=== PATIENT | male | born 1975 ===

== ENCOUNTER 2020-08-08 07:45 | Emergency (ER) | payer MEDICAID, SELFPAY ==
[2020-08-08 08:07] VITALS: BP 150/88; PULSE 93; RESP 16; TEMP 36.5; O2SAT 97; BMI 29.7
--- NOTE | 2020-08-08 08:42 | ED_ITS ---
HPI - Extremity Problem General Chief complaint: Extremity Injury, Lower Stated complaint: GOUT Time Seen by Provider: 08/08/20 08:10 Source: patient Mode of arrival: ambulatory Limitations: language barrier (Slovak-speaking) History of Present Illness HPI Narrative: 45yoM c PMHx of DM, HTN and Gout presenting to the ED c c/o flare-up of his gout to the left knee that started yesterday. Denies any injuries. Denies any additional complaints or concerns at this time. Related Data Previous Rx's Medication Instructions Recorded naproxen 500 mg PO BID PRN #10 tab 08/08/20 oxycodone-acetaminophen [Percocet] 1 tab PO Q8H PRN #10 tab 08/08/20 prednisone 40 mg PO DAILY 5 Days #10 tab 08/08/20 Allergies Allergy/AdvReac Type Severity Reaction Status Date / Time shellfish derived Allergy Unknown HIVES Unverified 06/12/20 17:07 [SHELLFISH DERIVED] shrimp [SHRIMP] Allergy Unknown HIVES Unverified 06/12/20 17:07 Review of Systems Review of Systems: Constitutional : No Fever, No Chills Musculoskeletal : + joint pain, + Joint Swelling Skin : No Skin Lesions, No rash Neuro : No Weakness, No Numbness, No Paresthesias Yes all other systems are reviewed and are negative PMFSH Past Medical History Attestation statement: The following information was validated with the patient. Medical History Gout HTN (hypertension) IDDM (insulin dependent diabetes mellitus) Social History Social History Advance Directives: No Advance Directives Information Provided: No Physical Exam Vital Signs: Vital Signs: Last Vital Signs Temp 97.7 F 08/08/20 08:07 Pulse 93 08/08/20 08:07 Resp 16 08/08/20 08:07 BP 150/88 H 08/08/20 08:07 Pulse Ox 97 08/08/20 08:07 Body Mass Index 29.7 vital signs have been reviewed as normal and appeared to be correct. Blood pressure normal. Heart rate normal. Respiration rate normal. Temperature normal. Oxygen saturation normal. Appearance: Alert. Oriented X3. No acute distress. Head: Normal external exam. Normocephalic. Atraumatic. Eyes: PERRLA. EOMI. Conjunctiva and sclera normal. Eyelids normal. ENT: EAC normal. TM's Normal. Pharynx normal. Uvula midline. Moist mucous membranes. Neck: Normal inspection. Neck supple. FROM. No adenopathy. No meningeal signs. CVS: Normal heart rate and rhythm. Heart sound normal. No murmurs noted. Pulses normal throughout. Respiratory: No respiratory distress. Painless inspiration. Back: Full range of motion noted. Skin: Skin warm and dry. Normal skin color. Normal skin turgor. No rashes/lesions/lacerations noted. Extremities: TTP of left lateral aspect of knee c mild sts no erythema, calor or signs of infection. No lower extremity edema. Extremities exhibit normal range of motion. all other Extremities nontender. Neuro: Oriented X 3. No motor deficit. No sensory deficit. Reflexes normal. Course Course Course Narrative: 45-year-old male with a past medical history of diabetes, hypertension and gout presenting to the ED for gout flare-up to the left lateral aspect of the knee for the past 2 days. No signs of infection. No imaging indicated at this time. Will DC home with a course of steroids naproxen and Percocet along with instructions to return if any new or worsening symptoms to follow-up with primary care provider. Patient understands agrees with this plan. MDM - Extremity (Nontraumatic) Medical Records Attestation: I reviewed the patient's medical records. Discharge Plan Discharge Clinical Impression: Gout Qualifiers: Gout site: knee Gout etiology: idiopathic Chronicity: acute Laterality: left Qualified Code(s): M10.062 - Idiopathic gout, left knee Patient Disposition: Home, Self-Care Instructions: Gout (ED) Prescriptions: New prednisone 20 mg tablet 40 mg PO DAILY 5 Days Qty: 10 RF: 0 naproxen 500 mg tablet 500 mg PO BID PRN (Reason: pain) Qty: 10 RF: 0 oxycodone-acetaminophen [Percocet] 5-325 mg tablet 1 tab PO Q8H PRN (Reason: pain) Qty: 10 RF: 0 Referrals: [facility] [Primary Care Provider] - 2 days Print Language: Slovak
[2020-08-08] MEDS: NaPROXEN 500 MG TABLET PO (08:53)
[2020-08-08] MEDS: predniSONE 20 MG TABLET 60 MG PO (08:53)
== END 2020-08-08 08:57 | disposition home or self-care (01) ==
PROVIDERS: Emergency Provider Emergency Medicine
DX: M10.062 Idiopathic gout, left knee (principal); Z79.899 Other long term (current) drug therapy
CPT/HCPCS: 99283

== ENCOUNTER 2020-08-12 09:25 | Outpatient (REF) | payer MEDICAID, SELFPAY ==
[2020-08-12 10:14] LABS: MANUAL DIFF FLAG NO
[2020-08-12 10:33] LABS: Basophils Absolute Auto 0.1 X10*3/uL (0.0-0.2); Basophils Percent Auto 1.1 % (0-2); Eosinophils Absolute Auto 0.2 X10*3/uL (0.0-0.4); Hematocrit 41.7 % (42-52); Hemoglobin 14.1 g/dl (14.0-18.0); Imm Gran Abs Auto 0.03 X10*3/uL (0.00-0.03); Imm Gran Pct Auto 0.6 % (0.0-0.4); Lymphocytes Absolute Auto 1.7 X10*3/uL (1.2-4.9); Lymphocytes Percent Auto 31.5 % (20-40); Mean Corpuscular HGB Conc 33.8 g/dl (31.0-36.0); Mean Corpuscular Hemoglobin 30.5 pg (27.0-33.0); Mean Corpuscular Volume 90.3 fL (80-98); Mean Platelet Volume 10.9 fL (9.4-12.4); Monocytes Absolute Auto 0.5 X10*3/uL (0.1-1.2); Monocytes Percent Auto 8.3 % (2-11); Neutrophils Percent Auto 55.5 % (45-73); Platelet Count 278 X10*3/uL (160-400); Red Blood Count 4.62 X10*6/uL (4.60-5.80); Red Cell Distribution Width 12.4 % (11.0-16.0); White Blood Count 5.4 X10*3/uL (4.8-10.8)
[2020-08-12 10:54] LABS: Glucose Urine UA NEG (NEG); Leukocyte Esterase Urine NEG (NEG); Nitrite Urine NEG (NEG); PH 5.5 (5.0-8.0); Specific Gravity - Urine >= 1.030 (1.005-1.025); Urine Blood TRACE (NEG); Urine Ketones NEG (NEG); Urine Protein 1+ MG/DL (NEG-TRACE)
[2020-08-12 10:58] LABS: Appearance Urine CLEAR; Color Urine YELLOW
[2020-08-12 11:10] LABS: Albumin Level 4.5 g/dL (3.5-5.0); Amorphous Sediment Urine 1+ /LPF; Mucus Urine 1+ /LPF; Phosphorus 3.4 mg/dL (2.7-4.5); RBC Urine 0-2 /HPF (0); Squamous Epithelial Cell Urine 1+ /LPF; Uric Acid 4.2 mg/dL (3.4-7.0); WBC Urine 0 /HPF (0-4)
[2020-08-12 11:12] LABS: Creatinine Urine 228.97 mg/dL; Microalbum/Creatinine Ratio Ur 199.1 ug/mg cr; Total Protein Urine Random 92 mg/dL (<12); Vitamin D 25-OH Total 24.8 ng/mL (>30)
[2020-08-12 11:13] LABS: Creatinine Urine 221.03 mg/dL; Protein/Creatinine Ratio, Ur 0.42 (<0.2); Total Protein Urine Random 93 mg/dL (<12)
[2020-08-12 12:39] LABS: Alanine Aminotransferase 24 U/L (0-40); Albumin Level 4.4 g/dL (3.5-5.0); Alkaline Phosphatase 65 U/L (39-117); Anion Gap 17 (12-20); Aspartate Amino Transferase 16 U/L (5-37); Bilirubin Direct 0.3 mg/dL (0.0-0.5); Bilirubin Total 0.7 mg/dL (0.0-1.0); Blood Urea Nitrogen 15 mg/dL (9-16); Calcium 8.9 mg/dL (8.4-10.2); Carbon Dioxide 26 mmol/L (22-29); Chloride 101 mmol/L (96-108); Cholesterol 144 mg/dL; Estimated Glomerular Filt Rate > 60; Glucose Random 235 mg/dL (60-115); HDL Cholesterol 35 mg/dL; LDL Cholesterol Calculated 77 mg/dl; Potassium 4.7 mmol/l (3.3-5.1); Sodium 139 mmol/L (135-145); Triglycerides 164 mg/dL
[2020-08-12 13:16] LABS: Renal w Reflex Lab Use Only Order verified
== END 2020-08-12 09:26 | disposition home or self-care (01) ==
LOC: HO.LAB 09:25
PROVIDERS: Absent Provider Internal Medicine Nephrology; PCP Internal Medicine; Visit Provider Student in an Organized Health Care Education/Training Program
DX: I10 Essential (primary) hypertension (principal); N05.9 Unspecified nephritic syndrome with unspecified morphologic changes; E11.9 Type 2 diabetes mellitus without complications; E83.42 Hypomagnesemia
CPT/HCPCS: 36415; 80048; 80061; 80076; 81001; 82040; 82043; 82306; 83735; 84100; 84156; 84550; 85025

== ENCOUNTER 2020-08-12 16:25 | Emergency (ER) | payer MEDICAID, SELFPAY ==
--- NOTE | 2020-08-12 | ECG_ITS ---
Test Reason : ABNORMAL LAB Blood Pressure : / mmHG Vent. Rate : 072 BPM Atrial Rate : 072 BPM P-R Int : 166 ms QRS Dur : 092 ms QT Int : 388 ms P-R-T Axes : 059 013 020 degrees QTc Int : 424 ms Normal sinus rhythm with sinus arrhythmia Normal ECG When compared with ECG of 04-JUN-2020 15:03, No significant change was found T wave amplitude has decreased in Anterior leads Referred By: Generic ED Physician Electronically Signed By:ALLI WILEY MD
[2020-08-12 16:48] VITALS: BP 156/82; PULSE 62; RESP 18; TEMP 37.4; O2SAT 98
[2020-08-12 19:31] VITALS: BP 148/84; PULSE 77; RESP 16; O2SAT 95
[2020-08-12 20:20] LABS: Basophils Absolute Auto 0.1 X10*3/uL (0.0-0.2); Basophils Percent Auto 0.9 % (0-2); Eosinophils Absolute Auto 0.1 X10*3/uL (0.0-0.4); Eosinophils Percent Auto 1.2 % (0-4); Hematocrit 40.4 % (42-52); Hemoglobin 13.7 g/dl (14.0-18.0); Imm Gran Abs Auto 0.01 X10*3/uL (0.00-0.03); Imm Gran Pct Auto 0.1 % (0.0-0.4); Lymphocytes Absolute Auto 2.3 X10*3/uL (1.2-4.9); Lymphocytes Percent Auto 29.6 % (20-40); MANUAL DIFF FLAG NO; Mean Corpuscular HGB Conc 33.9 g/dl (31.0-36.0); Mean Corpuscular Hemoglobin 30.8 pg (27.0-33.0); Mean Corpuscular Volume 90.8 fL (80-98); Mean Platelet Volume 10.5 fL (9.4-12.4); Monocytes Absolute Auto 0.6 X10*3/uL (0.1-1.2); Monocytes Percent Auto 7.5 % (2-11); Neutrophils Absolute Auto 4.6 X10*3/uL (2.0-8.3); Neutrophils Percent Auto 60.7 % (45-73); Platelet Count 276 X10*3/uL (160-400); Red Blood Count 4.45 X10*6/uL (4.60-5.80); Red Cell Distribution Width 12.4 % (11.0-16.0); White Blood Count 7.6 X10*3/uL (4.8-10.8)
--- NOTE | 2020-08-12 20:28 | PC.NURSE ---
pt arrives after outpatient labwork shows hypomag. pt is asymptomatic at this time. nsr on monitor. waiting on labwork. will continue to monitor.
[2020-08-12 20:33] VITALS: BP 138/67; PULSE 78; RESP 15; TEMP 37.1; O2SAT 97
[2020-08-12 20:55] LABS: Troponin-I High Sensitivity < 3.5 ng/L (<3.5-35.0)
[2020-08-12] MEDS: Magnesium Sulfate/H2O 2 GM/50 ML PIGGYBACK IV (21:01)
[2020-08-12 21:06] LABS: Magnesium 1.1 mg/dL (1.6-2.6)
[2020-08-12 21:07] LABS: Anion Gap 13 (12-20); Blood Urea Nitrogen 16 mg/dL (9-16); Calcium 9.2 mg/dL (8.4-10.2); Carbon Dioxide 28 mmol/L (22-29); Chloride 103 mmol/L (96-108); Creatinine Clr Calc Pharmacy 122.6; Estimated Glomerular Filt Rate > 60; Glucose Random 137 mg/dL (60-115); Potassium 4.4 mmol/l (3.3-5.1); Sodium 140 mmol/L (135-145)
--- NOTE | 2020-08-12 21:40 | ED.GENADULT ---
HPI - General Adult General Chief complaint: Recheck/Abnormal Lab/Rx Stated complaint: ABNORMAL LABS Time Seen by Provider: 08/12/20 20:08 Source: patient Mode of arrival: ambulatory Limitations: no limitations History of Present Illness HPI narrative: Patient comes to the emergency room complaining of low magnesium. Patient states he had a blood work done today and he was called at home and informed that his magnesium is low and he needs to come to the emergency room. Patient states he feels completely normal. Patient states he has had low magnesium in the past as well. Patient states that the initial time he had low magnesium was because he drank lot of alcohol, but denies drinking heavy amounts. Patient states he drinks socially every few weeks and does not binge drink. MD complaint: Hypomagnesemia Related Data Previous Rx's Medication Instructions Recorded naproxen 500 mg PO BID PRN #10 tab 08/08/20 oxycodone-acetaminophen [Percocet] 1 tab PO Q8H PRN #10 tab 08/08/20 prednisone 40 mg PO DAILY 5 Days #10 tab 08/08/20 magnesium sulfate 100 mg PO BID #60 cap 08/12/20 Allergies Allergy/AdvReac Type Severity Reaction Status Date / Time shellfish derived Allergy Unknown HIVES Verified 08/12/20 21:00 [SHELLFISH DERIVED] shrimp [SHRIMP] Allergy Unknown HIVES Verified 08/12/20 21:00 Review of Systems Review of Systems: Constitutional : No Weight loss, No Fever, No Chills, No Night Sweats, No Fatigue, No Malaise ENT/Mouth : No Hearing loss, No Ear Pain, No Nasal Congestion, No Sinus Pain, No Hoarseness, No sore throat, No Rhinorrhea, No Swallowing Difficulty Eyes: No Eye Pain, No Swelling, No Redness, No Foreign Body, No Discharge, No Vision Changes Cardiovascular : No Chest Pain, No SOB, No Dyspnea on Exertion, No Orthopnea, No Edema, No Palpitations Respiratory : No Cough, No Sputum, No Wheezing, No Smoke Exposure, No Dyspnea Gastrointestinal : No Nausea, No Vomiting, No Diarrhea, No Constipation, No abdominal Pain, No Hematochezia, No Melena Genitourinary : no irregular bleeding, No Dysuria, No Urinary Frequency, No Hematuria, No Urinary Incontinence, No Urgency, No Flank Pain, No Urinary Flow Changes, No Hesitancy Musculoskeletal : No joint pain, No Myalgias, No Joint Swelling Skin : No Skin Lesions, No rash Neuro : No Weakness, No Numbness, No Paresthesias, No Loss of Consciousness, No Dizziness, No Headache Psych : No Anxiety/Panic, No Depression, No SI/HI/AH/VH, No Social Issues, Heme/Lymph: No Bruising, No Bleeding,No Lymphadenopathy Endocrine : No Polyuria, No Polydipsia, No Temperature Intolerance [facility] Past Medical History Medical History (Updated 08/12/20 @ 23:56 by Bette Dickerson MD) Gout HTN (hypertension) Hypomagnesemia IDDM (insulin dependent diabetes mellitus) Social History Social History Advance Directives: No Advance Directives Information Provided: Yes Physical Exam Vital Signs: Vital Signs: Last Vital Signs Temp 97.9 F 08/12/20 22:00 Pulse 70 08/12/20 22:00 Resp 16 08/12/20 22:00 BP 146/71 H 08/12/20 22:00 Pulse Ox 99 08/12/20 22:00 Body Mass Index 30.0 Appearance: Alert. Oriented X3. No acute distress. Eyes: Pupils equal, round and reactive to light. ENT: Pharynx normal. Neck: Normal inspection. Neck supple. No lymph nodes noted. No crepitus CVS: Normal heart rate and rhythm. Pulses normal. Normal S1 and S2 Respiratory: No respiratory distress. Breath sounds normal. No Wheezing. No rales Abdomen: Soft and nontender. No rigidity. No distention. good BS x4 Skin: Skin warm and dry. Normal skin color. Normal skin turgor. Extremities: No lower extremity edema. No lower extremity edema. No Lacerations. No Rash Neuro: Oriented X 3. No motor deficit. No sensory deficit. Moving all extermities. No slurred speech. Course Course Course Narrative: Patient's magnesium was repleted with IV magnesium. Repeat magnesium 2.0. Patient will use oral magnesium at home and follow-up with primary care physician. Patient remained asymptomatic Medical Decision Making Lab Data Result diagrams: 08/12/20 20:15 08/12/20 20:15 Labs: Lab Results 08/12/20 08/12/20 08/12/20 Range/Units 20:15 20:15 20:15 WBC 7.6 (4.8-10.8) X10*3/uL RBC 4.45 L (4.60-5.80) X10*6/uL Hgb 13.7 L (14.0-18.0) g/dl Hct 40.4 L (42-52) % MCV 90.8 (80-98) fL MCH 30.8 (27.0-33.0) pg MCHC 33.9 (31.0-36.0) g/dl RDW 12.4 (11.0-16.0) % Plt Count 276 (160-400) X10*3/uL MPV 10.5 (9.4-12.4) fL Immature Gran % (Auto) 0.1 (0.0-0.4) % Neut % (Auto) 60.7 (45-73) % Lymph % (Auto) 29.6 (20-40) % [place] % (Auto) 7.5 (2-11) % Eos % (Auto) 1.2 (0-4) % Baso % (Auto) 0.9 (0-2) % Lymph # (Auto) 2.3 (1.2-4.9) X10*3/uL [place] # (Auto) 0.6 (0.1-1.2) X10*3/uL Eos # (Auto) 0.1 (0.0-0.4) X10*3/uL Baso # (Auto) 0.1 (0.0-0.2) X10*3/uL Abs Immat Gran (auto) 0.01 (0.00-0.03) X10*3/uL Absolute Neuts (auto) 4.6 (2.0-8.3) X10*3/uL Absolute Nucleated RBC 0.000 (0.0-0.012) X10*3/uL Nucleated RBC % (auto) 0.0 (0.0-0.2) /100WBC Sodium 140 (135-145) mmol/L Potassium 4.4 (3.3-5.1) mmol/l Chloride 103 (96-108) mmol/L Carbon Dioxide 28 (22-29) mmol/L Anion Gap 13 (12-20) BUN 16 (9-16) mg/dL Creatinine 0.81 (0.5-1.4) mg/dL Estim Creat Clear Calc 122.6 Estimated GFR > 60 Random Glucose 137 H D (60-115) mg/dL Calcium 9.2 (8.4-10.2) mg/dL Magnesium 1.1 L* (1.6-2.6) mg/dL Troponin I High Sens < 3.5 (<3.5-35.0) ng/L 08/12/20 Range/Units 22:23 WBC (4.8-10.8) X10*3/uL RBC (4.60-5.80) X10*6/uL Hgb (14.0-18.0) g/dl Hct (42-52) % MCV (80-98) fL MCH (27.0-33.0) pg MCHC (31.0-36.0) g/dl RDW (11.0-16.0) % Plt Count (160-400) X10*3/uL MPV (9.4-12.4) fL Immature Gran % (Auto) (0.0-0.4) % Neut % (Auto) (45-73) % Lymph % (Auto) (20-40) % [place] % (Auto) (2-11) % Eos % (Auto) (0-4) % Baso % (Auto) (0-2) % Lymph # (Auto) (1.2-4.9) X10*3/uL [place] # (Auto) (0.1-1.2) X10*3/uL Eos # (Auto) (0.0-0.4) X10*3/uL Baso # (Auto) (0.0-0.2) X10*3/uL Abs Immat Gran (auto) (0.00-0.03) X10*3/uL Absolute Neuts (auto) (2.0-8.3) X10*3/uL Absolute Nucleated RBC (0.0-0.012) X10*3/uL Nucleated RBC % (auto) (0.0-0.2) /100WBC Sodium (135-145) mmol/L Potassium (3.3-5.1) mmol/l Chloride (96-108) mmol/L Carbon Dioxide (22-29) mmol/L Anion Gap (12-20) BUN (9-16) mg/dL Creatinine (0.5-1.4) mg/dL Estim Creat Clear Calc Estimated GFR Random Glucose (60-115) mg/dL Calcium (8.4-10.2) mg/dL Magnesium 2.0 (1.6-2.6) mg/dL Troponin I High Sens (<3.5-35.0) ng/L Discharge Plan Discharge Clinical Impression: Hypomagnesemia Patient Disposition: Home, Self-Care Instructions: Hypomagnesemia (ED) Additional Instructions: Please follow-up with your primary care physician tomorrow. If you have any worsening or new symptoms, please return to the emergency room or call 911 Prescriptions: New magnesium sulfate 100 mg capsule 100 mg PO BID Qty: 60 RF: 0 No Action prednisone 20 mg tablet 40 mg PO DAILY 5 Days Qty: 10 RF: 0 naproxen 500 mg tablet 500 mg PO BID PRN (Reason: pain) Qty: 10 RF: 0 oxycodone-acetaminophen [Percocet] 5-325 mg tablet 1 tab PO Q8H PRN (Reason: pain) Qty: 10 RF: 0
[2020-08-12 22:00] VITALS: BP 146/71; PULSE 70; RESP 16; TEMP 36.6; O2SAT 99
[2020-08-13] VITALS: BP 147/74; PULSE 72; RESP 18; TEMP 36.7; O2SAT 98
== END 2020-08-13 00:17 | disposition home or self-care (01) ==
PROVIDERS: Emergency Provider Emergency Medicine
DX: E83.42 Hypomagnesemia (principal); E11.9 Type 2 diabetes mellitus without complications; R79.89 Other specified abnormal findings of blood chemistry; Z79.899 Other long term (current) drug therapy
CPT/HCPCS: 36415; 80048; 83735; 84484; 85025; 93005; 99284; J3475

== ENCOUNTER → 2020-08-14 08:10 | Outpatient (BNVA) | payer SELFPAY | PROVIDERS: Visit Provider Internal Medicine ==

== ENCOUNTER 2020-09-22 09:23 | Emergency (ER) | payer MEDICAID, SELFPAY ==
[2020-09-22 09:32] VITALS: BP 135/72; PULSE 83; RESP 16; TEMP 37; O2SAT 99; BMI 29.6
--- NOTE | 2020-09-22 09:43 | ED.GENADULT ---
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 No injury or trauma. The patient tells me he has as a history of multiple gout flares and this pain feels similar. No fevers, chills, redness, swelling, warmth. Patient also tells me that he has a history of having a low potassium and magnesium. He normally feels generally weak when this happens. He feels weak today and would like labs to be checked. He denies any chest pain, shortness of breath, vomiting, diarrhea. Onset (ago): day(s) Location: left and lower extremity (foot) Radiation: non-radiation Severity: moderate Quality: burning Pain Consistency: constant Relieving factors: none Exacerbating factors: none Associated symptoms: denies other symptoms Treatments prior to arrival: none Related Data Previous Rx's Medication Instructions Recorded naproxen 500 mg PO BID PRN #10 tab 08/08/20 oxycodone-acetaminophen [Percocet] 1 tab PO Q8H PRN #10 tab 08/08/20 prednisone 40 mg PO DAILY 5 Days #10 tab 08/08/20 magnesium sulfate 100 mg PO BID #60 cap 08/12/20 hydrocodone-acetaminophen 1 tab PO QID PRN #10 tab 09/22/20 magnesium oxide 400 mg PO DAILY #30 tab 09/22/20 prednisone 40 mg PO DAILY #10 tab 09/22/20 Allergies Allergy/AdvReac Type Severity Reaction Status Date / Time shellfish derived Allergy Unknown HIVES Verified 08/12/20 21:00 [SHELLFISH DERIVED] shrimp [SHRIMP] Allergy Unknown HIVES Verified 08/12/20 21:00 Review of Systems Review of Systems: Yes all other systems are reviewed and are negative Constitutional: Constitutional: Reports no additional constitutional complaints, Denies body ache(s), Denies chills, Denies fever(s), Denies headache(s) and Denies weakness Eyes: Eyes: Reports no additional eye complaints and Denies change in vision ENT: Reports system reviewed and no additional complaints, except as documented, Denies dizziness, Denies headache(s), Denies nasal congestion, Denies nasal discharge and Denies neck pain Cardiovascular: Cardiovascular: Reports no additional cardiovascular complaints, Denies chest pain, Denies leg edema and Denies dyspnea Respiratory: Respiratory: Reports no additional respiratory complaints, Denies cough and Denies dyspnea Gastrointestinal: Gastrointestinal: Reports no additional gastrointestinal complaints, Denies abdominal pain, Denies diarrhea, Denies nausea and Denies vomiting Genitourinary: Genitourinary: Denies urinary incontinence Musculoskeletal: Musculoskeletal: Reports no additional musculoskeletal complaints, Denies back pain, Reports arthralgias, Denies joint swelling, Denies neck pain, Denies numbness and Denies tingling Integumentary/Breasts: Skin/Breast: Reports system reviewed and no additional complaints, except as docu and Denies rash Neurologic: Reports system reviewed and no additional complaints, except as documented, Denies Abnormal speech present, Denies dizziness, Denies headache(s), Denies numbness, Denies tingling and Denies weakness PMFSH Past Medical History Attestation statement: The following information was validated with the patient. Source: old records reviewed and nursing notes reviewed Medical History Gout HTN (hypertension) Hypomagnesemia IDDM (insulin dependent diabetes mellitus) Social History Social History Alcohol intake: never Smoking Status: Never smoker Use of substances other than those prescribed or required for medical reasons: No Advance Directives: No Advance Directives Information Provided: Yes Physical Exam Vital Signs: Vital Signs: Last Vital Signs Temp 97.8 F 09/22/20 13:26 Pulse 79 09/22/20 13:26 Resp 16 09/22/20 13:26 BP 139/75 09/22/20 13:26 Pulse Ox 99 09/22/20 13:26 Body Mass Index 29.6 Const: General: cooperative, healthy appearing, comfortable and no acute distress Orientation/consciousness: patient oriented x3 Limitations: no limitations HENMT: Head: Yes normal to inspection Ears: hearing grossly normal bilaterally General nose exam: Normal external nose present Face and sinus: Yes normal facial exam Mouth: Normal oral and palatal mucosa present Throat: Yes posterior oropharynx normal Eyes: General: appearance normal, both eyes and all related structures Pupils: Equal, round and reactive pupils present Neck: Neck: Yes normal visual inspection Chest: Chest palpation & inspection: normal inspection of the chest Resp: Effort & Inspection: normal respiratory effort Auscultation: clear to auscultation bilaterally Cardio: Rate: regular rate Rhythm: regular rhythm Peripheral pulses: Peripheral pulses 2+ throughout GI: Inspection: Yes normal to inspection Palpation (GI): Soft to palpation and nontender Auscultation: normal bowel sounds Back/Spine/Pelvis: Thoracic/Lumbar Spine: thoracic and lumbar spine normal to inspection Skin: General skin exam: no rashes or lesions noted Neuro: General: patient oriented x3, no focal motor deficits and normal sensation to monofilament Cranial nerves: Yes Equal, round and reactive pupils present Cognition (Neuro): normal cognition Speech: No Abnormal speech present Gait exam (Neuro): Normal gait present Motor exam (neuro): 5/5 motor strength present throughout Extrem: Other: The left lateral foot there is some tenderness. There is no obvious swelling, deformity, bruising or warmth or redness. General: Yes normal to inspection Course Course Course Narrative: Left foot pain which feels similar to previous gout flares. No trauma as the imaging is warranted. Patient tells me in the past he says pain has improved with anti-inflammatories and prednisone. Of note, the patient is feeling generally weak and tells me he has a history of low potassium and magnesium levels. He also would like his labs to be checked as he feels weak today. Will check labs. 1100-MG 1.2 Appears chronically low. Patient denies supplements, h/o alcohol use may be secondary to this. Will give replacement IV. 1215-all other labs unremarkable. Will send home with magnesium supplements. For gout will treat with short course prednisone. Patient does take insulin but tells me his blood sugar is normally well controlled. He will adjust his insulin dose based on his blood sugars. He is aware they will be slightly elevated from the prednisone. Reviewed worrisome signs and symptoms and when to return to the emergency department. Comfortable discharge home. Medical Decision Making Medical Records Medical records reviewed: Yes I reviewed the patient's medical records. Lab Data Lab results reviewed: Yes I reviewed the patient's lab results. Result diagrams: 09/22/20 10:20 12/28/20 10:20 Labs: Lab Results 09/22/20 09/22/20 Range/Units 10:20 10:20 WBC 5.6 (4.8-10.8) X10*3/uL RBC 4.59 L (4.60-5.80) X10*6/uL Hgb 14.0 (14.0-18.0) g/dl Hct 41.5 L (42-52) % MCV 90.4 (80-98) fL MCH 30.5 (27.0-33.0) pg MCHC 33.7 (31.0-36.0) g/dl RDW 12.7 (11.0-16.0) % Plt Count 247 (160-400) X10*3/uL MPV 10.3 (9.4-12.4) fL Immature Gran % (Auto) 0.4 (0.0-0.4) % Neut % (Auto) 63.9 (45-73) % Lymph % (Auto) 23.7 (20-40) % [place] % (Auto) 7.9 (2-11) % Eos % (Auto) 3.0 (0-4) % Baso % (Auto) 1.1 (0-2) % Lymph # (Auto) 1.3 (1.2-4.9) X10*3/uL [place] # (Auto) 0.4 (0.1-1.2) X10*3/uL Eos # (Auto) 0.2 (0.0-0.4) X10*3/uL Baso # (Auto) 0.1 (0.0-0.2) X10*3/uL Abs Immat Gran (auto) 0.02 (0.00-0.03) X10*3/uL Absolute Neuts (auto) 3.6 (2.0-8.3) X10*3/uL Absolute Nucleated RBC 0.000 (0.0-0.012) X10*3/uL Nucleated RBC % (auto) 0.0 (0.0-0.2) /100WBC Sodium 138 (135-145) mmol/L Potassium 4.8 (3.3-5.1) mmol/l Chloride 102 (96-108) mmol/L Carbon Dioxide 29 (22-29) mmol/L Anion Gap 12 (12-20) BUN 15 (9-16) mg/dL Creatinine 0.77 (0.5-1.4) mg/dL Estim Creat Clear Calc 128.0 Estimated GFR > 60 Random Glucose 191 H D (60-115) mg/dL Calcium 8.8 (8.4-10.2) mg/dL Magnesium 1.2 L* (1.6-2.6) mg/dL Total Bilirubin 0.8 (0.0-1.0) mg/dL Direct Bilirubin 0.4 (0.0-0.5) mg/dL AST 15 (5-37) U/L ALT 24 (0-40) U/L Alkaline Phosphatase 62 (39-117) U/L Total Protein 6.7 (6.5-8.0) g/dL Albumin 4.3 (3.5-5.0) g/dL ECG Data Attestation: I personally reviewed and interpreted this ECG as follows: Interpretation: NSR rate 66, normal pr, norml qrs, normal qt Discharge Plan Discharge Clinical Impression: Gout, Hypomagnesemia Patient Disposition: Home, Self-Care Instructions: Low Purine Diet (ED), Gout (ED), Hypomagnesemia (ED) Additional Instructions: Follow gout diet, see instructions Avoid alcohol Eat foods rich in magnesium Call your PCP as they might need to adjust your gout medications Prescriptions: New magnesium oxide 400 mg magnesium tablet 400 mg PO DAILY Qty: 30 RF: 0 prednisone 20 mg tablet 40 mg PO DAILY Qty: 10 RF: 0 hydrocodone-acetaminophen 5-300 mg tablet 1 tab PO QID PRN (Reason: pain) Qty: 10 RF: 0 No Action magnesium sulfate 100 mg capsule 100 mg PO BID Qty: 60 RF: 0 prednisone 20 mg tablet 40 mg PO DAILY 5 Days Qty: 10 RF: 0 naproxen 500 mg tablet 500 mg PO BID PRN (Reason: pain) Qty: 10 RF: 0 oxycodone-acetaminophen [Percocet] 5-325 mg tablet 1 tab PO Q8H PRN (Reason: pain) Qty: 10 RF: 0 Referrals: Antoinette Tobias MD [Primary Care Provider] - 2 days Interventions: ED Discharge Assessment Last Done: 09/22/20 13:29 Discharge Date/Time: 09/22/20 13:30 Print Language: Slovenian
[2020-09-22 10:26] LABS: Basophils Absolute Auto 0.1 X10*3/uL (0.0-0.2); Basophils Percent Auto 1.1 % (0-2); Eosinophils Absolute Auto 0.2 X10*3/uL (0.0-0.4); Hematocrit 41.5 % (42-52); Imm Gran Abs Auto 0.02 X10*3/uL (0.00-0.03); Imm Gran Pct Auto 0.4 % (0.0-0.4); Lymphocytes Absolute Auto 1.3 X10*3/uL (1.2-4.9); Lymphocytes Percent Auto 23.7 % (20-40); MANUAL DIFF FLAG NO; Mean Corpuscular HGB Conc 33.7 g/dl (31.0-36.0); Mean Corpuscular Hemoglobin 30.5 pg (27.0-33.0); Mean Corpuscular Volume 90.4 fL (80-98); Mean Platelet Volume 10.3 fL (9.4-12.4); Monocytes Absolute Auto 0.4 X10*3/uL (0.1-1.2); Monocytes Percent Auto 7.9 % (2-11); Neutrophils Absolute Auto 3.6 X10*3/uL (2.0-8.3); Neutrophils Percent Auto 63.9 % (45-73); Platelet Count 247 X10*3/uL (160-400); Red Blood Count 4.59 X10*6/uL (4.60-5.80); Red Cell Distribution Width 12.7 % (11.0-16.0); White Blood Count 5.6 X10*3/uL (4.8-10.8)
[2020-09-22 10:57] LABS: Alanine Aminotransferase 24 U/L (0-40); Albumin Level 4.3 g/dL (3.5-5.0); Alkaline Phosphatase 62 U/L (39-117); Anion Gap 12 (12-20); Aspartate Amino Transferase 15 U/L (5-37); Bilirubin Direct 0.4 mg/dL (0.0-0.5); Bilirubin Total 0.8 mg/dL (0.0-1.0); Blood Urea Nitrogen 15 mg/dL (9-16); Calcium 8.8 mg/dL (8.4-10.2); Carbon Dioxide 29 mmol/L (22-29); Chloride 102 mmol/L (96-108); Estimated Glomerular Filt Rate > 60; Glucose Random 191 mg/dL (60-115); Magnesium 1.2 mg/dL (1.6-2.6); Potassium 4.8 mmol/l (3.3-5.1); Sodium 138 mmol/L (135-145); Total Protein 6.7 g/dL (6.5-8.0)
--- NOTE | 2020-09-22 11:01 | ECG_ITS ---
Test Reason : EXTREMITY Blood Pressure : / mmHG Vent. Rate : 066 BPM Atrial Rate : 066 BPM P-R Int : 160 ms QRS Dur : 090 ms QT Int : 404 ms P-R-T Axes : 035 013 030 degrees QTc Int : 423 ms Normal sinus rhythm Normal ECG When compared with ECG of 12-AUG-2020 20:29, No significant change was found Referred By: Meche Rosales Electronically Signed By:MARLEEN MONDRAGON
[2020-09-22] MEDS: Magnesium Sulfate/H2O 2 GM/50 ML PIGGYBACK IV (11:30)
[2020-09-22 13:26] VITALS: BP 139/75; PULSE 79; RESP 16; TEMP 36.6; O2SAT 99
--- NOTE | 2020-09-22 13:28 | PC.NURSE ---
iv med infused w/o apparent incident
== END 2020-09-22 13:30 | disposition home or self-care (01) ==
LOC: HO.ED 09:52
PROVIDERS: Nurse Practitioner Family; Emergency Provider Emergency Medicine Emergency Medical Services; PCP Internal Medicine
DX: M10.9 Gout, unspecified (principal); E83.42 Hypomagnesemia; I10 Essential (primary) hypertension; Z79.899 Other long term (current) drug therapy
CPT/HCPCS: 36415; 80048; 80076; 83735; 85025; 93005; 96365; 96366; 99284; J3475

== ENCOUNTER 2020-12-29 08:20 | Emergency (ER) | payer MEDICAID, SELFPAY ==
[2020-12-29 08:29] VITALS: BP 159/77; PULSE 85; RESP 18; TEMP 36.3; O2SAT 97; BMI 26.6
--- NOTE | 2020-12-29 09:07 | ED.GENADULT ---
HPI - General Adult General Chief complaint: Headache <SRI Mccoy - Last Filed: 12/29/20 09:42> Stated complaint: HBP, headache <SRI Mccoy - Last Filed: 12/29/20 09:42> Time Seen by Provider: 12/29/20 09:06 <SRI Mccoy Last Filed: 12/29/20 09:42> Source: patient <SRI Mccoy Last Filed: 12/29/20 09:42> Mode of arrival: ambulatory <SRI Mccoy Last Filed: 12/29/20 09:42> Limitations: no limitations <SRI Mccoy Last Filed: 12/29/20 09:42> History of Present Illness HPI narrative: 45 y/o male with history of gout, IDDM, HTN who presents to the ED with mild right sided headache since Tuesday. He just returned from [place] last week and had a negative COVID test on . He states the headache is mild but worsens with light and loud noise. He has not taken any medications for the headache. He monitors his blood pressure at home and reports that it was elevated 160/90 so he came to the ER for evaluation. He denies chest pain, vision changes. BP on arrival 150/70's. Repeated 140's/70's. He reports this is his usual BP range. He was last seen by his PCP for sleeping issues and his BP was 140/70's. <SRI Mccoy Last Filed: 12/29/20 09:42> MD complaint: headache <SRI Mccoy Last Filed: 12/29/20 09:42> Onset (ago): day(s) (3) <SRI Mccoy - Last Filed: 12/29/20 09:42> Location: head <SRI Mccoy Last Filed: 12/29/20 09:42> Radiation: non-radiation <SRI Mccoy Last Filed: 12/29/20 09:42> Severity: mild <SRI Mccoy Last Filed: 12/29/20 09:42> Severity scale (1-10): 3 <SRI Mccoy Last Filed: 12/29/20 09:42> Quality: aching <SRI Mccoy Last Filed: 12/29/20 09:42> Pain Consistency: intermittent <SRI Mccoy Last Filed: 12/29/20 09:42> Relieving factors: none <SRI Mccoy Last Filed: 12/29/20 09:42> Exacerbating factors: other (light & noise ) <SRI Mccoy Last Filed: 12/29/20 09:42> Associated symptoms: denies other symptoms <SRI Mccoy Last Filed: 12/29/20 09:42> Treatments prior to arrival: none <SRI Mccoy Last Filed: 12/29/20 09:42> Related Data Home medications: Previous Rx's Medication Instructions Recorded naproxen 500 mg PO BID PRN #10 tab 08/08/20 oxycodone-acetaminophen [Percocet] 1 tab PO Q8H PRN #10 tab 08/08/20 prednisone 40 mg PO DAILY 5 Days #10 tab 08/08/20 magnesium sulfate 100 mg PO BID #60 cap 08/12/20 hydrocodone-acetaminophen 1 tab PO QID PRN #10 tab 09/22/20 magnesium oxide 400 mg PO DAILY #30 tab 09/22/20 prednisone 40 mg PO DAILY #10 tab 09/22/20 <SRI Mccoy Last Filed: 12/29/20 09:42> Allergies/adverse reactions: Allergies Allergy/AdvReac Type Severity Reaction Status Date / Time shellfish derived Allergy Unknown HIVES Verified 08/12/20 21:00 [SHELLFISH DERIVED] shrimp [SHRIMP] Allergy Unknown HIVES Verified 08/12/20 21:00 <SRI Mccoy Last Filed: 12/29/20 09:42> Review of Systems Review of Systems: Constitutional: No Fever, No Chills Eyes: No Eye Pain, No Swelling, No Redness Cardiovascular: No Chest Pain, No SOB, No Orthopnea, No Edema Respiratory: No Cough, No Sputum Gastrointestinal: No Nausea, No Vomiting, No abdominal Pain Musculoskeletal: No joint pain, No Myalgias Skin: No Skin Lesions, No rash Neuro: No Weakness, No Numbness, No Dizziness, + Headache Psych: No Anxiety/Panic <SRI Mccoy - Last Filed: 12/29/20 09:42> [facility] Past Medical History Attestation statement: The following information was validated with the patient. <SRI Mccoy - Last Filed: 12/29/20 09:42> Medical History: Medical History Gout HTN (hypertension) Hypomagnesemia IDDM (insulin dependent diabetes mellitus) <SRI Mccoy - Last Filed: 12/29/20 09:42> Surgical History: Surgical History No significant past surgical history <SRI Mccoy - Last Filed: 12/29/20 09:42> Social History Social History: Social History Alcohol intake: never Smoking Status: Never smoker Smoked in Last 30 Days: No Use of substances other than those prescribed or required for medical reasons: No Advance Directives: No <SRI Mccoy - Last Filed: 12/29/20 09:42> Physical Exam Vital Signs: Vital Signs: Last Vital Signs Temp 97.3 F 12/29/20 08:29 Pulse 85 12/29/20 08:29 Resp 18 12/29/20 08:29 BP 159/77 H 12/29/20 08:29 Pulse Ox 97 12/29/20 08:29 Body Mass Index 26.6 Appearance: Alert. Oriented X3. No acute distress. Eyes: Pupils equal, round and reactive to light. ENT: Pharynx normal. Neck: Normal inspection. Neck supple. CVS: Normal heart rate and rhythm. Pulses normal. Respiratory: No respiratory distress. Breath sounds normal. Abdomen: Soft and nontender. +BS x4 Skin: Skin warm and dry. Normal skin color. Normal skin turgor. No rashes. Extremities: No lower extremity edema. Neuro: Oriented X 3. No motor deficit. No sensory deficit. <SRI Mccoy Last Filed: 12/29/20 09:42> Vital Signs: Last Vital Signs Temp 97.3 F 12/29/20 08:29 Pulse 85 12/29/20 08:29 Resp 18 12/29/20 08:29 BP 159/77 H 12/29/20 08:29 Pulse Ox 97 12/29/20 08:29 Body Mass Index 26.6 <Jakub Askew MD - Last Filed: 01/12/21 14:28> Course Course Course Narrative: 45 y/o male presenting with mild headache and mildly elevated BP. He took his morning BP meds, his BP improved from 160's systolic at home to 140's here. His headache is mild, right sided with photophobia and sound sensitivity. Doubt his headache is related to hypertensive urgency or crisis. His exam is non-focal and he has no chest pain. He appears well. Will give 1,000 mg Tylenol for headache and reassess. <SRI Mccoy - Last Filed: 12/29/20 09:42> I have reviewed the chart <Jakub Askew MD - Last Filed: 01/12/21 14:28> Reevaluation(s) Reevaluation #1: Headache is mild. His BP is 140/70's. He is stable for discharge from the ER with plans to follow up with his provider this week. He was instructed to return to the ER if he develops worsening headache, chest pain, vision changes. Stable for d/c. <SRI Mccoy - Last Filed: 12/29/20 09:42> Critical Care Time Critical Care Time Critical Care Time: No <SRI Mccoy - Last Filed: 12/29/20 09:42> Discharge Plan Discharge Clinical Impression: Headache HTN (hypertension) Qualifiers: Hypertension type: essential hypertension Qualified Code(s): I10 - Essential (primary) hypertension <SRI Mccoy - Last Filed: 12/29/20 09:42> Patient Disposition: Home, Self-Care <SRI Mccoy - Last Filed: 12/29/20 09:42> Instructions: Acute Headache (ED), Low-Sodium Diet (ED), Hypertension and Diabetes (ED) <SRI Mccoy - Last Filed: 12/29/20 09:42> Additional Instructions: Your blood pressure is elevated but not at a dangerous level. It is unlikely that there is a relation to your blood pressure and your headache. Recommend keeping track of your blood pressure and following up with your doctor this week. You may benefit from medication adjustments by your doctor. No emergent need to do this today. Recommend Tylenol 1,000 mg every 6 hours as needed for your headache. If your headache worsens or if you develop chest pain, vision changes or any other concerning symptom come back to the ER for further evaluation. <SRI Mccoy - Last Filed: 12/29/20 09:42> Prescriptions: No Action magnesium sulfate 100 mg capsule 100 mg PO BID Qty: 60 RF: 0 magnesium oxide 400 mg magnesium tablet 400 mg PO DAILY Qty: 30 RF: 0 prednisone 20 mg tablet 40 mg PO DAILY Qty: 10 RF: 0 hydrocodone-acetaminophen 5-300 mg tablet 1 tab PO QID PRN (Reason: pain) Qty: 10 RF: 0 prednisone 20 mg tablet 40 mg PO DAILY 5 Days Qty: 10 RF: 0 naproxen 500 mg tablet 500 mg PO BID PRN (Reason: pain) Qty: 10 RF: 0 oxycodone-acetaminophen [Percocet] 5-325 mg tablet 1 tab PO Q8H PRN (Reason: pain) Qty: 10 RF: 0 <SRI Mccoy - Last Filed: 12/29/20 09:42> Interventions: ED Discharge Assessment Last Done: 12/29/20 09:43 <SRI Mccoy - Last Filed: 12/29/20 09:42> Discharge Date/Time: 12/29/20 09:44 <SRI Mccoy - Last Filed: 12/29/20 09:42>
[2020-12-29] MEDS: Acetaminophen 325 MG TABLET 975 MG PO (09:27)
== END 2020-12-29 09:44 | disposition home or self-care (01) ==
PROVIDERS: Emergency Provider Emergency Medicine; PCP Internal Medicine
DX: I10 Essential (primary) hypertension (principal); R51.9 Headache, unspecified; E11.9 Type 2 diabetes mellitus without complications; Z79.4 Long term (current) use of insulin
CPT/HCPCS: 99283

== ENCOUNTER 2021-01-04 14:51 | Emergency (ER) | payer MEDICAID, SELFPAY ==
[2021-01-04 15:10] VITALS: BP 148/81; PULSE 92; RESP 18; TEMP 37.4; O2SAT 96; BMI 26.6
--- NOTE | 2021-01-04 15:56 | PC.NURSE ---
Addendum entered by Christine Hutchinson RN 01/04/21 15:57: registration stated they saw the patient leave and documented the time he did so Original Note: patient was called to go to [facility] but did not respond.
== END 2021-01-04 15:29 | disposition left against medical advice (07) ==
PROVIDERS: Emergency Provider Emergency Medicine; PCP Internal Medicine
DX: R11.10 Vomiting, unspecified (principal); R19.7 Diarrhea, unspecified; Z86.16 Personal history of COVID-19
CPT/HCPCS: 99281; 99283

== ENCOUNTER 2021-05-25 14:28 | Emergency (ER) | payer MEDICAID, SELFPAY | END 2021-05-25 15:52 | disposition left against medical advice (07) | PROVIDERS: Emergency Provider Emergency Medicine; PCP Internal Medicine | DX: R51.9 Headache, unspecified (principal); R05 Cough ==

== ENCOUNTER 2021-06-10 21:08 | Emergency (ER) | payer MEDICAID, SELFPAY ==
[2021-06-10 21:57] VITALS: BP 138/77; PULSE 94; RESP 18; TEMP 36.8; O2SAT 99; BMI 27.1
--- NOTE | 2021-06-10 22:29 | ED_ITS ---
HPI - General Adult General Chief complaint: General Medical Stated complaint: vomiting blood Time Seen by Provider: 06/10/21 22:29 Source: patient Mode of arrival: ambulatory Limitations: no limitations History of Present Illness HPI narrative: Patient history of gastritis no bleeding ulcer had endoscopy done 2 years ago taking Pepcid daily comes here for 1 week of heartburn feeling and today he vomited 2 times initial vomitus was clear in 2nd vomiting in the last part had some blood streaks. Patient denies any melena. Patient had few alcohol drinks without eating much all day today. As such patient is feeling fine no dizziness no significant abdominal pain no actively vomiting in the ER Related Data Previous Rx's Medication Instructions Recorded naproxen 500 mg tablet 500 mg PO BID PRN #10 tab 08/08/20 oxycodone-acetaminophen 5 mg-325 1 tab PO Q8H PRN #10 tab 08/08/20 mg tablet (Percocet) prednisone 20 mg tablet 40 mg PO DAILY 5 Days #10 tab 08/08/20 magnesium sulfate 100 mg capsule 100 mg PO BID #60 cap 08/12/20 hydrocodone 5 mg-acetaminophen 300 1 tab PO QID PRN #10 tab 09/22/20 mg tablet magnesium oxide 400 mg PO DAILY #30 tab 09/22/20 prednisone 20 mg tablet 40 mg PO DAILY #10 tab 09/22/20 pantoprazole 40 mg tablet,delayed 40 mg PO DAILY #30 tab 06/10/21 release (Protonix) sucralfate 1 gram tablet 1 g PO TID #90 tab 06/10/21 Allergies Allergy/AdvReac Type Severity Reaction Status Date / Time shellfish derived Allergy Unknown HIVES Verified 06/10/21 21:57 [SHELLFISH DERIVED] shrimp [SHRIMP] Allergy Unknown HIVES Verified 08/12/20 21:00 Review of Systems Review of Systems: Yes all other systems are reviewed and are negative PMFSH Past Medical History Medical History GERD (gastroesophageal reflux disease) Gout HTN (hypertension) Hypomagnesemia IDDM (insulin dependent diabetes mellitus) Social History Social History Alcohol intake: never Advance Directives: No Advance Directives Information Provided: No Physical Exam Vital Signs: Vital Signs: Last Vital Signs Temp 98.2 F 06/10/21 21:57 Pulse 94 06/10/21 21:57 Resp 18 06/10/21 21:57 BP 138/77 06/10/21 21:57 Pulse Ox 99 06/10/21 21:57 Body Mass Index 27.1 Appearance: Alert. Oriented X3. No acute distress. Eyes: No pallor or icterus ENT: Pharynx normal. Oral Mucosa moist Neck: Normal inspection. Neck supple. CVS: Normal heart rate and rhythm. Pulses normal. Respiratory: No respiratory distress. Equal air entry bilateral, Abdomen: Soft and nontender. Bowel sounds are present, no mass palpable, no CVA tenderness Skin: Skin warm and dry. Normal skin color. Normal skin turgor. Extremities: No lower extremity edema. Neuro: Oriented X 3. Medical Decision Making MDM Narrative Medical decision making narrative: Patient with history of erosive gastritis in the past had few drinks today and had vomited 2 times with on his streaks of blood. 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 Discharge Plan Discharge Clinical Impression: Acute erosive gastritis Patient Disposition: Home, Self-Care Instructions: Gastritis (ED) Additional Instructions: Stop drinking alcohol Add Protonix 40 mg daily to Pepcid Take sucralfate 1 tablet half an hour before you eat 3 times a day Avoid fried and spicy food Report to ER if black stools or worsening of bleeding Prescriptions: New pantoprazole [Protonix] 40 mg tablet,delayed release (DR/EC) 40 mg PO DAILY Qty: 30 RF: 0 sucralfate 1 gram tablet 1 g PO TID Qty: 90 RF: 0 No Action magnesium sulfate 100 mg capsule 100 mg PO BID Qty: 60 RF: 0 magnesium oxide 400 mg magnesium tablet 400 mg PO DAILY Qty: 30 RF: 0 prednisone 20 mg tablet 40 mg PO DAILY Qty: 10 RF: 0 hydrocodone-acetaminophen 5-300 mg tablet 1 tab PO QID PRN (Reason: pain) Qty: 10 RF: 0 prednisone 20 mg tablet 40 mg PO DAILY 5 Days Qty: 10 RF: 0 naproxen 500 mg tablet 500 mg PO BID PRN (Reason: pain) Qty: 10 RF: 0 oxycodone-acetaminophen [Percocet] 5-325 mg tablet 1 tab PO Q8H PRN (Reason: pain) Qty: 10 RF: 0
[2021-06-10] MEDS: Lidocaine HCl Viscous 2 % 15 ML SOLUTION MUCOUS MEM (22:48)
[2021-06-10] MEDS: Magnesium Hydrox/Alum Hydrox 30 ML ORAL.SUSP PO (22:48)
[2021-06-10] MEDS: Omeprazole 40 MG CAPSULE.DR PO (22:48)
== END 2021-06-10 23:22 | disposition home or self-care (01) ==
PROVIDERS: Emergency Provider Internal Medicine; PCP Internal Medicine
DX: K29.00 Acute gastritis without bleeding (principal); Z79.899 Other long term (current) drug therapy
CPT/HCPCS: 99283

== ENCOUNTER 2021-11-03 11:42 | Outpatient (REF) | payer MEDICAID, SELFPAY ==
[2021-11-03 13:04] LABS: Alanine Aminotransferase 25 U/L (0-40); Albumin Level 4.6 g/dL (3.5-5.0); Alkaline Phosphatase 52 U/L (39-117); Aspartate Amino Transferase 16 U/L (5-37); Bilirubin Direct 0.3 mg/dL (0.0-0.5); Bilirubin Total 0.9 mg/dL (0.0-1.0); Total Protein 7.1 g/dL (6.5-8.0); Uric Acid 3.2 mg/dL (3.4-7.0)
[2021-11-03 14:04] LABS: Appearance Urine CLEAR; Color Urine YELLOW; Glucose Urine UA NEG (NEG); Leukocyte Esterase Urine NEG (NEG); Nitrite Urine NEG (NEG); PH 6.5 (5.0-8.0); Urine Blood NEG (NEG); Urine Ketones NEG (NEG); Urine Protein NEG (NEG-TRACE)
[2021-11-03 14:31] LABS: Creatinine Urine 130.69 mg/dL; Microalbum/Creatinine Ratio Ur 26.7 ug/mg cr; Protein/Creatinine Ratio, Ur 0.11 (<0.2); Total Protein Urine Random 15 mg/dL (<12)
[2021-11-03 14:37] LABS: RBC Urine 0-2 /HPF (0); Squamous Epithelial Cell Urine TRACE /LPF; WBC Urine 0 /HPF (0-4)
== END 2021-11-03 11:43 | disposition home or self-care (01) ==
LOC: HO.LAB 11:42
PROVIDERS: PCP Internal Medicine; Visit Provider Internal Medicine Nephrology
DX: I12.9 Hypertensive chronic kidney disease with stage 1 through stage 4 chronic kidney disease, or unspecified chronic kidney disease (principal); E11.22 Type 2 diabetes mellitus with diabetic chronic kidney disease; N18.9 Chronic kidney disease, unspecified
CPT/HCPCS: 36415; 80076; 81001; 82043; 84156; 84550

== ENCOUNTER 2022-05-24 11:40 | Outpatient (REF) | payer MEDICAID, SELFPAY ==
[2022-05-24 12:00] LABS: MANUAL DIFF FLAG NO
[2022-05-24 12:17] LABS: Basophils Absolute Auto 0.1 X10*3/uL (0.0-0.2); Basophils Percent Auto 0.7 % (0-2); Eosinophils Absolute Auto 0.2 X10*3/uL (0.0-0.4); Eosinophils Percent Auto 2.2 % (0-4); Hematocrit 40.2 % (42.0-52.0); Hemoglobin 13.7 g/dl (14.0-18.0); Imm Gran Abs Auto 0.04 X10*3/uL (0.00-0.03); Imm Gran Pct Auto 0.4 % (0.0-0.4); Lymphocytes Absolute Auto 1.9 X10*3/uL (1.2-4.9); Lymphocytes Percent Auto 19.5 % (20-40); Mean Corpuscular HGB Conc 34.1 g/dl (31.0-36.0); Mean Corpuscular Hemoglobin 31.1 pg (27.0-33.0); Mean Corpuscular Volume 91.2 fL (80.0-98.0); Mean Platelet Volume 10.3 fL (9.4-12.4); Monocytes Absolute Auto 0.7 X10*3/uL (0.1-1.2); Monocytes Percent Auto 7.5 % (2-11); Neutrophils Absolute Auto 6.6 x10*3/uL (2.0-8.3); Neutrophils Percent Auto 69.7 % (45-73); Platelet Count 265 X10*3/uL (160-400); Red Blood Count 4.41 X10*6/uL (4.60-5.80); Red Cell Distribution Width 13.1 % (11.0-16.0); White Blood Count 9.5 X10*3/uL (4.8-10.8)
[2022-05-24 12:22] LABS: Appearance Urine Clear; Color Urine Yellow; Glucose Urine UA Negative (Negative); Leukocyte Esterase Urine Negative (Negative); Nitrite Urine Negative (Negative); PH 5.5 (5.0-8.0); Urine Blood Negative (Negative); Urine Ketones Negative (Negative); Urine Protein Trace mg/dL (Neg-Trace)
[2022-05-24 12:25] LABS: Bacteria Urine None Seen (None Seen); Hyaline Casts Urine 0-2 /LPF (0-2); RBC Urine 0-2 /HPF (0-2); Squamous Epithelial Cell Urine 0-2 /HPF (0-2); WBC Urine 0-5 /HPF (0-5)
[2022-05-24 12:55] LABS: Albumin Level 4.5 g/dL (3.5-5.0); Anion Gap 17 (12-20); Blood Urea Nitrogen 10 mg/dL (9-16); Calcium 9.4 mg/dL (8.4-10.2); Carbon Dioxide 25 mmol/L (22-29); Chloride 104 mmol/L (96-108); Estimated Glomerular Filt Rate > 60; Potassium 4.6 mmol/L (3.3-5.1); Sodium 141 mmol/L (135-145); Uric Acid 2.9 mg/dL (3.4-7.0)
[2022-05-24 13:00] LABS: Vitamin D 25-OH Total 28.7 ng/mL (>30)
[2022-05-24 13:08] LABS: Magnesium 1.1 mg/dL (1.6-2.6)
[2022-05-24 13:18] LABS: Creatinine Urine 151.29 mg/dL; Microalbum/Creatinine Ratio Ur 45.6 ug/mg cr; Protein/Creatinine Ratio, Ur 0.15 (<0.2); Total Protein Urine Random 22 mg/dL (<12)
[2022-05-26 11:02] LABS: Calcium (PTHI) 9.3 mg/dL (8.6-10.3); PTHI 52 pg/mL (16-77)
== END 2022-05-24 11:41 | disposition home or self-care (01) ==
LOC: HO.LAB 11:40
PROVIDERS: PCP Internal Medicine; Visit Provider Internal Medicine Nephrology
DX: I12.9 Hypertensive chronic kidney disease with stage 1 through stage 4 chronic kidney disease, or unspecified chronic kidney disease (principal); N18.9 Chronic kidney disease, unspecified; E11.22 Type 2 diabetes mellitus with diabetic chronic kidney disease
CPT/HCPCS: 36415; 80051; 81001; 82040; 82043; 82306; 82310; 82565; 83735; 83970; 84100; 84156; 84520; 84550; 85025; 87086

== ENCOUNTER 2022-05-26 18:43 | Emergency (ER) | payer MEDICAID, SELFPAY ==
[2022-05-26 20:31] LABS: MANUAL DIFF FLAG NO
[2022-05-26 20:33] LABS: Basophils Absolute Auto 0.1 X10*3/uL (0.0-0.2); Basophils Percent Auto 0.7 % (0-2); Eosinophils Absolute Auto 0.1 X10*3/uL (0.0-0.4); Eosinophils Percent Auto 1.5 % (0-4); Hematocrit 40.3 % (42.0-52.0); Hemoglobin 13.8 g/dl (14.0-18.0); Imm Gran Abs Auto 0.02 X10*3/uL (0.00-0.03); Imm Gran Pct Auto 0.2 % (0.0-0.4); Lymphocytes Absolute Auto 2.3 X10*3/uL (1.2-4.9); Lymphocytes Percent Auto 27.4 % (20-40); Mean Corpuscular HGB Conc 34.2 g/dl (31.0-36.0); Mean Corpuscular Hemoglobin 31.7 pg (27.0-33.0); Mean Corpuscular Volume 92.4 fL (80.0-98.0); Mean Platelet Volume 10.4 fL (9.4-12.4); Monocytes Absolute Auto 0.6 X10*3/uL (0.1-1.2); Monocytes Percent Auto 7.4 % (2-11); Neutrophils Absolute Auto 5.4 x10*3/uL (2.0-8.3); Neutrophils Percent Auto 62.8 % (45-73); Platelet Count 260 X10*3/uL (160-400); Red Blood Count 4.36 X10*6/uL (4.60-5.80); Red Cell Distribution Width 13.1 % (11.0-16.0); White Blood Count 8.5 X10*3/uL (4.8-10.8)
[2022-05-26 20:39] VITALS: BP 137/73; PULSE 88; RESP 20; TEMP 36.8; O2SAT 98
[2022-05-26 20:48] LABS: Alanine Aminotransferase 25 U/L (0-40); Albumin Level 4.6 g/dL (3.5-5.0); Alkaline Phosphatase 62 U/L (39-117); Anion Gap 18 (12-20); Aspartate Amino Transferase 16 U/L (5-37); Bilirubin Total 0.3 mg/dL (0.0-1.0); Blood Urea Nitrogen 30 mg/dL (9-16); Calcium 9.7 mg/dL (8.4-10.2); Carbon Dioxide 23 mmol/L (22-29); Chloride 102 mmol/L (96-108); Estimated Glomerular Filt Rate > 60; Glucose Random 201 mg/dL (60-115); Potassium 4.4 mmol/L (3.3-5.1); Sodium 139 mmol/L (135-145); Total Protein 7.2 g/dL (6.5-8.0)
[2022-05-26 21:02] VITALS: BP 137/73; PULSE 88; RESP 20; TEMP 36.6; O2SAT 98; BMI 29.9
--- NOTE | 2022-05-26 21:21 | ED_ITS ---
HPI - General Adult General Chief complaint: General Medical Stated complaint: abnormal lab work Time Seen by Provider: 05/26/22 21:07 Source: patient Mode of arrival: ambulatory Limitations: no limitations History of Present Illness HPI narrative: Patient is a 47 year old male presenting to the emergency department today with abnormal lab work. Patient states that he was seen at his primary care doctor 2 days ago for a routine check up and they called him today telling him his magnesium was critically low and he needed to come to the Emergency Department. Patient states that he has no complaints. Patient states that he feels fine. Patient denies any dizziness, lightheadedness, abdominal pain, nausea, vomiting, fever, chills, blurry vision, double vision, loss of vision, chest pain, difficulty breathing, shortness of breath, back pain, night sweats, pain with urination, increased urinary frequency, increased urinary urgency, blood in his urine or stool, syncope or a near syncopal episode, recent trauma or falls, bowel incontinence, bladder incontinence, bowel retention, bladder retention, or any other complaints at this time. Severity: mild Relieving factors: none Exacerbating factors: none Associated symptoms: denies other symptoms Treatments prior to arrival: none Related Data Previous Rx's Medication Instructions Recorded naproxen 500 mg tablet 500 mg PO BID PRN pain #10 tabs 08/08/20 oxycodone-acetaminophen 5 mg-325 1 tab PO Q8H PRN pain #10 tabs 08/08/20 mg tablet (Percocet) prednisone 20 mg tablet 40 mg PO DAILY Gout flare up 5 08/08/20 days #10 tabs magnesium sulfate 100 mg capsule 100 mg PO BID #60 caps 08/12/20 hydrocodone 5 mg-acetaminophen 300 1 tab PO QID PRN pain #10 tabs 09/22/20 mg tablet magnesium oxide 400 mg PO DAILY #30 tabs 09/22/20 prednisone 20 mg tablet 40 mg PO DAILY #10 tabs 09/22/20 pantoprazole 40 mg tablet,delayed 40 mg PO DAILY #30 tabs 06/10/21 release (Protonix) sucralfate 1 gram tablet 1 g PO TID #90 tabs 06/10/21 Allergies Allergy/AdvReac Type Severity Reaction Status Date / Time shellfish derived Allergy Unknown HIVES Verified 06/10/21 21:57 [SHELLFISH DERIVED] shrimp [SHRIMP] Allergy Unknown HIVES Verified 08/12/20 21:00 Review of Systems Constitutional: Constitutional: Reports no additional constitutional complaints, Denies chills, Denies fever(s) and Denies night sweats Eyes: Eyes: Reports no additional eye complaints, Denies blurry vision, Denies change in vision, Denies diplopia, Denies eye discharge, Denies loss of vision and Denies eye pain ENT: Denies dizziness Cardiovascular: Cardiovascular: Reports no additional cardiovascular complaints, Denies chest pain, Denies lightheadedness, Denies Loss of Consciousness and Denies dyspnea Respiratory: Respiratory: Reports no additional respiratory complaints and Denies dyspnea Gastrointestinal: Gastrointestinal: Reports no additional gastrointestinal complaints, Denies abdominal pain, Denies melena, Denies hematochezia, Denies change in bowel habits and Denies change in stool character Genitourinary: Genitourinary: Reports no additional male genitourinary complaints, Denies hematuria, Denies oliguria, Denies difficulty urinating, Denies dysuria, Denies urinary frequency, Denies urinary hesitancy, Denies u rinary incontinence and Denies urinary urgency Musculoskeletal: Musculoskeletal: Reports no additional musculoskeletal complaints, Denies numbness and Denies tingling Neurologic: Denies dizziness, Denies loss of vision, Denies numbness and Denies tingling Psychiatric: Psychiatric: Reports no additional psychiatric complaints Endocrine: Endocrine: Reports no additional endocrine complaints Hematologic/Lymphatic: Hematologic/Lymphatic: Reports no additional hematologic/lymphatic complaints Allergic/Immunologic: Allergic/Immunologic: Reports no additional allergic/immunologic complaints [facility] Past Medical History Attestation statement: The following information was validated with the patient. Source: old records reviewed Medical History GERD (gastroesophageal reflux disease) Gout HTN (hypertension) Hypomagnesemia IDDM (insulin dependent diabetes mellitus) Social History Social History Alcohol intake: never Advance Directives: No Advance Directives Information Provided: No Physical Exam ED Vital Signs: Vital Signs - 24 hr 05/26/22 20:39 05/26/22 21:02 05/26/22 23:40 Temperature 98.3 F 98 F 97.5 F Pulse Rate 88 88 80 Respiratory Rate 20 20 18 Blood Pressure 137/73 137/73 129/71 Pulse Oximetry 98 98 97 Oxygen Delivery Method Room Air Room Air Room Air BMI result Body Mass Index 29.9 Const General: cooperative, no acute distress, alert and awake Nutritional Appearance: well nourished Orientation/consciousness: patient oriented x3 Limitations: no limitations HENMT Head: Yes normal to inspection and Yes atraumatic Ears: hearing grossly normal bilaterally and external ears normal General nose exam: Normal external nose present, no nasal discharge noted and no epistaxis Face and sinus: Yes normal facial exam, No abrasion and No laceration Mouth: Normal oral and palatal mucosa present, no drooling and no muffled voice Eyes General: appearance normal, both eyes and all related structures Periorbital: periorbital findings normal Eyelids: Yes eyelids normal Conjunctivae: conjunctivae normal Pupils: Equal, round and reactive pupils present EOM: EOMs intact bilaterally Neck Neck: Yes normal visual inspection, Yes full ROM and Yes no lymphadenopathy Chest Chest palpation & inspection: normal inspection of the chest Resp Effort & Inspection: normal respiratory effort and able to speak in complete sentences Auscultation: clear to auscultation bilaterally Cardio Rate: regular rate Rhythm: regular rhythm GI Inspection: Yes normal to inspection Neuro General: patient oriented x3 and moves all extremities Cranial nerves: Yes Equal, round and reactive pupils present Cognition (Neuro): normal cognition Motor exam (neuro): 5/5 motor strength present throughout Sensory Exam: Normal double simultaneous stimulation for sensation Coordination: [id number] test normal Extrem General: Yes normal to inspection, Yes full ROM and Yes capillary refill normal Psych Appearance: grossly normal Mental Status: mental status grossly normal Affect: normal affect Attitude: cooperative Thought process: Normal thought process present Thought content: Normal thought content present Insight: Good insight present (Psych) Medical Decision Making [facility] Narrative Medical decision making narrative: Patient is a 47 year old male presenting to the emergency department today with abnormal labs. Patient's physical exam was unremarkable. Patient's blood work showed hypomagnesemia at 1.1, an elevated BUN of 30, an elevated phosphorus of 4.7. and a creatinine of 1.15 which is elevated compared to his previous 2 days prior of 0.74. Patient's EKG was unremarkable. I explained my physical exam findings as well as all test results to the patient. I answered all questions asked by the patient. Patient was given IV fluids and 2 grams of magnesium. Patient's repeat CMP is pending. If patient's CMP has improved, the patient is able to go home on PO Magnesium and follow up with his primary care provider. Patient signed out to Diana Dick NP. Differential Diagnosis Differential Diagnosis: hypomagnesemia Medical Records Medical records reviewed: Yes I reviewed the patient's medical records. Lab Data Lab results reviewed: Yes I reviewed the patient's lab results. Result diagrams: 05/26/22 20:26 05/26/22 20: Labs: Lab Results 05/26/22 05/26/22 Range/Units 20:26 20:26 WBC 8.5 (4.8-10.8) X10*3/uL RBC 4.36 L (4.60-5.80) X10*6/uL Hgb 13.8 L (14.0-18.0) g/dl Hct 40.3 L (42.0-52.0) % MCV 92.4 (80.0-98.0) fL MCH 31.7 (27.0-33.0) pg MCHC 34.2 (31.0-36.0) g/dl RDW 13.1 (11.0-16.0) % Plt Count 260 (160-400) X10*3/uL MPV 10.4 (9.4-12.4) fL Immature Gran % (Auto) 0.2 (0.0-0.4) % Neut % (Auto) 62.8 (45-73) % Lymph % (Auto) 27.4 (20-40) % [place] % (Auto) 7.4 (2-11) % Eos % (Auto) 1.5 (0-4) % Baso % (Auto) 0.7 (0-2) % Lymph # (Auto) 2.3 (1.2-4.9) X10*3/uL [place] # (Auto) 0.6 (0.1-1.2) X10*3/uL Eos # (Auto) 0.1 (0.0-0.4) X10*3/uL Baso # (Auto) 0.1 (0.0-0.2) X10*3/uL Abs Immat Gran (auto) 0.02 (0.00-0.03) X10*3/uL Absolute Neuts (auto) 5.4 (2.0-8.3) x10*3/uL Absolute Nucleated RBC 0.000 (0.0-0.012) X10*3/uL Nucleated RBC % (auto) 0.0 (0.0-0.2) /100WBC Sodium 139 (135-145) mmol/L Potassium 4.4 (3.3-5.1) mmol/L Chloride 102 (96-108) mmol/L Carbon Dioxide 23 (22-29) mmol/L Anion Gap 18 (12-20) BUN 30 H D (9-16) mg/dL Creatinine 1.15 (0.5-1.4) mg/dL Estim Creat Clear Calc TNP Estimated GFR > 60 Random Glucose 201 H (60-115) mg/dL Calcium 9.7 (8.4-10.2) mg/dL Phosphorus 4.7 H (2.7-4.5) mg/dL Magnesium 1.1 L* (1.6-2.6) mg/dL Total Bilirubin 0.3 (0.0-1.0) mg/dL AST 16 (5-37) U/L ALT 25 (0-40) U/L Alkaline Phosphatase 62 (39-117) U/L Total Creatine Kinase 131 (38-174) U/L Total Protein 7.2 (6.5-8.0) g/dL Albumin 4.6 (3.5-5.0) g/dL ECG Data Attestation: I personally reviewed and interpreted this ECG as follows: Prior ECG tracings: available for review Interpretation: Vent. Rate: 088 BPM ? ? Atrial Rate: 088 BPM P-R Int: 182 ms? QRS Dur: 088 ms QT Int: 368 ms ? ? ? P-R-T Axes: 055 006 015 degrees QTc Int: 445 ms ? Normal sinus rhythm Nonspecific T wave abnormality Abnormal ECG When compared with ECG of 06-SEP-2020 11:56, No significant change was found 09/22/201919 Discharge Plan Discharge Clinical Impression: Hypomagnesemia Patient Disposition: Still a Patient Instructions: Hypomagnesemia (ED) Additional Instructions: Double your Magnesium Oxide at home for 7 days. Follow up with your primary care provider. Return to the emergency department immediately if your symptoms worsen or if you develop any dizziness, shortness of breath, difficulty breathing, chest pain, blurry vision, loss of vision, nausea, vomiting, abdominal pain, fever, chills, back pain, or any other complaints. Prescriptions: No Action magnesium sulfate 100 mg capsule 100 mg PO BID Qty: 60 0RF magnesium oxide 400 mg magnesium tablet 400 mg PO DAILY Qty: 30 0RF prednisone 20 mg tablet 40 mg PO DAILY Qty: 10 0RF hydrocodone-acetaminophen 5-300 mg tablet 1 tab PO QID PRN (Reason: pain) Qty: 10 0RF prednisone 20 mg tablet 40 mg PO DAILY 5 Days Qty: 10 0RF naproxen 500 mg tablet 500 mg PO BID PRN (Reason: pain) Qty: 10 0RF oxycodone-acetaminophen [Percocet] 5-325 mg tablet 1 tab PO Q8H PRN (Reason: pain) Qty: 10 0RF pantoprazole [Protonix] 40 mg tablet,delayed release (DR/EC) 40 mg PO DAILY Qty: 30 0RF sucralfate 1 gram tablet 1 g PO TID Qty: 90 0RF Referrals: Po,Jose Diaz MD [Primary Care Provider] - Print Language: Malawian
[2022-05-26 21:39] LABS: Magnesium 1.1 mg/dL (1.6-2.6)
--- NOTE | 2022-05-26 21:47 | ECG_ITS ---
Test Reason : LOW Mg Blood Pressure : / mmHG Vent. Rate : 088 BPM Atrial Rate : 088 BPM P-R Int : 182 ms QRS Dur : 088 ms QT Int : 368 ms P-R-T Axes : 055 006 015 degrees QTc Int : 445 ms Normal sinus rhythm Nonspecific T wave abnormality Abnormal ECG When compared with ECG of 22-SEP-2020 11:56, Nonspecific T wave abnormality now evident in Lateral leads Referred By: Louann Randolph Electronically Signed By:MUNIR POTTS
[2022-05-26 22:00] LABS: Phosphorus 4.7 mg/dL (2.7-4.5)
[2022-05-26] MEDS: Magnesium Sulfate/H2O 2 GM/50 ML PIGGYBACK IV (22:21)
[2022-05-26] MEDS: 0.9 % Sodium Chloride 1,000 ML 999 ML IV (22:22)
[2022-05-26 23:40] VITALS: BP 129/71; PULSE 80; RESP 18; TEMP 36.4; O2SAT 97
[2022-05-27 01:12] LABS: Magnesium 1.4 mg/dL (1.6-2.6)
[2022-05-27 01:13] LABS: Alanine Aminotransferase 24 U/L (0-40); Albumin Level 4.4 g/dL (3.5-5.0); Alkaline Phosphatase 54 U/L (39-117); Anion Gap 15 (12-20); Aspartate Amino Transferase 16 U/L (5-37); Bilirubin Total 0.3 mg/dL (0.0-1.0); Blood Urea Nitrogen 25 mg/dL (9-16); Calcium 8.9 mg/dL (8.4-10.2); Carbon Dioxide 22 mmol/L (22-29); Chloride 106 mmol/L (96-108); Creatinine Clr Calc Pharmacy 102.1; Estimated Glomerular Filt Rate > 60; Glucose Random 221 mg/dL (60-115); Potassium 4.3 mmol/L (3.3-5.1); Sodium 139 mmol/L (135-145); Total Protein 6.9 g/dL (6.5-8.0)
[2022-05-27 02:00] VITALS: BP 138/76; PULSE 68; RESP 16; TEMP 36.8; O2SAT 98
[2022-05-27] MEDS: Magnesium Sulfate/H2O 2 GM/50 ML PIGGYBACK IV (02:06)
--- NOTE | 2022-05-27 03:31 | PC.NURSE ---
Discharged at this time. The pt [id number] an understanding of all DC orders and he ambulated out of the ED independently and with steady gait. Prior to DC we reviewed proper uses and indications for PO Magnesium. At time of DC he is alert and oriented x 3, steady gait, respirations non-labored.
== END 2022-05-27 03:34 | disposition home or self-care (01) ==
PROVIDERS: Physician Assistant Medical; Emergency Provider Emergency Medicine; PCP Internal Medicine
DX: R79.89 Other specified abnormal findings of blood chemistry (principal); E83.42 Hypomagnesemia; Z79.899 Other long term (current) drug therapy
CPT/HCPCS: 36415; 80053; 82550; 83735; 84100; 85025; 93005; 96365; 96366; 99284; J3475

== ENCOUNTER 2022-08-16 20:06 | Emergency (ER) | payer MEDICAID, SELFPAY ==
--- NOTE | ~2022-08-16 | XR_ITS ---
EXAMINATION: XR FOOT, LEFT CLINICAL INFORMATION: Left big toe pain. History of gout COMPARISON: None TECHNIQUE: AP, lateral, and oblique views of the left foot. FINDINGS: There is hallux valgus deformity first MTP joint with mild loss of joint space and medial enthesophytes. Rest of the visualized MTP, PIP and DIP joints are normal. The ankle mortise and subtalar joints are normal. Small calcaneal enthesophyte is seen. There is a dorsal distal talar enthesophyte as well. The soft tissues are normal. No visible acute fracture or dislocation XR/XR foot LT min 3V IMPRESSION: Degenerative changes first MTP joint. There is a small calcaneal heel and a moderate size dorsal distal talar enthesophyte.
[2022-08-16 20:14] VITALS: PULSE 84; RESP 16; TEMP 36.9; O2SAT 98; BMI 28.3
--- NOTE | 2022-08-16 20:20 | ED.EXTPRO ---
HPI - Extremity Problem General Chief complaint: Extremity Problem <Bib Tracy DO - Last Filed: 08/16/22 20:23> Stated complaint: left foot pain <Bib Tracy DO - Last Filed: 08/16/22 20:23> Time Seen by Provider: 08/16/22 20:45 <Bib Tracy DO - Last Filed: 08/16/22 20:23> Source: patient <SRI Mccoy - Last Filed: 08/16/22 22:03> Mode of arrival: ambulatory <SRI Mccoy - Last Filed: 08/16/22 22:03> Limitations: no limitations <SRI Mccoy - Last Filed: 08/16/22 22:03> History of Present Illness HPI Narrative: 47-year-old male with history of left toe gout presents to the ER for evaluation of left great toe pain since yesterday. He feels like he has gout flare. He also wants to get his labs checked because he they have been ?off? in the past. He is on magnesium supplements. He states he intermittently drinks alcohol, not chronically. He reports chronic issues of low magnesium levels. Patient denies any fever, chills. No trauma to his left toe. He reports it is slightly red, swollen and very painful. It is worse with walking. <SRI Mccoy - Last Filed: 08/16/22 22:03> MD Complaint: joint swelling and joint pain <SRI Mccoy - Last Filed: 08/16/22 22:03> Onset (ago): day(s) (1) <SRI Mccoy - Last Filed: 08/16/22 22:03> Pain Consistency: constant <SRI Mccoy Last Filed: 08/16/22 22:03> Location: left and toe <SRI Mccoy Last Filed: 08/16/22 22:03> Severity scale (1-10): 9 <SRI Mccoy - Last Filed: 08/16/22 22:03> Quality: stabbing and aching <SRI Mccoy - Last Filed: 08/16/22 22:03> Radiation: proximal <SRI Mccoy - Last Filed: 08/16/22 22:03> Relieving factors: immobilization <SRI Mccoy - Last Filed: 08/16/22 22:03> Exacerbating factors: range of motion, weight bearing, walking and palpation <SRI Mccoy - Last Filed: 08/16/22 22:03> Associated symptoms: denies other symptoms <SRI Mccoy - Last Filed: 08/16/22 22:03> Related Data Home medications: Previous Rx's Medication Instructions Recorded naproxen 500 mg tablet 500 mg PO BID PRN pain #10 tabs 08/08/20 oxycodone-acetaminophen 5 mg-325 1 tab PO Q8H PRN pain #10 tabs 08/08/20 mg tablet (Percocet) prednisone 20 mg tablet 40 mg PO DAILY Gout flare up 5 08/08/20 days #10 tabs magnesium sulfate 100 mg capsule 100 mg PO BID #60 caps 08/12/20 hydrocodone 5 mg-acetaminophen 300 1 tab PO QID PRN pain #10 tabs 09/22/20 mg tablet magnesium oxide 400 mg PO DAILY #30 tabs 09/22/20 prednisone 20 mg tablet 40 mg PO DAILY #10 tabs 09/22/20 pantoprazole 40 mg tablet,delayed 40 mg PO DAILY #30 tabs 06/10/21 release (Protonix) sucralfate 1 gram tablet 1 g PO TID #90 tabs 06/10/21 indomethacin 50 mg capsule 50 mg PO BID #14 caps 08/16/22 prednisone 20 mg tablet 40 mg PO DAILY #10 tabs 08/16/22 <Bib Tracy DO - Last Filed: 08/16/22 20:23> Allergies/Adverse reactions: Allergies Allergy/AdvReac Type Severity Reaction Status Date / Time shellfish derived Allergy Unknown HIVES Verified 06/10/21 21:57 [SHELLFISH DERIVED] shrimp [SHRIMP] Allergy Unknown HIVES Verified 08/12/20 21:00 <DO Deshawn Latham Last Filed: 08/16/22 20:23> Review of Systems Review of Systems: Constitutional: No Fever, No Chills ENT/Mouth: No sore throat, No Rhinorrhea Cardiovascular: No Chest Pain, No SOB Respiratory: No Cough, No Sputum, No Wheezing, No dyspnea Gastrointestinal: No Nausea, No Vomiting, No Diarrhea, No abdominal Pain Genitourinary: No Dysuria, No Urinary Frequency, No Hematuria Musculoskeletal: + joint pain, No Myalgias Skin: +Skin Lesions, No rash Neuro: No Weakness, No Numbness Heme/Lymph: No Bruising, No Lymphadenopathy <SRI Mccoy - Last Filed: 08/16/22 22:03> [facility] Past Medical History Medical History: Medical History GERD (gastroesophageal reflux disease) Gout HTN (hypertension) Hypomagnesemia IDDM (insulin dependent diabetes mellitus) <Bib Tracy DO - Last Filed: 08/16/22 20:23> Social History Social History: Social History Alcohol intake: never Advance Directives: No Advance Directives Information Provided: Yes <Bib Tracy DO - Last Filed: 08/16/22 20:23> Physical Exam Vital Signs: Vital Signs: Last Vital Signs Temp 98.4 F 08/16/22 20:14 Pulse 84 08/16/22 20:14 Resp 16 08/16/22 20:14 Pulse Ox 98 08/16/22 20:14 O2 Del Method 08/16/22 20:14 BMI result Body Mass Index 28.3 <iBb Trayc DO - Last Filed: 08/16/22 20:23> Vital Signs: Last Vital Signs Temp 98.4 F 08/16/22 20:14 Pulse 84 08/16/22 20:14 Resp 16 08/16/22 20:14 Pulse Ox 98 08/16/22 20:14 O2 Del Method 08/16/22 20:14 BMI result Body Mass Index 28.3 <SRI Mccoy - Last Filed: 08/16/22 22:03> Appearance: Alert. Oriented X3. No acute distress. HEENT: normal inspection CVS: Normal heart rate and rhythm. Pulses normal. Respiratory: No respiratory distress. Skin: Skin warm and dry. Normal skin color. Normal skin turgor. No rashes. Extremities: Left great toe with MCP swelling and tenderness, mild erythema to the lateral aspect of great toe. Tenderness but normal range of motion. Neurovascularly intact distally. Neuro: Oriented X 3. No motor deficit. No sensory deficit. <SRI Mccoy - Last Filed: 08/16/22 22:03> Course Course Course Narrative: 47 year old male presents to the ED with left big toe pain and weakness. Patient states he has been here multiple times with gout and has been found to have low potassium and magnesium. HE is eating and drinking normally. He also has pain to the left big toe but states his pain is worse since yesterday. I will give him indomethacin and prednisone I will get a XR and check his BMP and magnesium. He looks otherwise well. XR of the foot focused shows no redness or injury full rom and no signs of infection. Minor tenderness isolated to 1st metatarsal Patient seen in triage another provider will interpret labs, XR and ultimate diagnosis and disposition. <Bib Tracy DO - Last Filed: 08/16/22 20:23> Reevaluation(s) Reevaluation #1: Labs showing hypomagnesemia, 1.3. Oral magnesium replaced. Will treat for acute gout flare. Will refer to Rheumatology for recurrence gout management. Pain is much improved after prednisone. Will DC with the same. Stable for DC home. <SRI Mccoy - Last Filed: 08/16/22 22:03> Medications Administered Discontinued Medications Generic Name Dose Route Start Last Admin Trade Name Freq PRN Reason Stop Dose Admin Indomethacin 25 mg 08/16/22 20:20 08/16/22 20:48 Indomethacin 25 Mg Capsule PO 08/16/22 20:21 25 mg ONCE ONE Administration Ketorolac Tromethamine 30 mg 08/16/22 21:36 08/16/22 21:44 Ketorolac Tromethamine 30 Mg/Ml Vial IM 08/16/22 21:37 30 mg ONCE ONE Administration Magnesium Oxide 800 mg 08/16/22 21:22 08/16/22 21:46 Magnesium Oxide 400 Mg Tablet PO 08/16/22 21:23 800 mg ONCE ONE Administration Prednisone 60 mg 08/16/22 20:19 08/16/22 20:48 Prednisone 20 Mg Tablet PO 08/16/22 20:20 60 mg ONCE ONE Administration <Bib Tracy DO - Last Filed: 08/16/22 20:23> Medications Administered Discontinued Medications Generic Name Dose Route Start Last Admin Trade Name Freq PRN Reason Stop Dose Admin Indomethacin 25 mg 08/16/22 20:20 08/16/22 20:48 Indomethacin 25 Mg Capsule PO 08/16/22 20:21 25 mg ONCE ONE Administration Ketorolac Tromethamine 30 mg 08/16/22 21:36 08/16/22 21:44 Ketorolac Tromethamine 30 Mg/Ml Vial IM 08/16/22 21:37 30 mg ONCE ONE Administration Magnesium Oxide 800 mg 08/16/22 21:22 08/16/22 21:46 Magnesium Oxide 400 Mg Tablet PO 08/16/22 21:23 800 mg ONCE ONE Administration Prednisone 60 mg 08/16/22 20:19 08/16/22 20:48 Prednisone 20 Mg Tablet PO 08/16/22 20:20 60 mg ONCE ONE Administration <SRI Mccoy - Last Filed: 08/16/22 22:03> MDM - Extremity (Nontraumatic) Lab Data Result diagrams: : 08/16/22 20:23 <Bib Tracy DO - Last Filed: 08/16/22 20:23> Labs: Lab Results 08/16/22 Range/Units 20:23 Sodium 137 (135-145) mmol/L Potassium 4.7 (3.3-5.1) mmol/L Chloride 101 (96-108) mmol/L Carbon Dioxide 25 (22-29) mmol/L Anion Gap 16 (12-20) BUN 21 H (9-16) mg/dL Creatinine 0.82 (0.5-1.4) mg/dL Estim Creat Clear Calc 115.4 Estimated GFR > 60 Random Glucose 216 H (60-115) mg/dL Calcium 9.5 D (8.4-10.2) mg/dL Magnesium 1.3 L* (1.6-2.6) mg/dL <Bib Tracy DO - Last Filed: 08/16/22 20:23> Lab Results 08/16/22 Range/Units 20:23 Sodium 137 (135-145) mmol/L Potassium 4.7 (3.3-5.1) mmol/L Chloride 101 (96-108) mmol/L Carbon Dioxide 25 (22-29) mmol/L Anion Gap 16 (12-20) BUN 21 H (9-16) mg/dL Creatinine 0.82 (0.5-1.4) mg/dL Estim Creat Clear Calc 115.4 Estimated GFR > 60 Random Glucose 216 H (60-115) mg/dL Calcium 9.5 D (8.4-10.2) mg/dL Magnesium 1.3 L* (1.6-2.6) mg/dL <SRI Mccoy - Last Filed: 08/16/22 22:03> Discharge Plan Discharge Clinical Impression: Gout, Hypomagnesemia <Bib Tracy DO - Last Filed: 08/16/22 20:23> Patient Disposition: Home, Self-Care <Bib Tracy DO - Last Filed: 08/16/22 20:23> Instructions: Low Purine Diet (ED), Gout (ED), Hypomagnesemia (ED) <Bib Tracy DO - Last Filed: 08/16/22 20:23> Additional Instructions: Take the prescribed medications as directed for gout. Recommend taking an extra magnesium supplement for the next 3 days, then resume your normal daily dose. Recommend getting her labs recheck by your doctor in the next week or 2. Recommend following up with transportation coordinator for recurrent gout flares. Name and number below. Call for an appointment. [place] los medicamentos recetados seg?n las indicaciones para la gota. Recomiende chandni un suplemento adicional de magnesio raf los pr?ximos 3 d?as, luego reanude phillips dosis diaria normal. Recomiende que phillips m?dico vuelva a revisar andrew laboratorios en la pr?xima semana o 2. Recomendar seguimiento con reumat?logo para brotes de gota recurrentes. Nombre y n?jennifer a continuaci?n. Llame para martin bere. <Bib Tracy DO - Last Filed: 08/16/22 20:23> Prescriptions: New prednisone 20 mg tablet 40 mg PO DAILY Qty: 10 0RF indomethacin 50 mg capsule 50 mg PO BID Qty: 14 0RF Rx Instructions: administer with food or milk No Action magnesium sulfate 100 mg capsule 100 mg PO BID Qty: 60 0RF magnesium oxide 400 mg magnesium tablet 400 mg PO DAILY Qty: 30 0RF prednisone 20 mg tablet 40 mg PO DAILY Qty: 10 0RF hydrocodone-acetaminophen 5-300 mg tablet 1 tab PO QID PRN (Reason: pain) Qty: 10 0RF prednisone 20 mg tablet 40 mg PO DAILY 5 Days Qty: 10 0RF naproxen 500 mg tablet 500 mg PO BID PRN (Reason: pain) Qty: 10 0RF oxycodone-acetaminophen [Percocet] 5-325 mg tablet 1 tab PO Q8H PRN (Reason: pain) Qty: 10 0RF pantoprazole [Protonix] 40 mg tablet,delayed release (DR/EC) 40 mg PO DAILY Qty: 30 0RF sucralfate 1 gram tablet 1 g PO TID Qty: 90 0RF <Bib Tracy DO - Last Filed: 08/16/22 20:23> [place] [facility] [place] Group[place] <Bib Tracy DO - Last Filed: 08/16/22 20:23> Print Language: Puerto Rican <Bib Tracy DO - Last Filed: 08/16/22 20:23>
--- NOTE | 2022-08-16 20:30 | PC.NURSE ---
waiting for med from pharmacy and pt has been taken to xray
[2022-08-16] MEDS: Indomethacin 25 MG CAPSULE PO (20:48)
[2022-08-16] MEDS: predniSONE 20 MG TABLET 60 MG PO (20:48)
[2022-08-16 21:20] LABS: Anion Gap 16 (12-20); Blood Urea Nitrogen 21 mg/dL (9-16); Calcium 9.5 mg/dL (8.4-10.2); Carbon Dioxide 25 mmol/L (22-29); Chloride 101 mmol/L (96-108); Creatinine Clr Calc Pharmacy 115.4; Estimated Glomerular Filt Rate > 60; Glucose Random 216 mg/dL (60-115); Magnesium 1.3 mg/dL (1.6-2.6); Potassium 4.7 mmol/L (3.3-5.1); Sodium 137 mmol/L (135-145)
--- NOTE | 2022-08-16 21:43 | PC.NURSE ---
Assumed care of patient.
[2022-08-16] MEDS: Ketorolac Tromethamine 30 MG/ML VIAL IM (21:44)
[2022-08-16] MEDS: Magnesium Oxide 400 MG TABLET 800 MG PO (21:46)
--- NOTE | 2022-08-16 21:46 | PC.NURSE ---
Administered magnesium oxide PO, ketorolac IM (R deltoid) per NOV.
== END 2022-08-16 22:26 | disposition home or self-care (01) ==
PROVIDERS: Student in an Organized Health Care Education/Training Program; Emergency Provider Internal Medicine; PCP Internal Medicine
DX: M10.9 Gout, unspecified (principal); M79.672 Pain in left foot; E83.42 Hypomagnesemia; E11.9 Type 2 diabetes mellitus without complications; I10 Essential (primary) hypertension; Z79.4 Long term (current) use of insulin; Z79.899 Other long term (current) drug therapy
CPT/HCPCS: 36415; 73630; 80048; 83735; 96372; 99284; J1885

== ENCOUNTER 2022-08-30 22:44 | Observation (INO) | payer MEDICAID, SELFPAY ==
--- NOTE | 2022-08-30 | ECG_ITS ---
Test Reason : cp Blood Pressure : / mmHG Vent. Rate : 075 BPM Atrial Rate : 075 BPM P-R Int : 150 ms QRS Dur : 082 ms QT Int : 372 ms P-R-T Axes : 039 005 018 degrees QTc Int : 415 ms Normal sinus rhythm Normal ECG No previous ECGs available Referred By: Generic ED Physician Electronically Signed By:PARVEZ BARILLAS MD
--- NOTE | ~2022-08-30 | XR_ITS ---
EXAMINATION: XR CHEST CLINICAL INFORMATION: Chest pain COMPARISON: 11/01/2019 TECHNIQUE: Frontal view of the chest was obtained. FINDINGS: The lungs are hypoexpanded. Allowing for this, no significant abnormality is noted involving the heart, lungs, mediastinum, bony thorax or soft tissues. XR/XR chest 1V IMPRESSION: No acute intrathoracic disease.
--- NOTE | 2022-08-30 22:50 | PC.NURSE ---
PT reports they do not speak Micronesian. Call made to interrupter.
[2022-08-30 23:06] VITALS: BP 132/68; PULSE 73; RESP 16; TEMP 36; O2SAT 98; BMI 28.5
[2022-08-30 23:34] LABS: MANUAL DIFF FLAG NO
[2022-08-30 23:36] LABS: Basophils Absolute Auto 0.1 X10*3/uL (0.0-0.2); Basophils Percent Auto 0.7 % (0-2); Eosinophils Absolute Auto 0.2 X10*3/uL (0.0-0.4); Eosinophils Percent Auto 2.4 % (0-4); Hematocrit 39.7 % (42.0-52.0); Hemoglobin 13.4 g/dl (14.0-18.0); Imm Gran Abs Auto 0.02 X10*3/uL (0.00-0.03); Imm Gran Pct Auto 0.2 % (0.0-0.4); Lymphocytes Percent Auto 24.3 % (20-40); Mean Corpuscular HGB Conc 33.8 g/dl (31.0-36.0); Mean Corpuscular Hemoglobin 30.6 pg (27.0-33.0); Mean Corpuscular Volume 90.6 fL (80.0-98.0); Mean Platelet Volume 10.5 fL (9.4-12.4); Monocytes Absolute Auto 0.6 X10*3/uL (0.1-1.2); Monocytes Percent Auto 7.1 % (2-11); Neutrophils Absolute Auto 5.5 x10*3/uL (2.0-8.3); Neutrophils Percent Auto 65.3 % (45-73); Platelet Count 242 X10*3/uL (160-400); Red Blood Count 4.38 X10*6/uL (4.60-5.80); Red Cell Distribution Width 12.9 % (11.0-16.0); White Blood Count 8.4 X10*3/uL (4.8-10.8)
[2022-08-30 23:59] LABS: Alanine Aminotransferase 34 U/L (0-40); Albumin Level 4.7 g/dL (3.5-5.0); Alkaline Phosphatase 67 U/L (39-117); Anion Gap 17 (12-20); Aspartate Amino Transferase 20 U/L (5-37); Blood Urea Nitrogen 14 mg/dL (9-16); Calcium 9.4 mg/dL (8.4-10.2); Carbon Dioxide 22 mmol/L (22-29); Chloride 108 mmol/L (96-108); Creatinine Clr Calc Pharmacy 112.9; Estimated Glomerular Filt Rate > 60; Glucose Random 103 mg/dL (60-115); Magnesium 1.3 mg/dL (1.6-2.6); Potassium 5.1 mmol/L (3.3-5.1); Sodium 142 mmol/L (135-145); Total Protein 7.2 g/dL (6.5-8.0)
[2022-08-31 00:01] LABS: Troponin-I High Sensitivity < 3.5 ng/L (<3.5-35.0)
--- NOTE | 2022-08-31 00:01 | PC.NURSE ---
critical lab result taken by this RN from the lab - magnesium 1.3 . aware. Pt in waiting room.
--- NOTE | 2022-08-31 00:15 | ED.GENADULT ---
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 Related Data Previous Rx's Medication Instructions Recorded naproxen 500 mg tablet 500 mg PO BID PRN pain #10 tabs 08/08/20 oxycodone-acetaminophen 5 mg-325 1 tab PO Q8H PRN pain #10 tabs 08/08/20 mg tablet (Percocet) prednisone 20 mg tablet 40 mg PO DAILY Gout flare up 5 08/08/20 days #10 tabs magnesium sulfate 100 mg capsule 100 mg PO BID #60 caps 08/12/20 hydrocodone 5 mg-acetaminophen 300 1 tab PO QID PRN pain #10 tabs 09/22/20 mg tablet magnesium oxide 400 mg PO DAILY #30 tabs 09/22/20 prednisone 20 mg tablet 40 mg PO DAILY #10 tabs 09/22/20 pantoprazole 40 mg tablet,delayed 40 mg PO DAILY #30 tabs 06/10/21 release (Protonix) sucralfate 1 gram tablet 1 g PO TID #90 tabs 06/10/21 ibuprofen 800 mg tablet 800 mg PO Q8H PRN pain #14 tabs 08/16/22 prednisone 20 mg tablet 40 mg PO DAILY #10 tabs 08/16/22 Allergies Allergy/AdvReac Type Severity Reaction Status Date / Time shellfish derived Allergy Unknown HIVES Verified 06/10/21 21:57 [SHELLFISH DERIVED] shrimp [SHRIMP] Allergy Unknown HIVES Verified 08/12/20 21:00 Review of Systems Review of Systems: All other systems are reviewed and are negative Constitutional: Reports as per HPI and Reports no additional constitutional complaints Eyes: Reports as per HPI and Reports no additional eye complaints Reports system reviewed and no additional complaints, except as documented Cardiovascular: Reports as per HPI and Reports no additional cardiovascular complaints Respiratory: Reports as per HPI and Reports no additional respiratory complaints Gastrointestinal: Reports as per HPI and Reports no additional gastrointestinal complaints Genitourinary: Reports no additional female genitourinary complaints Musculoskeletal: Reports no additional musculoskeletal complaints Skin/Breast: Reports system reviewed and no additional complaints, except as docu Psychiatric: Reports no additional psychiatric complaints Endocrine: Reports no additional endocrine complaints Hematologic/Lymphatic: Reports no additional hematologic/lymphatic complaints Allergic/Immunologic: Reports no additional allergic/immunologic complaints Reports system reviewed and no additional complaints, except as documented and Reports Abnormal speech present [facility] Past Medical History Medical History GERD (gastroesophageal reflux disease) Gout HTN (hypertension) Hypomagnesemia IDDM (insulin dependent diabetes mellitus) Social History Social History Alcohol intake: never Advance Directives: No Advance Directives Information Provided: No Physical Exam ED Vital Signs: Vital Signs - 24 hr 08/30/22 23:06 Temperature 96.8 F Pulse Rate 73 Respiratory Rate 16 Blood Pressure 132/68 Pulse Oximetry 98 Oxygen Delivery Method Room Air BMI result Body Mass Index 28.5 Vital signs have been reviewed as appeared to be correct. Blood pressure normal. Heart rate normal. Respiration rate normal. Temperature normal. Oxygen saturation normal. Appearance: Alert. Oriented X3. No acute distress. Head: Normal external exam. Normocephalic. Atraumatic. No Duncan signs noted. No raccoon eyes noted Eyes: PERRLA. EOMI. Conjunctiva and sclera normal. Eyelids normal. ENT: TM's Normal. Pharynx normal. Uvula midline. Moist mucous membranes. No trismus noted. No drooling noted. No muffled voice noted. Neck: Normal inspection. Neck supple. FROM. No adenopathy. Thyroid Normal. No meningeal signs. No neck mass noted. CVS: Normal heart rate and rhythm. Heart sound normal. No murmurs noted. Pulses normal throughout. Respiratory: No respiratory distress. Painless inspiration. Breath sounds normal. No wheezes/rales/rhonchi noted. Chest nontender. No accessory muscle usage noted or decreased air movement noted. Abdomen: Soft and nontender. Bowel sounds normal in all 4 quadrants. No distention noted. No organomegaly noted. No visible injury noted. Back: No CVA tenderness. Full range of motion noted. Skin: Skin warm and dry. Normal skin color. Normal skin turgor. No rashes/lesions/lacerations noted. Extremities: No lower extremity edema. Extremities exhibit normal range of motion. Extremities nontender. Neuro: Oriented X 3. Cranial nerve exam: II-XII are grossly intact No motor deficit. No sensory deficit. Reflexes normal. Course Course Course Narrative: 47-year-old male history of chronic hypomagnesemia came in with symptoms of generalized weakness, patient has no EKG changes due to hypomagnesemia, normal potassium, unclear etiology for the hypo magnesemia, will replete IV and admit for further workup. Medications Administered Generic Name Dose Route Start Last Admin Trade Name Freq PRN Reason Stop Dose Admin Magnesium Sulfate 2 gm in 50 mls @ 25 mls/hr 08/31/22 00:06 08/31/22 01:19 Magnesium Sulfate/H2o IV 08/31/22 02:05 25 mls/hr ONCE ONE Administration Medical Decision Making Medical Decision Making Differential Diagnoses: Differential diagnosis (Electrolyte disturbance/EKG changes.) Differential Diagnosis: The differential diagnosis associated with the patient?s presentation includes: Independent interpretation of EKG, rhythm strip, radiology study: Independent interp EKG,rhythm strip, radiology study (Chest x-ray: My interpretation no acute intrathoracic pathology.) I performed an independent interpretation of the: EKG My interpretation is normal sinus rhythm at 75 beats per minute, normal axis deviation, normal intervals, no ST-T changes. Discharge Plan Discharge Clinical Impression: Hypomagnesemia Patient Disposition: Admitted As Inpatient
[2022-08-31] MEDS: Magnesium Sulfate/H2O 2 GM/50 ML PIGGYBACK IV (01:19)
[2022-08-31 01:49] VITALS: BP 130/67; PULSE 65; RESP 17; TEMP 36.7; O2SAT 97
--- NOTE | 2022-08-31 01:50 | PM.IMHP ---
History of Present Illness Date of Service: 08/31/22 Chief Complaint: Generalized weakness This is a 47-year-old male with pertinent history of insulin-dependent diabetes mellitus, essential hypertension, mixed hyperlipidemia, gout presents to the emergency department for evaluation of generalized weakness. Patient states he has been feeling weak over the last few days which has been progressive. Also has associated generalized pain all over. No seizures. States he feels like this whenever he has low magnesium. ?does take magnesium supplementation at home. Follows with a PCP. Is not on a diuretic. No GI losses. Patient denies fever, chills, chest discomfort, shortness of breath, palpitations, abdominal pain, changes in urinary or bowel habits In the emergency department, magnesium was found to be 1.3 and hospital medicine was consulted as it meets admission criteria. Review of Systems Constitutional: Constitutional: Reports fatigue, Reports lethargy and Reports weakness Cardiovascular: Cardiovascular: Reports no additional cardiovascular complaints Respiratory: Respiratory: Reports no additional respiratory complaints Gastrointestinal: Gastrointestinal: Reports no additional gastrointestinal complaints Genitourinary: Genitourinary: Reports no additional male genitourinary complaints Neurologic: Reports weakness Endocrine: Endocrine: Reports fatigue [facility] Medical History GERD (gastroesophageal reflux disease) Gout HTN (hypertension) Hypomagnesemia IDDM (insulin dependent diabetes mellitus) Social History Alcohol intake: never Advance Directives: No Advance Directives Information Provided: No Meds Allergies Allergy/AdvReac Type Severity Reaction Status Date / Time shellfish derived Allergy Unknown HIVES Verified 06/10/21 21:57 [SHELLFISH DERIVED] shrimp [SHRIMP] Allergy Unknown HIVES Verified 08/12/20 21:00 Active Medications: Current Medications Magnesium Sulfate (Magnesium Sulfate/H2o) 2 gm in 50 mls @ 25 mls/hr IV ONCE ONE Stop: 08/31/22 02:05 Last Admin: 08/31/22 01:19 Dose: 25 mls/hr Physical Exam Vital Signs and Narrative: Vital Signs: Last Vital Signs Temp 98.0 F 08/31/22 01:49 Pulse 65 08/31/22 01:49 Resp 17 08/31/22 01:49 BP 130/67 08/31/22 01:49 Pulse Ox 97 08/31/22 01:49 O2 Del Method 08/31/22 01:49 BMI result Body Mass Index 28.5 Middle-aged male lying in bed in no distress Neck supple, no JVD Regular rate and rhythm, S1-S2 heard Regular breath sounds bilaterally, no wheezing or crackles appreciated Abdomen soft nontender, no guarding, no rigidity Patient is awake, alert and oriented to self, place, time and person ; no focal motor deficit Psych: Normal mood No pedal edema Results Labs CBC and Chem 7: 08/30/22 23:27 08/30/22 23:27 Labs: Laboratory Results - last 24 hr 08/30/22 08/30/22 08/30/22 23:27 23:27 23:27 MCV 90.6 MCH 30.6 MCHC 33.8 RDW 12.9 Plt Count 242 MPV 10.5 Immature Gran % (Auto) 0.2 Neut % (Auto) 65.3 Lymph % (Auto) 24.3 [place] % (Auto) 7.1 Eos % (Auto) 2.4 Baso % (Auto) 0.7 Lymph # (Auto) 2.0 [place] # (Auto) 0.6 Eos # (Auto) 0.2 Baso # (Auto) 0.1 Abs Immat Gran (auto) 0.02 Absolute Neuts (auto) 5.5 Absolute Nucleated RBC 0.000 Nucleated RBC % (auto) 0.0 Anion Gap 17 Estim Creat Clear Calc 112.9 Estimated GFR > 60 Random Glucose 103 D Calcium 9.4 Magnesium 1.3 L* AST 20 ALT 34 Alkaline Phosphatase 67 D Troponin I High Sens < 3.5 Total Protein 7.2 Albumin 4.7 Imaging Radiologist's Impressions: Impressions Chest X-Ray 08/30/22 23:40 IMPRESSION: No acute intrathoracic disease. Assessment and Plan (1) Hypomagnesemia: Status: Acute (2) Gout: Status: Acute (3) HTN (hypertension): Qualifiers: Hypertension type: essential hypertension Qualified Code(s): I10 - Essential (primary) hypertension Status: Acute (4) IDDM (insulin dependent diabetes mellitus): Status: Acute Plan This is a 47-year-old male with pertinent history of insulin-dependent diabetes mellitus, essential hypertension, mixed hyperlipidemia, gout presents to the emergency department for evaluation of generalized weakness. #. Hypomagnesemia: Likely due to PPI. Repleted with IV magnesium sulfate in the ER. ?takes po supplements at home. Monitor. Stop Protonix. No GI losses. Not on a diuretic. Occasional alcohol use as per patient. UDS and ethanol level pending #. Insulin-dependent diabetes mellitus: Reduce home basal regimen. Initiate Accu-Cheks with sliding scale insulin before meals and at bedtime. #. Essential hypertension: Continue p.o. antihypertensives #. Mixed hyperlipidemia: Continue home medications DVT prophylaxis: None. Patient is ambulatory Full code Diabetic diet Quality Stroke Does the patient have a stroke diagnosis?: No VTE Prior VTE?: No VTE Risk Level:: Medical - low VTE Device Contraindication: Treatment Not Indicated VTE Drug Contraindication: Treatment Not Indicated
--- OUTSIDE RECORDS SUMMARY | 2022-08-31 02:06 | XMS_ITS | Continuity of Care Document ---
:1975 Author Organization [facility] Address [address] [place] [address]- Care Team Providers Name Role Phone Antoinette Tobias MD Primary Care Physician Encounter [facility] [place] Date(s): 12/13/19 - 04/11/20 [facility] [address] [place] [id number] [facility] Attending Physician: Jerome Gómez MD Admitting Physician: Jerome Gómez MD Referring Physician: Antoinette Tobias MD Allergies, Adverse Reactions, Alerts Substance Reaction Severity Status NKA Active Medications allopurinol 300 mg oral tablet 300 mg, 1, tablet, By Mouth, Daily, Refills 0, Maintenance, 08/08/18 13:36:04 EST Start Date: 08/08/18 Status: Orderedaspirin 81 mg oral tablet 1 tablet = 81 mg, By Mouth, Daily, 0 Refills, Maintenance, 08/08/18 13:36:15 EST Start Date: 08/08/18 Status: Orderedatorvastatin 40 mg oral tablet 1 tablet = 40 mg, By Mouth, Daily, 0 Refills, Maintenance Start Date: 08/08/18 Status: OrderedCarafate 1 gm oral tablet 1 Gm, 1, tablet, By Mouth, 3 times a day before meals and bedtime, Refills 0, Maintenance, 11/21/19 13:04:00 EST Start Date: 11/21/19 Status: Orderedfenofibrate 134 mg oral capsule 1 capsule = 134 mg, By Mouth, Daily, 0 Refills, Maintenance, 08/08/18 13:36:52 EST Start Date: 08/08/18 Status: Orderedferrous sulfate 325 mg oral enteric coated tablet 325 mg, 1, tablet, By Mouth, Daily, # 30 tablet, Refills 0, Maintenance, 11/21/19 13:02:00 EST Start Date: 11/21/19 Status: OrderedHumalog 100 u/ml subcutaneous injection Subcutaneous Infusion, 0 Refills, Maintenance, 08/08/18 13:34:05 EST Start Date: 08/08/18 Status: Orderedindomethacin 50 mg oral capsule 1 capsule = 50 mg, By Mouth, 3 times a day, 0 Refills, Maintenance, 08/08/18 13:34:26 EST Start Date: 08/08/18 Status: OrderedLantus 100 u/ml subcutaneous solution Subcutaneous Infusion, 0 Refills, Maintenance, 08/08/18 13:34:36 EST Start Date: 08/08/18 Status: Orderedlisinopril 20 mg oral tablet 20 mg, 1, tablet, By Mouth, Daily, Refills 0, Maintenance, 08/08/18 13:34:54 EST Start Date: 08/08/18 Status: Orderedloratadine 10 mg oral tablet 10 mg, 1, tablet, By Mouth, Daily, Refills 0, Maintenance, 08/08/18 13:35:10 EST Start Date: 08/08/18 Status: OrderedMelatonin 5 mg oral tablet 1 tablet = 5 mg, By Mouth, Daily at bedtime, PRN for insomnia, # 60 tablet, 0 Refills, Maintenance, 11/21/19 13:02:00 EST, Tablet Start Date: 11/21/19 Status: OrderedmetFORMIN 1000 mg oral tablet 1 tablet = 1,000 mg, By Mouth, 2 times a day, 0 Refills, Maintenance, 08/08/18 13:35:24 EST Start Date: 08/08/18 Status: Orderedomeprazole 20 mg oral delayed release tablet 1 tablet = 20 mg, By Mouth, 2 times a day before breakfast and dinne, # 60 tablet, 11 Refills, Maintenance, 03/28/19 15:59:12 EDT, EC Tablet Start Date: 03/28/19 Stop Date: 03/22/20 Status: OrderedVitamin B12 1000 mcg oral tablet 2 tablet = 2,000 mcg, By Mouth, Daily, # 30 tablet, 0 Refills, Maintenance, 11/21/19 13:03:00 EST, Tablet Start Date: 11/21/19 Status: OrderedVitamin D3 50,000 intl units oral capsule 1 capsule = 50,000 International_Units, By Mouth, Every 28 days, 0 Refills, Maintenance, 08/08/18 13:35:49 EST Start Date: 08/08/18 Status: Ordered Problem List Condition Effective Dates Status Health Status Informant Acid reflux(Confirmed) Active Social History Social History Type Response Smoking Status Never (less than 100 in life time) entered on: 11/21/19 Sex
--- OUTSIDE RECORDS SUMMARY | 2022-08-31 02:06 | XMS_ITS | Continuity of Care Document ---
:1975 Author Organization [facility] Address [address] [place] [address]- Care Team Providers Name Role Phone Antoinette Tobias MD Primary Care Physician [place] [facility] [place] 04/11/20 [facility] [address] [place] [id number]- [facility] Attending Physician: Triston Moon Admitting Physician: AdmtrTriston Referring Physician: AdmtrTriston Allergies, Adverse Reactions, Alerts Substance Reaction Severity [...]
--- OUTSIDE RECORDS SUMMARY | 2022-08-31 02:06 | XMS_ITS | Continuity of Care Document ---
:1975 Author Organization [facility] Address [address] [place] [id number]- Care Team Providers Name Role Phone Antoinette Tobias MD Primary Care Physician Encounter [facility] Date(s): 12/03/19 - 12/03/[address] [id number]- [facility] Discharge Disposition: A-D/C Home Attending Physician: Jerome Gómez MD Admitting Physician: Jerome Gómez MD Referring Physician: Jerome Gómez MD Allergies, Adverse Reactions, Alerts Substance Reaction [...] Status Health Status Informant Acid reflux(Confirmed) Active Procedures Procedure Date Related Diagnosis Body Site Status Esophagogastroduodenoscopy 12/03/19 C ompleted Vital Signs Most recent to oldest 1 2 3 [Reference Range]: Height 170 cm (12/03/19 10:09 AM) Oxygen Saturation [94-100 %] 96 % 96 % 97 % (12/03/19 12:43 PM) (12/03/19 12:40 PM) (12/03/19 12:2 8 PM) Pulse Rate [55-90 bpm] 68 bpm (12/03/19 10:09 AM) Blood Pressure [90-138/55-84 mm 101/51 mm Hg 102/49 mm Hg 92/42 mm Hg Hg] (12/03/19 12:43 PM) (12/03/19 12:40 PM) (12/03/19 12:2 8 PM) Respiratory Rate [16-30 br/min] 14 br/min 17 br/min 17 br/min *L* (12/03/19 12:40 PM) (12/03/19 12:28 PM) (12/03/19 12:43 PM) Temperature [96.8-100.4 DegF] 97.4 DegF (12/03/19 10:09 AM) Mode of Delivery (Oxygen) Room air Room air Room a ir (12/03/19 12:43 PM) (12/03/19 12:40 PM) (12/03/19 12:2 8 PM) Blood pressure sites Arm, left (12/03/19 10:09 AM) Temperature Route Temporal (12/03/19 10:09 AM) Dry Weight 83.5 kg (12/03/19 10:09 AM) Social History Social History Type Response Smoking Status Never (less than 100 in life time) entered on: 11/21/19 Sex
[2022-08-31 02:09] LABS: Bilirubin Total 0.4 mg/dL (0.0-1.0)
[2022-08-31 02:13] LABS: COVID-19 Test Negative (Negative); IDNOW Serial# BCCEAD1C
[2022-08-31 02:25] LABS: Ethanol < 10 mg/dL
[2022-08-31 06:28] LABS: MANUAL DIFF FLAG NO
[2022-08-31 06:31] LABS: Basophils Absolute Auto 0.1 X10*3/uL (0.0-0.2); Basophils Percent Auto 1.1 % (0-2); Eosinophils Absolute Auto 0.2 X10*3/uL (0.0-0.4); Eosinophils Percent Auto 2.7 % (0-4); Hematocrit 37.7 % (42.0-52.0); Hemoglobin 12.8 g/dl (14.0-18.0); Imm Gran Abs Auto 0.02 X10*3/uL (0.00-0.03); Imm Gran Pct Auto 0.3 % (0.0-0.4); Lymphocytes Absolute Auto 2.6 X10*3/uL (1.2-4.9); Lymphocytes Percent Auto 35.6 % (20-40); Mean Corpuscular Hemoglobin 30.6 pg (27.0-33.0); Mean Corpuscular Volume 90.2 fL (80.0-98.0); Mean Platelet Volume 10.7 fL (9.4-12.4); Monocytes Absolute Auto 0.5 X10*3/uL (0.1-1.2); Monocytes Percent Auto 7.1 % (2-11); Neutrophils Absolute Auto 3.9 x10*3/uL (2.0-8.3); Neutrophils Percent Auto 53.2 % (45-73); Platelet Count 217 X10*3/uL (160-400); Red Blood Count 4.18 X10*6/uL (4.60-5.80); Red Cell Distribution Width 12.9 % (11.0-16.0); White Blood Count 7.4 X10*3/uL (4.8-10.8)
[2022-08-31 06:46] LABS: Anion Gap 13 (12-20); Blood Urea Nitrogen 16 mg/dL (9-16); Carbon Dioxide 22 mmol/L (22-29); Chloride 108 mmol/L (96-108); Creatinine Clr Calc Pharmacy 129.9; Estimated Glomerular Filt Rate > 60; Glucose Random 153 mg/dL (60-115); Magnesium 1.7 mg/dL (1.6-2.6); Potassium 4.4 mmol/L (3.3-5.1); Sodium 139 mmol/L (135-145)
[2022-08-31 07:16] VITALS: BP 141/77; PULSE 74; RESP 22; TEMP 36.7; O2SAT 98
[2022-08-31 07:21] LABS: Glucose, Whole Blood 136 mg/dL (60-115)
[2022-08-31] MEDS: 0.9 % Sodium Chloride Flush 3 ML SYRINGE IVFLUSH (07:43)
--- NOTE | 2022-08-31 07:45 | PC.NURSE ---
pt is a/o x 4 no sob/anjana noted speaks in full sentences. lungs - r side is cta, l side slightly diminished. heart sounds - regular. abd soft and non-tender, bx + x 4 quads. no edema noted. pt denies any chest pain. pt is aware of plan of care. pt ate 25% of breakfast.
[2022-08-31 08:28] LABS: Appearance Urine Clear; Color Urine Yellow; Glucose Urine UA Negative (Negative); Leukocyte Esterase Urine Negative (Negative); Nitrite Urine Negative (Negative); Specific Gravity - Urine 1.015 (1.005-1.025); Urine Blood Negative (Negative); Urine Ketones 40 mg/dL (Negative); Urine Protein Negative (Neg-Trace)
[2022-08-31 08:30] LABS: Bacteria Urine None Seen (None Seen); Hyaline Casts Urine 0-2 /LPF (0-2); RBC Urine 0-2 /HPF (0-2); Squamous Epithelial Cell Urine 0-2 /HPF (0-2); WBC Urine 0-5 /HPF (0-5)
[2022-08-31 08:41] LABS: Amphetamine Screen Urine Not Detected (Not Detect); Barbiturates, Urine Not Detected (Not Detect); Benzodiazepines Screen Urine Not Detected (Not Detect); Cannabinoid Screen Urine Not Detected (Not Detect); Cocaine Screen Urine Not Detected (Not Detect); Fentanyl, urine Not Detected (Not Detect); Opiate Screen Urine Not Detected (Not Detect); Phencyclidine Screen Urine Not Detected (Not Detect)
--- NOTE | 2022-08-31 09:53 | PHA.MEDREC ---
Pharmacy Consult ? Medication Reconciliation Pharmacy has completed the medication reconciliation. Patient doesn't know any of his medications but says he gets them in a medbox from [facility]. The pharmacy faxed me a list and that is the information used for the medication reconcililation.
[2022-08-31 10:50] VITALS: BP 129/72; PULSE 72; RESP 14; TEMP 36.8; O2SAT 97
--- NOTE | 2022-08-31 10:55 | PM.DS ---
DS: Providers Provider Date of Service: 08/31/22 Date of admission: 08/31/22 01:49 Primary care physician: Unknown Physician DS: Diagnosis Discharge Diagnosis (1) Hypomagnesemia: Status: Acute (2) Gout: Status: Acute (3) HTN (hypertension): Status: Acute (4) IDDM (insulin dependent diabetes mellitus): Status: Acute DS: Summary Hospital Course Hospital Course: from initial hpi: Chief Complaint: Generalized weakness This is a 47-year-old male with pertinent history of insulin-dependent diabetes mellitus, essential hypertension, mixed hyperlipidemia, gout presents to the emergency department for evaluation of generalized weakness.? Patient states he has been feeling weak over the last few days which has been progressive.? Also has associated generalized pain all over.? No seizures.? States he feels like this whenever he has low magnesium. ?does take magnesium supplementation at home.? Follows with a PCP.? Is not on a diuretic.? No GI losses.? Patient denies fever, chills, chest discomfort, shortness of breath, palpitations, abdominal pain, changes in urinary or bowel habits In the emergency department, magnesium was found to be 1.3 and hospital medicine was consulted as it meets admission criteria. hospital course: patient was treated for weakness due to hypomagnesemia, weakness improved, magnesium is 1.7 at dischage, he will continue po supplement. not on ppi at home, advised to avoid etoh. for his DM was continued on insulin, for htn continued on amldoipine, lisinopril, for hld ocntinued on statin. patient will be discharged home. Time Spent with Patient Time attestation: Total time spent providing and/or coordinating discharge services: Discharge coordination time: Greater than 30 minutes Quality: Safe Use of Opioids Does Pt have an Active Cancer Diagnosis on the Problem List?: No Quality: Stroke Does the patient have a stroke diagnosis?: No Physical Exam Vital Signs: Vital Signs: Last Vital Signs Temp 98.2 F 08/31/22 10:50 Pulse 72 08/31/22 10:50 Resp 14 08/31/22 10:50 BP 129/72 08/31/22 10:50 Pulse Ox 97 08/31/22 10:50 O2 Del Method 08/31/22 10:50 BMI result Body Mass Index 28.5 General: AO X 3, no acute distress Resp: CTA bilateral, no accessory muscles used CVS: S1,S2,RRR GI: soft, non tender, non distended Neuro: motor grossly intact, alert Psych: appropriate affect, appropriate insight DS: Data Data Completed and Pending Labs on day of discharge: Laboratory Results - last 24 hr 08/30/22 08/30/22 08/30/22 23:27 23:27 23:27 WBC 8.4 RBC 4.38 L Hgb 13.4 L Hct 39.7 L MCV 90.6 MCH 30.6 MCHC 33.8 RDW 12.9 Plt Count 242 MPV 10.5 Immature Gran % (Auto) 0.2 Neut % (Auto) 65.3 Lymph % (Auto) 24.3 Nicholas % (Auto) 7.1 Eos % (Auto) 2.4 Baso % (Auto) 0.7 Lymph # (Auto) 2.0 Nicholas # (Auto) 0.6 Eos # (Auto) 0.2 Baso # (Auto) 0.1 Abs Immat Gran (auto) 0.02 Absolute Neuts (auto) 5.5 Absolute Nucleated RBC 0.000 Nucleated RBC % (auto) 0.0 Sodium 142 Potassium 5.1 Chloride 108 Carbon Dioxide 22 Anion Gap 17 BUN 14 Creatinine 0.84 Estim Creat Clear Calc 112.9 Estimated GFR > 60 POC Glucose Random Glucose 103 D Calcium 9.4 Magnesium 1.3 L* Total Bilirubin 0.4 AST 20 ALT 34 Alkaline Phosphatase 67 D Troponin I High Sens < 3.5 Total Protein 7.2 Albumin 4.7 Urine Color Urine Appearance Urine pH Ur Specific [place] Urine Protein Urine Glucose (UA) Urine Ketones Urine Blood Urine Nitrite Ur Leukocyte Esterase Urine RBC Urine WBC Ur Squamous Epith Cells Urine Bacteria Hyaline Casts Urine Opiates Screen Urine Fentanyl Screen Ur Barbiturates Screen Ur Phencyclidine Scrn Ur Amphetamines Screen U Benzodiazepines Scrn Urine Cocaine Screen U Marijuana (THC) Screen Ethyl Alcohol < 10 COVID-19 ([facility]) COVID-19 Clin Com 08/31/22 08/31/22 08/31/22 01:48 06:20 06:20 WBC RBC Hgb Hct MCV MCH MCHC RDW Plt Count MPV Immature Gran % (Auto) Neut % (Auto) Lymph % (Auto) Nicholas % (Auto) Eos % (Auto) Baso % (Auto) Lymph # (Auto) Nicholas # (Auto) Eos # (Auto) Baso # (Auto) Abs Immat Gran (auto) Absolute Neuts (auto) Absolute Nucleated RBC Nucleated RBC % (auto) Sodium Potassium Chloride Carbon Dioxide Anion Gap BUN Creatinine Estim Creat Clear Calc Estimated GFR POC Glucose Random Glucose Calcium Magnesium Total Bilirubin AST ALT Alkaline Phosphatase Troponin I High Sens Total Protein Albumin Urine Color Yellow Urine Appearance Clear Urine pH 5.0 Ur Specific [place] 1.015 Urine Protein Negative Urine Glucose (UA) Negative Urine Ketones 40 Urine Blood Negative Urine Nitrite Negative Ur Leukocyte Esterase Negative Urine RBC 0-2 Urine WBC 0-5 Ur Squamous Epith Cells 0-2 Urine Bacteria None Seen Hyaline Casts 0-2 Urine Opiates Screen Not Detected Urine Fentanyl Screen Not Detected Ur Barbiturates Screen Not Detected Ur Phencyclidine Scrn Not Detected Ur Amphetamines Screen Not Detected U Benzodiazepines Scrn Not Detected Urine Cocaine Screen Not Detected U Marijuana (THC) Screen Not Detected Ethyl Alcohol COVID-19 ([facility]) Negative COVID-19 Clin Com See Note 08/31/22 08/31/22 08/31/22 06:22 06:22 07:16 WBC 7.4 RBC 4.18 L Hgb 12.8 L Hct 37.7 L MCV 90.2 MCH 30.6 MCHC 34.0 RDW 12.9 Plt Count 217 MPV 10.7 Immature Gran % (Auto) 0.3 Neut % (Auto) 53.2 Lymph % (Auto) 35.6 Nicholas % (Auto) 7.1 Eos % (Auto) 2.7 Baso % (Auto) 1.1 Lymph # (Auto) 2.6 Nicholas # (Auto) 0.5 Eos # (Auto) 0.2 Baso # (Auto) 0.1 Abs Immat Gran (auto) 0.02 Absolute Neuts (auto) 3.9 Absolute Nucleated RBC 0.000 Nucleated RBC % (auto) 0.0 Sodium 139 Potassium 4.4 Chloride 108 Carbon Dioxide 22 Anion Gap 13 BUN 16 Creatinine 0.73 Estim Creat Clear Calc 129.9 Estimated GFR > 60 POC Glucose 136 H Random Glucose 153 H Calcium 9.0 Magnesium 1.7 Total Bilirubin AST ALT Alkaline Phosphatase Troponin I High Sens Total Protein Albumin Urine Color Urine Appearance Urine pH Ur Specific [place] Urine Protein Urine Glucose (UA) Urine Ketones Urine Blood Urine Nitrite Ur Leukocyte Esterase Urine RBC Urine WBC Ur Squamous Epith Cells Urine Bacteria Hyaline Casts Urine Opiates Screen Urine Fentanyl Screen Ur Barbiturates Screen Ur Phencyclidine Scrn Ur Amphetamines Screen U Benzodiazepines Scrn Urine Cocaine Screen U Marijuana (THC) Screen Ethyl Alcohol COVID-19 ([facility]) COVID-19 Clin Com Discharge Plan Discharge Anticipated Discharge Date/Time: 08/31/22 10:43 Patient Disposition: Home, Self-Care Discharge Diagnosis: weakness, hypomag Referrals: Physician,Unknown J [Primary Care Provider] - 1 Week Discharge Medications: Continued metformin 1,000 mg Tablet 1,000 mg PO BID allopurinol 300 mg Tablet 300 mg PO BID magnesium oxide 400 mg magnesium tablet 400 mg PO BID atorvastatin 80 mg Tablet 80 mg PO BEDTIME amlodipine 5 mg Tablet 5 mg PO DAILY cyanocobalamin (vitamin B-12) 1,000 mcg Tablet 2,000 mcg PO DAILY aspirin 81 mg Tablet,Delayed Release (Dr/Ec) 81 mg PO DAILY amitriptyline 50 mg Tablet 50 mg PO BEDTIME lisinopril 10 mg Tablet 10 mg PO DAILY repaglinide 1 mg Tablet 1 mg PO TID Rx Instructions: administer within 30 minutes of a meal or snack famotidine 40 mg Tablet 40 mg PO BID insulin lispro 100 unit/mL Solution 30 unit SUBCUT TID Rx Instructions: with meals cholecalciferol (vitamin D3) 25 mcg (1,000 unit) Capsule 25 mcg PO DAILY insulin glargine [Lantus U-100 Insulin] 100 unit/mL Solution 32 unit SUBCUT QPM Discharge Orders: Discharge Order (Routine); Ordered 08/31/22 Ordered By: Jack Melgar Diet: Advance to usual diet Activity on Discharge: As tolerated Stand Alone Forms: Patient Portal Discharge page Care Plan Goals: recovery Health Concerns: low mag Plan of Treatment: continue supplelment, avoid etoh Assessment: see above
--- NOTE | 2022-08-31 11:35 | MHC.CM.PN ---
pt dcd home no skilled servceis ordered by
== END 2022-08-31 11:35 | disposition home or self-care (01) ==
LOC: HO.ED 08-31 01:19 → HO.EDOVER 08-31 02:04
PROVIDERS: Admitting Provider Student in an Organized Health Care Education/Training Program; Emergency Provider Emergency Medicine; PCP Internal Medicine; Visit Provider Internal Medicine
DX: E83.42 Hypomagnesemia (principal); R07.89 Other chest pain; I10 Essential (primary) hypertension; M10.9 Gout, unspecified; R53.1 Weakness; E11.9 Type 2 diabetes mellitus without complications; Z20.822 Contact with and (suspected) exposure to COVID-19; Z79.4 Long term (current) use of insulin; Z79.899 Other long term (current) drug therapy
CPT/HCPCS: 36415; 71045; 80048; 80053; 80307; 81001; 82077; 82947; 83735; 84484; 85025; 87635; 93005; 96365; 96366; 96375; 99218; 99285; J3475

== ENCOUNTER 2022-09-06 20:30 | Emergency (ER) | payer MEDICAID, SELFPAY ==
--- NOTE | ~2022-09-06 | XR_ITS ---
EXAMINATION: XR CHEST CLINICAL INFORMATION: Chest pain COMPARISON: Chest x-ray 08/30/2022 TECHNIQUE: Frontal view of the chest was obtained. FINDINGS: The lungs are clear. No airspace consolidation, pleural effusion, or pneumothorax. The cardiomediastinal silhouette is within normal limits. No acute osseous injury. XR/XR chest 1V IMPRESSION: No acute pulmonary process.
[2022-09-06 20:32] VITALS: BP 150/77; PULSE 106; RESP 20; TEMP 36.6; O2SAT 97; BMI 29.6
--- NOTE | 2022-09-06 20:38 | ECG_ITS ---
Test Reason : ches pain Blood Pressure : / mmHG Vent. Rate : 104 BPM Atrial Rate : 104 BPM P-R Int : 144 ms QRS Dur : 082 ms QT Int : 334 ms P-R-T Axes : 049 005 047 degrees QTc Int : 439 ms Sinus tachycardia Otherwise normal ECG When compared with ECG of 30-AUG-2022 23:19, No significant change was found Referred By: Generic ED Physician Electronically Signed By:MARLEEN MONDRAGON
--- NOTE | 2022-09-06 20:42 | ED_ITS ---
HPI - Chest Pain General Chief Complaint: Chest Pain <Meche Rosales NP - Last Filed: 09/06/22 20:43> Stated Complaint: Chest Pain <Meche Rosales NP - Last Filed: 09/06/22 20:43> Time Seen by Provider: 09/06/22 21:46 <Meche Rosales NP - Last Filed: 09/06/22 20:43> Related Data Home Medications: Home Medications Medication Instructions Recorded Confirmed allopurinol 300 mg tablet 300 mg PO BID 08/31/22 08/31/22 amitriptyline 50 mg tablet 50 mg PO BEDTIME 08/31/22 08/31/22 amlodipine 5 mg tablet 5 mg PO DAILY 08/31/22 08/31/22 aspirin 81 mg tablet,delayed 81 mg PO DAILY 08/31/22 08/31/22 release atorvastatin 80 mg tablet 80 mg PO BEDTIME 08/31/22 08/31/22 cholecalciferol (vitamin D3) 25 25 mcg PO DAILY 08/31/22 08/31/22 mcg (1,000 unit) capsule cyanocobalamin (vitamin B-12) 2,000 mcg PO DAILY 08/31/22 08/31/22 1,000 mcg tablet famotidine 40 mg tablet 40 mg PO BID 08/31/22 08/31/22 insulin glargine 100 unit/mL 32 unit subcut QPM 08/31/22 08/31/22 subcutaneous solution (Lantus U-100 Insulin) insulin lispro 100 unit/mL 30 unit subcut TID 08/31/22 08/31/22 subcutaneous solution lisinopril 10 mg tablet 10 mg PO DAILY 08/31/22 08/31/22 magnesium oxide 400 mg PO BID 08/31/22 08/31/22 metformin 1,000 mg tablet 1,000 mg PO BID 08/31/22 08/31/22 repaglinide 1 mg tablet 1 mg PO TID 08/31/22 08/31/22 Previous Rx's Medication Instructions Recorded magnesium oxide 400 mg PO TID #90 tabs 09/07/22 <Meche Rosales NP - Last Filed: 09/06/22 20:43> Allergies/Adverse Reactions: Allergies Allergy/AdvReac Type Severity Reaction Status Date / Time shellfish derived Allergy Unknown HIVES Verified 06/10/21 21:57 [SHELLFISH DERIVED] shrimp [SHRIMP] Allergy Unknown HIVES Verified 08/12/20 21:00 <Meche Rosales NP - Last Filed: 09/06/22 20:43> [facility] Past Medical History Medical History: Medical History GERD (gastroesophageal reflux disease) Gout HTN (hypertension) Hypomagnesemia IDDM (insulin dependent diabetes mellitus) <Meche Rosales NP - Last Filed: 09/06/22 20:43> Family History Family History: Family History Other No family history of colorectal cancer <Meche Rosales NP - Last Filed: 09/06/22 20:43> Social History Social History: Social History Alcohol intake: current Alcohol intake frequency: holidays/special occasions only Alcohol type: beer, wine and hard liquor Patient Tobacco Use Status: Never used Tobacco Smoked in Last 30 Days: No Use of substances other than those prescribed or required for medical reasons: No Advance Directives: No Advance Directives Information Provided: No <Meche Rosales NP - Last Filed: 09/06/22 20:43> Physical Exam Vital Signs: Vital Signs: Last Vital Signs Temp 97.6 F 09/06/22 21:56 Pulse 91 09/06/22 23:08 Resp 16 09/06/22 23:08 BP 139/72 09/06/22 23:08 Pulse Ox 96 09/06/22 23:08 O2 Del Method 09/06/22 23:08 BMI result Body Mass Index 29.6 <Meche Rosales NP - Last Filed: 09/06/22 20:43> Vital Signs: Last Vital Signs Temp 97.6 F 09/06/22 21:56 Pulse 91 09/06/22 23:08 Resp 16 09/06/22 23:08 BP 139/72 09/06/22 23:08 Pulse Ox 96 09/06/22 23:08 O2 Del Method 09/06/22 23:08 BMI result Body Mass Index 29.6 <Pascual Orellana MD - Last Filed: 09/07/22 03:32> Course Course Course Narrative: This is a rapid medical exam. Deferred additional HPI, ROS and PE to primary provider. 47-year-old male with history of hypertension, insulin- dependent diabetes presents with intermittent chest pain for the last 4 days. Will check chest x-ray, EKG, labs, COVID screen <Meche Rosales NP - Last Filed: 09/06/22 20:43> Medications Administered Discontinued Medications Generic Name Dose Route Start Last Admin Trade Name Freq PRN Reason Stop Dose Admin Magnesium Sulfate 2 gm in 50 mls @ 100 mls/hr 09/06/22 21:48 09/06/22 22:56 Magnesium Sulfate/H2o IV 09/06/22 22:17 Infused ONCE ONE Infusion <Meche Rosales NP - Last Filed: 09/06/22 20:43> Medications Administered Discontinued Medications Generic Name Dose Route Start Last Admin Trade Name Freq PRN Reason Stop Dose Admin Magnesium Sulfate 2 gm in 50 mls @ 100 mls/hr 09/06/22 21:48 09/06/22 22:56 Magnesium Sulfate/H2o IV 09/06/22 22:17 Infused ONCE ONE Infusion <Pascual Orellana MD - Last Filed: 09/07/22 03:32> Medical Decision Making Lab Data MDM Lab Attestation statement: I reviewed the patient's lab results. <Pascual Orellana MD - Last Filed: 09/07/22 03:32> Result Diagrams: : 09/06/22 20:48 09/06/22 20:48 <Meche Rosales NP - Last Filed: 09/06/22 20:43> Labs: Lab Results 09/06/22 09/06/22 09/06/22 Range/Units 20:45 20:48 20:48 WBC 10.9 H (4.8-10.8) X10*3/uL RBC 4.46 L (4.60-5.80) X10*6/uL Hgb 13.8 L (14.0-18.0) g/dl Hct 40.3 L (42.0-52.0) % MCV 90.4 (80.0-98.0) fL MCH 30.9 (27.0-33.0) pg MCHC 34.2 (31.0-36.0) g/dl RDW 13.1 (11.0-16.0) % Plt Count 257 (160-400) X10*3/uL MPV 10.9 (9.4-12.4) fL Immature Gran % (Auto) 0.3 (0.0-0.4) % Neut % (Auto) 77.0 H (45-73) % Lymph % (Auto) 15.4 L (20-40) % [place] % (Auto) 5.6 (2-11) % Eos % (Auto) 1.1 (0-4) % Baso % (Auto) 0.6 (0-2) % Lymph # (Auto) 1.7 (1.2-4.9) X10*3/uL [place] # (Auto) 0.6 (0.1-1.2) X10*3/uL Eos # (Auto) 0.1 (0.0-0.4) X10*3/uL Baso # (Auto) 0.1 (0.0-0.2) X10*3/uL Abs Immat Gran (auto) 0.03 (0.00-0.03) X10*3/uL Absolute Neuts (auto) 8.4 H (2.0-8.3) x10*3/uL Absolute Nucleated RBC 0.000 (0.0-0.012) X10*3/uL Nucleated RBC % (auto) 0.0 (0.0-0.2) /100WBC PT (10.0-13.1) SEC INR (0.9-1.1) Sodium 136 (135-145) mmol/L Potassium 5.1 (3.3-5.1) mmol/L Chloride 101 (96-108) mmol/L Carbon Dioxide 21 L (22-29) mmol/L Anion Gap 19 (12-20) BUN 17 H (9-16) mg/dL Creatinine 1.10 (0.5-1.4) mg/dL Estim Creat Clear Calc 87.7 Estimated GFR > 60 Random Glucose 258 H (60-115) mg/dL Calcium 9.7 D (8.4-10.2) mg/dL Magnesium 1.0 L* (1.6-2.6) mg/dL Total Bilirubin 0.4 (0.0-1.0) mg/dL Direct Bilirubin < 0.2 (0.0-0.5) mg/dL AST 26 (5-37) U/L ALT 49 H (0-40) U/L Alkaline Phosphatase 61 (39-117) U/L Troponin I High Sens (<3.5-35.0) ng/L Total Protein 7.1 (6.5-8.0) g/dL Albumin 4.7 (3.5-5.0) g/dL Ur Random Sodium mmol/L Ur Random Potassium mmol/L COVID-19 (RUSS) Negative (Negative) COVID-19 Clin Com See Note 09/06/22 09/06/22 09/06/22 Range/Units 20:48 20:48 23:05 WBC (4.8-10.8) X10*3/uL RBC (4.60-5.80) X10*6/uL Hgb (14.0-18.0) g/dl Hct (42.0-52.0) % MCV (80.0-98.0) fL MCH (27.0-33.0) pg MCHC (31.0-36.0) g/dl RDW (11.0-16.0) % Plt Count (160-400) X10*3/uL MPV (9.4-12.4) fL Immature Gran % (Auto) (0.0-0.4) % Neut % (Auto) (45-73) % Lymph % (Auto) (20-40) % [place] % (Auto) (2-11) % Eos % (Auto) (0-4) % Baso % (Auto) (0-2) % Lymph # (Auto) (1.2-4.9) X10*3/uL [place] # (Auto) (0.1-1.2) X10*3/uL Eos # (Auto) (0.0-0.4) X10*3/uL Baso # (Auto) (0.0-0.2) X10*3/uL Abs Immat Gran (auto) (0.00-0.03) X10*3/uL Absolute Neuts (auto) (2.0-8.3) x10*3/uL Absolute Nucleated RBC (0.0-0.012) X10*3/uL Nucleated RBC % (auto) (0.0-0.2) /100WBC PT 10.2 (10.0-13.1) SEC INR 0.9 (0.9-1.1) Sodium (135-145) mmol/L Potassium (3.3-5.1) mmol/L Chloride (96-108) mmol/L Carbon Dioxide (22-29) mmol/L Anion Gap (12-20) BUN (9-16) mg/dL Creatinine (0.5-1.4) mg/dL Estim Creat Clear Calc Estimated GFR Random Glucose (60-115) mg/dL Calcium (8.4-10.2) mg/dL Magnesium (1.6-2.6) mg/dL Total Bilirubin (0.0-1.0) mg/dL Direct Bilirubin (0.0-0.5) mg/dL AST (5-37) U/L ALT (0-40) U/L Alkaline Phosphatase (39-117) U/L Troponin I High Sens < 3.5 (<3.5-35.0) ng/L Total Protein (6.5-8.0) g/dL Albumin (3.5-5.0) g/dL Ur Random Sodium 41.0 mmol/L Ur Random Potassium 79.5 mmol/L COVID-19 (RUSS) (Negative) COVID-19 Clin Com <Meche Rosales NP - Last Filed: 09/06/22 20:43> Lab Results 09/06/22 09/06/22 09/06/22 Range/Units 20:45 20:48 20:48 WBC 10.9 H (4.8-10.8) X10*3/uL RBC 4.46 L (4.60-5.80) X10*6/uL Hgb 13.8 L (14.0-18.0) g/dl Hct 40.3 L (42.0-52.0) % MCV 90.4 (80.0-98.0) fL MCH 30.9 (27.0-33.0) pg MCHC 34.2 (31.0-36.0) g/dl RDW 13.1 (11.0-16.0) % Plt Count 257 (160-400) X10*3/uL MPV 10.9 (9.4-12.4) fL Immature Gran % (Auto) 0.3 (0.0-0.4) % Neut % (Auto) 77.0 H (45-73) % Lymph % (Auto) 15.4 L (20-40) % [place] % (Auto) 5.6 (2-11) % Eos % (Auto) 1.1 (0-4) % Baso % (Auto) 0.6 (0-2) % Lymph # (Auto) 1.7 (1.2-4.9) X10*3/uL [place] # (Auto) 0.6 (0.1-1.2) X10*3/uL Eos # (Auto) 0.1 (0.0-0.4) X10*3/uL Baso # (Auto) 0.1 (0.0-0.2) X10*3/uL Abs Immat Gran (auto) 0.03 (0.00-0.03) X10*3/uL Absolute Neuts (auto) 8.4 H (2.0-8.3) x10*3/uL Absolute Nucleated RBC 0.000 (0.0-0.012) X10*3/uL Nucleated RBC % (auto) 0.0 (0.0-0.2) /100WBC PT (10.0-13.1) SEC INR (0.9-1.1) Sodium 136 (135-145) mmol/L Potassium 5.1 (3.3-5.1) mmol/L Chloride 101 (96-108) mmol/L Carbon Dioxide 21 L (22-29) mmol/L Anion Gap 19 (12-20) BUN 17 H (9-16) mg/dL Creatinine 1.10 (0.5-1.4) mg/dL Estim Creat Clear Calc 87.7 Estimated GFR > 60 Random Glucose 258 H (60-115) mg/dL Calcium 9.7 D (8.4-10.2) mg/dL Magnesium 1.0 L* (1.6-2.6) mg/dL Total Bilirubin 0.4 (0.0-1.0) mg/dL Direct Bilirubin < 0.2 (0.0-0.5) mg/dL AST 26 (5-37) U/L ALT 49 H (0-40) U/L Alkaline Phosphatase 61 (39-117) U/L Troponin I High Sens (<3.5-35.0) ng/L Total Protein 7.1 (6.5-8.0) g/dL Albumin 4.7 (3.5-5.0) g/dL Ur Random Sodium mmol/L Ur Random Potassium mmol/L COVID-19 (RUSS) Negative (Negative) COVID-19 Clin Com See Note 09/06/22 09/06/22 09/06/22 Range/Units 20:48 20:48 23:05 WBC (4.8-10.8) X10*3/uL RBC (4.60-5.80) X10*6/uL Hgb (14.0-18.0) g/dl Hct (42.0-52.0) % MCV (80.0-98.0) fL MCH (27.0-33.0) pg MCHC (31.0-36.0) g/dl RDW (11.0-16.0) % Plt Count (160-400) X10*3/uL MPV (9.4-12.4) fL Immature Gran % (Auto) (0.0-0.4) % Neut % (Auto) (45-73) % Lymph % (Auto) (20-40) % [place] % (Auto) (2-11) % Eos % (Auto) (0-4) % Baso % (Auto) (0-2) % Lymph # (Auto) (1.2-4.9) X10*3/uL [place] # (Auto) (0.1-1.2) X10*3/uL Eos # (Auto) (0.0-0.4) X10*3/uL Baso # (Auto) (0.0-0.2) X10*3/uL Abs Immat Gran (auto) (0.00-0.03) X10*3/uL Absolute Neuts (auto) (2.0-8.3) x10*3/uL Absolute Nucleated RBC (0.0-0.012) X10*3/uL Nucleated RBC % (auto) (0.0-0.2) /100WBC PT 10.2 (10.0-13.1) SEC INR 0.9 (0.9-1.1) Sodium (135-145) mmol/L Potassium (3.3-5.1) mmol/L Chloride (96-108) mmol/L Carbon Dioxide (22-29) mmol/L Anion Gap (12-20) BUN (9-16) mg/dL Creatinine (0.5-1.4) mg/dL Estim Creat Clear Calc Estimated GFR Random Glucose (60-115) mg/dL Calcium (8.4-10.2) mg/dL Magnesium (1.6-2.6) mg/dL Total Bilirubin (0.0-1.0) mg/dL Direct Bilirubin (0.0-0.5) mg/dL AST (5-37) U/L ALT (0-40) U/L Alkaline Phosphatase (39-117) U/L Troponin I High Sens < 3.5 (<3.5-35.0) ng/L Total Protein (6.5-8.0) g/dL Albumin (3.5-5.0) g/dL Ur Random Sodium 41.0 mmol/L Ur Random Potassium 79.5 mmol/L COVID-19 (RUSS) (Negative) COVID-19 Clin Com <Pascual Orellana MD - Last Filed: 09/07/22 03:32> Discharge Plan Discharge Clinical Impression: Hypomagnesemia <Meche Rosales NP - Last Filed: 09/06/22 20:43> Patient Disposition: Home, Self-Care <Meche Rosales NP - Last Filed: 09/06/22 20:43> Instructions: Hypomagnesemia (ED) <Meche Rosales NP - Last Filed: 09/06/22 20:43> Additional Instructions: Increase the dose of magnesium tablets to 2 tablets in the morning and 1 in the evening Eat food containing Hypomagnesium as advised Follow with knife operator/PCP <Meche Rosales NP - Last Filed: 09/06/22 20:43> Prescriptions: New magnesium oxide 400 mg magnesium tablet 400 mg PO TID Qty: 90 0RF No Action metformin 1,000 mg Tablet 1,000 mg PO BID allopurinol 300 mg Tablet 300 mg PO BID magnesium oxide 400 mg magnesium tablet 400 mg PO BID atorvastatin 80 mg Tablet 80 mg PO BEDTIME amlodipine 5 mg Tablet 5 mg PO DAILY cyanocobalamin (vitamin B-12) 1,000 mcg Tablet 2,000 mcg PO DAILY aspirin 81 mg Tablet,Delayed Release (Dr/Ec) 81 mg PO DAILY amitriptyline 50 mg Tablet 50 mg PO BEDTIME lisinopril 10 mg Tablet 10 mg PO DAILY repaglinide 1 mg Tablet 1 mg PO TID Rx Instructions: administer within 30 minutes of a meal or snack famotidine 40 mg Tablet 40 mg PO BID insulin lispro 100 unit/mL Solution 30 unit SUBCUT TID Rx Instructions: with meals cholecalciferol (vitamin D3) 25 mcg (1,000 unit) Capsule 25 mcg PO DAILY insulin glargine [Lantus U-100 Insulin] 100 unit/mL Solution 32 unit SUBCUT QPM <Meche Rosales NP - Last Filed: 09/06/22 20:43> Referrals: Herbie Romero MD [Physician] - (Hypomagnesemia) <Meche Rosales NP - Last Filed: 09/06/22 20:43> Interventions: ED Discharge Assessment Last Done: 09/07/22 00:20 <Meche Rosales NP - Last Filed: 09/06/22 20:43> Discharge Date/Time: 09/07/22 00:23 <Meche Rosales NP - Last Filed: 09/06/22 20:43>
[2022-09-06 21:01] LABS: MANUAL DIFF FLAG NO
[2022-09-06 21:02] LABS: Basophils Absolute Auto 0.1 X10*3/uL (0.0-0.2); Basophils Percent Auto 0.6 % (0-2); Eosinophils Absolute Auto 0.1 X10*3/uL (0.0-0.4); Eosinophils Percent Auto 1.1 % (0-4); Hematocrit 40.3 % (42.0-52.0); Hemoglobin 13.8 g/dl (14.0-18.0); Imm Gran Abs Auto 0.03 X10*3/uL (0.00-0.03); Imm Gran Pct Auto 0.3 % (0.0-0.4); Lymphocytes Absolute Auto 1.7 X10*3/uL (1.2-4.9); Lymphocytes Percent Auto 15.4 % (20-40); Mean Corpuscular HGB Conc 34.2 g/dl (31.0-36.0); Mean Corpuscular Hemoglobin 30.9 pg (27.0-33.0); Mean Corpuscular Volume 90.4 fL (80.0-98.0); Mean Platelet Volume 10.9 fL (9.4-12.4); Monocytes Absolute Auto 0.6 X10*3/uL (0.1-1.2); Monocytes Percent Auto 5.6 % (2-11); Neutrophils Absolute Auto 8.4 x10*3/uL (2.0-8.3); Platelet Count 257 X10*3/uL (160-400); Red Blood Count 4.46 X10*6/uL (4.60-5.80); Red Cell Distribution Width 13.1 % (11.0-16.0); White Blood Count 10.9 X10*3/uL (4.8-10.8)
[2022-09-06 21:07] LABS: INTERNATIONAL NORM RATIO 0.9 (0.9-1.1); Prothrombin Time 10.2 SEC (10.0-13.1)
[2022-09-06 21:12] LABS: COVID-19 Test Negative (Negative); IDNOW Serial# 16C4AD1C
[2022-09-06 21:21] LABS: Alanine Aminotransferase 49 U/L (0-40); Albumin Level 4.7 g/dL (3.5-5.0); Alkaline Phosphatase 61 U/L (39-117); Anion Gap 19 (12-20); Aspartate Amino Transferase 26 U/L (5-37); Bilirubin Direct < 0.2 mg/dL (0.0-0.5); Bilirubin Total 0.4 mg/dL (0.0-1.0); Blood Urea Nitrogen 17 mg/dL (9-16); Calcium 9.7 mg/dL (8.4-10.2); Carbon Dioxide 21 mmol/L (22-29); Chloride 101 mmol/L (96-108); Creatinine Clr Calc Pharmacy 87.7; Estimated Glomerular Filt Rate > 60; Glucose Random 258 mg/dL (60-115); Potassium 5.1 mmol/L (3.3-5.1); Sodium 136 mmol/L (135-145); Total Protein 7.1 g/dL (6.5-8.0)
[2022-09-06 21:28] LABS: Troponin-I High Sensitivity < 3.5 ng/L (<3.5-35.0)
--- NOTE | 2022-09-06 21:47 | ED_ITS ---
HPI - Chest Pain General Chief Complaint: Chest Pain Stated Complaint: Chest Pain Time Seen by Provider: 09/06/22 21:46 Source: patient Mode of arrival: ambulatory Limitations: no limitations History of Present Illness HPI narrative: Patient 47 years old with history of diabetes mellitus, hypertension, hyperlipidemia, gout, chronic hypomagnesemia comes here for chest pain for last 4 days with body aches tingling sensation. Patient was seen here on 08/31 with weakness and at that time magnesium was low. Patient been taking magnesium oxide 2 tablets a day. Chest pain is more in the mid chest increases on deep breaths no radiation of the pain no nausea no vomiting no diarrhea no diaphoresis Related Data Home Medications Medication Instructions Recorded Confirmed allopurinol 300 mg tablet 300 mg PO BID 08/31/22 08/31/22 amitriptyline 50 mg tablet 50 mg PO BEDTIME 08/31/22 08/31/22 amlodipine 5 mg tablet 5 mg PO DAILY 08/31/22 08/31/22 aspirin 81 mg tablet,delayed 81 mg PO DAILY 08/31/22 08/31/22 release atorvastatin 80 mg tablet 80 mg PO BEDTIME 08/31/22 08/31/22 cholecalciferol (vitamin D3) 25 25 mcg PO DAILY 08/31/22 08/31/22 mcg (1,000 unit) capsule cyanocobalamin (vitamin B-12) 2,000 mcg PO DAILY 08/31/22 08/31/22 1,000 mcg tablet famotidine 40 mg tablet 40 mg PO BID 08/31/22 08/31/22 insulin glargine 100 unit/mL 32 unit subcut QPM 08/31/22 08/31/22 subcutaneous solution (Lantus U-100 Insulin) insulin lispro 100 unit/mL 30 unit subcut TID 08/31/22 08/31/22 subcutaneous solution lisinopril 10 mg tablet 10 mg PO DAILY 08/31/22 08/31/22 magnesium oxide 400 mg PO BID 08/31/22 08/31/22 metformin 1,000 mg tablet 1,000 mg PO BID 08/31/22 08/31/22 repaglinide 1 mg tablet 1 mg PO TID 08/31/22 08/31/22 Previous Rx's Medication Instructions Recorded magnesium oxide 400 mg PO TID #90 tabs 09/07/22 Allergies Allergy/AdvReac Type Severity Reaction Status Date / Time shellfish derived Allergy Unknown HIVES Verified 06/10/21 21:57 [SHELLFISH DERIVED] shrimp [SHRIMP] Allergy Unknown HIVES Verified 08/12/20 21:00 Review of Systems Review of Systems: Yes all other systems are reviewed and are negative [facility] Past Medical History Medical History GERD (gastroesophageal reflux disease) Gout HTN (hypertension) Hypomagnesemia IDDM (insulin dependent diabetes mellitus) Family History Family History Other No family history of colorectal cancer Social History Social History Alcohol intake: current Alcohol intake frequency: holidays/special occasions only Alcohol type: beer, wine and hard liquor Patient Tobacco Use Status: Never used Tobacco Smoked in Last 30 Days: No Use of substances other than those prescribed or required for medical reasons: No Advance Directives: No Advance Directives Information Provided: No Physical Exam Vital Signs: Vital Signs: Last Vital Signs Temp 97.6 F 09/06/22 21:56 Pulse 91 09/06/22 23:08 Resp 16 09/06/22 23:08 BP 139/72 09/06/22 23:08 Pulse Ox 96 09/06/22 23:08 O2 Del Method 09/06/22 23:08 BMI result Body Mass Index 29.6 Appearance: Alert. Oriented X3. No acute distress. Eyes: PERRLA, No Nystagmus ENT: Pharynx normal. Oral Mucosa moist Neck: Normal inspection. Neck supple. CVS: Normal heart rate and rhythm. Pulses normal. Respiratory: No respiratory distress. Equal air entry bilateral, no wheezing/rales/rhonchi Abdomen: Soft and nontender. Bowel sounds are present, no mass palpable, no CVA tenderness Skin: Skin warm and dry. Normal skin color. Normal skin turgor. Extremities: No lower extremity edema. No calf tenderness Neuro: Oriented X 3. No motor deficit. No sensory deficit.No cerebellar signs , cranial nerves II-XII intact normal reflexes Medications Administered Discontinued Medications Generic Name Dose Route Start Last Admin Trade Name Freq PRN Reason Stop Dose Admin Magnesium Sulfate 2 gm in 50 mls @ 100 mls/hr 09/06/22 21:48 09/06/22 22:56 Magnesium Sulfate/H2o IV 09/06/22 22:17 Infused ONCE ONE Infusion Medical Decision Making Medical Decision Making [facility] Narrative: Patient with recurrent hypomagnesemia patient for last 4 months was on PPI which was stopped on 08/30 still magnesium level is low etiology is not very clear never had similar problem when he was young not alcoholic denies any diarrhea or vomiting urine was sent to check the magnesium level. Patient advised to increase the dose of magnesium oxide to 3 tablets a day have food containing high magnesium level daily and follow up with newspaper columnist Lab Data [facility] Lab Attestation statement: I reviewed the patient's lab results. Result Diagrams: 09/06/22 20:48 09/06/22 20:48 Labs: Lab Results 09/06/22 09/06/22 09/06/22 Range/Units 20:45 20:48 20:48 WBC 10.9 H (4.8-10.8) X10*3/uL RBC 4.46 L (4.60-5.80) X10*6/uL Hgb 13.8 L (14.0-18.0) g/dl Hct 40.3 L (42.0-52.0) % MCV 90.4 (80.0-98.0) fL MCH 30.9 (27.0-33.0) pg MCHC 34.2 (31.0-36.0) g/dl RDW 13.1 (11.0-16.0) % Plt Count 257 (160-400) X10*3/uL MPV 10.9 (9.4-12.4) fL Immature Gran % (Auto) 0.3 (0.0-0.4) % Neut % (Auto) 77.0 H (45-73) % Lymph % (Auto) 15.4 L (20-40) % [place] % (Auto) 5.6 (2-11) % Eos % (Auto) 1.1 (0-4) % Baso % (Auto) 0.6 (0-2) % Lymph # (Auto) 1.7 (1.2-4.9) X10*3/uL [place] # (Auto) 0.6 (0.1-1.2) X10*3/uL Eos # (Auto) 0.1 (0.0-0.4) X10*3/uL Baso # (Auto) 0.1 (0.0-0.2) X10*3/uL Abs Immat Gran (auto) 0.03 (0.00-0.03) X10*3/uL Absolute Neuts (auto) 8.4 H (2.0-8.3) x10*3/uL Absolute Nucleated RBC 0.000 (0.0-0.012) X10*3/uL Nucleated RBC % (auto) 0.0 (0.0-0.2) /100WBC PT (10.0-13.1) SEC INR (0.9-1.1) Sodium 136 (135-145) mmol/L Potassium 5.1 (3.3-5.1) mmol/L Chloride 101 (96-108) mmol/L Carbon Dioxide 21 L (22-29) mmol/L Anion Gap 19 (12-20) BUN 17 H (9-16) mg/dL Creatinine 1.10 (0.5-1.4) mg/dL Estim Creat Clear Calc 87.7 Estimated GFR > 60 Random Glucose 258 H (60-115) mg/dL Calcium 9.7 D (8.4-10.2) mg/dL Magnesium 1.0 L* (1.6-2.6) mg/dL Total Bilirubin 0.4 (0.0-1.0) mg/dL Direct Bilirubin < 0.2 (0.0-0.5) mg/dL AST 26 (5-37) U/L ALT 49 H (0-40) U/L Alkaline Phosphatase 61 (39-117) U/L Troponin I High Sens (<3.5-35.0) ng/L Total Protein 7.1 (6.5-8.0) g/dL Albumin 4.7 (3.5-5.0) g/dL Ur Random Sodium mmol/L Ur Random Potassium mmol/L COVID-19 ([facility]USS) Negative (Negative) COVID-19 Clin Com See Note 09/06/22 09/06/22 09/06/22 Range/Units 20:48 20:48 23:05 WBC (4.8-10.8) X10*3/uL RBC (4.60-5.80) X10*6/uL Hgb (14.0-18.0) g/dl Hct (42.0-52.0) % MCV (80.0-98.0) fL MCH (27.0-33.0) pg MCHC (31.0-36.0) g/dl RDW (11.0-16.0) % Plt Count (160-400) X10*3/uL MPV (9.4-12.4) fL Immature Gran % (Auto) (0.0-0.4) % Neut % (Auto) (45-73) % Lymph % (Auto) (20-40) % [place] % (Auto) (2-11) % Eos % (Auto) (0-4) % Baso % (Auto) (0-2) % Lymph # (Auto) (1.2-4.9) X10*3/uL [place] # (Auto) (0.1-1.2) X10*3/uL Eos # (Auto) (0.0-0.4) X10*3/uL Baso # (Auto) (0.0-0.2) X10*3/uL Abs Immat Gran (auto) (0.00-0.03) X10*3/uL Absolute Neuts (auto) (2.0-8.3) x10*3/uL Absolute Nucleated RBC (0.0-0.012) X10*3/uL Nucleated RBC % (auto) (0.0-0.2) /100WBC PT 10.2 (10.0-13.1) SEC INR 0.9 (0.9-1.1) Sodium (135-145) mmol/L Potassium (3.3-5.1) mmol/L Chloride (96-108) mmol/L Carbon Dioxide (22-29) mmol/L Anion Gap (12-20) BUN (9-16) mg/dL Creatinine (0.5-1.4) mg/dL Estim Creat Clear Calc Estimated GFR Random Glucose (60-115) mg/dL Calcium (8.4-10.2) mg/dL Magnesium (1.6-2.6) mg/dL Total Bilirubin (0.0-1.0) mg/dL Direct Bilirubin (0.0-0.5) mg/dL AST (5-37) U/L ALT (0-40) U/L Alkaline Phosphatase (39-117) U/L Troponin I High Sens < 3.5 (<3.5-35.0) ng/L Total Protein (6.5-8.0) g/dL Albumin (3.5-5.0) g/dL Ur Random Sodium 41.0 mmol/L Ur Random Potassium 79.5 mmol/L COVID-19 (RUSS) (Negative) COVID-19 Clin Com Independent Interpretation I performed an independent interpretation of an: EKG Interpretation: Sinus tachycardia with heart rate of 104 beats per minute poor progression of R- wave no acute history no acute ischemia no change from the previous EKG Discharge Plan Discharge Clinical Impression: Hypomagnesemia Patient Disposition: Home, Self-Care Instructions: Hypomagnesemia (ED) Additional Instructions: Increase the dose of magnesium tablets to 2 tablets in the morning and 1 in the evening Eat food containing Hypomagnesium as advised Follow with newspaper columnist/PCP Prescriptions: New magnesium oxide 400 mg magnesium tablet 400 mg PO TID Qty: 90 0RF No Action metformin 1,000 mg Tablet 1,000 mg PO BID allopurinol 300 mg Tablet 300 mg PO BID magnesium oxide 400 mg magnesium tablet 400 mg PO BID atorvastatin 80 mg Tablet 80 mg PO BEDTIME amlodipine 5 mg Tablet 5 mg PO DAILY cyanocobalamin (vitamin B-12) 1,000 mcg Tablet 2,000 mcg PO DAILY aspirin 81 mg Tablet,Delayed Release (Dr/Ec) 81 mg PO DAILY amitriptyline 50 mg Tablet 50 mg PO BEDTIME lisinopril 10 mg Tablet 10 mg PO DAILY repaglinide 1 mg Tablet 1 mg PO TID Rx Instructions: administer within 30 minutes of a meal or snack famotidine 40 mg Tablet 40 mg PO BID insulin lispro 100 unit/mL Solution 30 unit SUBCUT TID Rx Instructions: with meals cholecalciferol (vitamin D3) 25 mcg (1,000 unit) Capsule 25 mcg PO DAILY insulin glargine [Lantus U-100 Insulin] 100 unit/mL Solution 32 unit SUBCUT QPM Referrals: Herbie Romero MD [Physician] - (Hypomagnesemia) Interventions: ED Discharge Assessment Last Done: 09/07/22 00:20 Discharge Date/Time: 09/07/22 00:23
[2022-09-06 21:56] VITALS: BP 141/76; PULSE 97; RESP 19; TEMP 36.4; O2SAT 97
[2022-09-06] MEDS: Magnesium Sulfate/H2O 2 GM/50 ML PIGGYBACK IV (22:26)
--- NOTE | 2022-09-06 23:03 | PC.NURSE ---
Addendum entered by Yolanda Wilson 09/06/22 23:03: Reports pain is intermittent. PT ambulated independently to BR. Original Note: PT A&Ox3, denies pain, report chest discomfory
[2022-09-06 23:08] VITALS: BP 139/72; PULSE 91; RESP 16; O2SAT 96
[2022-09-06 23:29] LABS: Potassium Urine Random 79.5 mmol/L
[2022-09-14 17:58] LABS: Calcium, Random Urine 1.5 mg/dL; Creatinine, Random Urine 254 mg/dL (20-320); Magnesium, Random Urine 44 mg/g creat (22-130)
== END 2022-09-07 00:23 | disposition home or self-care (01) ==
PROVIDERS: Nurse Practitioner Family; Emergency Provider Internal Medicine; PCP Internal Medicine
DX: E83.42 Hypomagnesemia (principal); Z20.822 Contact with and (suspected) exposure to COVID-19; I10 Essential (primary) hypertension; E11.9 Type 2 diabetes mellitus without complications; E78.5 Hyperlipidemia, unspecified; Z79.02 Long term (current) use of antithrombotics/antiplatelets; Z79.4 Long term (current) use of insulin; Z79.899 Other long term (current) drug therapy
CPT/HCPCS: 36415; 71045; 80048; 80076; 82310; 83735; 84133; 84300; 84484; 85025; 85610; 87635; 93005; 96365; 99284; 99285; J3475

== ENCOUNTER 2022-10-15 08:29 | Outpatient (REF) | payer MEDICAID, SELFPAY ==
[2022-10-15 09:27] LABS: Appearance Urine Clear; Color Urine Yellow; Glucose Urine UA Negative (Negative); Leukocyte Esterase Urine Negative (Negative); Nitrite Urine Negative (Negative); PH 5.5 (5.0-9.0); Urine Blood Negative (Negative); Urine Ketones Trace mg/dL (Negative); Urine Protein Trace mg/dL (Neg-Trace)
[2022-10-15 09:32] LABS: Bacteria Urine None Seen (None Seen); RBC Urine 0-2 /HPF (0-2); Squamous Epithelial Cell Urine 0-2 /HPF (0-2); WBC Urine 0-5 /HPF (0-5)
[2022-10-15 10:34] LABS: Microalbum/Creatinine Ratio Ur 40.6 ug/mg cr
[2022-10-15 13:23] LABS: Anion Gap 16 (12-20); Blood Urea Nitrogen 27 mg/dL (9-16); Calcium 10.1 mg/dL (8.4-10.2); Carbon Dioxide 27 mmol/L (22-29); Chloride 100 mmol/L (96-108); Estimated Glomerular Filt Rate > 60; Magnesium 1.4 mg/dL (1.6-2.6); Phosphorus 5.1 mg/dL (2.7-4.5); Potassium 4.6 mmol/L (3.3-5.1); Sodium 138 mmol/L (135-145)
== END 2022-10-15 08:30 | disposition home or self-care (01) ==
LOC: HO.LAB 08:29
PROVIDERS: PCP Internal Medicine; Visit Provider Internal Medicine Nephrology
DX: E11.22 Type 2 diabetes mellitus with diabetic chronic kidney disease (principal); I12.9 Hypertensive chronic kidney disease with stage 1 through stage 4 chronic kidney disease, or unspecified chronic kidney disease; N18.9 Chronic kidney disease, unspecified; E83.42 Hypomagnesemia
CPT/HCPCS: 36415; 80051; 81001; 82043; 82310; 82565; 83735; 84100; 84520

== ENCOUNTER 2022-11-05 10:30 | Emergency (ER) | payer MEDICAID, SELFPAY ==
[2022-11-05 10:31] VITALS: BP 123/69; PULSE 89; RESP 18; TEMP 36.7; O2SAT 99; BMI 30.9
--- NOTE | 2022-11-05 14:07 | PC.NURSE ---
called from waiting room 1407: no answer
== END 2022-11-05 15:19 | disposition left against medical advice (07) ==
PROVIDERS: Emergency Provider Emergency Medicine; PCP Internal Medicine
DX: I95.9 Hypotension, unspecified (principal); Z79.899 Other long term (current) drug therapy
CPT/HCPCS: 99281

== ENCOUNTER 2022-12-25 21:37 | Emergency (ER) | payer MEDICAID, SELFPAY ==
[2022-12-25 21:47] VITALS: BP 143/80; PULSE 103; RESP 20; TEMP 36.4; O2SAT 97; BMI 29.4
[2022-12-25 22:26] LABS: Hematocrit 38.7 % (42.0-52.0); Hemoglobin 13.3 g/dl (14.0-18.0); Mean Corpuscular HGB Conc 34.4 g/dl (31.0-36.0); Mean Corpuscular Hemoglobin 31.1 pg (27.0-33.0); Mean Corpuscular Volume 90.6 fL (80.0-98.0); Mean Platelet Volume 10.3 fL (9.4-12.4); Platelet Count 241 X10*3/uL (160-400); Red Blood Count 4.27 X10*6/uL (4.60-5.80); Red Cell Distribution Width 12.9 % (11.0-16.0)
[2022-12-25 22:40] LABS: Alanine Aminotransferase 33 U/L (0-40); Albumin Level 4.3 g/dL (3.5-5.0); Alkaline Phosphatase 76 U/L (39-117); Anion Gap 17 (12-20); Aspartate Amino Transferase 16 U/L (5-37); Bilirubin Total 0.3 mg/dL (0.0-1.0); Blood Urea Nitrogen 21 mg/dL (9-16); Calcium 9.5 mg/dL (8.4-10.2); Carbon Dioxide 23 mmol/L (22-29); Chloride 107 mmol/L (96-108); Creatinine Clr Calc Pharmacy 110.7; Estimated Glomerular Filt Rate > 60; Glucose Random 154 mg/dL (60-115); Potassium 4.4 mmol/L (3.3-5.1); Sodium 143 mmol/L (135-145); Total Protein 6.7 g/dL (6.5-8.0)
--- NOTE | 2022-12-26 00:12 | ED_ITS ---
HPI - General Adult General Chief complaint: General Medical Stated complaint: Low potassium? Time Seen by Provider: 12/26/22 00:12 Source: patient Mode of arrival: ambulatory Limitations: language barrier History of Present Illness HPI narrative: 47-year-old male presents for abnormal lab values. Primary care physician called him to tell on that as magnesium was low. Onset (ago): month(s) Location: abdomen Radiation: non-radiation Severity: moderate Severity scale (1-10): 7 Quality: aching Pain Consistency: intermittent Relieving factors: none Associated symptoms: denies other symptoms Treatments prior to arrival: none Related Data Home Medications Medication Instructions Recorded Confirmed allopurinol 300 mg tablet 300 mg PO BID 08/31/22 08/31/22 amitriptyline 50 mg tablet 50 mg PO BEDTIME 08/31/22 08/31/22 amlodipine 5 mg tablet 5 mg PO DAILY 08/31/22 08/31/22 aspirin 81 mg tablet,delayed 81 mg PO DAILY 08/31/22 08/31/22 release atorvastatin 80 mg tablet 80 mg PO BEDTIME 08/31/22 08/31/22 cholecalciferol (vitamin D3) 25 25 mcg PO DAILY 08/31/22 08/31/22 mcg (1,000 unit) capsule cyanocobalamin (vitamin B-12) 2,000 mcg PO DAILY 08/31/22 08/31/22 1,000 mcg tablet famotidine 40 mg tablet 40 mg PO BID 08/31/22 08/31/22 insulin glargine 100 unit/mL 32 unit subcut QPM 08/31/22 08/31/22 subcutaneous solution (Lantus U-100 Insulin) insulin lispro 100 unit/mL 30 unit subcut TID 08/31/22 08/31/22 subcutaneous solution lisinopril 10 mg tablet 10 mg PO DAILY 08/31/22 08/31/22 magnesium oxide 400 mg PO BID 08/31/22 08/31/22 metformin 1,000 mg tablet 1,000 mg PO BID 08/31/22 08/31/22 repaglinide 1 mg tablet 1 mg PO TID 08/31/22 08/31/22 Previous Rx's Medication Instructions Recorded magnesium oxide 400 mg PO TID #90 tabs 09/07/22 Allergies Allergy/AdvReac Type Severity Reaction Status Date / Time shellfish derived Allergy Unknown HIVES Verified 06/10/21 21:57 [SHELLFISH DERIVED] shrimp [SHRIMP] Allergy Unknown HIVES Verified 08/12/20 21:00 Review of Systems Review of Systems: Constitutional: No Fever, No Chills Cardiovascular: No Chest Pain, No SOB Respiratory: No Cough, No Dyspnea Gastrointestinal: Positive Nausea, No Vomiting, positive Diarrhea, positive abdominal Pain Genitourinary: No Dysuria, No Hematuria Musculoskeletal: No joint pain, No Myalgias, No Joint Swelling Skin: No Skin lacerations, No rash Neuro: No Weakness, No Numbness, No Paresthesias, No Dizziness, No Headache Yes all other systems are reviewed and are negative FORMERLY [facility], [facility] Past Medical History Attestation statement: The following information was validated with the patient. Source: old records reviewed Medical History GERD (gastroesophageal reflux disease) Gout HTN (hypertension) Hypomagnesemia IDDM (insulin dependent diabetes mellitus) Family History Family History Other No family history of colorectal cancer Social History Social History Alcohol intake: current Alcohol intake frequency: holidays/special occasions only Alcohol type: beer, wine and hard liquor Patient Tobacco Use Status: Never used Tobacco Advance Directives: No Advance Directives Information Provided: No Physical Exam ED Vital Signs: Vital Signs - 24 hr 12/25/22 21:47 12/26/22 00:26 Temperature 97.6 F Pulse Rate 103 H 97 Respiratory Rate 20 14 Blood Pressure 143/80 H 154/77 H Pulse Oximetry 97 97 Oxygen Delivery Method Room Air Room Air BMI result Body Mass Index 29.4 Appearance: Alert. Oriented X3. No acute distress. Eyes: Pupils equal, round and reactive to light. ENT: Pharynx normal. Neck: Normal inspection. Neck supple. CVS: Normal heart rate and rhythm. Pulses normal. Respiratory: No respiratory distress. Breath sounds normal. Abdomen: Soft and nontender. Skin: Skin warm and dry. Normal skin color. Normal skin turgor. Extremities: No lower extremity edema. Get well balanced well coordinated. Neuro: No motor deficit. No sensory deficit. Cranial nerves 2-12 intact Course Course Course Narrative: 47-year-old male presents for abnormal magnesium levels. He was called by his primary care physician and asked to present to the emergency department for evaluation. Patient states when he presented he stated that his magnesium levels were low, had abdominal pain, and nausea with vomiting and diarrhea over the past week or so. Patient is an insulin-dependent diabetic, has been taking his medications as directed. Labs were drawn while he was in the emergency department waiting room, all of which are unremarkable. H&H 13.3/38.7 which is consistent with his prior values, unfortunately magnesium and phosphorus was not ordered with, he does have a history of hypomagnesemia of 1.2 dating back to August of 2020. Patient does report some abdominal pain, physical exam is un remarkable, abdomen is soft, nontender to palpation. No rigidity, rebound, negative Akers's and McBurney's. Low likelihood of acute abdomen at this time. No indication of elevated gap, current gap is 17, glucose is 154. Low likelihood of you glycemic DKA, DKA or HHNK. BUN is 21 which is better than his prior values, last value being 27. Patient appears nontoxic, afebrile, vital signs are stable with an elevated heart rate on triage at 103. I do not feel that this elevated heart rate is due to infection. Even unlabored respirations. Lung sounds clear to auscultation all lobes. 00:41 critical lab value of magnesium 1.4, order for magnesium 2 g IV. This [employer] started 20 gauge IV to left AC, 1st attempt no complications patient tolerated procedure well. Patient states that he does have diarrhea on a regular basis, does take metformin, could possibly be electrolyte loss due to diarrhea. Will have patient follow-up with primary care physician for diabetic medication evaluation. Patient denies alcohol, and all illicit drugs. Patient is asymptomatic, no weakness, tetany, tremors or fasciculations. Reflexes are normal to the patella and brachioradialis. 01:44 magnesium infusion continues. Patient is tolerating well, plan of care is to discharge home once magnesium infusion is complete. Patient verbalized understanding of and agrees to plan of care discharge home. Verbalized understanding side symptoms indicating need for emergent intervention. harness placer utilized for all correspondence. Google translate utilized for discharge instructions. Medications Administered Generic Name Dose Route Start Last Admin Trade Name Freq PRN Reason Stop Dose Admin Magnesium Sulfate 2 gm in 50 mls @ 25 mls/hr 12/26/22 00:41 12/26/22 01:03 Magnesium Sulfate/H2o IV 12/26/22 02:40 25 mls/hr ONCE ONE Administration Medical Decision Making Differential Diagnosis Differential Diagnoses: The differential diagnosis associated with the presentation includes Hypo magnesemia Lab Data MDM Lab Attestation statement: I reviewed the patient's lab results. 12/25/22 22:20 12/25/22 22:20 Labs: Lab Results 12/25/22 12/25/22 Range/Units 22:20 22:20 WBC 9.0 (4.8-10.8) X10*3/uL RBC 4.27 L (4.60-5.80) X10*6/uL Hgb 13.3 L (14.0-18.0) g/dl Hct 38.7 L (42.0-52.0) % MCV 90.6 (80.0-98.0) fL MCH 31.1 (27.0-33.0) pg MCHC 34.4 (31.0-36.0) g/dl RDW 12.9 (11.0-16.0) % Plt Count 241 (160-400) X10*3/uL MPV 10.3 (9.4-12.4) fL Absolute Nucleated RBC 0.000 (0.0-0.012) X10*3/uL Nucleated RBC % (auto) 0.0 (0.0-0.2) /100WBC Sodium 143 (135-145) mmol/L Potassium 4.4 (3.3-5.1) mmol/L Chloride 107 (96-108) mmol/L Carbon Dioxide 23 (22-29) mmol/L Anion Gap 17 (12-20) BUN 21 H (9-16) mg/dL Creatinine 0.87 (0.5-1.4) mg/dL Estim Creat Clear Calc 110.7 Estimated GFR > 60 Random Glucose 154 H (60-115) mg/dL Calcium 9.5 (8.4-10.2) mg/dL Phosphorus 4.1 (2.7-4.5) mg/dL Magnesium 1.4 L* (1.6-2.6) mg/dL Total Bilirubin 0.3 (0.0-1.0) mg/dL AST 16 (5-37) U/L ALT 33 (0-40) U/L Alkaline Phosphatase 76 (39-117) U/L Total Protein 6.7 (6.5-8.0) g/dL Albumin 4.3 (3.5-5.0) g/dL External Record Review External record reviewed: Outpatient record, Prior outpatient labs and Prior outpatient radiology Chronic Conditions Patient?s care impacted by: Diabetes and Hypertension Discharge Plan Discharge Clinical Impression: Hypomagnesemia Patient Disposition: Home, Self-Care Instructions: Hypomagnesemia (ED) Additional Instructions: Tu evaluado por niveles bajos de magnesio. Le dimos los 2 g de magnesio intravenoso mientras estaba en el departamento de emergencias. Considere hacer un seguimiento con phillips m?dico de atenci?n primaria para la evaluaci?n de medicamentos, es posible que tenga diarrea debido a la metformina. Contin?e tomando magnesio 400 mg dos veces al d?a. Hunter por elegir eugenia departamento de emergencias para phillips evaluaci?n. Por favor, deya un seguimiento con el m?dico de atenci?n primaria seg?n sea necesario. Regrese al departamento de emergencias por cualquier s?ntoma nuevo, preocupante o que empeore. Your evaluated for low magnesium levels. We gave the 2 g of IV magnesium while you were in the emergency department. Consider following up with her primary care physician for medication evaluation, you may be having diarrhea because of the metformin. Continue take magnesium 400 mg twice a day. Thank you for choosing this emergency department for evaluation. Please follow-up with primary care physician as needed. Return to the emergency department for any new, concerning, or worsening symptoms. Prescriptions: No Action magnesium oxide 400 mg magnesium tablet 400 mg PO TID Qty: 90 0RF metformin 1,000 mg Tablet 1,000 mg PO BID allopurinol 300 mg Tablet 300 mg PO BID magnesium oxide 400 mg magnesium tablet 400 mg PO BID atorvastatin 80 mg Tablet 80 mg PO BEDTIME amlodipine 5 mg Tablet 5 mg PO DAILY cyanocobalamin (vitamin B-12) 1,000 mcg Tablet 2,000 mcg PO DAILY aspirin 81 mg Tablet,Delayed Release (Dr/Ec) 81 mg PO DAILY amitriptyline 50 mg Tablet 50 mg PO BEDTIME lisinopril 10 mg Tablet 10 mg PO DAILY repaglinide 1 mg Tablet 1 mg PO TID Rx Instructions: administer within 30 minutes of a meal or snack famotidine 40 mg Tablet 40 mg PO BID insulin lispro 100 unit/mL Solution 30 unit SUBCUT TID Rx Instructions: with meals cholecalciferol (vitamin D3) 25 mcg (1,000 unit) Capsule 25 mcg PO DAILY insulin glargine [Lantus U-100 Insulin] 100 unit/mL Solution 32 unit SUBCUT QPM Referrals: Antoinette Tobias MD [Primary Care Provider] - 2 weeks (Hypo magnesemia)
[2022-12-26 00:26] VITALS: BP 154/77; PULSE 97; RESP 14; O2SAT 97
[2022-12-26 00:42] LABS: Magnesium 1.4 mg/dL (1.6-2.6); Phosphorus 4.1 mg/dL (2.7-4.5)
[2022-12-26] MEDS: Magnesium Sulfate/H2O 2 GM/50 ML PIGGYBACK IV (01:03)
[2022-12-26 02:51] VITALS: BP 118/72; PULSE 83; RESP 12; TEMP 36.2; O2SAT 96
--- NOTE | 2022-12-26 03:07 | PC.NURSE ---
Magnesium treatment completed. IV line removed with no complications. Pt tolerated well. Discharge instructions reviewed with pt. Pt verbalizes understanding.
== END 2022-12-26 03:08 | disposition home or self-care (01) ==
PROVIDERS: Nurse Practitioner Family; Emergency Provider Emergency Medicine Emergency Medical Services; PCP Internal Medicine
DX: E83.42 Hypomagnesemia (principal); E11.9 Type 2 diabetes mellitus without complications; I10 Essential (primary) hypertension; Z79.82 Long term (current) use of aspirin; Z79.02 Long term (current) use of antithrombotics/antiplatelets; Z79.899 Other long term (current) drug therapy; Z79.4 Long term (current) use of insulin
CPT/HCPCS: 36415; 80053; 83735; 84100; 85027; 96365; 99284; J3475

== ENCOUNTER 2022-12-29 19:26 | Emergency (ER) | payer MEDICAID, SELFPAY ==
[2022-12-29 21:00] VITALS: BP 121/67; PULSE 79; RESP 17; TEMP 36.6; O2SAT 96; BMI 29.1
[2022-12-29 21:15] LABS: MANUAL DIFF FLAG NO
[2022-12-29 21:21] LABS: Basophils Absolute Auto 0.1 X10*3/uL (0.0-0.2); Basophils Percent Auto 0.7 % (0-2); Eosinophils Absolute Auto 0.1 X10*3/uL (0.0-0.4); Eosinophils Percent Auto 1.2 % (0-4); Hematocrit 41.5 % (42.0-52.0); Hemoglobin 13.8 g/dl (14.0-18.0); Imm Gran Abs Auto 0.03 X10*3/uL (0.00-0.03); Imm Gran Pct Auto 0.3 % (0.0-0.4); Lymphocytes Absolute Auto 1.8 X10*3/uL (1.2-4.9); Lymphocytes Percent Auto 20.2 % (20-40); Mean Corpuscular HGB Conc 33.3 g/dl (31.0-36.0); Mean Corpuscular Hemoglobin 30.3 pg (27.0-33.0); Mean Corpuscular Volume 91.2 fL (80.0-98.0); Mean Platelet Volume 10.1 fL (9.4-12.4); Monocytes Absolute Auto 0.8 X10*3/uL (0.1-1.2); Monocytes Percent Auto 8.8 % (2-11); Neutrophils Absolute Auto 6.3 x10*3/uL (2.0-8.3); Neutrophils Percent Auto 68.8 % (45-73); Platelet Count 246 X10*3/uL (160-400); Red Blood Count 4.55 X10*6/uL (4.60-5.80); Red Cell Distribution Width 12.8 % (11.0-16.0); White Blood Count 9.1 X10*3/uL (4.8-10.8)
[2022-12-29 21:37] LABS: Alanine Aminotransferase 35 U/L (0-40); Albumin Level 4.6 g/dL (3.5-5.0); Alkaline Phosphatase 70 U/L (39-117); Anion Gap 14 (12-20); Aspartate Amino Transferase 21 U/L (5-37); Bilirubin Direct < 0.2 mg/dL (0.0-0.5); Bilirubin Total 0.4 mg/dL (0.0-1.0); Blood Urea Nitrogen 14 mg/dL (9-16); Calcium 9.5 mg/dL (8.4-10.2); Carbon Dioxide 25 mmol/L (22-29); Chloride 106 mmol/L (96-108); Creatinine Clr Calc Pharmacy 101.9; Estimated Glomerular Filt Rate > 60; Glucose Random 136 mg/dL (60-115); Magnesium 1.8 mg/dL (1.6-2.6); Potassium 5.3 mmol/L (3.3-5.1); Sodium 140 mmol/L (135-145); Total Protein 6.8 g/dL (6.5-8.0)
[2022-12-29 22:14] VITALS: BP 124/71; PULSE 76; RESP 16; TEMP 36.8; O2SAT 98
--- NOTE | 2022-12-29 22:25 | ED_ITS ---
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 Had history of alcohol abuse he is not drinking now, declined any nausea, vomiting, or diarrhea. Related Data Home Medications Medication Instructions Recorded Confirmed allopurinol 300 mg tablet 300 mg PO BID 08/31/22 08/31/22 amitriptyline 50 mg tablet 50 mg PO BEDTIME 08/31/22 08/31/22 amlodipine 5 mg tablet 5 mg PO DAILY 08/31/22 08/31/22 aspirin 81 mg tablet,delayed 81 mg PO DAILY 08/31/22 08/31/22 release atorvastatin 80 mg tablet 80 mg PO BEDTIME 08/31/22 08/31/22 cholecalciferol (vitamin D3) 25 25 mcg PO DAILY 08/31/22 08/31/22 mcg (1,000 unit) capsule cyanocobalamin (vitamin B-12) 2,000 mcg PO DAILY 08/31/22 08/31/22 1,000 mcg tablet famotidine 40 mg tablet 40 mg PO BID 08/31/22 08/31/22 insulin glargine 100 unit/mL 32 unit subcut QPM 08/31/22 08/31/22 subcutaneous solution (Lantus U-100 Insulin) insulin lispro 100 unit/mL 30 unit subcut TID 08/31/22 08/31/22 subcutaneous solution lisinopril 10 mg tablet 10 mg PO DAILY 08/31/22 08/31/22 magnesium oxide 400 mg PO BID 08/31/22 08/31/22 metformin 1,000 mg tablet 1,000 mg PO BID 08/31/22 08/31/22 repaglinide 1 mg tablet 1 mg PO TID 08/31/22 08/31/22 Previous Rx's Medication Instructions Recorded magnesium oxide 400 mg PO TID #90 tabs 09/07/22 Allergies Allergy/AdvReac Type Severity Reaction Status Date / Time shellfish derived Allergy Unknown HIVES Verified 06/10/21 21:57 [SHELLFISH DERIVED] shrimp [SHRIMP] Allergy Unknown HIVES Verified 08/12/20 21:00 Review of Systems Review of Systems: All other systems are reviewed and are negative Constitutional: Reports as per HPI and Reports no additional constitutional complaints Eyes: Reports as per HPI and Reports no additional eye complaints Reports system reviewed and no additional complaints, except as documented Cardiovascular: Reports as per HPI and Reports no additional cardiovascular complaints Respiratory: Reports as per HPI and Reports no additional respiratory complaints Gastrointestinal: Reports as per HPI and Reports no additional gastrointestinal complaints Genitourinary: Reports no additional female genitourinary complaints Musculoskeletal: Reports no additional musculoskeletal complaints Skin/Breast: Reports system reviewed and no additional complaints, except as docu Psychiatric: Reports no additional psychiatric complaints Endocrine: Reports no additional endocrine complaints Hematologic/Lymphatic: Reports no additional hematologic/lymphatic complaints Allergic/Immunologic: Reports no additional allergic/immunologic complaints Reports system reviewed and no additional complaints, except as documented and Reports Abnormal speech present [facility] Past Medical History Medical History GERD (gastroesophageal reflux disease) Gout HTN (hypertension) Hypomagnesemia IDDM (insulin dependent diabetes mellitus) Family History Family History Other No family history of colorectal cancer Social History Social History Alcohol intake: current Alcohol intake frequency: does not drink Alcohol type: beer, wine and hard liquor Patient Tobacco Use Status: Never used Tobacco Smoked in Last 30 Days: No Use of substances other than those prescribed or required for medical reasons: No Advance Directives: No Advance Directives Information Provided: No Physical Exam ED Vital Signs: Vital Signs - 24 hr 12/29/22 21:00 12/29/22 22:14 12/29/22 23:23 Temperature 97.8 F 98.2 F 98.4 F Pulse Rate 79 76 74 Respiratory Rate 17 16 18 Blood Pressure 121/67 124/71 120/75 Pulse Oximetry 96 98 97 Oxygen Delivery Method Room Air Room Air Room Air BMI result Body Mass Index 29.1 Vital signs have been reviewed as appeared to be correct. Blood pressure normal. Heart rate normal. Respiration rate normal. Temperature normal. Oxygen saturation normal. Appearance: Alert. Oriented X3. No acute distress. Head: Normal external exam. Normocephalic. Atraumatic. No Duncan signs noted. No raccoon eyes noted Eyes: PERRLA. EOMI. Conjunctiva and sclera normal. Eyelids normal. ENT: TM's Normal. Pharynx normal. Uvula midline. Moist mucous membranes. No trismus noted. No drooling noted. No muffled voice noted. Neck: Normal inspection. Neck supple. FROM. No adenopathy. Thyroid Normal. No meningeal signs. No neck mass noted. CVS: Normal heart rate and rhythm. Heart sound normal. No murmurs noted. Pulses normal throughout. Respiratory: No respiratory distress. Painless inspiration. Breath sounds normal. No wheezes/rales/rhonchi noted. Chest nontender. No accessory muscle usage noted or decreased air movement noted. Abdomen: Soft and nontender. Bowel sounds normal in all 4 quadrants. No distention noted. No organomegaly noted. No visible injury noted. Back: No CVA tenderness. Full range of motion noted. Skin: Skin warm and dry. Normal skin color. Normal skin turgor. No rashes/ lesions/lacerations noted. Extremities: No lower extremity edema. Extremities exhibit normal range of motion. Extremities nontender. Neuro: Oriented X 3. Cranial nerve exam: II-XII are grossly intact No motor deficit. No sensory deficit. Reflexes normal. Course Course Course Narrative: 47-year-old male came in with generalized body ache patient is known to have chronic hypomagnesemia, found to be hyperkalemic with normal renal function patient was given Kayexalate which is dropping the potassium back to normal. Medications Administered Discontinued Medications Generic Name Dose Route Start Last Admin Trade Name Freq PRN Reason Stop Dose Admin Sodium Polystyrene Sulfonate 60 gm 12/29/22 23:06 12/29/22 23:27 Sodium Polystyrene Sulfon/Sorb 15 Gm/60 Ml Oral.Susp PO 12/29/22 23:07 60 gm ONCE ONE Administration Medical Decision Making Differential Diagnosis Differential Diagnoses: The differential diagnosis associated with the presentation includes (Electrolyte disturbance, EKG changes, CARY.) Admission/Observation Consideration of admission/observation: Escalation of care including admission/observation considered Lab Data MDM Lab Attestation statement: I reviewed the patient's lab results. 12/29/22 21:11 12/29/22 21:11 Labs: Lab Results 12/29/22 12/29/22 12/29/22 Range/Units 21:11 21:11 22:13 WBC 9.1 (4.8-10.8) X10*3/uL RBC 4.55 L (4.60-5.80) X10*6/uL Hgb 13.8 L (14.0-18.0) g/dl Hct 41.5 L (42.0-52.0) % MCV 91.2 (80.0-98.0) fL MCH 30.3 (27.0-33.0) pg MCHC 33.3 (31.0-36.0) g/dl RDW 12.8 (11.0-16.0) % Plt Count 246 (160-400) X10*3/uL MPV 10.1 (9.4-12.4) fL Immature Gran % (Auto) 0.3 (0.0-0.4) % Neut % (Auto) 68.8 (45-73) % Lymph % (Auto) 20.2 (20-40) % Collier % (Auto) 8.8 (2-11) % Eos % (Auto) 1.2 (0-4) % Baso % (Auto) 0.7 (0-2) % Lymph # (Auto) 1.8 (1.2-4.9) X10*3/uL Collier # (Auto) 0.8 (0.1-1.2) X10*3/uL Eos # (Auto) 0.1 (0.0-0.4) X10*3/uL Baso # (Auto) 0.1 (0.0-0.2) X10*3/uL Abs Immat Gran (auto) 0.03 (0.00-0.03) X10*3/uL Absolute Neuts (auto) 6.3 (2.0-8.3) x10*3/uL Absolute Nucleated RBC 0.000 (0.0-0.012) X10*3/uL Nucleated RBC % (auto) 0.0 (0.0-0.2) /100WBC Sodium 140 140 (135-145) mmol/L Potassium 5.3 H D 5.4 H (3.3-5.1) mmol/L Chloride 106 106 (96-108) mmol/L Carbon Dioxide 25 25 (22-29) mmol/L Anion Gap 14 14 (12-20) BUN 14 15 (9-16) mg/dL Creatinine 0.94 0.91 (0.5-1.4) mg/dL Estim Creat Clear Calc 101.9 105.3 Estimated GFR > 60 > 60 Random Glucose 136 H 154 H (60-115) mg/dL Calcium 9.5 9.2 (8.4-10.2) mg/dL Magnesium 1.8 (1.6-2.6) mg/dL Total Bilirubin 0.4 (0.0-1.0) mg/dL Direct Bilirubin < 0.2 (0.0-0.5) mg/dL AST 21 (5-37) U/L ALT 35 (0-40) U/L Alkaline Phosphatase 70 (39-117) U/L Total Protein 6.8 (6.5-8.0) g/dL Albumin 4.6 (3.5-5.0) g/dL 12/30/22 Range/Units 00:03 WBC (4.8-10.8) X10*3/uL RBC (4.60-5.80) X10*6/uL Hgb (14.0-18.0) g/dl Hct (42.0-52.0) % MCV (80.0-98.0) fL MCH (27.0-33.0) pg MCHC (31.0-36.0) g/dl RDW (11.0-16.0) % Plt Count (160-400) X10*3/uL MPV (9.4-12.4) fL Immature Gran % (Auto) (0.0-0.4) % Neut % (Auto) (45-73) % Lymph % (Auto) (20-40) % Collier % (Auto) (2-11) % Eos % (Auto) (0-4) % Baso % (Auto) (0-2) % Lymph # (Auto) (1.2-4.9) X10*3/uL Collier # (Auto) (0.1-1.2) X10*3/uL Eos # (Auto) (0.0-0.4) X10*3/uL Baso # (Auto) (0.0-0.2) X10*3/uL Abs Immat Gran (auto) (0.00-0.03) X10*3/uL Absolute Neuts (auto) (2.0-8.3) x10*3/uL Absolute Nucleated RBC (0.0-0.012) X10*3/uL Nucleated RBC % (auto) (0.0-0.2) /100WBC Sodium 141 (135-145) mmol/L Potassium 5.1 (3.3-5.1) mmol/L Chloride 106 (96-108) mmol/L Carbon Dioxide 22 (22-29) mmol/L Anion Gap 18 (12-20) BUN 15 (9-16) mg/dL Creatinine 0.87 (0.5-1.4) mg/dL Estim Creat Clear Calc 110.1 Estimated GFR > 60 Random Glucose 168 H (60-115) mg/dL Calcium 9.2 (8.4-10.2) mg/dL Magnesium 1.9 (1.6-2.6) mg/dL Total Bilirubin (0.0-1.0) mg/dL Direct Bilirubin (0.0-0.5) mg/dL AST (5-37) U/L ALT (0-40) U/L Alkaline Phosphatase (39-117) U/L Total Protein (6.5-8.0) g/dL Albumin (3.5-5.0) g/dL Independent Interpretation I performed an independent interpretation of an: EKG (Normal sinus rhythm at 71 beats per minute, normal axis deviation, normal intervals, no ST-T changes, no hyperkalemic EKG changes.) Discharge Plan Discharge Clinical Impression: Acute hyperkalemia Patient Disposition: Home, Self-Care Instructions: Hyperkalemia (ED) Prescriptions: No Action magnesium oxide 400 mg magnesium tablet 400 mg PO TID Qty: 90 0RF metformin 1,000 mg Tablet 1,000 mg PO BID allopurinol 300 mg Tablet 300 mg PO BID magnesium oxide 400 mg magnesium tablet 400 mg PO BID atorvastatin 80 mg Tablet 80 mg PO BEDTIME amlodipine 5 mg Tablet 5 mg PO DAILY cyanocobalamin (vitamin B-12) 1,000 mcg Tablet 2,000 mcg PO DAILY aspirin 81 mg Tablet,Delayed Release (Dr/Ec) 81 mg PO DAILY amitriptyline 50 mg Tablet 50 mg PO BEDTIME lisinopril 10 mg Tablet 10 mg PO DAILY repaglinide 1 mg Tablet 1 mg PO TID Rx Instructions: administer within 30 minutes of a meal or snack famotidine 40 mg Tablet 40 mg PO BID insulin lispro 100 unit/mL Solution 30 unit SUBCUT TID Rx Instructions: with meals cholecalciferol (vitamin D3) 25 mcg (1,000 unit) Capsule 25 mcg PO DAILY insulin glargine [Lantus U-100 Insulin] 100 unit/mL Solution 32 unit SUBCUT QPM Referrals: Antoinette Tobias MD [Primary Care Provider] -
[2022-12-29 22:42] LABS: Anion Gap 14 (12-20); Blood Urea Nitrogen 15 mg/dL (9-16); Calcium 9.2 mg/dL (8.4-10.2); Carbon Dioxide 25 mmol/L (22-29); Chloride 106 mmol/L (96-108); Creatinine Clr Calc Pharmacy 105.3; Estimated Glomerular Filt Rate > 60; Glucose Random 154 mg/dL (60-115); Potassium 5.4 mmol/L (3.3-5.1); Sodium 140 mmol/L (135-145)
[2022-12-29 23:23] VITALS: BP 120/75; PULSE 74; RESP 18; TEMP 36.9; O2SAT 97
[2022-12-29] MEDS: Sodium Polystyrene Sulfon/Sorb 15 GM/60 ML ORAL.SUSP 60 GM PO (23:27)
--- NOTE | 2022-12-29 23:32 | ECG_ITS ---
Test Reason : HIGH POTTASIUM Blood Pressure : / mmHG Vent. Rate : 071 BPM Atrial Rate : 071 BPM P-R Int : 162 ms QRS Dur : 084 ms QT Int : 382 ms P-R-T Axes : 047 003 025 degrees QTc Int : 415 ms Normal sinus rhythm Normal ECG When compared with ECG of 06-SEP-2022 20:41, No significant change was found Referred By: Manolo Pack Electronically Signed By:PARVEZ BARILLAS MD
--- NOTE | 2022-12-29 23:59 | PC.NURSE ---
late entry- pt medicated according to nov. pt placed on potline monitor. placed ekg order. per md repeat BMP 30 minutes from med administration
[2022-12-30 00:32] LABS: Anion Gap 18 (12-20)
[2022-12-30 00:35] LABS: Blood Urea Nitrogen 15 mg/dL (9-16); Calcium 9.2 mg/dL (8.4-10.2); Carbon Dioxide 22 mmol/L (22-29); Chloride 106 mmol/L (96-108); Creatinine Clr Calc Pharmacy 110.1; Estimated Glomerular Filt Rate > 60; Glucose Random 168 mg/dL (60-115); Magnesium 1.9 mg/dL (1.6-2.6); Potassium 5.1 mmol/L (3.3-5.1); Sodium 141 mmol/L (135-145)
[2022-12-30 00:54] VITALS: BP 126/78; PULSE 68; RESP 16; TEMP 36.7; O2SAT 98
--- NOTE | 2022-12-30 01:01 | PC.NURSE ---
pt ambulatory at discharge. skin pwd. vss. pt provided with discharge packet.pt verbalized understanding of discharge plan
== END 2022-12-30 01:04 | disposition home or self-care (01) ==
PROVIDERS: Physician Assistant; Emergency Provider Emergency Medicine; PCP Internal Medicine
DX: E87.5 Hyperkalemia (principal); E11.9 Type 2 diabetes mellitus without complications; I10 Essential (primary) hypertension; Z79.02 Long term (current) use of antithrombotics/antiplatelets; Z79.82 Long term (current) use of aspirin; Z79.899 Other long term (current) drug therapy; Z79.4 Long term (current) use of insulin
CPT/HCPCS: 36415; 80048; 80076; 83735; 85025; 93005; 99284

== ENCOUNTER 2023-01-14 23:52 | Emergency (ER) | payer MEDICAID, SELFPAY ==
[2023-01-14 23:55] VITALS: BP 155/74; PULSE 93; RESP 16; TEMP 36.5; O2SAT 97; BMI 29.0
[2023-01-15 01:10] LABS: MANUAL DIFF FLAG NO
[2023-01-15 01:14] LABS: Basophils Absolute Auto 0.1 X10*3/uL (0.0-0.2); Basophils Percent Auto 0.9 % (0-2); Eosinophils Absolute Auto 0.1 X10*3/uL (0.0-0.4); Hematocrit 37.2 % (42.0-52.0); Hemoglobin 12.6 g/dl (14.0-18.0); Imm Gran Abs Auto 0.02 X10*3/uL (0.00-0.03); Imm Gran Pct Auto 0.3 % (0.0-0.4); Lymphocytes Absolute Auto 1.7 X10*3/uL (1.2-4.9); Lymphocytes Percent Auto 24.2 % (20-40); Mean Corpuscular HGB Conc 33.9 g/dl (31.0-36.0); Mean Corpuscular Hemoglobin 30.8 pg (27.0-33.0); Mean Platelet Volume 10.3 fL (9.4-12.4); Monocytes Absolute Auto 0.5 X10*3/uL (0.1-1.2); Monocytes Percent Auto 7.8 % (2-11); Neutrophils Absolute Auto 4.4 x10*3/uL (2.0-8.3); Neutrophils Percent Auto 64.8 % (45-73); Platelet Count 248 X10*3/uL (160-400); Red Blood Count 4.09 X10*6/uL (4.60-5.80); Red Cell Distribution Width 12.6 % (11.0-16.0); White Blood Count 6.8 X10*3/uL (4.8-10.8)
--- NOTE | 2023-01-15 01:18 | ED.GENADULT ---
HPI - General Adult General Chief complaint: Recheck/Abnormal Lab/Rx Stated complaint: magnesium low? Time Seen by Provider: 01/15/23 01:12 Source: patient Mode of arrival: ambulatory Limitations: no limitations History of Present Illness HPI narrative: 47-year-old male with history of diabetes, hypertension and gout presents with reportedly low magnesium levels. Patient had blood work a couple of days ago. He reports that this was done for routine reasons. He only complains of bilateral eye burning since Tuesday. The symptoms are mild to moderate. No vision changes. There has been no discharge or crusting. I any headache, nausea vomiting. Patient denies any fevers, chills, cough, mucus production, weakness, nausea, vomiting, diarrhea. Regarding his eye complaints, there is no clear relieving or exacerbating features. Related Data Home Medications Medication Instructions Recorded Confirmed allopurinol 300 mg tablet 300 mg PO BID 08/31/22 08/31/22 amitriptyline 50 mg tablet 50 mg PO BEDTIME 08/31/22 08/31/22 amlodipine 5 mg tablet 5 mg PO DAILY 08/31/22 08/31/22 aspirin 81 mg tablet,delayed 81 mg PO DAILY 08/31/22 08/31/22 release atorvastatin 80 mg tablet 80 mg PO BEDTIME 08/31/22 08/31/22 cholecalciferol (vitamin D3) 25 25 mcg PO DAILY 08/31/22 08/31/22 mcg (1,000 unit) capsule cyanocobalamin (vitamin B-12) 2,000 mcg PO DAILY 08/31/22 08/31/22 1,000 mcg tablet famotidine 40 mg tablet 40 mg PO BID 08/31/22 08/31/22 insulin glargine 100 unit/mL 32 unit subcut QPM 08/31/22 08/31/22 subcutaneous solution (Lantus U-100 Insulin) insulin lispro 100 unit/mL 30 unit subcut TID 08/31/22 08/31/22 subcutaneous solution lisinopril 10 mg tablet 10 mg PO DAILY 08/31/22 08/31/22 magnesium oxide 400 mg PO BID 08/31/22 08/31/22 metformin 1,000 mg tablet 1,000 mg PO BID 08/31/22 08/31/22 repaglinide 1 mg tablet 1 mg PO TID 08/31/22 08/31/22 Previous Rx's Medication Instructions Recorded magnesium oxide 400 mg PO TID #90 tabs 09/07/22 magnesium oxide 400 mg (241.3 mg 400 mg PO DAILY #20 tabs 01/15/23 magnesium) tablet Allergies Allergy/AdvReac Type Severity Reaction Status Date / Time shellfish derived Allergy Unknown HIVES Verified 06/10/21 21:57 [SHELLFISH DERIVED] shrimp [SHRIMP] Allergy Unknown HIVES Verified 08/12/20 21:00 [facility] Past Medical History Medical History GERD (gastroesophageal reflux disease) Gout HTN (hypertension) Hypomagnesemia IDDM (insulin dependent diabetes mellitus) Family History Family History Other No family history of colorectal cancer Social History Social History Alcohol intake: current Alcohol intake frequency: does not drink Alcohol type: beer, wine and hard liquor Patient Tobacco Use Status: Never used Tobacco Advance Directives: No Advance Directives Information Provided: Yes Physical Exam ED Vital Signs: Vital Signs - 24 hr 01/14/23 23:55 Temperature 97.7 F Pulse Rate 93 Respiratory Rate 16 Blood Pressure 155/74 H Pulse Oximetry 97 Oxygen Delivery Method Room Air BMI result Body Mass Index 29.0 GEN: Well developed, no acute distress, alert, oriented HEENT: Normocephalic, atraumatic, normal external ears, nose appears normal, no oropharyngeal edema or exudates Eyes: Normal to appearance Neck: Supple, no lymphadenopathy Respiratory: Talks in complete sentences, no respiratory distress, clear to auscultation bilaterally Cardiovascular: Regular rate and rhythm, no murmurs rubs or gallops Abdomen: Soft, nontender, nondistended, no guarding, no rebound Back: No CVA tenderness Extremities: No clubbing cyanosis or edema Neurologic: No focal neurologic deficits, cranial nerves 2-12 intact, strength is 5/5 bilaterally Skin: No rash Course Course Course Narrative: 47-year-old male with chronic medical problems presents with possible low magnesium levels. He denies any complaints other than bilateral eye burning which has been going on for 3-4 days. Examination did not reveal any evidence of acute conjunctivitis. His exam is otherwise normal. Will check magnesium level tonight. Reevaluation(s) Reevaluation #1: Patient's magnesium level was slightly low. I replaced with oral potassium. I sent a prescription to his pharmacy. He is aware that his potassium level slightly elevated. I suspect his blood sugar improves, his potassium will also improve. There is no peaked T-waves on EKG. I do not believe this warrants emergent lowering of his potassium level. I recommended close follow-up with his primary care provider and a repeat blood test sometime this coming week. Time: 01:59 Medical Decision Making Medical Decision Making [facility] Narrative: 47-year-old male with chronic medical problems presents with possible low magnesium levels. He denies any complaints other than bilateral eye burning which has been going on for 3-4 days. Examination did not reveal any evidence of acute conjunctivitis. His exam is otherwise normal. Will check magnesium level tonight. Differential Diagnosis Differential Diagnoses: The differential diagnosis associated with the presentation includes (Hypomagnesemia, electrolyte deficiency, laboratory error) Admission/Observation Consideration of admission/observation: Escalation of care including admission/observation considered Lab Data [facility] Lab Attestation statement: I reviewed the patient's lab results. 01/15/23 01:06 01/15/23 01:06 Labs: Lab Results 01/15/23 01/15/23 Range/Units 01:06 01:06 WBC 6.8 (4.8-10.8) X10*3/uL RBC 4.09 L (4.60-5.80) X10*6/uL Hgb 12.6 L (14.0-18.0) g/dl Hct 37.2 L (42.0-52.0) % MCV 91.0 (80.0-98.0) fL MCH 30.8 (27.0-33.0) pg MCHC 33.9 (31.0-36.0) g/dl RDW 12.6 (11.0-16.0) % Plt Count 248 (160-400) X10*3/uL MPV 10.3 (9.4-12.4) fL Immature Gran % (Auto) 0.3 (0.0-0.4) % Neut % (Auto) 64.8 (45-73) % Lymph % (Auto) 24.2 (20-40) % [place] % (Auto) 7.8 (2-11) % Eos % (Auto) 2.0 (0-4) % Baso % (Auto) 0.9 (0-2) % Lymph # (Auto) 1.7 (1.2-4.9) X10*3/uL [place] # (Auto) 0.5 (0.1-1.2) X10*3/uL Eos # (Auto) 0.1 (0.0-0.4) X10*3/uL Baso # (Auto) 0.1 (0.0-0.2) X10*3/uL Abs Immat Gran (auto) 0.02 (0.00-0.03) X10*3/uL Absolute Neuts (auto) 4.4 (2.0-8.3) x10*3/uL Absolute Nucleated RBC 0.000 (0.0-0.012) X10*3/uL Nucleated RBC % (auto) 0.0 (0.0-0.2) /100WBC Sodium 140 (135-145) mmol/L Potassium 5.5 H (3.3-5.1) mmol/L Chloride 106 (96-108) mmol/L Carbon Dioxide 25 (22-29) mmol/L Anion Gap 15 (12-20) BUN 20 H (9-16) mg/dL Creatinine 0.94 (0.5-1.4) mg/dL Estim Creat Clear Calc 101.7 Estimated GFR > 60 Random Glucose 344 H (60-115) mg/dL Calcium 9.5 (8.4-10.2) mg/dL Magnesium 1.4 L* (1.6-2.6) mg/dL Total Bilirubin 0.2 (0.0-1.0) mg/dL AST 17 (5-37) U/L ALT 27 (0-40) U/L Alkaline Phosphatase 61 (39-117) U/L Total Protein 6.4 L (6.5-8.0) g/dL Albumin 4.3 (3.5-5.0) g/dL Independent Interpretation I performed an independent interpretation of an: EKG (Normal heart rate 68, no acute ST elevations depressions, nonspecific T-wave change note in lead 3, evidence of early repolarization in V2 and V3.) Prescription Management I considered prescription management with: Antibiotic Discharge Plan Discharge Clinical Impression: Hypomagnesemia, Hyperglycemia due to diabetes mellitus, Acute hyperkalemia Patient Disposition: Home, Self-Care Instructions: Hyperkalemia (ED), Hypomagnesemia (ED), Diabetic Hyperglycemia (ED) Additional Instructions: I am recommending that you repeat your blood work later this coming week. Start taking oral magnesium supplementation on a daily basis. Return for any concerning symptoms such as generalized weakness. Prescriptions: New magnesium oxide 400 mg (241.3 mg magnesium) tablet 400 mg PO DAILY Qty: 20 0RF No Action magnesium oxide 400 mg magnesium tablet 400 mg PO TID Qty: 90 0RF metformin 1,000 mg Tablet 1,000 mg PO BID allopurinol 300 mg Tablet 300 mg PO BID magnesium oxide 400 mg magnesium tablet 400 mg PO BID atorvastatin 80 mg Tablet 80 mg PO BEDTIME amlodipine 5 mg Tablet 5 mg PO DAILY cyanocobalamin (vitamin B-12) 1,000 mcg Tablet 2,000 mcg PO DAILY aspirin 81 mg Tablet,Delayed Release (Dr/Ec) 81 mg PO DAILY amitriptyline 50 mg Tablet 50 mg PO BEDTIME lisinopril 10 mg Tablet 10 mg PO DAILY repaglinide 1 mg Tablet 1 mg PO TID Rx Instructions: administer within 30 minutes of a meal or snack famotidine 40 mg Tablet 40 mg PO BID insulin lispro 100 unit/mL Solution 30 unit SUBCUT TID Rx Instructions: with meals cholecalciferol (vitamin D3) 25 mcg (1,000 unit) Capsule 25 mcg PO DAILY insulin glargine [Lantus U-100 Insulin] 100 unit/mL Solution 32 unit SUBCUT QPM Referrals: [facility] [Primary Care Provider] - (repeat magnesium level in 3-5 days)
[2023-01-15 01:31] LABS: Alanine Aminotransferase 27 U/L (0-40); Albumin Level 4.3 g/dL (3.5-5.0); Alkaline Phosphatase 61 U/L (39-117); Anion Gap 15 (12-20); Aspartate Amino Transferase 17 U/L (5-37); Bilirubin Total 0.2 mg/dL (0.0-1.0); Blood Urea Nitrogen 20 mg/dL (9-16); Calcium 9.5 mg/dL (8.4-10.2); Carbon Dioxide 25 mmol/L (22-29); Chloride 106 mmol/L (96-108); Creatinine Clr Calc Pharmacy 101.7; Estimated Glomerular Filt Rate > 60; Glucose Random 344 mg/dL (60-115); Magnesium 1.4 mg/dL (1.6-2.6); Potassium 5.5 mmol/L (3.3-5.1); Sodium 140 mmol/L (135-145); Total Protein 6.4 g/dL (6.5-8.0)
--- NOTE | 2023-01-15 01:43 | ECG_ITS ---
Test Reason : CP Blood Pressure : / mmHG Vent. Rate : 068 BPM Atrial Rate : 068 BPM P-R Int : 166 ms QRS Dur : 090 ms QT Int : 388 ms P-R-T Axes : 055 -03 032 degrees QTc Int : 412 ms Normal sinus rhythm with sinus arrhythmia Normal ECG When compared with ECG of 29-DEC-2022 23:42, No significant change was found Referred By: Ramiro Fermin Electronically Signed By:MARLEEN MONDRAGON
[2023-01-15] MEDS: Magnesium Oxide 400 MG TABLET 800 MG PO (02:06)
[2023-01-15 02:08] VITALS: BP 122/60; PULSE 88; RESP 18; RESP 20; O2SAT 97
== END 2023-01-15 02:10 | disposition home or self-care (01) ==
PROVIDERS: Emergency Provider Emergency Medicine
DX: E83.42 Hypomagnesemia (principal); E87.5 Hyperkalemia; E11.65 Type 2 diabetes mellitus with hyperglycemia; I10 Essential (primary) hypertension; Z79.82 Long term (current) use of aspirin; Z79.02 Long term (current) use of antithrombotics/antiplatelets; Z79.4 Long term (current) use of insulin; Z79.899 Other long term (current) drug therapy
CPT/HCPCS: 36415; 80053; 83735; 85025; 93005; 99283; 99284

== ENCOUNTER 2023-02-07 20:36 | Emergency (ER) | payer MEDICAID, SELFPAY ==
[2023-02-07 20:37] VITALS: BP 125/68; PULSE 78; RESP 18; TEMP 36.3; O2SAT 96; BMI 25.1
--- NOTE | 2023-02-07 20:38 | ED_ITS ---
HPI - General Adult General Chief complaint: Recheck/Abnormal Lab/Rx Stated complaint: magnesium levels too low? Time Seen by Provider: 02/08/23 00:33 Related Data Home Medications Medication Instructions Recorded Confirmed allopurinol 300 mg tablet 300 mg PO BID 08/31/22 08/31/22 amitriptyline 50 mg tablet 50 mg PO BEDTIME 08/31/22 08/31/22 amlodipine 5 mg tablet 5 mg PO DAILY 08/31/22 08/31/22 aspirin 81 mg tablet,delayed 81 mg PO DAILY 08/31/22 08/31/22 release atorvastatin 80 mg tablet 80 mg PO BEDTIME 08/31/22 08/31/22 cholecalciferol (vitamin D3) 25 25 mcg PO DAILY 08/31/22 08/31/22 mcg (1,000 unit) capsule cyanocobalamin (vitamin B-12) 2,000 mcg PO DAILY 08/31/22 08/31/22 1,000 mcg tablet famotidine 40 mg tablet 40 mg PO BID 08/31/22 08/31/22 insulin glargine 100 unit/mL 32 unit subcut QPM 08/31/22 08/31/22 subcutaneous solution (Lantus U-100 Insulin) insulin lispro 100 unit/mL 30 unit subcut TID 08/31/22 08/31/22 subcutaneous solution lisinopril 10 mg tablet 10 mg PO DAILY 08/31/22 08/31/22 magnesium oxide 400 mg PO BID 08/31/22 08/31/22 metformin 1,000 mg tablet 1,000 mg PO BID 08/31/22 08/31/22 repaglinide 1 mg tablet 1 mg PO TID 08/31/22 08/31/22 Previous Rx's Medication Instructions Recorded magnesium oxide 400 mg PO TID #90 tabs 09/07/22 magnesium oxide 400 mg (241.3 mg 400 mg PO DAILY #20 tabs 01/15/23 magnesium) tablet Allergies Allergy/AdvReac Type Severity Reaction Status Date / Time shellfish derived Allergy Unknown HIVES Verified 06/10/21 21:57 [SHELLFISH DERIVED] shrimp [SHRIMP] Allergy Unknown HIVES Verified 08/12/20 21:00 [facility] Past Medical History Medical History GERD (gastroesophageal reflux disease) Gout HTN (hypertension) Hypomagnesemia IDDM (insulin dependent diabetes mellitus) Family History Family History Other No family history of colorectal cancer Social History Social History Alcohol intake: current Alcohol intake frequency: does not drink Alcohol type: beer, wine and hard liquor Patient Tobacco Use Status: Never used Tobacco Advance Directives: No Advance Directives Information Provided: Yes Physical Exam ED Vital Signs: Vital Signs - 24 hr 02/07/23 20:37 Temperature 97.4 F Pulse Rate 78 Respiratory Rate 18 Blood Pressure 125/68 Pulse Oximetry 96 Oxygen Delivery Method Room Air BMI result Body Mass Index 25.1 Course Course Course Narrative: This is a rapid medical exam. Defer additional HPI, ROS, PE to primary provider. 47-year-old male with history of diabetes, hypertension, high chol esterol and gout presents with reportedly low magnesium levels c/o burning in his eyes, weakness, muscle cramping since Tuesday. Will check labs VSS Medical Decision Making Lab Data 02/07/23 21:20 02/07/23 21:20 Labs: Lab Results 02/07/23 02/07/23 02/07/23 Range/Units 21:20 21:20 22:09 WBC 8.5 (4.8-10.8) X10*3/uL RBC 4.40 L (4.60-5.80) X10*6/uL Hgb 13.4 L (14.0-18.0) g/dl Hct 39.7 L (42.0-52.0) % MCV 90.2 (80.0-98.0) fL MCH 30.5 (27.0-33.0) pg MCHC 33.8 (31.0-36.0) g/dl RDW 12.9 (11.0-16.0) % Plt Count 257 (160-400) X10*3/uL MPV 10.3 (9.4-12.4) fL Immature Gran % (Auto) 0.2 (0.0-0.4) % Neut % (Auto) 64.1 (45-73) % Lymph % (Auto) 24.3 (20-40) % [place] % (Auto) 9.5 (2-11) % Eos % (Auto) 1.2 (0-4) % Baso % (Auto) 0.7 (0-2) % Lymph # (Auto) 2.1 (1.2-4.9) X10*3/uL [place] # (Auto) 0.8 (0.1-1.2) X10*3/uL Eos # (Auto) 0.1 (0.0-0.4) X10*3/uL Baso # (Auto) 0.1 (0.0-0.2) X10*3/uL Abs Immat Gran (auto) 0.02 (0.00-0.03) X10*3/uL Absolute Neuts (auto) 5.4 (2.0-8.3) x10*3/uL Absolute Nucleated RBC 0.000 (0.0-0.012) X10*3/uL Nucleated RBC % (auto) 0.0 (0.0-0.2) /100WBC Sodium 139 (135-145) mmol/L Potassium 4.5 (3.3-5.1) mmol/L Chloride 105 (96-108) mmol/L Carbon Dioxide 21 L (22-29) mmol/L Anion Gap 18 (12-20) BUN 21 H (9-16) mg/dL Creatinine 0.83 (0.5-1.4) mg/dL Estim Creat Clear Calc 103.9 Estimated GFR > 60 POC Glucose 91 (60-115) mg/dL Random Glucose 59 L* (60-115) mg/dL Calcium 9.6 (8.4-10.2) mg/dL Magnesium 1.7 (1.6-2.6) mg/dL Discharge Plan Discharge Prescriptions: No Action magnesium oxide 400 mg magnesium tablet 400 mg PO TID Qty: 90 0RF metformin 1,000 mg Tablet 1,000 mg PO BID allopurinol 300 mg Tablet 300 mg PO BID magnesium oxide 400 mg magnesium tablet 400 mg PO BID atorvastatin 80 mg Tablet 80 mg PO BEDTIME amlodipine 5 mg Tablet 5 mg PO DAILY cyanocobalamin (vitamin B-12) 1,000 mcg Tablet 2,000 mcg PO DAILY aspirin 81 mg Tablet,Delayed Release (Dr/Ec) 81 mg PO DAILY amitriptyline 50 mg Tablet 50 mg PO BEDTIME lisinopril 10 mg Tablet 10 mg PO DAILY repaglinide 1 mg Tablet 1 mg PO TID Rx Instructions: administer within 30 minutes of a meal or snack famotidine 40 mg Tablet 40 mg PO BID insulin lispro 100 unit/mL Solution 30 unit SUBCUT TID Rx Instructions: with meals cholecalciferol (vitamin D3) 25 mcg (1,000 unit) Capsule 25 mcg PO DAILY insulin glargine [Lantus U-100 Insulin] 100 unit/mL Solution 32 unit SUBCUT QPM magnesium oxide 400 mg (241.3 mg magnesium) tablet 400 mg PO DAILY Qty: 20 0RF
[2023-02-07 21:24] LABS: MANUAL DIFF FLAG NO
[2023-02-07 21:27] LABS: Basophils Absolute Auto 0.1 X10*3/uL (0.0-0.2); Basophils Percent Auto 0.7 % (0-2); Eosinophils Absolute Auto 0.1 X10*3/uL (0.0-0.4); Eosinophils Percent Auto 1.2 % (0-4); Hematocrit 39.7 % (42.0-52.0); Hemoglobin 13.4 g/dl (14.0-18.0); Imm Gran Abs Auto 0.02 X10*3/uL (0.00-0.03); Imm Gran Pct Auto 0.2 % (0.0-0.4); Lymphocytes Absolute Auto 2.1 X10*3/uL (1.2-4.9); Lymphocytes Percent Auto 24.3 % (20-40); Mean Corpuscular HGB Conc 33.8 g/dl (31.0-36.0); Mean Corpuscular Hemoglobin 30.5 pg (27.0-33.0); Mean Corpuscular Volume 90.2 fL (80.0-98.0); Mean Platelet Volume 10.3 fL (9.4-12.4); Monocytes Absolute Auto 0.8 X10*3/uL (0.1-1.2); Monocytes Percent Auto 9.5 % (2-11); Neutrophils Absolute Auto 5.4 x10*3/uL (2.0-8.3); Neutrophils Percent Auto 64.1 % (45-73); Platelet Count 257 X10*3/uL (160-400); Red Cell Distribution Width 12.9 % (11.0-16.0); White Blood Count 8.5 X10*3/uL (4.8-10.8)
[2023-02-07 21:55] LABS: Anion Gap 18 (12-20); Blood Urea Nitrogen 21 mg/dL (9-16); Calcium 9.6 mg/dL (8.4-10.2); Carbon Dioxide 21 mmol/L (22-29); Chloride 105 mmol/L (96-108); Creatinine Clr Calc Pharmacy 103.9; Estimated Glomerular Filt Rate > 60; Glucose Random 59 mg/dL (60-115); Magnesium 1.7 mg/dL (1.6-2.6); Potassium 4.5 mmol/L (3.3-5.1); Sodium 139 mmol/L (135-145)
--- NOTE | 2023-02-07 21:55 | PC.NURSE ---
Pt with critical BS of 59, given juice and crackers at this time. Will recheck blood sugar in 30min
--- NOTE | 2023-02-07 22:10 | PC.NURSE ---
Pt BS improved to 91 at this time. Pt encouraged to report any sx of hypogycemia to fly tier, pt verbalized understanding.
[2023-02-07 22:13] LABS: Glucose, Whole Blood 91 mg/dL (60-115)
== END 2023-02-08 00:34 | disposition left against medical advice (07) ==
PROVIDERS: Nurse Practitioner Family; Emergency Provider Emergency Medicine
DX: M62.838 Other muscle spasm (principal); R79.89 Other specified abnormal findings of blood chemistry; I10 Essential (primary) hypertension; Z79.899 Other long term (current) drug therapy
CPT/HCPCS: 36415; 80048; 82947; 83735; 85025; 99282; 99283

== ENCOUNTER 2023-02-08 10:41 | Emergency (ER) | payer MEDICAID, SELFPAY ==
--- NOTE | 2023-02-08 11:21 | ED_ITS ---
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 Otherwise, he denies any fevers, chills, shortness of breath, chest pain/palpitations, GI or symptoms. Related Data Home Medications Medication Instructions Recorded Confirmed allopurinol 300 mg tablet 300 mg PO BID 08/31/22 08/31/22 amitriptyline 50 mg tablet 50 mg PO BEDTIME 08/31/22 08/31/22 amlodipine 5 mg tablet 5 mg PO DAILY 08/31/22 08/31/22 aspirin 81 mg tablet,delayed 81 mg PO DAILY 08/31/22 08/31/22 release atorvastatin 80 mg tablet 80 mg PO BEDTIME 08/31/22 08/31/22 cholecalciferol (vitamin D3) 25 25 mcg PO DAILY 08/31/22 08/31/22 mcg (1,000 unit) capsule cyanocobalamin (vitamin B-12) 2,000 mcg PO DAILY 08/31/22 08/31/22 1,000 mcg tablet famotidine 40 mg tablet 40 mg PO BID 08/31/22 08/31/22 insulin glargine 100 unit/mL 32 unit subcut QPM 08/31/22 08/31/22 subcutaneous solution (Lantus U-100 Insulin) insulin lispro 100 unit/mL 30 unit subcut TID 08/31/22 08/31/22 subcutaneous solution lisinopril 10 mg tablet 10 mg PO DAILY 08/31/22 08/31/22 magnesium oxide 400 mg PO BID 08/31/22 08/31/22 metformin 1,000 mg tablet 1,000 mg PO BID 08/31/22 08/31/22 repaglinide 1 mg tablet 1 mg PO TID 08/31/22 08/31/22 Previous Rx's Medication Instructions Recorded magnesium oxide 400 mg PO TID #90 tabs 09/07/22 magnesium oxide 400 mg (241.3 mg 400 mg PO DAILY #20 tabs 01/15/23 magnesium) tablet Allergies Allergy/AdvReac Type Severity Reaction Status Date / Time shellfish derived Allergy Unknown HIVES Verified 02/08/23 11:25 [SHELLFISH DERIVED] shrimp [SHRIMP] Allergy Unknown HIVES Verified 02/08/23 11:25 Review of Systems Review of Systems: Pertinent positives and negatives as stated in HPI [facility] Past Medical History Source: nursing notes reviewed Medical History GERD (gastroesophageal reflux disease) Gout HTN (hypertension) Hypomagnesemia IDDM (insulin dependent diabetes mellitus) Family History Family History Other No family history of colorectal cancer Social History Social History Alcohol intake: never Patient Tobacco Use Status: Never used Tobacco Smoked in Last 30 Days: No Use of substances other than those prescribed or required for medical reasons: No Advance Directives: No Advance Directives Information Provided: No Physical Exam ED Vital Signs: Vital Signs - 24 hr 02/08/23 11:22 02/08/23 13:37 Temperature 98.4 F 97.1 F Pulse Rate 82 66 Respiratory Rate 18 16 Blood Pressure 142/77 H 126/80 Pulse Oximetry 98 100 Oxygen Delivery Method Room Air Room Air BMI result Body Mass Index 29.1 VITAL SIGNS: Reviewed. GENERAL: Well developed, well nourished, in no acute distress. HEAD: Normocephalic/atraumatic EYES: PERRLA, EOMI EARS: Ext canals without abnormality NOSE: Nares patent bilateral OROPHARYNX: no oral lesions noted, posterior pharynx clear NECK: Supple, no adenopathy LUNGS: Normal breath sounds. No adventitious sounds or accessory muscle use. SpO2<100> CARDIOVASCULAR: Regular rate and rhythm without noted murmurs ABDOMEN: Soft, non-tender, non-distended with bowel sounds. MUSCULOSKELETAL: No tenderness, deformities, or effusions noted on gross inspection. EXTREMITIES: No cyanosis, clubbing or edema. SKIN: Inspection of the skin reveals no rashes NEUROLOGIC: Alert and oriented x 4. Strength and sensation to light touch were grossly intact x 4. Course Course Course Narrative: RME - 47 y/o M, hx of diabetes, hypomagensium, HTN, HLD, and gout, presenting to the ER for evaluation of low magnesium. He has been seen here multiple times for hypomagneisum. He states that he has generalized body weakness when his magnesium becomes low. He checked in yesterday to be seen but left prior to be seen as the wait time was too long. VSS. Pt stable to return to the for treatment room to become available. Plan: Labs, EKG Medications Administered Discontinued Medications Generic Name Dose Route Start Last Admin Trade Name Jesus Manuel PRN Reason Stop Dose Admin Sodium Zirconium Cyclosilicate 5 gm 02/08/23 12:49 02/08/23 13:15 Sodium Zirconium Cyclosilicate 5 Gm Powd.Pack PO 02/08/23 12:50 5 gm ONCE ONE Administration Sodium Zirconium Cyclosilicate 5 gm 02/08/23 14:58 02/08/23 15:04 Sodium Zirconium Cyclosilicate 5 Gm Powd.Pack PO 02/08/23 14:59 5 gm ONCE ONE Administration Medical Decision Making Medical Decision Making [facility] [place] Narrative: 47-year-old male otherwise appears well, minimal concerns other than magnesium level. I reviewed all investigations and my interpretation is that patient has a borderline potassium level with normal levels of magnesium. Patient received 1 dose of Lokelma, will repeat BMP and if within normal limits he will be discharged with instructions follow-up with his primary care provider. Repeat potassium increased to 5.6, patient received an additional 5 mg of Lokelma and when plan was to redraw chemistries patient was noted to have eloped. Differential Diagnosis Please see the discussion above. Lab Data Please see the discussion above 02/08/23 11:10 02/08/23 11:39 Labs: Lab Results 02/08/23 02/08/23 02/08/23 Range/Units 11:10 11:39 14:13 WBC 6.5 (4.8-10.8) X10*3/uL RBC 4.40 L (4.60-5.80) X10*6/uL Hgb 13.7 L (14.0-18.0) g/dl Hct 39.9 L (42.0-52.0) % MCV 90.7 (80.0-98.0) fL MCH 31.1 (27.0-33.0) pg MCHC 34.3 (31.0-36.0) g/dl RDW 12.9 (11.0-16.0) % Plt Count 246 (160-400) X10*3/uL MPV 10.2 (9.4-12.4) fL Immature Gran % (Auto) 0.3 (0.0-0.4) % Neut % (Auto) 58.5 (45-73) % Lymph % (Auto) 28.2 (20-40) % [place] % (Auto) 8.8 (2-11) % Eos % (Auto) 3.1 (0-4) % Baso % (Auto) 1.1 (0-2) % Lymph # (Auto) 1.8 (1.2-4.9) X10*3/uL [place] # (Auto) 0.6 (0.1-1.2) X10*3/uL Eos # (Auto) 0.2 (0.0-0.4) X10*3/uL Baso # (Auto) 0.1 (0.0-0.2) X10*3/uL Abs Immat Gran (auto) 0.02 (0.00-0.03) X10*3/uL Absolute Neuts (auto) 3.8 (2.0-8.3) x10*3/uL Absolute Nucleated RBC 0.000 (0.0-0.012) X10*3/uL Nucleated RBC % (auto) 0.0 (0.0-0.2) /100WBC Sodium 140 138 (135-145) mmol/L Potassium 5.0 5.6 H (3.3-5.1) mmol/L Chloride 108 104 (96-108) mmol/L Carbon Dioxide 25 26 (22-29) mmol/L Anion Gap 12 14 (12-20) BUN 16 18 H (9-16) mg/dL Creatinine 0.81 0.79 (0.5-1.4) mg/dL Estim Creat Clear Calc 118.3 121.3 Estimated GFR > 60 > 60 Random Glucose 137 H 153 H (60-115) mg/dL Calcium 9.6 9.4 (8.4-10.2) mg/dL Magnesium 1.6 (1.6-2.6) mg/dL Total Bilirubin 0.5 (0.0-1.0) mg/dL Direct Bilirubin 0.1 (0.0-0.5) mg/dL AST 15 (5-37) U/L ALT 19 (0-40) U/L Alkaline Phosphatase 63 (39-117) U/L Total Protein 6.8 (6.5-8.0) g/dL Albumin 4.4 (3.5-5.0) g/dL Lipase 33 (8-78) U/L Independent Interpretation I performed an independent interpretation of an: EKG Interpretation: Normal sinus rhythm, HR-69, no STEMI, AK/QRS/QTC is within normal limits. External Record Review External record reviewed: Outpatient record and Prior outpatient labs Chronic Conditions Patient?s care impacted by: Diabetes Discharge Plan Discharge Clinical Impression: Eye muscle twitches, Hyperkalemia Patient Disposition: Elopement Instructions: Electrolyte Supplement (By mouth) Additional Instructions: 1. Reanudar todos los medicamentos caseros seg?n lo prescrito. 2. Allan un seguimiento con phillips proveedor de atenci?n primaria llamando a la oficina hoy y programando martin bere para martin reevaluaci?n. Regrese a la dionne de emergencias si los s?ntomas empeoran. 1. Resume all home medications as prescribed. 2. Please follow-up with your primary care provider by calling the office today and setting up an appointment for re-evaluation. Return to the ER for any worsening symptoms. Prescriptions: No Action magnesium oxide 400 mg magnesium tablet 400 mg PO TID Qty: 90 0RF metformin 1,000 mg Tablet 1,000 mg PO BID allopurinol 300 mg Tablet 300 mg PO BID magnesium oxide 400 mg magnesium tablet 400 mg PO BID atorvastatin 80 mg Tablet 80 mg PO BEDTIME amlodipine 5 mg Tablet 5 mg PO DAILY cyanocobalamin (vitamin B-12) 1,000 mcg Tablet 2,000 mcg PO DAILY aspirin 81 mg Tablet,Delayed Release (Dr/Ec) 81 mg PO DAILY amitriptyline 50 mg Tablet 50 mg PO BEDTIME lisinopril 10 mg Tablet 10 mg PO DAILY repaglinide 1 mg Tablet 1 mg PO TID Rx Instructions: administer within 30 minutes of a meal or snack famotidine 40 mg Tablet 40 mg PO BID insulin lispro 100 unit/mL Solution 30 unit SUBCUT TID Rx Instructions: with meals cholecalciferol (vitamin D3) 25 mcg (1,000 unit) Capsule 25 mcg PO DAILY insulin glargine [Lantus U-100 Insulin] 100 unit/mL Solution 32 unit SUBCUT QPM magnesium oxide 400 mg (241.3 mg magnesium) tablet 400 mg PO DAILY Qty: 20 0RF Referrals: Remedios Melara MD [Primary Care Provider] - Print Language: Greek
[2023-02-08 11:22] VITALS: BP 142/77; PULSE 82; RESP 18; TEMP 36.9; O2SAT 98; BMI 29.1
--- NOTE | 2023-02-08 11:26 | ECG_ITS ---
Test Reason : GENERALIZED WEAKNESS Blood Pressure : / mmHG Vent. Rate : 069 BPM Atrial Rate : 069 BPM P-R Int : 156 ms QRS Dur : 086 ms QT Int : 378 ms P-R-T Axes : 042 -04 012 degrees QTc Int : 405 ms Normal sinus rhythm with sinus arrhythmia Minimal voltage criteria for LVH, may be normal variant ( R in aVL ) Inferior infarct (cited on or before 08-FEB-2023) Abnormal ECG When compared with ECG of 15-JAN-2023 01:47, No significant change was found Referred By: Natalia Dahl Electronically Signed By:Kyler Walsh
[2023-02-08 11:46] LABS: MANUAL DIFF FLAG NO
[2023-02-08 11:47] LABS: Basophils Absolute Auto 0.1 X10*3/uL (0.0-0.2); Basophils Percent Auto 1.1 % (0-2); Eosinophils Absolute Auto 0.2 X10*3/uL (0.0-0.4); Eosinophils Percent Auto 3.1 % (0-4); Hematocrit 39.9 % (42.0-52.0); Hemoglobin 13.7 g/dl (14.0-18.0); Imm Gran Abs Auto 0.02 X10*3/uL (0.00-0.03); Imm Gran Pct Auto 0.3 % (0.0-0.4); Lymphocytes Absolute Auto 1.8 X10*3/uL (1.2-4.9); Lymphocytes Percent Auto 28.2 % (20-40); Mean Corpuscular HGB Conc 34.3 g/dl (31.0-36.0); Mean Corpuscular Hemoglobin 31.1 pg (27.0-33.0); Mean Corpuscular Volume 90.7 fL (80.0-98.0); Mean Platelet Volume 10.2 fL (9.4-12.4); Monocytes Absolute Auto 0.6 X10*3/uL (0.1-1.2); Monocytes Percent Auto 8.8 % (2-11); Neutrophils Absolute Auto 3.8 x10*3/uL (2.0-8.3); Neutrophils Percent Auto 58.5 % (45-73); Platelet Count 246 X10*3/uL (160-400); Red Cell Distribution Width 12.9 % (11.0-16.0); White Blood Count 6.5 X10*3/uL (4.8-10.8)
[2023-02-08 12:15] LABS: Alanine Aminotransferase 19 U/L (0-40); Albumin Level 4.4 g/dL (3.5-5.0); Alkaline Phosphatase 63 U/L (39-117); Anion Gap 12 (12-20); Aspartate Amino Transferase 15 U/L (5-37); Bilirubin Direct 0.1 mg/dL (0.0-0.5); Bilirubin Total 0.5 mg/dL (0.0-1.0); Blood Urea Nitrogen 16 mg/dL (9-16); Calcium 9.6 mg/dL (8.4-10.2); Carbon Dioxide 25 mmol/L (22-29); Chloride 108 mmol/L (96-108); Creatinine Clr Calc Pharmacy 118.3; Estimated Glomerular Filt Rate > 60; Glucose Random 137 mg/dL (60-115); Lipase 33 U/L (8-78); Magnesium 1.6 mg/dL (1.6-2.6); Sodium 140 mmol/L (135-145); Total Protein 6.8 g/dL (6.5-8.0)
[2023-02-08] MEDS: Sodium Zirconium Cyclosilicate 5 GM POWD.PACK PO ×2 (13:15→15:04)
[2023-02-08 13:37] VITALS: BP 126/80; PULSE 66; RESP 16; TEMP 36.2; O2SAT 100
[2023-02-08 14:41] LABS: Anion Gap 14 (12-20); Blood Urea Nitrogen 18 mg/dL (9-16); Calcium 9.4 mg/dL (8.4-10.2); Carbon Dioxide 26 mmol/L (22-29); Chloride 104 mmol/L (96-108); Creatinine Clr Calc Pharmacy 121.3; Estimated Glomerular Filt Rate > 60; Glucose Random 153 mg/dL (60-115); Potassium 5.6 mmol/L (3.3-5.1); Sodium 138 mmol/L (135-145)
== END 2023-02-08 16:24 | disposition left against medical advice (07) ==
PROVIDERS: Physician Assistant Medical; Emergency Provider Student in an Organized Health Care Education/Training Program; PCP Internal Medicine
DX: R25.3 Fasciculation (principal); E87.5 Hyperkalemia; E11.9 Type 2 diabetes mellitus without complications; I10 Essential (primary) hypertension; E78.5 Hyperlipidemia, unspecified; Z79.4 Long term (current) use of insulin; Z79.82 Long term (current) use of aspirin; Z79.02 Long term (current) use of antithrombotics/antiplatelets; Z79.899 Other long term (current) drug therapy
CPT/HCPCS: 36415; 80048; 80076; 83690; 83735; 85025; 93005; 99283; 99284

== ENCOUNTER 2023-02-10 21:08 | Emergency (ER) | payer MEDICAID, SELFPAY ==
--- NOTE | 2023-02-10 | ECG_ITS ---
Test Reason : chest pain Blood Pressure : / mmHG Vent. Rate : 089 BPM Atrial Rate : 089 BPM P-R Int : 158 ms QRS Dur : 084 ms QT Int : 358 ms P-R-T Axes : 064 012 060 degrees QTc Int : 435 ms Normal sinus rhythm Septal infarct , age undetermined Abnormal ECG When compared with ECG of 08-FEB-2023 11:31, Septal infarct is now Present Criteria for Inferior infarct are no longer Present Referred By: Generic ED Physician Electronically Signed By:Kyler Walsh
--- NOTE | ~2023-02-10 | XR_ITS ---
EXAMINATION: XR CHEST CLINICAL INFORMATION: Chest pain COMPARISON: 09/06/2022 TECHNIQUE: Frontal view of the chest was obtained. FINDINGS: No significant abnormality is noted involving the heart, lungs, mediastinum, bony thorax or soft tissues. XR/XR chest 1V IMPRESSION: Unremarkable examination.
[2023-02-10 21:16] VITALS: BP 143/75; PULSE 101; RESP 18; TEMP 36.5; O2SAT 96; BMI 29.1
[2023-02-10 21:36] VITALS: BP 136/69; PULSE 90; RESP 17; TEMP 36.8; O2SAT 97
[2023-02-10 21:47] LABS: MANUAL DIFF FLAG NO
--- NOTE | 2023-02-10 21:47 | MHC.EDTECH ---
this tech assumed care of patient upon arrival. EKG done and handed to provider. patient placed on secured entrance monitor and changed over. Vitals and labs done patient call beck within reach
[2023-02-10 21:50] LABS: Basophils Absolute Auto 0.1 X10*3/uL (0.0-0.2); Eosinophils Absolute Auto 0.2 X10*3/uL (0.0-0.4); Eosinophils Percent Auto 2.6 % (0-4); Hematocrit 37.1 % (42.0-52.0); Hemoglobin 12.5 g/dl (14.0-18.0); Imm Gran Abs Auto 0.01 X10*3/uL (0.00-0.03); Imm Gran Pct Auto 0.1 % (0.0-0.4); Lymphocytes Absolute Auto 1.6 X10*3/uL (1.2-4.9); Lymphocytes Percent Auto 21.3 % (20-40); Mean Corpuscular HGB Conc 33.7 g/dl (31.0-36.0); Mean Corpuscular Hemoglobin 30.3 pg (27.0-33.0); Mean Platelet Volume 10.3 fL (9.4-12.4); Monocytes Absolute Auto 0.6 X10*3/uL (0.1-1.2); Monocytes Percent Auto 8.6 % (2-11); Neutrophils Absolute Auto 4.9 x10*3/uL (2.0-8.3); Neutrophils Percent Auto 66.4 % (45-73); Platelet Count 236 X10*3/uL (160-400); Red Blood Count 4.12 X10*6/uL (4.60-5.80); Red Cell Distribution Width 12.7 % (11.0-16.0); White Blood Count 7.3 X10*3/uL (4.8-10.8)
--- NOTE | 2023-02-10 22:01 | ED_ITS ---
HPI - Chest Pain General Chief Complaint: Chest Pain Stated Complaint: Chest pain/ potassium level high? Time Seen by Provider: 02/10/23 21:33 History of Present Illness HPI narrative: Patient is a 47-year-old male with a history of diabetes, hypertension currently on insulin. Presents today with having chest pain as mid chest. Constant. Not associated with shortness of breath no diaphoresis. Symptoms been ongoing for 2 days. There has been no change with exertion. There is no diaphoresis. Patient from home. No history of previous risk stratification son. Patient denies any leg swelling. No history of blood clot. No coughing or congestion or upper respiratory symptoms. No fever. Related Data Home Medications Medication Instructions Recorded Confirmed allopurinol 300 mg tablet 300 mg PO BID 08/31/22 08/31/22 amitriptyline 50 mg tablet 50 mg PO BEDTIME 08/31/22 08/31/22 amlodipine 5 mg tablet 5 mg PO DAILY 08/31/22 08/31/22 aspirin 81 mg tablet,delayed 81 mg PO DAILY 08/31/22 08/31/22 release atorvastatin 80 mg tablet 80 mg PO BEDTIME 08/31/22 08/31/22 cholecalciferol (vitamin D3) 25 25 mcg PO DAILY 08/31/22 08/31/22 mcg (1,000 unit) capsule cyanocobalamin (vitamin B-12) 2,000 mcg PO DAILY 08/31/22 08/31/22 1,000 mcg tablet famotidine 40 mg tablet 40 mg PO BID 08/31/22 08/31/22 insulin glargine 100 unit/mL 32 unit subcut QPM 08/31/22 08/31/22 subcutaneous solution (Lantus U-100 Insulin) insulin lispro 100 unit/mL 30 unit subcut TID 08/31/22 08/31/22 subcutaneous solution lisinopril 10 mg tablet 10 mg PO DAILY 08/31/22 08/31/22 magnesium oxide 400 mg PO BID 08/31/22 08/31/22 metformin 1,000 mg tablet 1,000 mg PO BID 08/31/22 08/31/22 repaglinide 1 mg tablet 1 mg PO TID 08/31/22 08/31/22 Previous Rx's Medication Instructions Recorded magnesium oxide 400 mg PO TID #90 tabs 09/07/22 magnesium oxide 400 mg (241.3 mg 400 mg PO DAILY #20 tabs 01/15/23 magnesium) tablet Allergies Allergy/AdvReac Type Severity Reaction Status Date / Time shellfish derived Allergy Unknown HIVES Verified 02/10/23 21:15 [SHELLFISH DERIVED] shrimp [SHRIMP] Allergy Unknown HIVES Verified 02/10/23 21:15 Review of Systems Review of Systems: No fever no chills Yes all other systems are reviewed and are negative [facility] Past Medical History Attestation statement: The following information was validated with the patient. Medical History GERD (gastroesophageal reflux disease) Gout HTN (hypertension) Hypomagnesemia IDDM (insulin dependent diabetes mellitus) Family History Family History Other No family history of colorectal cancer Social History Social History Alcohol intake: never Patient Tobacco Use Status: Never used Tobacco Advance Directives: No Advance Directives Information Provided: No Physical Exam Vital Signs: Vital Signs: Last Vital Signs Temp 97.9 F 02/11/23 00:59 Pulse 69 02/11/23 00:59 Resp 17 02/11/23 00:59 BP 133/67 02/11/23 00:59 Pulse Ox 98 02/11/23 00:59 O2 Del Method Room Air 02/11/23 00:59 BMI result Body Mass Index 29.1 Appearance: Alert. Oriented X3. No acute distress. Eyes: Pupils equal, round and reactive to light. ENT: Pharynx normal. Neck: Normal inspection. Neck supple. No lymph nodes noted. No crepitus CVS: Normal heart rate and rhythm. Pulses normal. Normal S1 and S2 Respiratory: No respiratory distress. Breath sounds normal. No Wheezing. No rales Abdomen: Soft and nontender. No rigidity. No distention. good BS x4 Skin: Skin warm and dry. Normal skin color. Normal skin turgor. Extremities: No lower extremity edema. Neurovascular intact to all extremities. No Lacerations. No Rash Neuro: Oriented X 3. No motor deficit. No sensory deficit. Moving all extermities. No slurred speech Medical Decision Making Medical Decision Making MDM Narrative: Patient's chest pain atypical for ACS. The pain is constant is not associated with shortness of breath there is no diaphoresis. My interpretation of patient's x-ray showed no pneumonia no pneumothorax. My interpretation patient's EKG showed a sinus pattern heart rate is 70 CA QRS QT within normal limits there is T-wave flattening/inversion in lead 3 and AVF. Patient's history not consistent with PE. He does have 2 risk factor hypertension and diabetes. Heart score is a 3. Discussed with patient will discharge patient home close follow-up on an outpatient basis. Differential Diagnosis Pneumonia, pneumothorax, ACS, angina, PE Lab Data MDM Lab Attestation statement: I reviewed the patient's lab results. 02/10/23 21:42 02/10/23 21:42 Labs: Lab Results 02/10/23 02/10/23 02/10/23 Range/Units 21:42 21:42 21:42 WBC 7.3 (4.8-10.8) X10*3/uL RBC 4.12 L (4.60-5.80) X10*6/uL Hgb 12.5 L (14.0-18.0) g/dl Hct 37.1 L (42.0-52.0) % MCV 90.0 (80.0-98.0) fL MCH 30.3 (27.0-33.0) pg MCHC 33.7 (31.0-36.0) g/dl RDW 12.7 (11.0-16.0) % Plt Count 236 (160-400) X10*3/uL MPV 10.3 (9.4-12.4) fL Immature Gran % (Auto) 0.1 (0.0-0.4) % Neut % (Auto) 66.4 (45-73) % Lymph % (Auto) 21.3 (20-40) % [place] % (Auto) 8.6 (2-11) % Eos % (Auto) 2.6 (0-4) % Baso % (Auto) 1.0 (0-2) % Lymph # (Auto) 1.6 (1.2-4.9) X10*3/uL [place] # (Auto) 0.6 (0.1-1.2) X10*3/uL Eos # (Auto) 0.2 (0.0-0.4) X10*3/uL Baso # (Auto) 0.1 (0.0-0.2) X10*3/uL Abs Immat Gran (auto) 0.01 (0.00-0.03) X10*3/uL Absolute Neuts (auto) 4.9 (2.0-8.3) x10*3/uL Absolute Nucleated RBC 0.000 (0.0-0.012) X10*3/uL Nucleated RBC % (auto) 0.0 (0.0-0.2) /100WBC Sodium 138 (135-145) mmol/L Potassium 4.4 D (3.3-5.1) mmol/L Chloride 104 (96-108) mmol/L Carbon Dioxide 23 (22-29) mmol/L Anion Gap 15 (12-20) BUN 20 H (9-16) mg/dL Creatinine 0.89 (0.5-1.4) mg/dL Estim Creat Clear Calc 107.6 Estimated GFR > 60 Random Glucose 197 H (60-115) mg/dL Calcium 9.6 (8.4-10.2) mg/dL Troponin I High Sens < 2.7 (<3.5-35.0) ng/L 02/10/23 02/11/23 Range/Units 23:11 00:35 WBC (4.8-10.8) X10*3/uL RBC (4.60-5.80) X10*6/uL Hgb (14.0-18.0) g/dl Hct (42.0-52.0) % MCV (80.0-98.0) fL MCH (27.0-33.0) pg MCHC (31.0-36.0) g/dl RDW (11.0-16.0) % Plt Count (160-400) X10*3/uL MPV (9.4-12.4) fL Immature Gran % (Auto) (0.0-0.4) % Neut % (Auto) (45-73) % Lymph % (Auto) (20-40) % [place] % (Auto) (2-11) % Eos % (Auto) (0-4) % Baso % (Auto) (0-2) % Lymph # (Auto) (1.2-4.9) X10*3/uL [place] # (Auto) (0.1-1.2) X10*3/uL Eos # (Auto) (0.0-0.4) X10*3/uL Baso # (Auto) (0.0-0.2) X10*3/uL Abs Immat Gran (auto) (0.00-0.03) X10*3/uL Absolute Neuts (auto) (2.0-8.3) x10*3/uL Absolute Nucleated RBC (0.0-0.012) X10*3/uL Nucleated RBC % (auto) (0.0-0.2) /100WBC Sodium (135-145) mmol/L Potassium (3.3-5.1) mmol/L Chloride (96-108) mmol/L Carbon Dioxide (22-29) mmol/L Anion Gap (12-20) BUN (9-16) mg/dL Creatinine (0.5-1.4) mg/dL Estim Creat Clear Calc Estimated GFR Random Glucose (60-115) mg/dL Calcium (8.4-10.2) mg/dL Troponin I High Sens < 2.7 < 2.7 (<3.5-35.0) ng/L Independent Interpretation I performed an independent interpretation of an: EKG Interpretation: See above Radiology Impression Discussion of test interpretation with radiology: I have reviewed the radiologist's reading. Radiologist Impression: Negative External Record Review External record reviewed: Inpatient record Chronic Conditions Patient?s care impacted by: Diabetes and Hypertension Discharge Plan Discharge Clinical Impression: Chest pain Patient Disposition: Home, Self-Care Instructions: Chest Pain (ED) Prescriptions: No Action magnesium oxide 400 mg magnesium tablet 400 mg PO TID Qty: 90 0RF metformin 1,000 mg Tablet 1,000 mg PO BID allopurinol 300 mg Tablet 300 mg PO BID magnesium oxide 400 mg magnesium tablet 400 mg PO BID atorvastatin 80 mg Tablet 80 mg PO BEDTIME amlodipine 5 mg Tablet 5 mg PO DAILY cyanocobalamin (vitamin B-12) 1,000 mcg Tablet 2,000 mcg PO DAILY aspirin 81 mg Tablet,Delayed Release (Dr/Ec) 81 mg PO DAILY amitriptyline 50 mg Tablet 50 mg PO BEDTIME lisinopril 10 mg Tablet 10 mg PO DAILY repaglinide 1 mg Tablet 1 mg PO TID Rx Instructions: administer within 30 minutes of a meal or snack famotidine 40 mg Tablet 40 mg PO BID insulin lispro 100 unit/mL Solution 30 unit SUBCUT TID Rx Instructions: with meals cholecalciferol (vitamin D3) 25 mcg (1,000 unit) Capsule 25 mcg PO DAILY insulin glargine [Lantus U-100 Insulin] 100 unit/mL Solution 32 unit SUBCUT QPM magnesium oxide 400 mg (241.3 mg magnesium) tablet 400 mg PO DAILY Qty: 20 0RF Referrals: Maxime Strickland MD [Physician] - 02/14/23 Print Language: Lao
[2023-02-10 22:04] LABS: Anion Gap 15 (12-20); Blood Urea Nitrogen 20 mg/dL (9-16); Calcium 9.6 mg/dL (8.4-10.2); Carbon Dioxide 23 mmol/L (22-29); Chloride 104 mmol/L (96-108); Creatinine Clr Calc Pharmacy 107.6; Estimated Glomerular Filt Rate > 60; Glucose Random 197 mg/dL (60-115); Potassium 4.4 mmol/L (3.3-5.1); Sodium 138 mmol/L (135-145)
[2023-02-10 22:17] LABS: Troponin-I High Sensitivity < 2.7 ng/L (<3.5-35.0)
--- NOTE | 2023-02-10 22:49 | PC.NURSE ---
pt c/o chest pain and states he was here on Tuesday and left AMA pt was told his potassium level was elevated no apparent distress resting quietly while on phone aox4 will CTM
[2023-02-10 23:53] LABS: Troponin-I High Sensitivity < 2.7 ng/L (<3.5-35.0)
[2023-02-11 00:59] VITALS: BP 133/67; PULSE 69; RESP 17; TEMP 36.6; O2SAT 98
[2023-02-11 01:06] LABS: Troponin-I High Sensitivity < 2.7 ng/L (<3.5-35.0)
[2023-02-11 02:13] VITALS: BP 126/75; PULSE 71; RESP 13; O2SAT 97
== END 2023-02-11 02:16 | disposition home or self-care (01) ==
PROVIDERS: Emergency Provider Emergency Medicine Emergency Medical Services
DX: R07.9 Chest pain, unspecified (principal); E11.9 Type 2 diabetes mellitus without complications; I10 Essential (primary) hypertension; Z79.4 Long term (current) use of insulin; Z79.82 Long term (current) use of aspirin; Z79.899 Other long term (current) drug therapy; Z79.02 Long term (current) use of antithrombotics/antiplatelets
CPT/HCPCS: 36415; 71045; 80048; 84484; 85025; 93005; 99283; 99284

== ENCOUNTER 2023-03-26 00:36 | Emergency (ER) | payer MEDICAID, SELFPAY ==
[2023-03-26 00:39] VITALS: BP 136/81; PULSE 92; RESP 18; TEMP 36.6; O2SAT 99; BMI 28.5
--- NOTE | 2023-03-26 02:17 | ED.GENADULT ---
HPI - General Adult General Chief complaint: General Medical Stated complaint: eye issue Time Seen by Provider: 03/26/23 02:17 Source: patient Mode of arrival: ambulatory History of Present Illness HPI narrative: 47-year-old male who reports burning sensation in his eyes and weakness for 2 days that he states is typically associated with low magnesium levels. He otherwise denies any symptoms of chest pain, shortness of breath, fevers, chills, GI or symptoms. Related Data Home Medications Medication Instructions Recorded Confirmed allopurinol 300 mg tablet 300 mg PO BID 08/31/22 08/31/22 amitriptyline 50 mg tablet 50 mg PO BEDTIME 08/31/22 08/31/22 amlodipine 5 mg tablet 5 mg PO DAILY 08/31/22 08/31/22 aspirin 81 mg tablet,delayed 81 mg PO DAILY 08/31/22 08/31/22 release atorvastatin 80 mg tablet 80 mg PO BEDTIME 08/31/22 08/31/22 cholecalciferol (vitamin D3) 25 25 mcg PO DAILY 08/31/22 08/31/22 mcg (1,000 unit) capsule cyanocobalamin (vitamin B-12) 2,000 mcg PO DAILY 08/31/22 08/31/22 1,000 mcg tablet famotidine 40 mg tablet 40 mg PO BID 08/31/22 08/31/22 insulin glargine 100 unit/mL 32 unit subcut QPM 08/31/22 08/31/22 subcutaneous solution (Lantus U-100 Insulin) insulin lispro 100 unit/mL 30 unit subcut TID 08/31/22 08/31/22 subcutaneous solution lisinopril 10 mg tablet 10 mg PO DAILY 08/31/22 08/31/22 magnesium oxide 400 mg PO BID 08/31/22 08/31/22 metformin 1,000 mg tablet 1,000 mg PO BID 08/31/22 08/31/22 repaglinide 1 mg tablet 1 mg PO TID 08/31/22 08/31/22 Previous Rx's Medication Instructions Recorded magnesium oxide 400 mg PO TID #90 tabs 09/07/22 magnesium oxide 400 mg (241.3 mg 400 mg PO DAILY #20 tabs 01/15/23 magnesium) tablet Allergies Allergy/AdvReac Type Severity Reaction Status Date / Time shellfish derived Allergy Unknown HIVES Verified 02/10/23 21:15 [SHELLFISH DERIVED] shrimp [SHRIMP] Allergy Unknown HIVES Verified 02/10/23 21:15 Review of Systems Review of Systems: Pertinent positives and negatives as stated in HPI [facility] Past Medical History Source: nursing notes reviewed Medical History GERD (gastroesophageal reflux disease) Gout HTN (hypertension) Hypomagnesemia IDDM (insulin dependent diabetes mellitus) Family History Family History Other No family history of colorectal cancer Social History Social History Alcohol intake: never Patient Tobacco Use Status: Never used Tobacco Advance Directives: No Advance Directives Information Provided: Yes Physical Exam ED Vital Signs: Vital Signs - 24 hr 03/26/23 00:39 Temperature 98 F Pulse Rate 92 Respiratory Rate 18 Blood Pressure 136/81 Pulse Oximetry 99 Oxygen Delivery Method Room Air BMI result Body Mass Index 28.5 VITAL SIGNS: Reviewed. GENERAL: Well developed, well nourished, in no acute distress. HEAD: Normocephalic/atraumatic EYES: PERRLA, EOMI, no conjunctival injection, no gaze palsies EARS: Ext canals without abnormality NOSE: Nares patent bilateral OROPHARYNX: no oral lesions noted, posterior pharynx clear NECK: Supple, no adenopathy LUNGS: Normal breath sounds. No adventitious sounds or accessory muscle use. SpO2<99> CARDIOVASCULAR: Regular rate and rhythm without noted murmurs ABDOMEN: Soft, non-tender, non-distended with bowel sounds. MUSCULOSKELETAL: No tenderness, deformities, or effusions noted on gross inspection. EXTREMITIES: No cyanosis, clubbing or edema. SKIN: Inspection of the skin reveals no rashes NEUROLOGIC: Alert and oriented x 4. Strength and sensation to light touch were grossly intact x 4. Medical Decision Making Medical Decision Making MDM Narrative: 47-year-old male with burning sensation in the eyes and subjective weakness and I reviewed all investigations and found that hematologic indices are chronically stable without evidence of infection or acute anemia. In addition, chemistries are grossly within normal limits with the exception of low magnesium, patient will receive 400 mg of magnesium oxide at his request instead of 800 mg. He is otherwise hemodynamically stable for discharge to home. Lab Data Please see the discussion above 03/26/23 01:06 03/26/23 01:06 Labs: Lab Results 03/26/23 03/26/23 Range/Units 01:06 01:06 WBC 7.6 (4.8-10.8) X10*3/uL RBC 4.04 L (4.60-5.80) X10*6/uL Hgb 12.3 L (14.0-18.0) g/dl Hct 36.6 L (42.0-52.0) % MCV 90.6 (80.0-98.0) fL MCH 30.4 (27.0-33.0) pg MCHC 33.6 (31.0-36.0) g/dl RDW 13.2 (11.0-16.0) % Plt Count 238 (160-400) X10*3/uL MPV 9.8 (9.4-12.4) fL Immature Gran % (Auto) 0.4 (0.0-0.4) % Neut % (Auto) 56.1 (45-73) % Lymph % (Auto) 31.9 (20-40) % [place] % (Auto) 7.6 (2-11) % Eos % (Auto) 3.0 (0-4) % Baso % (Auto) 1.0 (0-2) % Lymph # (Auto) 2.4 (1.2-4.9) X10*3/uL [place] # (Auto) 0.6 (0.1-1.2) X10*3/uL Eos # (Auto) 0.2 (0.0-0.4) X10*3/uL Baso # (Auto) 0.1 (0.0-0.2) X10*3/uL Abs Immat Gran (auto) 0.03 (0.00-0.03) X10*3/uL Absolute Neuts (auto) 4.3 (2.0-8.3) x10*3/uL Absolute Nucleated RBC 0.000 (0.0-0.012) X10*3/uL Nucleated RBC % (auto) 0.0 (0.0-0.2) /100WBC Sodium 140 (135-145) mmol/L Potassium 3.9 (3.3-5.1) mmol/L Chloride 105 (96-108) mmol/L Carbon Dioxide 24 (22-29) mmol/L Anion Gap 15 (12-20) BUN 17 H (9-16) mg/dL Creatinine 0.83 (0.5-1.4) mg/dL Estim Creat Clear Calc 114.3 Estimated GFR > 60 Random Glucose 151 H (60-115) mg/dL Calcium 9.8 (8.4-10.2) mg/dL Magnesium 1.4 L* (1.6-2.6) mg/dL External Record Review External record reviewed: Outpatient record and Prior outpatient labs Discharge Plan Discharge Clinical Impression: Burning sensation of eye, Low magnesium level Patient Disposition: Home, Self-Care Instructions: Eye Pain (ED) Additional Instructions: 1. Reanudar todos los medicamentos caseros seg?n lo prescrito. 2. Contin?e tomando phillips magnesio rose christine est?. 3. Seguimiento con phillips proveedor de atenci?n primaria. Regrese a la dionne de emergencias si los s?ntomas empeoran. 1. Resume all home medications as prescribed. 2. Continue to take your magnesium as you are. 3. Follow-up with your primary care provider. Return to the ER for any worsening symptoms. Prescriptions: No Action magnesium oxide 400 mg magnesium tablet 400 mg PO TID Qty: 90 0RF metformin 1,000 mg Tablet 1,000 mg PO BID allopurinol 300 mg Tablet 300 mg PO BID magnesium oxide 400 mg magnesium tablet 400 mg PO BID atorvastatin 80 mg Tablet 80 mg PO BEDTIME amlodipine 5 mg Tablet 5 mg PO DAILY cyanocobalamin (vitamin B-12) 1,000 mcg Tablet 2,000 mcg PO DAILY aspirin 81 mg Tablet,Delayed Release (Dr/Ec) 81 mg PO DAILY amitriptyline 50 mg Tablet 50 mg PO BEDTIME lisinopril 10 mg Tablet 10 mg PO DAILY repaglinide 1 mg Tablet 1 mg PO TID Rx Instructions: administer within 30 minutes of a meal or snack famotidine 40 mg Tablet 40 mg PO BID insulin lispro 100 unit/mL Solution 30 unit SUBCUT TID Rx Instructions: with meals cholecalciferol (vitamin D3) 25 mcg (1,000 unit) Capsule 25 mcg PO DAILY insulin glargine [Lantus U-100 Insulin] 100 unit/mL Solution 32 unit SUBCUT QPM magnesium oxide 400 mg (241.3 mg magnesium) tablet 400 mg PO DAILY Qty: 20 0RF
[2023-03-26] MEDS: Magnesium Oxide 400 MG TABLET PO (02:28)
== END 2023-03-26 02:29 | disposition home or self-care (01) ==
PROVIDERS: Emergency Provider Student in an Organized Health Care Education/Training Program
DX: H57.89 Other specified disorders of eye and adnexa (principal); E83.42 Hypomagnesemia; H57.13 Ocular pain, bilateral; E11.9 Type 2 diabetes mellitus without complications; I10 Essential (primary) hypertension; Z79.4 Long term (current) use of insulin
CPT/HCPCS: 36415; 80048; 83735; 85025; 99282; 99283

== ENCOUNTER 2023-04-28 22:56 | Emergency (ER) | payer MEDICAID, SELFPAY ==
--- NOTE | 2023-04-28 | ECG_ITS ---
Test Reason : cp Blood Pressure : / mmHG Vent. Rate : 085 BPM Atrial Rate : 085 BPM P-R Int : 152 ms QRS Dur : 082 ms QT Int : 366 ms P-R-T Axes : 045 005 029 degrees QTc Int : 435 ms Normal sinus rhythm Normal ECG When compared with ECG of 10-FEB-2023 21:27, Criteria for Septal infarct are no longer Present Referred By: Generic ED Physician Electronically Signed By:MARLEEN MONDRAGON
--- NOTE | ~2023-04-28 | XR_ITS ---
EXAMINATION: XR CHEST CLINICAL INFORMATION: Leukocytosis COMPARISON: 02/11/2023 TECHNIQUE: Frontal view of the chest was obtained. FINDINGS: No significant abnormality is noted involving the heart, lungs, mediastinum, bony thorax or soft tissues. XR/XR chest 1V IMPRESSION: Unremarkable examination.
[2023-04-28 23:15] VITALS: BP 123/72; PULSE 90; RESP 20; TEMP 36.7; O2SAT 99; BMI 28.5
[2023-04-28 23:27] LABS: MANUAL DIFF FLAG NO
[2023-04-28 23:28] LABS: Basophils Absolute Auto 0.1 X10*3/uL (0.0-0.2); Basophils Percent Auto 0.8 % (0-2); Eosinophils Absolute Auto 0.3 X10*3/uL (0.0-0.4); Eosinophils Percent Auto 2.2 % (0-4); Hematocrit 39.5 % (42.0-52.0); Hemoglobin 13.5 g/dl (14.0-18.0); Imm Gran Abs Auto 0.07 X10*3/uL (0.00-0.03); Imm Gran Pct Auto 0.5 % (0.0-0.4); Lymphocytes Absolute Auto 2.5 X10*3/uL (1.2-4.9); Lymphocytes Percent Auto 17.1 % (20-40); Mean Corpuscular HGB Conc 34.2 g/dl (31.0-36.0); Mean Corpuscular Hemoglobin 31.4 pg (27.0-33.0); Mean Corpuscular Volume 91.9 fL (80.0-98.0); Mean Platelet Volume 10.3 fL (9.4-12.4); Monocytes Absolute Auto 1.1 X10*3/uL (0.1-1.2); Monocytes Percent Auto 7.3 % (2-11); Neutrophils Absolute Auto 10.6 x10*3/uL (2.0-8.3); Neutrophils Percent Auto 72.1 % (45-73); Platelet Count 265 X10*3/uL (160-400); Red Cell Distribution Width 13.2 % (11.0-16.0); White Blood Count 14.6 X10*3/uL (4.8-10.8)
[2023-04-29 00:03] LABS: Alanine Aminotransferase 35 U/L (0-40); Albumin Level 4.5 g/dL (3.5-5.0); Alkaline Phosphatase 64 U/L (39-117); Anion Gap 21 (12-20); Aspartate Amino Transferase 17 U/L (5-37); Bilirubin Total 0.2 mg/dL (0.0-1.0); Blood Urea Nitrogen 26 mg/dL (9-16); Calcium 9.7 mg/dL (8.4-10.2); Carbon Dioxide 19 mmol/L (22-29); Chloride 104 mmol/L (96-108); Creatinine Clr Calc Pharmacy 103.1; Estimated Glomerular Filt Rate > 60; Glucose Random 165 mg/dL (60-115); Potassium 4.8 mmol/L (3.3-5.1); Sodium 139 mmol/L (135-145); Total Protein 7.5 g/dL (6.5-8.0)
[2023-04-29 00:05] LABS: Magnesium 1.4 mg/dL (1.6-2.6)
[2023-04-29 01:18] VITALS: BP 125/68; PULSE 77; RESP 17; TEMP 37; O2SAT 96
[2023-04-29] MEDS: Magnesium Sulfate/H2O 2 GM/50 ML PIGGYBACK IV (01:27)
--- NOTE | 2023-04-29 01:39 | ED_ITS ---
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 Patient takes supplemental magnesium at home. Denies any eye discharge, no SOB, no CP, no fever, no chills, no nausea, no vomiting, no diarrhea, no frequency urination, no dysuria, no hematuria. Related Data Home Medications Medication Instructions Recorded Confirmed allopurinol 300 mg tablet 300 mg PO BID 08/31/22 08/31/22 amitriptyline 50 mg tablet 50 mg PO BEDTIME 08/31/22 08/31/22 amlodipine 5 mg tablet 5 mg PO DAILY 08/31/22 08/31/22 aspirin 81 mg tablet,delayed 81 mg PO DAILY 08/31/22 08/31/22 release atorvastatin 80 mg tablet 80 mg PO BEDTIME 08/31/22 08/31/22 cholecalciferol (vitamin D3) 25 25 mcg PO DAILY 08/31/22 08/31/22 mcg (1,000 unit) capsule cyanocobalamin (vitamin B-12) 2,000 mcg PO DAILY 08/31/22 08/31/22 1,000 mcg tablet famotidine 40 mg tablet 40 mg PO BID 08/31/22 08/31/22 insulin glargine 100 unit/mL 32 unit subcut QPM 08/31/22 08/31/22 subcutaneous solution (Lantus U-100 Insulin) insulin lispro 100 unit/mL 30 unit subcut TID 08/31/22 08/31/22 subcutaneous solution lisinopril 10 mg tablet 10 mg PO DAILY 08/31/22 08/31/22 magnesium oxide 400 mg PO BID 08/31/22 08/31/22 metformin 1,000 mg tablet 1,000 mg PO BID 08/31/22 08/31/22 repaglinide 1 mg tablet 1 mg PO TID 08/31/22 08/31/22 Previous Rx's Medication Instructions Recorded magnesium oxide 400 mg PO TID #90 tabs 09/07/22 magnesium oxide 400 mg (241.3 mg 400 mg PO DAILY #20 tabs 01/15/23 magnesium) tablet Allergies Allergy/AdvReac Type Severity Reaction Status Date / Time shellfish derived Allergy Unknown HIVES Verified 02/10/23 21:15 [SHELLFISH DERIVED] shrimp [SHRIMP] Allergy Unknown HIVES Verified 02/10/23 21:15 Review of Systems Review of Systems: All other systems are reviewed and are negative Constitutional: Reports as per HPI and Reports no additional constitutional complaints Eyes: Reports as per HPI and Reports no additional eye complaints Reports system reviewed and no additional complaints, except as documented Cardiovascular: Reports as per HPI and Reports no additional cardiovascular complaints Respiratory: Reports as per HPI and Reports no additional respiratory complaints Gastrointestinal: Reports as per HPI and Reports no additional gastrointestinal complaints Genitourinary: Reports no additional female genitourinary complaints Musculoskeletal: Reports no additional musculoskeletal complaints Skin/Breast: Reports system reviewed and no additional complaints, except as docu Psychiatric: Reports no additional psychiatric complaints Endocrine: Reports no additional endocrine complaints Hematologic/Lymphatic: Reports no additional hematologic/lymphatic complaints Allergic/Immunologic: Reports no additional allergic/immunologic complaints Reports system reviewed and no additional complaints, except as documented and Reports Abnormal speech present [facility] Past Medical History Medical History GERD (gastroesophageal reflux disease) Gout HTN (hypertension) Hypomagnesemia IDDM (insulin dependent diabetes mellitus) Family History Family History Other No family history of colorectal cancer Social History Social History Alcohol intake: never Patient Tobacco Use Status: Never used Tobacco Advance Directives: No Advance Directives Information Provided: Yes Physical Exam ED Vital Signs: Vital Signs - 24 hr 04/28/23 23:15 04/29/23 01:18 Temperature 98.0 F 98.6 F Pulse Rate 90 77 Respiratory Rate 20 17 Blood Pressure 123/72 125/68 Pulse Oximetry 99 96 Oxygen Delivery Method Room Air Room Air BMI result Body Mass Index 28.5 Vital signs have been reviewed as appeared to be correct. Blood pressure normal. Heart rate normal. Respiration rate normal. Temperature normal. Oxygen saturation normal. Appearance: Alert. Oriented X3. No acute distress. Head: Normal external exam. Normocephalic. Atraumatic. No Duncan signs noted. No raccoon eyes noted Eyes: PERRLA. EOMI. Conjunctiva and sclera normal. Eyelids normal. ENT: TM's Normal. Pharynx normal. Uvula midline. Moist mucous membranes. No trismus noted. No drooling noted. No muffled voice noted. Neck: Normal inspection. Neck supple. FROM. No adenopathy. Thyroid Normal. No meningeal signs. No neck mass noted. CVS: Normal heart rate and rhythm. Heart sound normal. No murmurs noted. Pulses normal throughout. Respiratory: No respiratory distress. Painless inspiration. Breath sounds normal. No wheezes/rales/rhonchi noted. Chest nontender. No accessory muscle usage noted or decreased air movement noted. Abdomen: Soft and nontender. Bowel sounds normal in all 4 quadrants. No distention noted. No organomegaly noted. No visible injury noted. Back: No CVA tenderness. Full range of motion noted. Skin: Skin warm and dry. Normal skin color. Normal skin turgor. No rashes/lesions/lacerations noted. Extremities: No lower extremity edema. Extremities exhibit normal range of motion. Extremities nontender. Neuro: Oriented X 3. Cranial nerve exam: II-XII are grossly intact No motor deficit. No sensory deficit. Reflexes normal. Course Course Course Narrative: 48-year-old male with history of hypomagnesemia patient received magnesium IV, patient with leukocytosis which is likely due to stress no source of infection (clear chest x-ray and UA) Medications Administered Discontinued Medications Generic Name Dose Route Start Last Admin Trade Name Freq PRN Reason Stop Dose Admin Magnesium Sulfate 2 gm in 50 mls @ 25 mls/hr 04/29/23 01:14 04/29/23 03:27 Magnesium Sulfate/H2o IV 04/29/23 03:13 Infused ONCE ONE Infusion Sodium Chloride 1,000 mls @ 999 mls/hr 04/29/23 01:40 04/29/23 03:00 Ns IV 04/29/23 02:40 Infused .Q1H1M ONE Infusion Medical Decision Making Lab Data 04/28/23 23:22 04/28/23 23:22 Labs: Lab Results 04/28/23 04/28/23 04/29/23 Range/Units 23:22 23:22 03:42 WBC 14.6 H (4.8-10.8) X10*3/uL RBC 4.30 L (4.60-5.80) X10*6/uL Hgb 13.5 L (14.0-18.0) g/dl Hct 39.5 L (42.0-52.0) % MCV 91.9 (80.0-98.0) fL MCH 31.4 (27.0-33.0) pg MCHC 34.2 (31.0-36.0) g/dl RDW 13.2 (11.0-16.0) % Plt Count 265 (160-400) X10*3/uL MPV 10.3 (9.4-12.4) fL Immature Gran % (Auto) 0.5 H (0.0-0.4) % Neut % (Auto) 72.1 (45-73) % Lymph % (Auto) 17.1 L (20-40) % [place] % (Auto) 7.3 (2-11) % Eos % (Auto) 2.2 (0-4) % Baso % (Auto) 0.8 (0-2) % Lymph # (Auto) 2.5 (1.2-4.9) X10*3/uL [place] # (Auto) 1.1 (0.1-1.2) X10*3/uL Eos # (Auto) 0.3 (0.0-0.4) X10*3/uL Baso # (Auto) 0.1 (0.0-0.2) X10*3/uL Abs Immat Gran (auto) 0.07 H (0.00-0.03) X10*3/uL Absolute Neuts (auto) 10.6 H (2.0-8.3) x10*3/uL Absolute Nucleated RBC 0.000 (0.0-0.012) X10*3/uL Nucleated RBC % (auto) 0.0 (0.0-0.2) /100WBC Sodium 139 (135-145) mmol/L Potassium 4.8 D (3.3-5.1) mmol/L Chloride 104 (96-108) mmol/L Carbon Dioxide 19 L (22-29) mmol/L Anion Gap 21 H (12-20) BUN 26 H (9-16) mg/dL Creatinine 0.91 (0.5-1.4) mg/dL Estim Creat Clear Calc 103.1 Estimated GFR > 60 Random Glucose 165 H (60-115) mg/dL Calcium 9.7 (8.4-10.2) mg/dL Magnesium 1.4 L* (1.6-2.6) mg/dL Total Bilirubin 0.2 (0.0-1.0) mg/dL AST 17 (5-37) U/L ALT 35 (0-40) U/L Alkaline Phosphatase 64 (39-117) U/L Total Protein 7.5 (6.5-8.0) g/dL Albumin 4.5 (3.5-5.0) g/dL Urine Color Yellow Urine Appearance Clear Urine pH 5.5 (5.0-9.0) Ur Specific [place] 1.015 (1.005-1.025) Urine Protein Negative (Neg-Trace) mg/dL Urine Glucose (UA) >=1000 H (Negative) mg/dL Urine Ketones Negative (Negative) mg/dL Urine Blood Negative (Negative) Urine Nitrite Negative (Negative) Ur Leukocyte Esterase Negative (Negative) Urine RBC 0-2 (0-2) /HPF Urine WBC 0-5 (0-5) /HPF Ur Squamous Epith Cells 0-2 (0-2) /HPF Urine Bacteria None Seen (None Seen) Hyaline Casts 0-2 (0-2) /LPF Discharge Plan Discharge Clinical Impression: Hypomagnesemia, Leukocytosis Patient Disposition: Home, Self-Care Instructions: Hypomagnesemia (ED) Prescriptions: No Action magnesium oxide 400 mg magnesium tablet 400 mg PO TID Qty: 90 0RF metformin 1,000 mg Tablet 1,000 mg PO BID allopurinol 300 mg Tablet 300 mg PO BID magnesium oxide 400 mg magnesium tablet 400 mg PO BID atorvastatin 80 mg Tablet 80 mg PO BEDTIME amlodipine 5 mg Tablet 5 mg PO DAILY cyanocobalamin (vitamin B-12) 1,000 mcg Tablet 2,000 mcg PO DAILY aspirin 81 mg Tablet,Delayed Release (Dr/Ec) 81 mg PO DAILY amitriptyline 50 mg Tablet 50 mg PO BEDTIME lisinopril 10 mg Tablet 10 mg PO DAILY repaglinide 1 mg Tablet 1 mg PO TID Rx Instructions: administer within 30 minutes of a meal or snack famotidine 40 mg Tablet 40 mg PO BID insulin lispro 100 unit/mL Solution 30 unit SUBCUT TID Rx Instructions: with meals cholecalciferol (vitamin D3) 25 mcg (1,000 unit) Capsule 25 mcg PO DAILY insulin glargine [Lantus U-100 Insulin] 100 unit/mL Solution 32 unit SUBCUT QPM magnesium oxide 400 mg (241.3 mg magnesium) tablet 400 mg PO DAILY Qty: 20 0RF Referrals: [place] [Primary Care Provider] -
--- NOTE | 2023-04-29 01:49 | MHC.EDTECH ---
Hourly rounds completed,vitals were done by RN,Patient is resting comfortably at this time and call beck within reach.
[2023-04-29] MEDS: 0.9 % Sodium Chloride 1,000 ML 999 ML IV (01:59)
[2023-04-29 03:47] LABS: Appearance Urine Clear; Color Urine Yellow; Glucose Urine UA >=1000 mg/dL (Negative); Leukocyte Esterase Urine Negative (Negative); Nitrite Urine Negative (Negative); PH 5.5 (5.0-9.0); Specific Gravity - Urine 1.015 (1.005-1.025); UMIC TRIGGER UACC YES; Urine Blood Negative (Negative); Urine Ketones Negative (Negative); Urine Protein Negative (Neg-Trace)
[2023-04-29 03:57] LABS: Bacteria Urine None Seen (None Seen); Hyaline Casts Urine 0-2 /LPF (0-2); RBC Urine 0-2 /HPF (0-2); Squamous Epithelial Cell Urine 0-2 /HPF (0-2); WBC Urine 0-5 /HPF (0-5)
[2023-04-29 05:07] VITALS: BP 138/76; PULSE 70; RESP 18; TEMP 36.6; O2SAT 98
== END 2023-04-29 05:08 | disposition home or self-care (01) ==
PROVIDERS: Emergency Provider Emergency Medicine
DX: E83.42 Hypomagnesemia (principal); D72.829 Elevated white blood cell count, unspecified; E11.9 Type 2 diabetes mellitus without complications; I10 Essential (primary) hypertension; Z79.899 Other long term (current) drug therapy; Z79.82 Long term (current) use of aspirin; Z79.4 Long term (current) use of insulin
CPT/HCPCS: 36415; 71045; 80053; 81001; 83735; 85025; 93005; 96365; 96366; 99284; 99285; J3475

== ENCOUNTER → 2023-04-28 23:18 | Outpatient (BNV) | payer MEDICAID, SELFPAY | PROVIDERS: Emergency Provider Emergency Medicine; Visit Provider Internal Medicine | DX: R07.9 Chest pain, unspecified (principal) | CPT/HCPCS: 93010 ==

== ENCOUNTER 2023-05-12 13:49 | Outpatient (REF) | payer MEDICAID, SELFPAY ==
[2023-05-12 18:50] LABS: Anion Gap 14 (12-20); Blood Urea Nitrogen 11 mg/dL (9-16); Calcium 10.2 mg/dL (8.4-10.2); Carbon Dioxide 27 mmol/L (22-29); Chloride 103 mmol/L (96-108); Estimated Glomerular Filt Rate > 60; Glucose Random 125 mg/dL (60-115); Magnesium 1.4 mg/dL (1.6-2.6); Potassium 4.7 mmol/L (3.3-5.1); Sodium 139 mmol/L (135-145)
== END 2023-05-12 13:50 | disposition home or self-care (01) ==
LOC: HO.CHCLDS 13:49
PROVIDERS: Visit Provider Internal Medicine
DX: E83.42 Hypomagnesemia (principal)
CPT/HCPCS: 36415; 80048; 83735

== ENCOUNTER 2023-05-17 00:21 | Emergency (ER) | payer MEDICAID, SELFPAY ==
[2023-05-17 00:28] VITALS: BP 132/62; PULSE 71; RESP 18; TEMP 36.4; O2SAT 98; BMI 30.3
[2023-05-17 00:53] LABS: Basophils Absolute Auto 0.1 X10*3/uL (0.0-0.2); Eosinophils Absolute Auto 0.1 X10*3/uL (0.0-0.4); Eosinophils Percent Auto 1.9 % (0-4); Hematocrit 37.8 % (42.0-52.0); Hemoglobin 12.8 g/dl (14.0-18.0); Imm Gran Abs Auto 0.02 X10*3/uL (0.00-0.03); Imm Gran Pct Auto 0.3 % (0.0-0.4); Lymphocytes Percent Auto 34.1 % (20-40); MANUAL DIFF FLAG SCAN; Mean Corpuscular HGB Conc 33.9 g/dl (31.0-36.0); Mean Corpuscular Hemoglobin 30.8 pg (27.0-33.0); Mean Corpuscular Volume 91.1 fL (80.0-98.0); Mean Platelet Volume 10.5 fL (9.4-12.4); Monocytes Absolute Auto 0.6 X10*3/uL (0.1-1.2); Monocytes Percent Auto 10.5 % (2-11); Neutrophils Absolute Auto 3.1 x10*3/uL (2.0-8.3); Neutrophils Percent Auto 52.2 % (45-73); PLT CLUMP 1; Red Blood Count 4.15 X10*6/uL (4.60-5.80); Red Cell Distribution Width 12.8 % (11.0-16.0); SCAN SMEAR FLAG 1
[2023-05-17 01:17] LABS: Alanine Aminotransferase 42 U/L (0-40); Albumin Level 4.6 g/dL (3.5-5.0); Alkaline Phosphatase 67 U/L (39-117); Anion Gap 17 (12-20); Aspartate Amino Transferase 21 U/L (5-37); Bilirubin Total 0.3 mg/dL (0.0-1.0); Blood Urea Nitrogen 15 mg/dL (9-16); Calcium 10.3 mg/dL (8.4-10.2); Carbon Dioxide 24 mmol/L (22-29); Chloride 105 mmol/L (96-108); Creatinine Clr Calc Pharmacy 119.2; Estimated Glomerular Filt Rate > 60; Glucose Random 91 mg/dL (60-115); Potassium 4.5 mmol/L (3.3-5.1); Sodium 141 mmol/L (135-145); Total Protein 7.4 g/dL (6.5-8.0)
[2023-05-17 01:19] LABS: White Blood Count 5.9 X10*3/uL (4.8-10.8)
[2023-05-17 01:20] LABS: SLIDE REVIEW VERIFIED
[2023-05-17 01:28] LABS: Magnesium 1.4 mg/dL (1.6-2.6)
[2023-05-17 01:48] VITALS: BP 141/78; PULSE 75; RESP 17; TEMP 36.6; O2SAT 98
--- NOTE | 2023-05-17 01:55 | ED.GENADULT ---
HPI - General Adult General Chief complaint: Recheck/Abnormal Lab/Rx Stated complaint: low magnesium per pt Time Seen by Provider: 05/17/23 01:45 Source: patient Mode of arrival: ambulatory Limitations: no limitations History of Present Illness HPI narrative: 48-year-old male with history of chronic hypomagnesemia that usually present which is a burning sensation in the eye and generalized weakness.? Patient takes supplemental magnesium at home.? Denies any eye discharge, no SOB, no CP, no fever, no chills, no nausea, no vomiting, no diarrhea, no frequency urination, no dysuria, no hematuria. Related Data Home Medications Medication Instructions Recorded Confirmed allopurinol 300 mg tablet 300 mg PO BID 08/31/22 08/31/22 amitriptyline 50 mg tablet 50 mg PO BEDTIME 08/31/22 08/31/22 amlodipine 5 mg tablet 5 mg PO DAILY 08/31/22 08/31/22 aspirin 81 mg tablet,delayed 81 mg PO DAILY 08/31/22 08/31/22 release atorvastatin 80 mg tablet 80 mg PO BEDTIME 08/31/22 08/31/22 cholecalciferol (vitamin D3) 25 25 mcg PO DAILY 08/31/22 08/31/22 mcg (1,000 unit) capsule cyanocobalamin (vitamin B-12) 2,000 mcg PO DAILY 08/31/22 08/31/22 1,000 mcg tablet famotidine 40 mg tablet 40 mg PO BID 08/31/22 08/31/22 insulin glargine 100 unit/mL 32 unit subcut QPM 08/31/22 08/31/22 subcutaneous solution (Lantus U-100 Insulin) insulin lispro 100 unit/mL 30 unit subcut TID 08/31/22 08/31/22 subcutaneous solution lisinopril 10 mg tablet 10 mg PO DAILY 08/31/22 08/31/22 magnesium oxide 400 mg PO BID 08/31/22 08/31/22 metformin 1,000 mg tablet 1,000 mg PO BID 08/31/22 08/31/22 repaglinide 1 mg tablet 1 mg PO TID 08/31/22 08/31/22 Previous Rx's Medication Instructions Recorded magnesium oxide 400 mg PO TID #90 tabs 09/07/22 magnesium oxide 400 mg (241.3 mg 400 mg PO DAILY #20 tabs 01/15/23 magnesium) tablet Allergies Allergy/AdvReac Type Severity Reaction Status Date / Time shellfish derived Allergy Unknown HIVES Verified 02/10/23 21:15 [SHELLFISH DERIVED] shrimp [SHRIMP] Allergy Unknown HIVES Verified 02/10/23 21:15 Review of Systems Review of Systems: All other systems are reviewed and are negative Constitutional: Reports as per HPI and Reports no additional constitutional complaints Eyes: Reports as per HPI and Reports no additional eye complaints Reports system reviewed and no additional complaints, except as documented Cardiovascular: Reports as per HPI and Reports no additional cardiovascular complaints Respiratory: Reports as per HPI and Reports no additional respiratory complaints Gastrointestinal: Reports as per HPI and Reports no additional gastrointestinal complaints Genitourinary: Reports no additional female genitourinary complaints Musculoskeletal: Reports no additional musculoskeletal complaints Skin/Breast: Reports system reviewed and no additional complaints, except as docu Psychiatric: Reports no additional psychiatric complaints Endocrine: Reports no additional endocrine complaints Hematologic/Lymphatic: Reports no additional hematologic/lymphatic complaints Allergic/Immunologic: Reports no additional allergic/immunologic complaints Reports system reviewed and no additional complaints, except as documented and Reports Abnormal speech present. [facility] Past Medical History Medical History GERD (gastroesophageal reflux disease) Gout HTN (hypertension) Hypomagnesemia IDDM (insulin dependent diabetes mellitus) Family History Family History Other No family history of colorectal cancer Social History Social History Alcohol intake: never Patient Tobacco Use Status: Never used Tobacco Advance Directives: No Advance Directives Information Provided: Yes Physical Exam ED Vital Signs: Vital Signs - 24 hr 05/17/23 00:28 05/17/23 01:48 Temperature 97.6 F 97.9 F Pulse Rate 71 75 Respiratory Rate 18 17 Blood Pressure 132/62 141/78 H Pulse Oximetry 98 98 Oxygen Delivery Method Room Air Room Air BMI result Body Mass Index 30.3 Vital signs have been reviewed as appeared to be correct. Blood pressure normal. Heart rate normal. Respiration rate normal. Temperature normal. Oxygen saturation normal. Appearance: Alert. Oriented X3. No acute distress. Head: Normal external exam. Normocephalic. Atraumatic. No Duncan signs noted. No raccoon eyes noted Eyes: PERRLA. EOMI. Conjunctiva and sclera normal. Eyelids normal. ENT: TM's Normal. Pharynx normal. Uvula midline. Moist mucous membranes. No trismus noted. No drooling noted. No muffled voice noted. Neck: Normal inspection. Neck supple. FROM. No adenopathy. Thyroid Normal. No meningeal signs. No neck mass noted. CVS: Normal heart rate and rhythm. Heart sound normal. No murmurs noted. Pulses normal throughout. Respiratory: No respiratory distress. Painless inspiration. Breath sounds normal. No wheezes/rales/rhonchi noted. Chest nontender. No accessory muscle usage noted or decreased air movement noted. Abdomen: Soft and nontender. Bowel sounds normal in all 4 quadrants. No distention noted. No organomegaly noted. No visible injury noted. Back: No CVA tenderness. Full range of motion noted. Skin: Skin warm and dry. Normal skin color. Normal skin turgor. No rashes/lesions/lacerations noted. Extremities: No lower extremity edema. Extremities exhibit normal range of motion. Extremities nontender. Neuro: Oriented X 3. Cranial nerve exam: II-XII are grossly intact No motor deficit. No sensory deficit. Reflexes normal. Course Course Course Narrative: 48 year old male presented with hypomagnesemia that the patient is prone to it despite taking supplemental magnesium on a daily basis, patient received 2 g of IV magnesium with improvement of his symptoms will discharge to follow-up with PCP. Medical Decision Making Differential Diagnosis Differential Diagnoses: The differential diagnosis associated with the presentation includes (Severe anemia, electrolyte abnormality, hypomagnesemia.) Admission/Observation Consideration of admission/observation: Escalation of care including admission/observation considered Lab Data MDM Lab Attestation statement: I reviewed the patient's lab results. 05/17/23 00:46 05/17/23 00:46 Labs: Lab Results 05/17/23 05/17/23 Range/Units 00:46 00:46 WBC 5.9 (4.8-10.8) X10*3/uL RBC 4.15 L (4.60-5.80) X10*6/uL Hgb 12.8 L (14.0-18.0) g/dl Hct 37.8 L (42.0-52.0) % MCV 91.1 (80.0-98.0) fL MCH 30.8 (27.0-33.0) pg MCHC 33.9 (31.0-36.0) g/dl RDW 12.8 (11.0-16.0) % Plt Count TNP MPV 10.5 (9.4-12.4) fL Immature Gran % (Auto) 0.3 (0.0-0.4) % Neut % (Auto) 52.2 (45-73) % Lymph % (Auto) 34.1 (20-40) % [place] % (Auto) 10.5 (2-11) % Eos % (Auto) 1.9 (0-4) % Baso % (Auto) 1.0 (0-2) % Lymph # (Auto) 2.0 (1.2-4.9) X10*3/uL [place] # (Auto) 0.6 (0.1-1.2) X10*3/uL Eos # (Auto) 0.1 (0.0-0.4) X10*3/uL Baso # (Auto) 0.1 (0.0-0.2) X10*3/uL Abs Immat Gran (auto) 0.02 (0.00-0.03) X10*3/uL Absolute Neuts (auto) 3.1 (2.0-8.3) x10*3/uL Absolute Nucleated RBC 0.000 (0.0-0.012) X10*3/uL Nucleated RBC % (auto) 0.0 (0.0-0.2) /100WBC Smear Tech's Comments VERIFIED Sodium 141 (135-145) mmol/L Potassium 4.5 (3.3-5.1) mmol/L Chloride 105 (96-108) mmol/L Carbon Dioxide 24 (22-29) mmol/L Anion Gap 17 (12-20) BUN 15 (9-16) mg/dL Creatinine 0.81 (0.5-1.4) mg/dL Estim Creat Clear Calc 119.2 Estimated GFR > 60 Random Glucose 91 (60-115) mg/dL Calcium 10.3 H (8.4-10.2) mg/dL Magnesium 1.4 L* (1.6-2.6) mg/dL Total Bilirubin 0.3 (0.0-1.0) mg/dL AST 21 (5-37) U/L ALT 42 H (0-40) U/L Alkaline Phosphatase 67 (39-117) U/L Total Protein 7.4 (6.5-8.0) g/dL Albumin 4.6 (3.5-5.0) g/dL Chronic Conditions Patient?s care impacted by: Other (Chronic hypomagnesemia) Discharge Plan Discharge Clinical Impression: Hypomagnesemia Patient Disposition: Home, Self-Care Instructions: Hypomagnesemia (ED) Prescriptions: No Action magnesium oxide 400 mg magnesium tablet 400 mg PO TID Qty: 90 0RF metformin 1,000 mg Tablet 1,000 mg PO BID allopurinol 300 mg Tablet 300 mg PO BID magnesium oxide 400 mg magnesium tablet 400 mg PO BID atorvastatin 80 mg Tablet 80 mg PO BEDTIME amlodipine 5 mg Tablet 5 mg PO DAILY cyanocobalamin (vitamin B-12) 1,000 mcg Tablet 2,000 mcg PO DAILY aspirin 81 mg Tablet,Delayed Release (Dr/Ec) 81 mg PO DAILY amitriptyline 50 mg Tablet 50 mg PO BEDTIME lisinopril 10 mg Tablet 10 mg PO DAILY repaglinide 1 mg Tablet 1 mg PO TID Rx Instructions: administer within 30 minutes of a meal or snack famotidine 40 mg Tablet 40 mg PO BID insulin lispro 100 unit/mL Solution 30 unit SUBCUT TID Rx Instructions: with meals cholecalciferol (vitamin D3) 25 mcg (1,000 unit) Capsule 25 mcg PO DAILY insulin glargine [Lantus U-100 Insulin] 100 unit/mL Solution 32 unit SUBCUT QPM magnesium oxide 400 mg (241.3 mg magnesium) tablet 400 mg PO DAILY Qty: 20 0RF Referrals: Antoinette Tobias MD [Primary Care Provider] -
[2023-05-17] MEDS: Magnesium Sulfate/H2O 2 GM/50 ML PIGGYBACK IV (02:44)
== END 2023-05-17 04:14 | disposition home or self-care (01) ==
PROVIDERS: Emergency Provider Emergency Medicine; PCP Internal Medicine
DX: E83.42 Hypomagnesemia (principal); E11.9 Type 2 diabetes mellitus without complications; I10 Essential (primary) hypertension; Z79.4 Long term (current) use of insulin; Z79.82 Long term (current) use of aspirin; Z79.899 Other long term (current) drug therapy
CPT/HCPCS: 36415; 80053; 83735; 85025; 96365; 96366; 99284; J3475

== ENCOUNTER → 2023-06-10 09:56 | Outpatient (BNVA) | payer SELFPAY | PROVIDERS: PCP Internal Medicine; Visit Provider Physician Assistant Medical | DX: Z02.79 Encounter for issue of other medical certificate (principal) ==

== ENCOUNTER 2023-07-07 21:56 | Emergency (ER) | payer MEDICAID, SELFPAY ==
[2023-07-07 22:18] VITALS: BP 143/74; PULSE 82; RESP 16; TEMP 37.1; O2SAT 99; BMI 29.3
[2023-07-07 22:26] LABS: Hematocrit 36.5 % (42.0-52.0); Hemoglobin 12.8 g/dl (14.0-18.0); Mean Corpuscular HGB Conc 35.1 g/dl (31.0-36.0); Mean Corpuscular Hemoglobin 31.8 pg (27.0-33.0); Mean Corpuscular Volume 90.8 fL (80.0-98.0); Mean Platelet Volume 10.8 fL (9.4-12.4); Platelet Count 241 X10*3/uL (160-400); Red Blood Count 4.02 X10*6/uL (4.60-5.80); Red Cell Distribution Width 12.8 % (11.0-16.0); White Blood Count 7.2 X10*3/uL (4.8-10.8)
[2023-07-07 22:42] LABS: Alanine Aminotransferase 31 U/L (0-40); Albumin Level 4.4 g/dL (3.5-5.0); Alkaline Phosphatase 60 U/L (39-117); Anion Gap 16 (12-20); Aspartate Amino Transferase 16 U/L (5-37); Bilirubin Total 0.3 mg/dL (0.0-1.0); Blood Urea Nitrogen 16 mg/dL (9-16); Calcium 9.2 mg/dL (8.4-10.2); Carbon Dioxide 22 mmol/L (22-29); Chloride 106 mmol/L (96-108); Creatinine Clr Calc Pharmacy 113.1; Estimated Glomerular Filt Rate > 60; Glucose Random 221 mg/dL (60-115); Potassium 4.5 mmol/L (3.3-5.1); Sodium 139 mmol/L (135-145); Total Protein 6.9 g/dL (6.5-8.0)
[2023-07-07 23:51] LABS: Magnesium 1.2 mg/dL (1.6-2.6)
--- NOTE | 2023-07-07 23:56 | ECG_ITS ---
Test Reason : LOW MAG Blood Pressure : / mmHG Vent. Rate : 069 BPM Atrial Rate : 069 BPM P-R Int : 168 ms QRS Dur : 090 ms QT Int : 392 ms P-R-T Axes : 055 018 043 degrees QTc Int : 420 ms Normal sinus rhythm Normal ECG When compared with ECG of 28-APR-2023 23:18, No significant change was found Referred By: Jill Christian Electronically Signed By:ALLI WILEY MD
[2023-07-08] MEDS: Magnesium Sulfate/H2O 2 GM/50 ML PIGGYBACK IV ×2 (00:03→00:04)
--- NOTE | 2023-07-08 00:12 | ED_ITS ---
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 He is on oral mag and taking it. his doctor just put in a new higher Rx. He has no other complaints. MD complaint: low magnesium ? Onset (ago): day(s) (2) Location: head and eyes Radiation: non-radiation Severity: moderate Quality: burning Pain Consistency: intermittent Relieving factors: none Exacerbating factors: none Associated symptoms: malaise Treatments prior to arrival: none Related Data Home Medications Medication Instructions Recorded Confirmed allopurinol 300 mg tablet 300 mg PO BID 08/31/22 08/31/22 amitriptyline 50 mg tablet 50 mg PO BEDTIME 08/31/22 08/31/22 amlodipine 5 mg tablet 5 mg PO DAILY 08/31/22 08/31/22 aspirin 81 mg tablet,delayed 81 mg PO DAILY 08/31/22 08/31/22 release atorvastatin 80 mg tablet 80 mg PO BEDTIME 08/31/22 08/31/22 cholecalciferol (vitamin D3) 25 25 mcg PO DAILY 08/31/22 08/31/22 mcg (1,000 unit) capsule cyanocobalamin (vitamin B-12) 2,000 mcg PO DAILY 08/31/22 08/31/22 1,000 mcg tablet famotidine 40 mg tablet 40 mg PO BID 08/31/22 08/31/22 insulin glargine 100 unit/mL 32 unit subcut QPM 08/31/22 08/31/22 subcutaneous solution (Lantus U-100 Insulin) insulin lispro 100 unit/mL 30 unit subcut TID 08/31/22 08/31/22 subcutaneous solution lisinopril 10 mg tablet 10 mg PO DAILY 08/31/22 08/31/22 magnesium oxide 400 mg PO BID 08/31/22 08/31/22 metformin 1,000 mg tablet 1,000 mg PO BID 08/31/22 08/31/22 repaglinide 1 mg tablet 1 mg PO TID 08/31/22 08/31/22 Previous Rx's Medication Instructions Recorded magnesium oxide 400 mg PO TID #90 tabs 09/07/22 magnesium oxide 400 mg (241.3 mg 400 mg PO DAILY #20 tabs 01/15/23 magnesium) tablet Allergies Allergy/AdvReac Type Severity Reaction Status Date / Time shellfish derived Allergy Unknown HIVES Verified 02/10/23 21:15 [SHELLFISH DERIVED] shrimp [SHRIMP] Allergy Unknown HIVES Verified 02/10/23 21:15 Review of Systems 2 Review of Systems: Constitutional : No Fever, No Chills, No Fatigue, pos malaise ENT/Mouth : No sore throat, No Rhinorrhea Eyes: pos Eye Pain, No Swelling, No Redness Cardiovascular : No Chest Pain, No SOB, No Dyspnea on Exertion Respiratory : No Cough, No Sputum Gastrointestinal : No Nausea, No Vomiting, No Diarrhea, No abdominal Pain Genitourinary : No Dysuria, No Urinary Frequency, No Hematuria, Musculoskeletal : No joint pain, No Myalgias, No Joint Swelling Skin : No Skin Lesions, No rash Neuro : No Weakness, No Numbness, No Dizziness, positive Headache Psych : No Anxiety/Panic, No Depression Heme/Lymph: No Bruising, No Bleeding,No Lymphadenopathy Endocrine : No Polyuria, No Polydipsia All other systems reviewed and are negative PMFSH Past Medical History Attestation statement: The following information was validated with the patient. Source: old records reviewed Medical History GERD (gastroesophageal reflux disease) Hypomagnesemia IDDM (insulin dependent diabetes mellitus) HTN (hypertension) Gout Family History Family History Other No family history of colorectal cancer Social History Social History Alcohol intake: never Patient Tobacco Use Status: Never used Tobacco Advance Directives: No Advance Directives Information Provided: No Physical Exam ED Vital Signs: Vital Signs - 24 hr 07/07/23 22:18 Temperature 98.8 F Pulse Rate 82 Respiratory Rate 16 Blood Pressure 143/74 H Pulse Oximetry 99 Oxygen Delivery Method Room Air BMI result Body Mass Index 29.3 Appearance: Alert. Oriented X3. No acute distress. Eyes: Pupils equal, round and reactive to light. ENT: Pharynx normal. Neck: Normal inspection. Neck supple. CVS: Normal heart rate and rhythm. Pulses normal. Respiratory: No respiratory distress. Breath sounds normal. Abdomen: Soft and nontender. Skin: Skin warm and dry. Normal skin color. Normal skin turgor. Extremities: No lower extremity edema. No calf ttp Neuro: Oriented X 3. No motor deficit. No sensory deficit. Course Course Course Narrative: Patient placed in physician observation at 1225am. The indication for observation is that the patient needs more time to see if their hypomagnesemia improves or they will need to be admitted. At this time the patient is well developed well nourished, lungs clear, CV RRR, abd nontender, neuro is intact. Medications Administered Generic Name Dose Route Start Last Admin Trade Name Freq PRN Reason Stop Dose Admin Magnesium Sulfate 2 gm in 50 mls @ 25 mls/hr 07/07/23 23:56 07/08/23 00:03 Magnesium Sulfate/H2o IV 07/08/23 01:55 25 mls/hr ONCE ONE Administration Magnesium Sulfate 2 gm in 50 mls @ 25 mls/hr 07/07/23 23:58 07/08/23 00:04 Magnesium Sulfate/H2o IV 07/08/23 01:57 25 mls/hr ONCE ONE Administration Medical Decision Making Medical Decision Making [facility] Narrative: 48 yo male with hx of DM, HTN, gout, chronically low mag on oral medications but recent change and increase in dose - he comes in with his usual symptoms - headache, malaise, eye burning that he gets with low magnesium - at this time labs, EKG, and start on repletion Differential Diagnosis Differential Diagnoses: The differential diagnosis associated with the presentation includes lyte abnormallity, viral syndrome, dehydration Admission/Observation Consideration of admission/observation: Escalation of care including admission/observation considered observe during mag infusion and recheck. Lab Data [facility] Lab Attestation statement: I reviewed the patient's lab results. 07/07/23 22:19 07/07/23 22:19 Labs: Lab Results 07/07/23 Range/Units 22:19 WBC 7.2 (4.8-10.8) X10*3/uL RBC 4.02 L (4.60-5.80) X10*6/uL Hgb 12.8 L (14.0-18.0) g/dl Hct 36.5 L (42.0-52.0) % MCV 90.8 (80.0-98.0) fL MCH 31.8 (27.0-33.0) pg MCHC 35.1 (31.0-36.0) g/dl RDW 12.8 (11.0-16.0) % Plt Count 241 (160-400) X10*3/uL MPV 10.8 (9.4-12.4) fL Absolute Nucleated RBC 0.000 (0.0-0.012) X10*3/uL Nucleated RBC % (auto) 0.0 (0.0-0.2) /100WBC Sodium 139 (135-145) mmol/L Potassium 4.5 (3.3-5.1) mmol/L Chloride 106 (96-108) mmol/L Carbon Dioxide 22 (22-29) mmol/L Anion Gap 16 (12-20) BUN 16 (9-16) mg/dL Creatinine 0.84 (0.5-1.4) mg/dL Estim Creat Clear Calc 113.1 Estimated GFR > 60 Random Glucose 221 H (60-115) mg/dL Calcium 9.2 D (8.4-10.2) mg/dL Magnesium 1.2 L* (1.6-2.6) mg/dL Total Bilirubin 0.3 (0.0-1.0) mg/dL AST 16 (5-37) U/L ALT 31 (0-40) U/L Alkaline Phosphatase 60 (39-117) U/L Total Protein 6.9 (6.5-8.0) g/dL Albumin 4.4 (3.5-5.0) g/dL Independent Interpretation I performed an independent interpretation of an: EKG Interpretation: Rate: 69 Rhythm: NSR [place]: normal Normal P waves. Normal KETAN. Normal QRS complex. ST T wave : normal no CHENG qTC: normal prior studies: no acute ischemia The study has been interpreted contemporaneously by me. . External Record Review External record reviewed: Inpatient record Discharge Plan Discharge Clinical Impression: Hypomagnesemia Patient Disposition: Still a Patient Instructions: Hypomagnesemia (ED) Additional Instructions: take your medications - return for worsening symptoms or return of symptoms. follow up with your doctor [facility]; regrese si los s?ntomas empeoran o si los s?ntomas regresan. deya un seguimiento con phillips m?dico Prescriptions: No Action magnesium oxide 400 mg magnesium tablet 400 mg PO TID Qty: 90 0RF metformin 1,000 mg Tablet 1,000 mg PO BID allopurinol 300 mg Tablet 300 mg PO BID magnesium oxide 400 mg magnesium tablet 400 mg PO BID atorvastatin 80 mg Tablet 80 mg PO BEDTIME amlodipine 5 mg Tablet 5 mg PO DAILY cyanocobalamin (vitamin B-12) 1,000 mcg Tablet 2,000 mcg PO DAILY aspirin 81 mg Tablet,Delayed Release (Dr/Ec) 81 mg PO DAILY amitriptyline 50 mg Tablet 50 mg PO BEDTIME lisinopril 10 mg Tablet 10 mg PO DAILY repaglinide 1 mg Tablet 1 mg PO TID Rx Instructions: administer within 30 minutes of a meal or snack famotidine 40 mg Tablet 40 mg PO BID insulin lispro 100 unit/mL Solution 30 unit SUBCUT TID Rx Instructions: with meals cholecalciferol (vitamin D3) 25 mcg (1,000 unit) Capsule 25 mcg PO DAILY insulin glargine [Lantus U-100 Insulin] 100 unit/mL Solution 32 unit SUBCUT QPM magnesium oxide 400 mg (241.3 mg magnesium) tablet 400 mg PO DAILY Qty: 20 0RF Print Language: Japanese
[2023-07-08 02:57] VITALS: BP 128/69; PULSE 81; RESP 17; TEMP 36.6; O2SAT 96
[2023-07-08 04:09] VITALS: BP 141/70; PULSE 76; RESP 14; TEMP 36.6; O2SAT 96
[2023-07-08 04:25] LABS: Magnesium 2.3 mg/dL (1.6-2.6)
== END 2023-07-08 05:00 | disposition home or self-care (01) ==
PROVIDERS: Emergency Provider Emergency Medicine; PCP Internal Medicine
DX: E83.42 Hypomagnesemia (principal); E11.9 Type 2 diabetes mellitus without complications; I10 Essential (primary) hypertension; Z79.4 Long term (current) use of insulin
CPT/HCPCS: 36415; 80053; 83735; 85027; 93005; 96365; 96366; 99285; J3475

== ENCOUNTER 2023-07-16 00:51 | Emergency (ER) | payer MEDICAID, SELFPAY ==
[2023-07-16 01:02] VITALS: BP 119/64; PULSE 76; RESP 16; TEMP 36.7; O2SAT 96; BMI 29.6
[2023-07-16 03:19] LABS: Basophils Absolute Auto 0.1 X10*3/uL (0.0-0.2); Eosinophils Absolute Auto 0.2 X10*3/uL (0.0-0.4); Hematocrit 41.1 % (42.0-52.0); Imm Gran Abs Auto 0.03 X10*3/uL (0.00-0.03); Imm Gran Pct Auto 0.4 % (0.0-0.4); Lymphocytes Absolute Auto 2.9 X10*3/uL (1.2-4.9); Lymphocytes Percent Auto 36.6 % (20-40); MANUAL DIFF FLAG NO; Mean Corpuscular HGB Conc 34.1 g/dl (31.0-36.0); Mean Corpuscular Hemoglobin 31.1 pg (27.0-33.0); Mean Corpuscular Volume 91.3 fL (80.0-98.0); Mean Platelet Volume 10.3 fL (9.4-12.4); Monocytes Absolute Auto 0.8 X10*3/uL (0.1-1.2); Monocytes Percent Auto 9.7 % (2-11); Neutrophils Absolute Auto 3.9 x10*3/uL (2.0-8.3); Neutrophils Percent Auto 49.3 % (45-73); Platelet Count 250 X10*3/uL (160-400); White Blood Count 7.9 X10*3/uL (4.8-10.8)
[2023-07-16 03:39] LABS: Anion Gap 16 (12-20)
[2023-07-16 03:42] LABS: Alanine Aminotransferase 32 U/L (0-40); Albumin Level 4.7 g/dL (3.5-5.0); Alkaline Phosphatase 61 U/L (39-117); Aspartate Amino Transferase 17 U/L (5-37); Bilirubin Total 0.4 mg/dL (0.0-1.0); Blood Urea Nitrogen 17 mg/dL (9-16); Calcium 9.6 mg/dL (8.4-10.2); Carbon Dioxide 24 mmol/L (22-29); Chloride 104 mmol/L (96-108); Creatinine Clr Calc Pharmacy 103.8; Estimated Glomerular Filt Rate > 60; Glucose Random 161 mg/dL (60-115); Magnesium 1.5 mg/dL (1.6-2.6); Potassium 4.6 mmol/L (3.3-5.1); Sodium 139 mmol/L (135-145); Total Protein 7.5 g/dL (6.5-8.0)
[2023-07-16 05:00] VITALS: BP 126/72; PULSE 63; RESP 14; TEMP 36.6; O2SAT 99
--- NOTE | 2023-07-16 05:46 | PC.NURSE ---
Addendum entered by Lexie Khalil RN 07/16/23 05:48: IV #20 L-AC placed. Pt denies pain, placed on monitor, VSS. Original Note: Pt c/o headache that has resolved and general weakness. Mag level 1.5, notified, no new orders at this time.
[2023-07-16] MEDS: Magnesium Sulfate/H2O 2 GM/50 ML PIGGYBACK IV (06:46)
--- NOTE | 2023-07-16 06:56 | ED_ITS ---
HPI - General Adult General Chief complaint: General Medical Stated complaint: Low Magnesium Time Seen by Provider: 07/16/23 06:27 Source: patient Mode of arrival: ambulatory Limitations: no limitations History of Present Illness HPI narrative: 48 yo male with history of IDDM, HTN, gout, chronically low magnesium on 400 mg BID who presents to the ER for evaluation of possible low magnesium. He states he has eye pain, headache and muscle pain that he usually gets when his magnesium is low. He has been compliant with his magnesium tabs. No N/V/D or abdominal pain, no chest pain or SOB. He denies daily ETOH use. He admits to a not well rounded diet. complaint: low magneisum Onset (ago): day(s) Location: head and face Radiation: non-radiation Severity: moderate Quality: aching Pain Consistency: intermittent Relieving factors: other (magnesium) Exacerbating factors: none Associated symptoms: denies other symptoms Treatments prior to arrival: none Related Data Home Medications Medication Instructions Recorded Confirmed allopurinol 300 mg tablet 300 mg PO BID 08/31/22 08/31/22 amitriptyline 50 mg tablet 50 mg PO BEDTIME 08/31/22 08/31/22 amlodipine 5 mg tablet 5 mg PO DAILY 08/31/22 08/31/22 aspirin 81 mg tablet,delayed 81 mg PO DAILY 08/31/22 08/31/22 release atorvastatin 80 mg tablet 80 mg PO BEDTIME 08/31/22 08/31/22 cholecalciferol (vitamin D3) 25 25 mcg PO DAILY 08/31/22 08/31/22 mcg (1,000 unit) capsule cyanocobalamin (vitamin B-12) 2,000 mcg PO DAILY 08/31/22 08/31/22 1,000 mcg tablet famotidine 40 mg tablet 40 mg PO BID 08/31/22 08/31/22 insulin glargine 100 unit/mL 32 unit subcut QPM 08/31/22 08/31/22 subcutaneous solution (Lantus U-100 Insulin) insulin lispro 100 unit/mL 30 unit subcut TID 08/31/22 08/31/22 subcutaneous solution lisinopril 10 mg tablet 10 mg PO DAILY 08/31/22 08/31/22 magnesium oxide 400 mg PO BID 08/31/22 08/31/22 metformin 1,000 mg tablet 1,000 mg PO BID 08/31/22 08/31/22 repaglinide 1 mg tablet 1 mg PO TID 08/31/22 08/31/22 Previous Rx's Medication Instructions Recorded magnesium oxide 400 mg PO TID #90 tabs 09/07/22 magnesium oxide 400 mg (241.3 mg 400 mg PO DAILY #20 tabs 01/15/23 magnesium) tablet magnesium oxide 400 mg PO BID #60 tabs 07/08/23 Allergies Allergy/AdvReac Type Severity Reaction Status Date / Time shellfish derived Allergy Unknown HIVES Verified 02/10/23 21:15 [SHELLFISH DERIVED] shrimp [SHRIMP] Allergy Unknown HIVES Verified 02/10/23 21:15 Review of Systems 2 Review of Systems: Yes all other systems are reviewed and are negative [facility] Past Medical History Medical History GERD (gastroesophageal reflux disease) Hypomagnesemia IDDM (insulin dependent diabetes mellitus) HTN (hypertension) Gout Family History Family History Other No family history of colorectal cancer Social History Social History Alcohol intake: never Patient Tobacco Use Status: Never used Tobacco Smoked in Last 30 Days: No Use of substances other than those prescribed or required for medical reasons: No Advance Directives: No Advance Directives Information Provided: Yes Physical Exam ED Vital Signs: Vital Signs - 24 hr 07/16/23 01:02 07/16/23 05:00 Temperature 98.1 F 97.9 F Pulse Rate 76 63 Respiratory Rate 16 14 Blood Pressure 119/64 126/72 Pulse Oximetry 96 99 Oxygen Delivery Method Room Air Room Air BMI result Body Mass Index 29.6 Appearance: Alert. Oriented X3. No acute distress. Head: normocephalic, atraumatic. Eyes: Pupils equal, round and reactive to light. ENT: Pharynx normal. No tonsillar swelling or exudate. Neck: Normal inspection. Neck supple. CVS: Normal heart rate and rhythm. Pulses normal. Respiratory: No respiratory distress. Breath sounds normal. Abdomen: Soft and nontender. +BS x4 Skin: Skin warm and dry. Normal skin color. Normal skin turgor. No rashes. Extremities: No lower extremity edema. No joint swelling. Neuro/psych: Oriented X 3. No motor deficit. No sensory deficit. CN II-XII intact. Normal speech and cognition. Medications Administered Discontinued Medications Generic Name Dose Route Start Last Admin Trade Name Jesus Manuel PRN Reason Stop Dose Admin Magnesium Sulfate 2 gm in 50 mls @ 25 mls/hr 07/16/23 06:27 07/16/23 06:46 Magnesium Sulfate/H2o IV 07/16/23 08:26 25 mls/hr ONCE ONE Administration Medical Decision Making Medical Decision Making [facility] Narrative: 48 yo male with history of DM, gout, HTN and chronically low MG++ coming from home with c/o low magnesium manifested with symptoms of headache, eye pain and muscle pain. No daily etoh use. VSS On arrival and PE benign. Mag 1.5 with normal K. IV repletion given. patient counseled on magnesium replacements and food contents of mag. he has PCP to follow up with for monitoring. stable for d/c home Differential Diagnosis Differential Diagnoses: The differential diagnosis associated with the presentation includes hypomagnesemia due to alcohol use, DM, malnutrition, malabsorption, diuretics, diarrhea Admission/Observation Consideration of admission/observation: Escalation of care including admission/observation considered recurrent hypomagnesimia despite oral repletion. considered admit Lab Data [facility] Lab Attestation statement: I reviewed the patient's lab results. mag slightly low 1.5, improved from prior 07/16/23 03:13 07/16/23 03:13 Labs: Lab Results 07/16/23 Range/Units 03:13 WBC 7.9 (4.8-10.8) X10*3/uL RBC 4.50 L (4.60-5.80) X10*6/uL Hgb 14.0 (14.0-18.0) g/dl Hct 41.1 L (42.0-52.0) % MCV 91.3 (80.0-98.0) fL MCH 31.1 (27.0-33.0) pg MCHC 34.1 (31.0-36.0) g/dl RDW 13.0 (11.0-16.0) % Plt Count 250 (160-400) X10*3/uL MPV 10.3 (9.4-12.4) fL Immature Gran % (Auto) 0.4 (0.0-0.4) % Neut % (Auto) 49.3 (45-73) % Lymph % (Auto) 36.6 (20-40) % [place] % (Auto) 9.7 (2-11) % Eos % (Auto) 3.0 (0-4) % Baso % (Auto) 1.0 (0-2) % Lymph # (Auto) 2.9 (1.2-4.9) X10*3/uL [place] # (Auto) 0.8 (0.1-1.2) X10*3/uL Eos # (Auto) 0.2 (0.0-0.4) X10*3/uL Baso # (Auto) 0.1 (0.0-0.2) X10*3/uL Abs Immat Gran (auto) 0.03 (0.00-0.03) X10*3/uL Absolute Neuts (auto) 3.9 (2.0-8.3) x10*3/uL Absolute Nucleated RBC 0.000 (0.0-0.012) X10*3/uL Nucleated RBC % (auto) 0.0 (0.0-0.2) /100WBC Sodium 139 (135-145) mmol/L Potassium 4.6 (3.3-5.1) mmol/L Chloride 104 (96-108) mmol/L Carbon Dioxide 24 (22-29) mmol/L Anion Gap 16 (12-20) BUN 17 H (9-16) mg/dL Creatinine 0.92 (0.5-1.4) mg/dL Estim Creat Clear Calc 103.8 Estimated GFR > 60 Random Glucose 161 H (60-115) mg/dL Calcium 9.6 (8.4-10.2) mg/dL Magnesium 1.5 L (1.6-2.6) mg/dL Total Bilirubin 0.4 (0.0-1.0) mg/dL AST 17 (5-37) U/L ALT 32 (0-40) U/L Alkaline Phosphatase 61 (39-117) U/L Total Protein 7.5 (6.5-8.0) g/dL Albumin 4.7 (3.5-5.0) g/dL External Record Review External record reviewed: Outpatient record, Prior outpatient labs and Prior outpatient radiology Prescription Management I considered prescription management with: Other (magnesium) Chronic Conditions Patient?s care impacted by: Diabetes Critical Care Time Critical Care Time Critical Care Time: No Discharge Plan Discharge Clinical Impression: Hypomagnesemia Patient Disposition: Home, Self-Care Instructions: Hypomagnesemia (ED) Additional Instructions: Your magnesium was slightly low today at 1.5. If you feel like your magnesium is starting to get low at home, increase your magnesium tabs to 3 times per day Make sure you are eating a well rounded diet Foods high in magnesium include spinach, leafy greens, almonds, bananas, beans, avocado, whole grains, fish and nuts Prescriptions: No Action magnesium oxide 400 mg magnesium tablet 400 mg PO TID Qty: 90 0RF metformin 1,000 mg Tablet 1,000 mg PO BID allopurinol 300 mg Tablet 300 mg PO BID magnesium oxide 400 mg magnesium tablet 400 mg PO BID atorvastatin 80 mg Tablet 80 mg PO BEDTIME amlodipine 5 mg Tablet 5 mg PO DAILY cyanocobalamin (vitamin B-12) 1,000 mcg Tablet 2,000 mcg PO DAILY aspirin 81 mg Tablet,Delayed Release (Dr/Ec) 81 mg PO DAILY amitriptyline 50 mg Tablet 50 mg PO BEDTIME lisinopril 10 mg Tablet 10 mg PO DAILY repaglinide 1 mg Tablet 1 mg PO TID Rx Instructions: administer within 30 minutes of a meal or snack famotidine 40 mg Tablet 40 mg PO BID insulin lispro 100 unit/mL Solution 30 unit SUBCUT TID Rx Instructions: with meals cholecalciferol (vitamin D3) 25 mcg (1,000 unit) Capsule 25 mcg PO DAILY insulin glargine [Lantus U-100 Insulin] 100 unit/mL Solution 32 unit SUBCUT QPM magnesium oxide 400 mg magnesium tablet 400 mg PO BID Qty: 60 2RF magnesium oxide 400 mg (241.3 mg magnesium) tablet 400 mg PO DAILY Qty: 20 0RF Referrals: Antoinette Tobias MD [Primary Care Provider] -
== END 2023-07-16 09:01 | disposition home or self-care (01) ==
PROVIDERS: Emergency Provider Internal Medicine; PCP Internal Medicine
DX: E83.42 Hypomagnesemia (principal); E11.9 Type 2 diabetes mellitus without complications; I10 Essential (primary) hypertension; Z79.82 Long term (current) use of aspirin; Z79.899 Other long term (current) drug therapy; Z79.4 Long term (current) use of insulin
CPT/HCPCS: 36415; 80053; 83735; 85025; 96374; 99284; J3475

== ENCOUNTER 2023-07-19 19:21 | Emergency (ER) | payer MEDICAID, SELFPAY ==
--- NOTE | ~2023-07-19 | XR_ITS ---
EXAMINATION: XR CHEST CLINICAL INFORMATION: Chest pain. Weakness. COMPARISON: 04/29/2023. TECHNIQUE: 2 views of the chest were obtained. FINDINGS: The lung volumes are low. The cardiomediastinal silhouette is normal. There is no focal lung consolidation or pleural effusion. The bony structures and soft tissues are unremarkable. XR/XR chest 2V IMPRESSION: No active cardiopulmonary disease.
[2023-07-19 19:53] VITALS: BP 139/76; PULSE 88; RESP 20; TEMP 36.2; O2SAT 98; BMI 29.6
--- NOTE | 2023-07-19 19:56 | ED_ITS ---
HPI - General Adult General Chief complaint: General Medical Stated complaint: headache, chest pain , low magnesium Time Seen by Provider: 07/20/23 01:02 Source: patient Mode of arrival: ambulatory Limitations: language barrier (Kittitian speaking medical coding manager utilized) History of Present Illness HPI narrative: Patient is a 48-year-old male who presents emergency department for evaluation of headache, bilateral shoulder pain, diffuse intermittent chest pain for 1 week. He states that these symptoms are typically experienced when his magnesium level is low. He states that he is taking oral magnesium supplements chronically as this is an ongoing issue. When asked, he states he is unsure why his magnesium levels are low. He states that he was seen here recently over the past few days with similar symptoms that improved after receiving IV magnesium. At this time, he denies dizziness, lightheadedness, vision changes, neck pain, neck stiffness, shortness of breath, difficulty breathing, current chest pain, nausea, vomiting, abdominal pain, numbness or tingling of the extremities. He denies daily alcohol consumption. Related Data Home Medications Medication Instructions Recorded Confirmed allopurinol 300 mg tablet 300 mg PO BID 08/31/22 08/31/22 amitriptyline 50 mg tablet 50 mg PO BEDTIME 08/31/22 08/31/22 amlodipine 5 mg tablet 5 mg PO DAILY 08/31/22 08/31/22 aspirin 81 mg tablet,delayed 81 mg PO DAILY 08/31/22 08/31/22 release atorvastatin 80 mg tablet 80 mg PO BEDTIME 08/31/22 08/31/22 cholecalciferol (vitamin D3) 25 25 mcg PO DAILY 08/31/22 08/31/22 mcg (1,000 unit) capsule cyanocobalamin (vitamin B-12) 2,000 mcg PO DAILY 08/31/22 08/31/22 1,000 mcg tablet famotidine 40 mg tablet 40 mg PO BID 08/31/22 08/31/22 insulin glargine 100 unit/mL 32 unit subcut QPM 08/31/22 08/31/22 subcutaneous solution (Lantus U-100 Insulin) insulin lispro 100 unit/mL 30 unit subcut TID 08/31/22 08/31/22 subcutaneous solution lisinopril 10 mg tablet 10 mg PO DAILY 08/31/22 08/31/22 magnesium oxide 400 mg PO BID 08/31/22 08/31/22 metformin 1,000 mg tablet 1,000 mg PO BID 08/31/22 08/31/22 repaglinide 1 mg tablet 1 mg PO TID 08/31/22 08/31/22 Previous Rx's Medication Instructions Recorded magnesium oxide 400 mg PO TID #90 tabs 09/07/22 magnesium oxide 400 mg (241.3 mg 400 mg PO DAILY #20 tabs 01/15/23 magnesium) tablet magnesium oxide 400 mg PO BID #60 tabs 07/08/23 Allergies Allergy/AdvReac Type Severity Reaction Status Date / Time shellfish derived Allergy Unknown HIVES Verified 02/10/23 21:15 [SHELLFISH DERIVED] shrimp [SHRIMP] Allergy Unknown HIVES Verified 02/10/23 21:15 Review of Systems 2 Review of Systems: Yes all other systems are reviewed and are negative [facility] Past Medical History Attestation statement: The following information was validated with the patient. Source: old records reviewed Medical History GERD (gastroesophageal reflux disease) Hypomagnesemia IDDM (insulin dependent diabetes mellitus) HTN (hypertension) Gout Family History Family History Other No family history of colorectal cancer Social History Social History Alcohol intake: never Patient Tobacco Use Status: Never used Tobacco Smoked in Last 30 Days: No Advance Directives: No Advance Directives Information Provided: No Physical Exam ED Vital Signs: Vital Signs - 24 hr 07/19/23 19:53 07/20/23 01:23 Temperature 97.2 F Pulse Rate 88 88 Respiratory Rate 20 Blood Pressure 139/76 126/87 Pulse Oximetry 98 97 Oxygen Delivery Method Room Air Room Air BMI result Body Mass Index 29.6 Appearance: Alert.?Oriented to person, place and time. No acute distress.?Normal affect. Eyes: Pupils equal, round and reactive to light.? ENT: Pharynx normal.?? Neck: Normal inspection.? Neck supple.?? CVS: Heart sounds normal. Normal heart rate and rhythm.? Pulses normal.?? Respiratory: No respiratory distress.? Lung sounds clear to auscultation bilaterally?? Abdomen: Soft and non-tender. Normoactive bowel sounds. ? Skin: Skin warm and dry.? Normal skin color.? Extremities: No lower extremity edema.? Neuro: Moves all extremities spontaneously. Sensation intact bilaterally. No focal neuro deficits. Ambulates with normal steady gait. Course Course Course Narrative: This is a rapid medical exam. Deferred additional HPI, ROS, PE to primary provider. 48 yo male with history of DM, HTN, chronic low Mg here with complaints of headache, shoulder pain, chest pain >1 week. Will obtain labs, EKG, CXR VSS Medications Administered Generic Name Dose Route Start Last Admin Trade Name Freq PRN Reason Stop Dose Admin Magnesium Sulfate 2 gm in 50 mls @ 25 mls/hr 07/20/23 01:05 07/20/23 01:27 Magnesium Sulfate/H2o IV 07/20/23 03:04 25 mls/hr ONCE ONE Administration Medical Decision Making Medical Decision Making [facility] Narrative: Patient is a 48-year-old male with past medical history of hypo magnesium me a chronically, diabetes mellitus, hypertension, gout presenting today for concerns of low magnesium with typical symptoms including headache, muscular pain, intermittent chest pain. At the time my examination vital signs are stable he is overall well-appearing. Physical examination is benign. CBC and CMP are overall unremarkable aside from a following Reviewed labs obtained prior to my assumption of care, magnesium is low 1.3, potassium is normal. Discussed with patient plan of care, IV repletion and re-evaluation. Discussed importance of consuming foods high in magnesium. Given he has had multiple visits over the past week for hypomagnesemia, confirmed dosage with patient, he states he is taking 2 tabs, is unclear of the dosage. Upon review of his medicine claim history from pharmacy he is taking magnesium extended release 64 mg 2 tabs daily. High sensitive troponin is negative, EKG is without acute ischemic findings or irregularity. The not suspect pain secondary to ACS but rather consistent with chronic hypo magnesium as he has experienced this in the past. Magnesium was repleted with 2 g IV, and had resolution of symptoms. At this time feels comfortable discharge home, advised outpatient follow-up with PCP. Discussed worrisome signs and symptoms that would warrant re-evaluation. All questions answered. Differential Diagnosis Differential Diagnoses: The differential diagnosis associated with the presentation includes (Hypo magnesemia, malabsorption, EtOH usage,) Admission/Observation Consideration of admission/observation: Escalation of care including admission/observation considered (I considered admission for hypomagnesemia, see narrative above for further detail) Lab Data MDM Lab Attestation statement: I reviewed the patient's lab results. (As per narrative above) 07/19/23 20:13 07/19/23 20:13 Labs: Lab Results 07/19/23 Range/Units 20:13 WBC 8.4 (4.8-10.8) X10*3/uL RBC 4.46 L (4.60-5.80) X10*6/uL Hgb 13.7 L (14.0-18.0) g/dl Hct 40.7 L (42.0-52.0) % MCV 91.3 (80.0-98.0) fL MCH 30.7 (27.0-33.0) pg MCHC 33.7 (31.0-36.0) g/dl RDW 12.8 (11.0-16.0) % Plt Count 255 (160-400) X10*3/uL MPV 10.5 (9.4-12.4) fL Immature Gran % (Auto) 0.1 (0.0-0.4) % Neut % (Auto) 67.4 (45-73) % Lymph % (Auto) 22.9 (20-40) % [place] % (Auto) 7.5 (2-11) % Eos % (Auto) 1.4 (0-4) % Baso % (Auto) 0.7 (0-2) % Lymph # (Auto) 1.9 (1.2-4.9) X10*3/uL [place] # (Auto) 0.6 (0.1-1.2) X10*3/uL Eos # (Auto) 0.1 (0.0-0.4) X10*3/uL Baso # (Auto) 0.1 (0.0-0.2) X10*3/uL Abs Immat Gran (auto) 0.01 (0.00-0.03) X10*3/uL Absolute Neuts (auto) 5.6 (2.0-8.3) x10*3/uL Absolute Nucleated RBC 0.000 (0.0-0.012) X10*3/uL Nucleated RBC % (auto) 0.0 (0.0-0.2) /100WBC Sodium 140 (135-145) mmol/L Potassium 5.0 (3.3-5.1) mmol/L Chloride 104 (96-108) mmol/L Carbon Dioxide 24 (22-29) mmol/L Anion Gap 17 (12-20) BUN 18 H (9-16) mg/dL Creatinine 0.86 (0.5-1.4) mg/dL Estim Creat Clear Calc 111.0 Estimated GFR > 60 Random Glucose 239 H (60-115) mg/dL Calcium 9.7 (8.4-10.2) mg/dL Magnesium 1.3 L* (1.6-2.6) mg/dL Total Bilirubin 0.3 (0.0-1.0) mg/dL Direct Bilirubin 0.1 (0.0-0.5) mg/dL AST 19 (5-37) U/L ALT 27 (0-40) U/L Alkaline Phosphatase 66 (39-117) U/L Troponin I High Sens < 2.7 (<3.5-35.0) ng/L Total Protein 7.4 (6.5-8.0) g/dL Albumin 4.6 (3.5-5.0) g/dL Independent Interpretation I performed an independent interpretation of an: EKG and Plain X-Ray Interpretation: Rate: Eighty-three Rhythm:? Normal sinus rhythm [place]:? Normal Normal P waves.? Normal KETAN.?? Normal QRS complex.?? ST T wave :??No ST elevation, ST depression, no T-wave inversion qTC:430 prior studies:? June 2023 The study has been interpreted contemporaneously by me. Radiology Impression Discussion of test interpretation with radiology: I have reviewed the radiologist's reading. Radiologist Impression: XR/XR chest 2V IMPRESSION: No active cardiopulmonary disease. External Record Review External record reviewed: Prior outpatient labs Discharge Plan Discharge Clinical Impression: Hypomagnesemia Patient Disposition: Home, Self-Care Instructions: Hypomagnesemia (ED) Additional Instructions: Your magnesium was low today at 1.3. Please be certain that you are focusing on a diet that is high in magnesium, reviewed the educational material provided, high magnesium foods include green leafy vegetables, bananas, avocado, whole grains, fish, nuts. Please follow-up with your primary care provider. You may return back to emergency department any new or worsening symptoms or concerns. Prescriptions: No Action magnesium oxide 400 mg magnesium tablet 400 mg PO TID Qty: 90 0RF metformin 1,000 mg Tablet 1,000 mg PO BID allopurinol 300 mg Tablet 300 mg PO BID magnesium oxide 400 mg magnesium tablet 400 mg PO BID atorvastatin 80 mg Tablet 80 mg PO BEDTIME amlodipine 5 mg Tablet 5 mg PO DAILY cyanocobalamin (vitamin B-12) 1,000 mcg Tablet 2,000 mcg PO DAILY aspirin 81 mg Tablet,Delayed Release (Dr/Ec) 81 mg PO DAILY amitriptyline 50 mg Tablet 50 mg PO BEDTIME lisinopril 10 mg Tablet 10 mg PO DAILY repaglinide 1 mg Tablet 1 mg PO TID Rx Instructions: administer within 30 minutes of a meal or snack famotidine 40 mg Tablet 40 mg PO BID insulin lispro 100 unit/mL Solution 30 unit SUBCUT TID Rx Instructions: with meals cholecalciferol (vitamin D3) 25 mcg (1,000 unit) Capsule 25 mcg PO DAILY insulin glargine [Lantus U-100 Insulin] 100 unit/mL Solution 32 unit SUBCUT QPM magnesium oxide 400 mg magnesium tablet 400 mg PO BID Qty: 60 2RF magnesium oxide 400 mg (241.3 mg magnesium) tablet 400 mg PO DAILY Qty: 20 0RF Referrals: Antoinette Tobias MD [Primary Care Provider] -
--- NOTE | 2023-07-19 19:57 | ECG_ITS ---
Test Reason : WEAKNESS Blood Pressure : / mmHG Vent. Rate : 083 BPM Atrial Rate : 083 BPM P-R Int : 158 ms QRS Dur : 084 ms QT Int : 366 ms P-R-T Axes : 049 004 036 degrees QTc Int : 430 ms Normal sinus rhythm Normal ECG When compared with ECG of 08-JUL-2023 00:04, No significant change was found Referred By: Meche Rivas Electronically Signed By:ALLI WILEY MD
[2023-07-19 20:20] LABS: MANUAL DIFF FLAG NO
[2023-07-19 20:21] LABS: Basophils Absolute Auto 0.1 X10*3/uL (0.0-0.2); Basophils Percent Auto 0.7 % (0-2); Eosinophils Absolute Auto 0.1 X10*3/uL (0.0-0.4); Eosinophils Percent Auto 1.4 % (0-4); Hematocrit 40.7 % (42.0-52.0); Hemoglobin 13.7 g/dl (14.0-18.0); Imm Gran Abs Auto 0.01 X10*3/uL (0.00-0.03); Imm Gran Pct Auto 0.1 % (0.0-0.4); Lymphocytes Absolute Auto 1.9 X10*3/uL (1.2-4.9); Lymphocytes Percent Auto 22.9 % (20-40); Mean Corpuscular HGB Conc 33.7 g/dl (31.0-36.0); Mean Corpuscular Hemoglobin 30.7 pg (27.0-33.0); Mean Corpuscular Volume 91.3 fL (80.0-98.0); Mean Platelet Volume 10.5 fL (9.4-12.4); Monocytes Absolute Auto 0.6 X10*3/uL (0.1-1.2); Monocytes Percent Auto 7.5 % (2-11); Neutrophils Absolute Auto 5.6 x10*3/uL (2.0-8.3); Neutrophils Percent Auto 67.4 % (45-73); Platelet Count 255 X10*3/uL (160-400); Red Blood Count 4.46 X10*6/uL (4.60-5.80); Red Cell Distribution Width 12.8 % (11.0-16.0); White Blood Count 8.4 X10*3/uL (4.8-10.8)
[2023-07-19 20:43] LABS: Alanine Aminotransferase 27 U/L (0-40); Albumin Level 4.6 g/dL (3.5-5.0); Alkaline Phosphatase 66 U/L (39-117); Anion Gap 17 (12-20); Aspartate Amino Transferase 19 U/L (5-37); Bilirubin Direct 0.1 mg/dL (0.0-0.5); Bilirubin Total 0.3 mg/dL (0.0-1.0); Blood Urea Nitrogen 18 mg/dL (9-16); Calcium 9.7 mg/dL (8.4-10.2); Carbon Dioxide 24 mmol/L (22-29); Chloride 104 mmol/L (96-108); Estimated Glomerular Filt Rate > 60; Glucose Random 239 mg/dL (60-115); Magnesium 1.3 mg/dL (1.6-2.6); Sodium 140 mmol/L (135-145); Total Protein 7.4 g/dL (6.5-8.0)
[2023-07-19 20:46] LABS: Troponin-I High Sensitivity < 2.7 ng/L (<3.5-35.0)
[2023-07-20 01:23] VITALS: BP 126/87; PULSE 88; O2SAT 97
[2023-07-20] MEDS: Magnesium Sulfate/H2O 2 GM/50 ML PIGGYBACK IV (01:27)
[2023-07-20] MEDS: Acetaminophen 325 MG TABLET 650 MG PO (02:14)
== END 2023-07-20 02:23 | disposition home or self-care (01) ==
PROVIDERS: Nurse Practitioner Family; Emergency Provider Internal Medicine; PCP Internal Medicine
DX: E83.42 Hypomagnesemia (principal); E11.9 Type 2 diabetes mellitus without complications; I10 Essential (primary) hypertension; Z79.4 Long term (current) use of insulin; Z79.899 Other long term (current) drug therapy
CPT/HCPCS: 36415; 71046; 80048; 80076; 83735; 84484; 85025; 93005; 96374; 99284; 99285; J3475

== ENCOUNTER 2023-08-01 13:41 | Emergency (ER) | payer MEDICAID, SELFPAY ==
[2023-08-01 14:10] VITALS: BP 154/79; PULSE 88; RESP 18; TEMP 35.8; O2SAT 99; BMI 29.1
--- NOTE | 2023-08-01 14:21 | ED_ITS ---
HPI - General Adult General Chief complaint: General Medical Stated complaint: chest pain Time Seen by Provider: 08/01/23 19:35 Source: patient Mode of arrival: ambulatory Limitations: no limitations History of Present Illness HPI narrative: Patient history of hypomagnesemia on magnesium oxide 400 mg 4 tablets a day comes here with weakness headache nausea last 3 days similar to that when he gets low magnesium no flank pain no urinary complaints no vomiting patient does have nausea and epigastric pain Related Data Home Medications Medication Instructions Recorded Confirmed allopurinol 300 mg tablet 300 mg PO BID 08/31/22 08/31/22 amitriptyline 50 mg tablet 50 mg PO BEDTIME 08/31/22 08/31/22 amlodipine 5 mg tablet 5 mg PO DAILY 08/31/22 08/31/22 aspirin 81 mg tablet,delayed 81 mg PO DAILY 08/31/22 08/31/22 release atorvastatin 80 mg tablet 80 mg PO BEDTIME 08/31/22 08/31/22 cholecalciferol (vitamin D3) 25 25 mcg PO DAILY 08/31/22 08/31/22 mcg (1,000 unit) capsule cyanocobalamin (vitamin B-12) 2,000 mcg PO DAILY 08/31/22 08/31/22 1,000 mcg tablet famotidine 40 mg tablet 40 mg PO BID 08/31/22 08/31/22 insulin glargine 100 unit/mL 32 unit subcut QPM 08/31/22 08/31/22 subcutaneous solution (Lantus U-100 Insulin) insulin lispro 100 unit/mL 30 unit subcut TID 08/31/22 08/31/22 subcutaneous solution lisinopril 10 mg tablet 10 mg PO DAILY 08/31/22 08/31/22 magnesium oxide 400 mg PO BID 08/31/22 08/31/22 metformin 1,000 mg tablet 1,000 mg PO BID 08/31/22 08/31/22 repaglinide 1 mg tablet 1 mg PO TID 08/31/22 08/31/22 Previous Rx's Medication Instructions Recorded magnesium oxide 400 mg PO TID #90 tabs 09/07/22 magnesium oxide 400 mg (241.3 mg 400 mg PO DAILY #20 tabs 01/15/23 magnesium) tablet magnesium oxide 400 mg PO BID #60 tabs 07/08/23 Allergies Allergy/AdvReac Type Severity Reaction Status Date / Time shellfish derived Allergy Unknown HIVES Verified 02/10/23 21:15 [SHELLFISH DERIVED] shrimp [SHRIMP] Allergy Unknown HIVES Verified 02/10/23 21:15 Review of Systems 2 Review of Systems: Yes all other systems are reviewed and are negative [facility] Past Medical History Medical History GERD (gastroesophageal reflux disease) Hypomagnesemia IDDM (insulin dependent diabetes mellitus) HTN (hypertension) Gout Family History Family History Other No family history of colorectal cancer Social History Social History Alcohol intake: never Patient Tobacco Use Status: Never used Tobacco Smoked in Last 30 Days: No Use of substances other than those prescribed or required for medical reasons: No Advance Directives: No Advance Directives Information Provided: No Physical Exam ED Vital Signs: Vital Signs - 24 hr 08/01/23 14:10 08/01/23 19:37 Temperature 96.5 F L 97.7 F Pulse Rate 88 87 Respiratory Rate 18 14 Blood Pressure 154/79 H 138/80 Pulse Oximetry 99 99 Oxygen Delivery Method Room Air Room Air BMI result Body Mass Index 29.1 Appearance: Alert. Oriented X3. No acute distress. Eyes: No pallor or icterus ENT: Pharynx normal. Oral Mucosa moist Neck: Normal inspection. Neck supple. CVS: Normal heart rate and rhythm. Pulses normal. Respiratory: No respiratory distress. Equal air entry bilateral, no wheezing/rales/rhonchi Abdomen: Soft , mild epigastric tenderness, Bowel sounds are present, no mass palpable, no CVA tenderness Skin: Skin warm and dry. Normal skin color. Normal skin turgor. Extremities: No lower extremity edema. No calf tenderness Neuro: Oriented X 3. No motor deficit. Deep tendon reflexes intact Course Course Course Narrative: RME- 48-year-old male with history of hypomagnesemia diabetes, hypertension presents for evaluation of chest pain and general malaise for the last few days. Plan for cardiac workup Medications Administered Discontinued Medications Generic Name Dose Route Start Last Admin Trade Name Freq PRN Reason Stop Dose Admin Famotidine 20 mg 08/01/23 19:51 08/01/23 20:00 Famotidine/Pf 20 Mg/2 Ml Vial IVPUSH 08/01/23 19:52 20 mg ONCE ONE Administration Magnesium Sulfate 2 gm in 50 mls @ 150 mls/hr 08/01/23 19:36 08/01/23 20:25 Magnesium Sulfate/H2o IV 08/01/23 19:55 Infused ONCE ONE Infusion Ondansetron HCl 4 mg 08/01/23 19:51 08/01/23 20:00 Ondansetron Hcl 4 Mg/2 Ml Vial IVPUSH 08/01/23 19:52 4 mg ONCE ONE Administration Medical Decision Making Medical Decision Making [facility] Narrative: Patient hypomagnesemia received 2 g of IV much better symptoms have gone patient advised to increase the dose of magnesium and have more food which has high magnesium Differential Diagnosis Differential Diagnoses: The differential diagnosis associated with the presentation includes Hypomagnesemia/viral syndrome Lab Data [facility] Lab Attestation statement: I reviewed the patient's lab results. 08/01/23 14:37 08/01/23 14:37 Labs: Lab Results 08/01/23 Range/Units 14:37 WBC 5.8 (4.8-10.8) X10*3/uL RBC 4.45 L (4.60-5.80) X10*6/uL Hgb 13.7 L (14.0-18.0) g/dl Hct 39.5 L (42.0-52.0) % MCV 88.8 (80.0-98.0) fL MCH 30.8 (27.0-33.0) pg MCHC 34.7 (31.0-36.0) g/dl RDW 12.7 (11.0-16.0) % Plt Count 258 (160-400) X10*3/uL MPV 10.5 (9.4-12.4) fL Immature Gran % (Auto) 0.3 (0.0-0.4) % Neut % (Auto) 59.5 (45-73) % Lymph % (Auto) 27.7 (20-40) % [place] % (Auto) 8.9 (2-11) % Eos % (Auto) 2.4 (0-4) % Baso % (Auto) 1.2 (0-2) % Lymph # (Auto) 1.6 (1.2-4.9) X10*3/uL [place] # (Auto) 0.5 (0.1-1.2) X10*3/uL Eos # (Auto) 0.1 (0.0-0.4) X10*3/uL Baso # (Auto) 0.1 (0.0-0.2) X10*3/uL Abs Immat Gran (auto) 0.02 (0.00-0.03) X10*3/uL Absolute Neuts (auto) 3.5 (2.0-8.3) x10*3/uL Absolute Nucleated RBC 0.000 (0.0-0.012) X10*3/uL Nucleated RBC % (auto) 0.0 (0.0-0.2) /100WBC PT 10.4 L (11.1-13.3) SEC INR 0.9 (0.9-1.1) APTT 30.3 (26.0-36.4) SEC Sodium 136 (135-145) mmol/L Potassium 5.1 (3.3-5.1) mmol/L Chloride 104 (96-108) mmol/L Carbon Dioxide 23 (22-29) mmol/L Anion Gap 14 (12-20) BUN 19 H (9-16) mg/dL Creatinine 0.90 (0.5-1.4) mg/dL Estim Creat Clear Calc 105.3 Estimated GFR > 60 Random Glucose 284 H (60-115) mg/dL Calcium 10.3 H D (8.4-10.2) mg/dL Magnesium 1.3 L* (1.6-2.6) mg/dL Total Bilirubin 0.4 (0.0-1.0) mg/dL AST 21 (5-37) U/L ALT 40 (0-40) U/L Alkaline Phosphatase 60 (39-117) U/L Troponin I High Sens < 2.7 (<3.5-35.0) ng/L Total Protein 7.3 (6.5-8.0) g/dL Albumin 4.6 (3.5-5.0) g/dL Lipase 29 (8-78) U/L Discharge Plan Discharge Clinical Impression: Hypomagnesemia Patient Disposition: Home, Self-Care Instructions: Hypomagnesemia (ED) Additional Instructions: Continue take your arm magnesium tablets advised You may take Tums to increase the magnesium Have food containing magnesium daily Prescriptions: No Action magnesium oxide 400 mg magnesium tablet 400 mg PO TID Qty: 90 0RF metformin 1,000 mg Tablet 1,000 mg PO BID allopurinol 300 mg Tablet 300 mg PO BID magnesium oxide 400 mg magnesium tablet 400 mg PO BID atorvastatin 80 mg Tablet 80 mg PO BEDTIME amlodipine 5 mg Tablet 5 mg PO DAILY cyanocobalamin (vitamin B-12) 1,000 mcg Tablet 2,000 mcg PO DAILY aspirin 81 mg Tablet,Delayed Release (Dr/Ec) 81 mg PO DAILY amitriptyline 50 mg Tablet 50 mg PO BEDTIME lisinopril 10 mg Tablet 10 mg PO DAILY repaglinide 1 mg Tablet 1 mg PO TID Rx Instructions: administer within 30 minutes of a meal or snack famotidine 40 mg Tablet 40 mg PO BID insulin lispro 100 unit/mL Solution 30 unit SUBCUT TID Rx Instructions: with meals cholecalciferol (vitamin D3) 25 mcg (1,000 unit) Capsule 25 mcg PO DAILY insulin glargine [Lantus U-100 Insulin] 100 unit/mL Solution 32 unit SUBCUT QPM magnesium oxide 400 mg magnesium tablet 400 mg PO BID Qty: 60 2RF magnesium oxide 400 mg (241.3 mg magnesium) tablet 400 mg PO DAILY Qty: 20 0RF Interventions: ED Discharge Assessment Last Done: 08/01/23 21:52 Discharge Date/Time: 08/01/23 21:53
--- NOTE | 2023-08-01 14:24 | ECG_ITS ---
Test Reason : pain Blood Pressure : / mmHG Vent. Rate : 084 BPM Atrial Rate : 084 BPM P-R Int : 140 ms QRS Dur : 084 ms QT Int : 338 ms P-R-T Axes : 038 -05 018 degrees QTc Int : 399 ms Normal sinus rhythm Minimal voltage criteria for LVH, may be normal variant ( R in aVL ) Borderline ECG When compared with ECG of 19-JUL-2023 20:07, No significant change was found Referred By: Jake Daugherty Electronically Signed By:ALLI WILEY MD
[2023-08-01 14:41] LABS: MANUAL DIFF FLAG NO
[2023-08-01 14:43] LABS: Basophils Absolute Auto 0.1 X10*3/uL (0.0-0.2); Basophils Percent Auto 1.2 % (0-2); Eosinophils Absolute Auto 0.1 X10*3/uL (0.0-0.4); Eosinophils Percent Auto 2.4 % (0-4); Hematocrit 39.5 % (42.0-52.0); Hemoglobin 13.7 g/dl (14.0-18.0); Imm Gran Abs Auto 0.02 X10*3/uL (0.00-0.03); Imm Gran Pct Auto 0.3 % (0.0-0.4); Lymphocytes Absolute Auto 1.6 X10*3/uL (1.2-4.9); Lymphocytes Percent Auto 27.7 % (20-40); Mean Corpuscular HGB Conc 34.7 g/dl (31.0-36.0); Mean Corpuscular Hemoglobin 30.8 pg (27.0-33.0); Mean Corpuscular Volume 88.8 fL (80.0-98.0); Mean Platelet Volume 10.5 fL (9.4-12.4); Monocytes Absolute Auto 0.5 X10*3/uL (0.1-1.2); Monocytes Percent Auto 8.9 % (2-11); Neutrophils Absolute Auto 3.5 x10*3/uL (2.0-8.3); Neutrophils Percent Auto 59.5 % (45-73); Platelet Count 258 X10*3/uL (160-400); Red Blood Count 4.45 X10*6/uL (4.60-5.80); Red Cell Distribution Width 12.7 % (11.0-16.0); White Blood Count 5.8 X10*3/uL (4.8-10.8)
[2023-08-01 14:49] LABS: INTERNATIONAL NORM RATIO 0.9 (0.9-1.1); Prothrombin Time 10.4 SEC (11.1-13.3)
[2023-08-01 14:52] LABS: Partial Thromboplastin Time 30.3 SEC (26.0-36.4)
[2023-08-01 14:59] LABS: Alanine Aminotransferase 40 U/L (0-40); Albumin Level 4.6 g/dL (3.5-5.0); Alkaline Phosphatase 60 U/L (39-117); Anion Gap 14 (12-20); Aspartate Amino Transferase 21 U/L (5-37); Bilirubin Total 0.4 mg/dL (0.0-1.0); Blood Urea Nitrogen 19 mg/dL (9-16); Calcium 10.3 mg/dL (8.4-10.2); Carbon Dioxide 23 mmol/L (22-29); Chloride 104 mmol/L (96-108); Creatinine Clr Calc Pharmacy 105.3; Estimated Glomerular Filt Rate > 60; Glucose Random 284 mg/dL (60-115); Lipase 29 U/L (8-78); Potassium 5.1 mmol/L (3.3-5.1); Sodium 136 mmol/L (135-145); Total Protein 7.3 g/dL (6.5-8.0)
[2023-08-01 15:01] LABS: Magnesium 1.3 mg/dL (1.6-2.6)
[2023-08-01 15:32] LABS: Troponin-I High Sensitivity < 2.7 ng/L (<3.5-35.0)
[2023-08-01 19:37] VITALS: BP 138/80; PULSE 87; RESP 14; TEMP 36.5; O2SAT 99
--- NOTE | 2023-08-01 19:38 | PC.NURSE ---
Pt ca&ox4, no signs of distress. Pt reports he is taking 4x 400mg of Magnesium. Reports headache, stomachache, weakness, and joint pain x 3 days. Pt denies sob, and n/v. Plan of care ongoing.
--- NOTE | 2023-08-01 19:42 | ED_ITS ---
HPI - General Adult General Chief complaint: General Medical Stated complaint: chest pain Time Seen by Provider: 08/01/23 19:35 Source: patient Mode of arrival: ambulatory Limitations: no limitations Related Data Home Medications Medication Instructions Recorded Confirmed allopurinol 300 mg tablet 300 mg PO BID 08/31/22 08/31/22 amitriptyline 50 mg tablet 50 mg PO BEDTIME 08/31/22 08/31/22 amlodipine 5 mg tablet 5 mg PO DAILY 08/31/22 08/31/22 aspirin 81 mg tablet,delayed 81 mg PO DAILY 08/31/22 08/31/22 release atorvastatin 80 mg tablet 80 mg PO BEDTIME 08/31/22 08/31/22 cholecalciferol (vitamin D3) 25 25 mcg PO DAILY 08/31/22 08/31/22 mcg (1,000 unit) capsule cyanocobalamin (vitamin B-12) 2,000 mcg PO DAILY 08/31/22 08/31/22 1,000 mcg tablet famotidine 40 mg tablet 40 mg PO BID 08/31/22 08/31/22 insulin glargine 100 unit/mL 32 unit subcut QPM 08/31/22 08/31/22 subcutaneous solution (Lantus U-100 Insulin) insulin lispro 100 unit/mL 30 unit subcut TID 08/31/22 08/31/22 subcutaneous solution lisinopril 10 mg tablet 10 mg PO DAILY 08/31/22 08/31/22 magnesium oxide 400 mg PO BID 08/31/22 08/31/22 metformin 1,000 mg tablet 1,000 mg PO BID 08/31/22 08/31/22 repaglinide 1 mg tablet 1 mg PO TID 08/31/22 08/31/22 Previous Rx's Medication Instructions Recorded magnesium oxide 400 mg PO TID #90 tabs 09/07/22 magnesium oxide 400 mg (241.3 mg 400 mg PO DAILY #20 tabs 01/15/23 magnesium) tablet magnesium oxide 400 mg PO BID #60 tabs 07/08/23 Allergies Allergy/AdvReac Type Severity Reaction Status Date / Time shellfish derived Allergy Unknown HIVES Verified 02/10/23 21:15 [SHELLFISH DERIVED] shrimp [SHRIMP] Allergy Unknown HIVES Verified 02/10/23 21:15 [facility] Past Medical History Medical History GERD (gastroesophageal reflux disease) Hypomagnesemia IDDM (insulin dependent diabetes mellitus) HTN (hypertension) Gout Family History Family History Other No family history of colorectal cancer Social History Social History Alcohol intake: never Patient Tobacco Use Status: Never used Tobacco Smoked in Last 30 Days: No Use of substances other than those prescribed or required for medical reasons: No Advance Directives: No Advance Directives Information Provided: No Physical Exam ED Vital Signs: Vital Signs - 24 hr 08/01/23 14:10 08/01/23 19:37 Temperature 96.5 F L 97.7 F Pulse Rate 88 87 Respiratory Rate 18 14 Blood Pressure 154/79 H 138/80 Pulse Oximetry 99 99 Oxygen Delivery Method Room Air Room Air BMI result Body Mass Index 29.1 Medical Decision Making Lab Data 08/01/23 14:37 08/01/23 14:37 Labs: Lab Results 08/01/23 Range/Units 14:37 WBC 5.8 (4.8-10.8) X10*3/uL RBC 4.45 L (4.60-5.80) X10*6/uL Hgb 13.7 L (14.0-18.0) g/dl Hct 39.5 L (42.0-52.0) % MCV 88.8 (80.0-98.0) fL MCH 30.8 (27.0-33.0) pg MCHC 34.7 (31.0-36.0) g/dl RDW 12.7 (11.0-16.0) % Plt Count 258 (160-400) X10*3/uL MPV 10.5 (9.4-12.4) fL Immature Gran % (Auto) 0.3 (0.0-0.4) % Neut % (Auto) 59.5 (45-73) % Lymph % (Auto) 27.7 (20-40) % [place] % (Auto) 8.9 (2-11) % Eos % (Auto) 2.4 (0-4) % Baso % (Auto) 1.2 (0-2) % Lymph # (Auto) 1.6 (1.2-4.9) X10*3/uL [place] # (Auto) 0.5 (0.1-1.2) X10*3/uL Eos # (Auto) 0.1 (0.0-0.4) X10*3/uL Baso # (Auto) 0.1 (0.0-0.2) X10*3/uL Abs Immat Gran (auto) 0.02 (0.00-0.03) X10*3/uL Absolute Neuts (auto) 3.5 (2.0-8.3) x10*3/uL Absolute Nucleated RBC 0.000 (0.0-0.012) X10*3/uL Nucleated RBC % (auto) 0.0 (0.0-0.2) /100WBC PT 10.4 L (11.1-13.3) SEC INR 0.9 (0.9-1.1) APTT 30.3 (26.0-36.4) SEC Sodium 136 (135-145) mmol/L Potassium 5.1 (3.3-5.1) mmol/L Chloride 104 (96-108) mmol/L Carbon Dioxide 23 (22-29) mmol/L Anion Gap 14 (12-20) BUN 19 H (9-16) mg/dL Creatinine 0.90 (0.5-1.4) mg/dL Estim Creat Clear Calc 105.3 Estimated GFR > 60 Random Glucose 284 H (60-115) mg/dL Calcium 10.3 H D (8.4-10.2) mg/dL Magnesium 1.3 L* (1.6-2.6) mg/dL Total Bilirubin 0.4 (0.0-1.0) mg/dL AST 21 (5-37) U/L ALT 40 (0-40) U/L Alkaline Phosphatase 60 (39-117) U/L Troponin I High Sens < 2.7 (<3.5-35.0) ng/L Total Protein 7.3 (6.5-8.0) g/dL Albumin 4.6 (3.5-5.0) g/dL Lipase 29 (8-78) U/L Discharge Plan Discharge Prescriptions: No Action magnesium oxide 400 mg magnesium tablet 400 mg PO TID Qty: 90 0RF metformin 1,000 mg Tablet 1,000 mg PO BID allopurinol 300 mg Tablet 300 mg PO BID magnesium oxide 400 mg magnesium tablet 400 mg PO BID atorvastatin 80 mg Tablet 80 mg PO BEDTIME amlodipine 5 mg Tablet 5 mg PO DAILY cyanocobalamin (vitamin B-12) 1,000 mcg Tablet 2,000 mcg PO DAILY aspirin 81 mg Tablet,Delayed Release (Dr/Ec) 81 mg PO DAILY amitriptyline 50 mg Tablet 50 mg PO BEDTIME lisinopril 10 mg Tablet 10 mg PO DAILY repaglinide 1 mg Tablet 1 mg PO TID Rx Instructions: administer within 30 minutes of a meal or snack famotidine 40 mg Tablet 40 mg PO BID insulin lispro 100 unit/mL Solution 30 unit SUBCUT TID Rx Instructions: with meals cholecalciferol (vitamin D3) 25 mcg (1,000 unit) Capsule 25 mcg PO DAILY insulin glargine [Lantus U-100 Insulin] 100 unit/mL Solution 32 unit SUBCUT QPM magnesium oxide 400 mg magnesium tablet 400 mg PO BID Qty: 60 2RF magnesium oxide 400 mg (241.3 mg magnesium) tablet 400 mg PO DAILY Qty: 20 0RF
--- NOTE | 2023-08-01 19:53 | PC.NURSE ---
Provider with pt. IV placed in left AC [employer] present. Plan of care ongoing.
[2023-08-01] MEDS: Magnesium Sulfate/H2O 2 GM/50 ML PIGGYBACK IV (20:00)
[2023-08-01] MEDS: Famotidine/PF 20 MG/2 ML VIAL IVPUSH (20:00)
[2023-08-01] MEDS: ondansetron HCL 4 MG/2 ML VIAL IVPUSH (20:00)
--- NOTE | 2023-08-01 20:17 | PC.NURSE ---
Pt medicated per nov. Plan of care ongoing.
--- NOTE | 2023-08-01 21:19 | PC.NURSE ---
Pt ambulated with a steady gait to the restroom. Pt back in room/bed. Plan of care ongoing.
== END 2023-08-01 21:53 | disposition home or self-care (01) ==
PROVIDERS: Physician Assistant; Emergency Provider Internal Medicine; PCP Internal Medicine
DX: E83.42 Hypomagnesemia (principal); R07.89 Other chest pain; R51.9 Headache, unspecified; R11.2 Nausea with vomiting, unspecified; E11.9 Type 2 diabetes mellitus without complications; Z79.4 Long term (current) use of insulin; Z79.899 Other long term (current) drug therapy
CPT/HCPCS: 36415; 80053; 83690; 83735; 84484; 85025; 85610; 85730; 93005; 96365; 96375; 99284; 99285; J2405; J3475

== ENCOUNTER 2023-11-21 20:44 | Emergency (ER) | payer MEDICAID, SELFPAY ==
[2023-11-21 20:48] VITALS: BP 122/71; PULSE 75; RESP 18; TEMP 36.8; O2SAT 97; BMI 31.3
--- NOTE | 2023-11-21 20:53 | ED_ITS ---
HPI - General Adult General Chief complaint: General Medical Stated complaint: low magnesium Time Seen by Provider: 11/21/23 21:57 Source: patient Mode of arrival: ambulatory Limitations: no limitations History of Present Illness HPI narrative: 48 yo male w/ hx of hypomagnesemia, insulin-dependent diabetes, HTN, and gout presents to the ED today with chest pain fatigue. CP radiates to left shoulder, burning sensation in both eyes, and unable to sleep.?states that he has had these symptoms in the past when his magnesium was low. has required repletion. admits to heavily drinking this weekend while on vacation. last drink was two days ago. does not drink daily. Related Data Home Medications Medication Instructions Recorded Confirmed allopurinol 300 mg tablet 300 mg PO BID 08/31/22 08/31/22 amitriptyline 50 mg tablet 50 mg PO BEDTIME 08/31/22 08/31/22 amlodipine 5 mg tablet 5 mg PO DAILY 08/31/22 08/31/22 aspirin 81 mg tablet,delayed 81 mg PO DAILY 08/31/22 08/31/22 release atorvastatin 80 mg tablet 80 mg PO BEDTIME 08/31/22 08/31/22 cholecalciferol (vitamin D3) 25 25 mcg PO DAILY 08/31/22 08/31/22 mcg (1,000 unit) capsule cyanocobalamin (vitamin B-12) 2,000 mcg PO DAILY 08/31/22 08/31/22 1,000 mcg tablet famotidine 40 mg tablet 40 mg PO BID 08/31/22 08/31/22 insulin glargine 100 unit/mL 32 unit subcut QPM 08/31/22 08/31/22 subcutaneous solution (Lantus U-100 Insulin) insulin lispro 100 unit/mL 30 unit subcut TID 08/31/22 08/31/22 subcutaneous solution lisinopril 10 mg tablet 10 mg PO DAILY 08/31/22 08/31/22 magnesium oxide 400 mg PO BID 08/31/22 08/31/22 metformin 1,000 mg tablet 1,000 mg PO BID 08/31/22 08/31/22 repaglinide 1 mg tablet 1 mg PO TID 08/31/22 08/31/22 Previous Rx's Medication Instructions Recorded magnesium oxide 400 mg PO TID #90 tabs 09/07/22 magnesium oxide 400 mg (241.3 mg 400 mg PO DAILY #20 tabs 01/15/23 magnesium) tablet magnesium oxide 400 mg PO BID #60 tabs 07/08/23 Allergies Allergy/AdvReac Type Severity Reaction Status Date / Time shellfish derived Allergy Unknown HIVES Verified 11/21/23 20:48 [SHELLFISH DERIVED] shrimp [SHRIMP] Allergy Unknown HIVES Verified 11/21/23 20:48 Review of Systems 2 Review of Systems: All other systems are reviewed and are negative Constitutional: Reports as per HPI and Reports no additional constitutional complaints Eyes: Reports as per HPI and Reports no additional eye complaints Reports system reviewed and no additional complaints, except as documented Cardiovascular: Reports as per HPI and Reports no additional cardiovascular complaints Respiratory: Reports as per HPI and Reports no additional respiratory complaints Gastrointestinal: Reports as per HPI and Reports no additional gastrointestinal complaints Genitourinary: Reports no additional female genitourinary complaints Musculoskeletal: Reports no additional musculoskeletal complaints Skin/Breast: Reports system reviewed and no additional complaints, except as docu Psychiatric: Reports no additional psychiatric complaints Endocrine: Reports no additional endocrine complaints Hematologic/Lymphatic: Reports no additional hematologic/lymphatic complaints Allergic/Immunologic: Reports no additional allergic/immunologic complaints Reports system reviewed and no additional complaints, except as documented and Reports Abnormal speech present [facility] Past Medical History Medical History GERD (gastroesophageal reflux disease) Hypomagnesemia IDDM (insulin dependent diabetes mellitus) HTN (hypertension) Gout Family History Family History Other No family history of colorectal cancer Social History Social History Alcohol intake: current Alcohol intake frequency: 0-2 drinks per day Alcohol type: beer Patient Tobacco Use Status: Never used Tobacco Smoked in Last 30 Days: No Use of substances other than those prescribed or required for medical reasons: No Advance Directives: No Advance Directives Information Provided: No Physical Exam ED Vital Signs: Vital Signs - 24 hr 11/21/23 20:48 11/21/23 23:36 Temperature 98.2 F 97.8 F Pulse Rate 75 74 Respiratory Rate 18 15 Blood Pressure 122/71 133/59 L Pulse Oximetry 97 96 Oxygen Delivery Method Room Air Room Air BMI result Body Mass Index 31.3 Vital signs have been reviewed and appear to be correct. Blood pressure elevated. Heart rate normal. Respiratory rate normal. Temperature normal. Oxygen saturation normal. Appearance: Alert. Oriented X3. No acute distress. Head: Normal external exam. Normocephalic. Atraumatic. No [place] signs noted. No raccoon eyes noted Eyes: PERRLA. EOMI. Conjunctiva and sclera normal. Eyelids normal. ENT: TM's Normal. Pharynx normal. Uvula midline. Moist mucous membranes. No trismus noted. No drooling noted. No muffled voice noted. Neck: Normal inspection. Neck supple. FROM. No adenopathy. Thyroid Normal. No meningeal signs. No neck mass noted. CVS: Normal heart rate and rhythm. Heart sound normal. No murmurs noted. Pulses normal throughout. Respiratory: No respiratory distress. Painless inspiration. Breath sounds normal. No wheezes/rales/rhonchi noted. Chest nontender. No accessory muscle usage noted or decreased air movement noted. Abdomen: Soft and nontender. Bowel sounds normal in all 4 quadrants. No distention noted. No organomegaly noted. No visible injury noted. Back: No CVA tenderness. Full range of motion noted. Skin: Skin warm and dry. Normal skin color. Normal skin turgor. No rashes/lesions/lacerations noted. Extremities: No lower extremity edema. Extremities exhibit normal range of motion. Extremities nontender. Neuro: Oriented X 3. Cranial nerve exam: II-XII are grossly intact No motor deficit. No sensory deficit. Reflexes normal. Course Course Course Narrative: labs, EKG ordered Full HPI, ROS and PE to be performed by the primary ED provider. Reevaluation(s) Reevaluation #1: Magnesium was repleted, troponin is negative x2, patient otherwise feels normal. will discharge and follow-up with PCP. Time: 01:17 Medications Administered Discontinued Medications Generic Name Dose Route Start Last Admin Trade Name Freq PRN Reason Stop Dose Admin Magnesium Sulfate 2 gm in 50 mls @ 25 mls/hr 11/21/23 21:59 11/21/23 22:43 Magnesium Sulfate/H2o IV 11/21/23 23:58 25 mls/hr ONCE ONE Administration Medical Decision Making Differential Diagnosis Differential Diagnoses: The differential diagnosis associated with the presentation includes ( ACS, atrial fibrillation, CHF, electrolyte derangement, severe anemia, dysrhythmia.) Admission/Observation Consideration of admission/observation: Escalation of care including admission/observation considered Lab Data MDM Lab Attestation statement: I reviewed the patient's lab results. 11/21/23 21:06 11/21/23 21:06 Labs: Lab Results 11/21/23 11/22/23 Range/Units 21:06 00:07 WBC 6.8 (4.8-10.8) X10*3/uL RBC 4.16 L (4.60-5.80) X10*6/uL Hgb 12.8 L (14.0-18.0) g/dl Hct 37.3 L (42.0-52.0) % MCV 89.7 (80.0-98.0) fL MCH 30.8 (27.0-33.0) pg MCHC 34.3 (31.0-36.0) g/dl RDW 13.0 (11.0-16.0) % Plt Count 234 (160-400) X10*3/uL MPV 10.0 (9.4-12.4) fL Immature Gran % (Auto) 0.1 (0.0-0.4) % Neut % (Auto) 58.5 (45-73) % Lymph % (Auto) 30.1 (20-40) % [place] % (Auto) 8.2 (2-11) % Eos % (Auto) 1.8 (0-4) % Baso % (Auto) 1.3 (0-2) % Lymph # (Auto) 2.1 (1.2-4.9) X10*3/uL [place] # (Auto) 0.6 (0.1-1.2) X10*3/uL Eos # (Auto) 0.1 (0.0-0.4) X10*3/uL Baso # (Auto) 0.1 (0.0-0.2) X10*3/uL Abs Immat Gran (auto) 0.01 (0.00-0.03) X10*3/uL Absolute Neuts (auto) 4.0 (2.0-8.3) x10*3/uL Absolute Nucleated RBC 0.000 (0.0-0.012) X10*3/uL Nucleated RBC % (auto) 0.0 (0.0-0.2) /100WBC Sodium 138 (135-145) mmol/L Potassium 4.5 (3.3-5.1) mmol/L Chloride 104 (96-108) mmol/L Carbon Dioxide 26 (22-29) mmol/L Anion Gap 13 (12-20) BUN 22 H (9-16) mg/dL Creatinine 0.93 (0.5-1.4) mg/dL Estim Creat Clear Calc 105.4 Estimated GFR > 60 Random Glucose 197 H (60-115) mg/dL Calcium 9.8 (8.4-10.2) mg/dL Magnesium 1.2 L* (1.6-2.6) mg/dL Total Bilirubin 0.3 (0.0-1.0) mg/dL AST 19 (5-37) U/L ALT 32 (0-40) U/L Alkaline Phosphatase 55 (39-117) U/L Troponin I High Sens < 2.7 < 2.7 (<3.5-35.0) ng/L Total Protein 6.9 (6.5-8.0) g/dL Albumin 4.3 (3.5-5.0) g/dL Independent Interpretation I performed an independent interpretation of an: EKG ( Normal sinus rhythm at 74 beats per minutes, LVH, normal intervals, no ST-T changes, no change from prior EKG.) Chronic Conditions Patient?s care impacted by: Other ( Chronic hypomagnesemia.) Discharge Plan Discharge Clinical Impression: Hypomagnesemia Patient Disposition: Home, Self-Care Instructions: Hypomagnesemia (ED) Prescriptions: No Action magnesium oxide 400 mg magnesium tablet 400 mg PO TID Qty: 90 0RF metformin 1,000 mg Tablet 1,000 mg PO BID allopurinol 300 mg Tablet 300 mg PO BID magnesium oxide 400 mg magnesium tablet 400 mg PO BID atorvastatin 80 mg Tablet 80 mg PO BEDTIME amlodipine 5 mg Tablet 5 mg PO DAILY cyanocobalamin (vitamin B-12) 1,000 mcg Tablet 2,000 mcg PO DAILY aspirin 81 mg Tablet,Delayed Release (Dr/Ec) 81 mg PO DAILY amitriptyline 50 mg Tablet 50 mg PO BEDTIME lisinopril 10 mg Tablet 10 mg PO DAILY repaglinide 1 mg Tablet 1 mg PO TID Rx Instructions: administer within 30 minutes of a meal or snack famotidine 40 mg Tablet 40 mg PO BID insulin lispro 100 unit/mL Solution 30 unit SUBCUT TID Rx Instructions: with meals cholecalciferol (vitamin D3) 25 mcg (1,000 unit) Capsule 25 mcg PO DAILY insulin glargine [Lantus U-100 Insulin] 100 unit/mL Solution 32 unit SUBCUT QPM magnesium oxide 400 mg magnesium tablet 400 mg PO BID Qty: 60 2RF magnesium oxide 400 mg (241.3 mg magnesium) tablet 400 mg PO DAILY Qty: 20 0RF
--- NOTE | 2023-11-21 20:53 | ECG_ITS ---
Test Reason : ABNORMAL LABS Blood Pressure : / mmHG Vent. Rate : 074 BPM Atrial Rate : 074 BPM P-R Int : 160 ms QRS Dur : 088 ms QT Int : 360 ms P-R-T Axes : 052 000 023 degrees QTc Int : 399 ms Normal sinus rhythm Minimal voltage criteria for LVH, may be normal variant ( R in aVL ) Borderline ECG When compared with ECG of 01-AUG-2023 14:25, No significant change was found Referred By: Keisha Espino Electronically Signed By:MARLEEN MONDRAGON
[2023-11-21 21:15] LABS: MANUAL DIFF FLAG NO
[2023-11-21 21:16] LABS: Basophils Absolute Auto 0.1 X10*3/uL (0.0-0.2); Basophils Percent Auto 1.3 % (0-2); Eosinophils Absolute Auto 0.1 X10*3/uL (0.0-0.4); Eosinophils Percent Auto 1.8 % (0-4); Hematocrit 37.3 % (42.0-52.0); Hemoglobin 12.8 g/dl (14.0-18.0); Imm Gran Abs Auto 0.01 X10*3/uL (0.00-0.03); Imm Gran Pct Auto 0.1 % (0.0-0.4); Lymphocytes Absolute Auto 2.1 X10*3/uL (1.2-4.9); Lymphocytes Percent Auto 30.1 % (20-40); Mean Corpuscular HGB Conc 34.3 g/dl (31.0-36.0); Mean Corpuscular Hemoglobin 30.8 pg (27.0-33.0); Mean Corpuscular Volume 89.7 fL (80.0-98.0); Monocytes Absolute Auto 0.6 X10*3/uL (0.1-1.2); Monocytes Percent Auto 8.2 % (2-11); Neutrophils Percent Auto 58.5 % (45-73); Platelet Count 234 X10*3/uL (160-400); Red Blood Count 4.16 X10*6/uL (4.60-5.80); White Blood Count 6.8 X10*3/uL (4.8-10.8)
[2023-11-21 21:33] LABS: Alanine Aminotransferase 32 U/L (0-40); Albumin Level 4.3 g/dL (3.5-5.0); Alkaline Phosphatase 55 U/L (39-117); Anion Gap 13 (12-20); Aspartate Amino Transferase 19 U/L (5-37); Bilirubin Total 0.3 mg/dL (0.0-1.0); Blood Urea Nitrogen 22 mg/dL (9-16); Calcium 9.8 mg/dL (8.4-10.2); Carbon Dioxide 26 mmol/L (22-29); Chloride 104 mmol/L (96-108); Creatinine Clr Calc Pharmacy 105.4; Estimated Glomerular Filt Rate > 60; Glucose Random 197 mg/dL (60-115); Potassium 4.5 mmol/L (3.3-5.1); Sodium 138 mmol/L (135-145); Total Protein 6.9 g/dL (6.5-8.0)
[2023-11-21 21:36] LABS: Magnesium 1.2 mg/dL (1.6-2.6)
[2023-11-21 21:41] LABS: Troponin-I High Sensitivity < 2.7 ng/L (<3.5-35.0)
[2023-11-21] MEDS: Magnesium Sulfate/H2O 2 GM/50 ML PIGGYBACK IV (22:43)
[2023-11-21 23:36] VITALS: BP 133/59; PULSE 74; RESP 15; TEMP 36.6; O2SAT 96
[2023-11-22 00:40] LABS: Troponin-I High Sensitivity < 2.7 ng/L (<3.5-35.0)
[2023-11-22 01:30] VITALS: BP 132/74; PULSE 77; RESP 16
== END 2023-11-22 01:34 | disposition home or self-care (01) ==
PROVIDERS: Physician Assistant Medical; Emergency Provider Emergency Medicine
DX: E83.42 Hypomagnesemia (principal); E11.9 Type 2 diabetes mellitus without complications; I10 Essential (primary) hypertension; Z79.4 Long term (current) use of insulin
CPT/HCPCS: 36415; 80053; 83735; 84484; 85025; 93005; 96374; 99284; 99285; J3475

== ENCOUNTER → 2023-11-21 20:53 | Outpatient (BNV) | payer MEDICAID, SELFPAY | PROVIDERS: Emergency Provider Emergency Medicine; Visit Provider Internal Medicine | DX: R07.9 Chest pain, unspecified (principal) | CPT/HCPCS: 93010 ==

== ENCOUNTER 2023-11-28 13:21 | Emergency (ER) | payer MEDICAID, SELFPAY ==
[2023-11-28 13:41] VITALS: BP 149/66; PULSE 96; RESP 19; TEMP 36.6; O2SAT 98; BMI 28.5
--- NOTE | 2023-11-28 13:44 | ECG_ITS ---
Test Reason : LOW MAG Blood Pressure : / mmHG Vent. Rate : 087 BPM Atrial Rate : 087 BPM P-R Int : 152 ms QRS Dur : 084 ms QT Int : 346 ms P-R-T Axes : 057 001 041 degrees QTc Int : 416 ms Normal sinus rhythm Normal ECG When compared with ECG of 21-NOV-2023 20:59, No significant change was found Referred By: Crystal Goodson Electronically Signed By:Kyler Walsh
--- NOTE | 2023-11-28 13:44 | ED_ITS ---
HPI - Recheck/Abnormal Lab/Rx General Chief Complaint: General Medical Stated Complaint: Low magnesium Time Seen by Provider: 11/28/23 18:01 Source: patient Mode of arrival: ambulatory Limitations: no limitations History of Present Illness HPI narrative: Patient is a 48-year-old male who presents emergency department with reports of intermittent headaches fatigue and myalgias. Reports a history of similar symptoms secondary to low magnesium. Denies any cough, nasal congestion, fevers, chills, chest pain, shortness of breath, difficulty breathing, nausea, vomiting, abdominal pain, diarrhea. He is prescribed magnesium oxide 400 mg 4 times daily and reports compliance. Denies alcohol consumption Related Data Home Medications Medication Instructions Recorded Confirmed allopurinol 300 mg tablet 300 mg PO BID 08/31/22 08/31/22 amitriptyline 50 mg tablet 50 mg PO BEDTIME 08/31/22 08/31/22 amlodipine 5 mg tablet 5 mg PO DAILY 08/31/22 08/31/22 aspirin 81 mg tablet,delayed 81 mg PO DAILY 08/31/22 08/31/22 release atorvastatin 80 mg tablet 80 mg PO BEDTIME 08/31/22 08/31/22 cholecalciferol (vitamin D3) 25 25 mcg PO DAILY 08/31/22 08/31/22 mcg (1,000 unit) capsule cyanocobalamin (vitamin B-12) 2,000 mcg PO DAILY 08/31/22 08/31/22 1,000 mcg tablet famotidine 40 mg tablet 40 mg PO BID 08/31/22 08/31/22 insulin glargine 100 unit/mL 32 unit subcut QPM 08/31/22 08/31/22 subcutaneous solution (Lantus U-100 Insulin) insulin lispro 100 unit/mL 30 unit subcut TID 08/31/22 08/31/22 subcutaneous solution lisinopril 10 mg tablet 10 mg PO DAILY 08/31/22 08/31/22 magnesium oxide 400 mg PO BID 08/31/22 08/31/22 metformin 1,000 mg tablet 1,000 mg PO BID 08/31/22 08/31/22 repaglinide 1 mg tablet 1 mg PO TID 08/31/22 08/31/22 Previous Rx's Medication Instructions Recorded magnesium oxide 400 mg PO TID #90 tabs 09/07/22 magnesium oxide 400 mg (241.3 mg 400 mg PO DAILY #20 tabs 01/15/23 magnesium) tablet magnesium oxide 400 mg PO BID #60 tabs 07/08/23 Allergies Allergy/AdvReac Type Severity Reaction Status Date / Time shellfish derived Allergy Unknown HIVES Verified 11/28/23 13:41 [SHELLFISH DERIVED] shrimp [SHRIMP] Allergy Unknown HIVES Verified 11/28/23 13:41 Review of Systems 2 Review of Systems: Yes all other systems are reviewed and are negative PMFSH Past Medical History Attestation statement: The following information was validated with the patient. Source: old records reviewed Medical History GERD (gastroesophageal reflux disease) Hypomagnesemia IDDM (insulin dependent diabetes mellitus) HTN (hypertension) Gout Family History Family History Other No family history of colorectal cancer Social History Social History Alcohol intake: current Alcohol intake frequency: 0-2 drinks per day Alcohol type: beer Patient Tobacco Use Status: Never used Tobacco Advance Directives: No Advance Directives Information Provided: No Physical Exam 2 Vital Signs: Vital Signs: Last Vital Signs Temp 96.2 F L 11/28/23 16:15 Pulse 87 11/28/23 16:15 Resp 18 11/28/23 16:15 BP 137/75 11/28/23 16:15 Pulse Ox 97 11/28/23 16:15 O2 Del Method Room Air 11/28/23 16:15 BMI result Body Mass Index 28.5 Appearance: Alert.?Oriented to person, place and time. No acute distress.?Normal affect. Eyes: Pupils equal, round and reactive to light.? ENT: Pharynx normal.?? Neck: Normal inspection.? Neck supple.?? CVS: Heart sounds normal. Normal heart rate and rhythm.? Pulses normal.?? Respiratory: No respiratory distress.? Lung sounds clear to auscultation bilaterally?? Abdomen: Soft and non-tender. Normoactive bowel sounds. No pulsatile mass.?? Skin: Skin warm and dry.? Normal skin color.? Normal skin turgor.?? Extremities: No lower extremity edema.? No calf ttp? Neuro: Moves all extremities spontaneously. Sensation intact bilaterally. CN II- XII intact. No focal neuro deficits. Ambulates with normal steady gait. Course Course Course Narrative: RME- 14PM - 48-year-old male with a past medical history of low magnesium levels presenting to the ER with complaints of ?I think my magnesium level is low . Reports that he has been having headaches, generalized fatigue and malaise and normally when he gets like this his magnesium is low. He was seen here a few days ago and was given 1 bag of magnesium. Reports that he is normally given 1- 2 bags. Otherwise he denies any other symptoms complaints or concerns Plan: Labs including magnesium, EKG patient will be sent back to the waiting room to be evaluated in the ED. Medications Administered Discontinued Medications Generic Name Dose Route Start Last Admin Trade Name Freq PRN Reason Stop Dose Admin Magnesium Sulfate 2 gm in 50 mls @ 25 mls/hr 11/28/23 18:10 11/28/23 20:20 Magnesium Sulfate/H2o IV 11/28/23 20:09 Infused ONCE ONE Infusion Medical Decision Making Medical Decision Making [facility] Narrative: Patient is a 48-year-old male who presents emergency department for evaluation of intermittent headache and myalgias she has experienced in the past with hypomagnesemia. Chronic in nature per patient of unknown etiology. Has been taking his oral supplementation as advised by primary care doctor. Reviewed serum labs obtained prior to my assumption of care, no leukocytosis, mild normocytic anemia, no other electrolyte derangement, magnesium 1.3; patient will receive 2 g IV supplementation., EKG is without acute pathology normal sinus rhythm with ventricular rate of 87, normal QTC 416, no acute ischemic changes. Of note he was seen in the emergency department 11/21/2023 with chest pain and concern for hypomagnesemia at that time serum magnesium 1.2 and he received magnesium sulfate 2 g IV at that time. Differential Diagnosis Differential Diagnoses: The differential diagnosis associated with the presentation includes (Viral syndrome, no focal neurological deficits to suspect ICH/CVA, electrolyte abnormality, anemia, dysrhythmia) Admission/Observation Consideration of admission/observation: Escalation of care including admission/observation considered Lab Data [facility] Lab Attestation statement: I reviewed the patient's lab results. (See narrative above) 11/28/23 14:17 11/28/23 14:17 Labs: Lab Results 11/28/23 Range/Units 14:17 WBC 8.1 (4.8-10.8) X10*3/uL RBC 4.42 L (4.60-5.80) X10*6/uL Hgb 13.7 L (14.0-18.0) g/dl Hct 40.2 L (42.0-52.0) % MCV 91.0 (80.0-98.0) fL MCH 31.0 (27.0-33.0) pg MCHC 34.1 (31.0-36.0) g/dl RDW 13.1 (11.0-16.0) % Plt Count 255 (160-400) X10*3/uL MPV 9.8 (9.4-12.4) fL Immature Gran % (Auto) 0.2 (0.0-0.4) % Neut % (Auto) 73.5 H (45-73) % Lymph % (Auto) 17.8 L (20-40) % [place] % (Auto) 6.4 (2-11) % Eos % (Auto) 1.1 (0-4) % Baso % (Auto) 1.0 (0-2) % Lymph # (Auto) 1.4 (1.2-4.9) X10*3/uL [place] # (Auto) 0.5 (0.1-1.2) X10*3/uL Eos # (Auto) 0.1 (0.0-0.4) X10*3/uL Baso # (Auto) 0.1 (0.0-0.2) X10*3/uL Abs Immat Gran (auto) 0.02 (0.00-0.03) X10*3/uL Absolute Neuts (auto) 6.0 (2.0-8.3) x10*3/uL Absolute Nucleated RBC 0.000 (0.0-0.012) X10*3/uL Nucleated RBC % (auto) 0.0 (0.0-0.2) /100WBC Sodium 142 (135-145) mmol/L Potassium 4.9 (3.3-5.1) mmol/L Chloride 105 (96-108) mmol/L Carbon Dioxide 28 (22-29) mmol/L Anion Gap 14 (12-20) BUN 18 H (9-16) mg/dL Creatinine 0.92 (0.5-1.4) mg/dL Estim Creat Clear Calc 102.0 Estimated GFR > 60 Random Glucose 167 H (60-115) mg/dL Calcium 9.8 (8.4-10.2) mg/dL Magnesium 1.3 L* (1.6-2.6) mg/dL Total Bilirubin 0.4 (0.0-1.0) mg/dL AST 17 (5-37) U/L ALT 28 (0-40) U/L Alkaline Phosphatase 62 (39-117) U/L Total Protein 7.2 (6.5-8.0) g/dL Albumin 4.6 (3.5-5.0) g/dL Independent Interpretation I performed an independent interpretation of an: EKG (See narrative above) External Record Review External record reviewed: Outpatient record Social Determinants Patient?s care significantly limited by Social Determinants of Health including: Other Social Determinant of Health (Chronic hypomagnesemia) Critical Care Time Critical Care Time Critical Care Time: Yes Total Critical Care Time: 35 Attestation: I personally attest to this critical care time spent taking care of the patient exclusive of all other billable procedures was approximately 35 minutes including initial evaluation of patient, ordering tests, EKG interpretation, documentation, re-evaluation. Discharge Plan Discharge Clinical Impression: Hypomagnesemia Patient Disposition: Home, Self-Care Instructions: Hypomagnesemia (ED) Additional Instructions: Your magnesium was low today at 1.3. Please be certain that you are focusing on a diet that is high in magnesium, reviewed the educational material provided, high magnesium foods include green leafy vegetables, bananas, avocado, whole grains, fish, nuts. Please follow-up with your primary care provider. You may return back to emergency department any new or worsening symptoms or concerns. Prescriptions: No Action magnesium oxide 400 mg magnesium tablet 400 mg PO TID Qty: 90 0RF metformin 1,000 mg Tablet 1,000 mg PO BID allopurinol 300 mg Tablet 300 mg PO BID magnesium oxide 400 mg magnesium tablet 400 mg PO BID atorvastatin 80 mg Tablet 80 mg PO BEDTIME amlodipine 5 mg Tablet 5 mg PO DAILY cyanocobalamin (vitamin B-12) 1,000 mcg Tablet 2,000 mcg PO DAILY aspirin 81 mg Tablet,Delayed Release (Dr/Ec) 81 mg PO DAILY amitriptyline 50 mg Tablet 50 mg PO BEDTIME lisinopril 10 mg Tablet 10 mg PO DAILY repaglinide 1 mg Tablet 1 mg PO TID Rx Instructions: administer within 30 minutes of a meal or snack famotidine 40 mg Tablet 40 mg PO BID insulin lispro 100 unit/mL Solution 30 unit SUBCUT TID Rx Instructions: with meals cholecalciferol (vitamin D3) 25 mcg (1,000 unit) Capsule 25 mcg PO DAILY insulin glargine [Lantus U-100 Insulin] 100 unit/mL Solution 32 unit SUBCUT QPM magnesium oxide 400 mg magnesium tablet 400 mg PO BID Qty: 60 2RF magnesium oxide 400 mg (241.3 mg magnesium) tablet 400 mg PO DAILY Qty: 20 0RF Referrals: Antoinette Tobias MD [Primary Care Provider] - Interventions: ED Discharge Assessment Last Done: 11/28/23 20:52 Discharge Date/Time: 11/28/23 20:53
[2023-11-28 14:22] LABS: MANUAL DIFF FLAG NO
[2023-11-28 14:27] LABS: Basophils Absolute Auto 0.1 X10*3/uL (0.0-0.2); Eosinophils Absolute Auto 0.1 X10*3/uL (0.0-0.4); Eosinophils Percent Auto 1.1 % (0-4); Hematocrit 40.2 % (42.0-52.0); Hemoglobin 13.7 g/dl (14.0-18.0); Imm Gran Abs Auto 0.02 X10*3/uL (0.00-0.03); Imm Gran Pct Auto 0.2 % (0.0-0.4); Lymphocytes Absolute Auto 1.4 X10*3/uL (1.2-4.9); Lymphocytes Percent Auto 17.8 % (20-40); Mean Corpuscular HGB Conc 34.1 g/dl (31.0-36.0); Mean Platelet Volume 9.8 fL (9.4-12.4); Monocytes Absolute Auto 0.5 X10*3/uL (0.1-1.2); Monocytes Percent Auto 6.4 % (2-11); Neutrophils Percent Auto 73.5 % (45-73); Platelet Count 255 X10*3/uL (160-400); Red Blood Count 4.42 X10*6/uL (4.60-5.80); Red Cell Distribution Width 13.1 % (11.0-16.0); White Blood Count 8.1 X10*3/uL (4.8-10.8)
[2023-11-28 14:54] LABS: Alanine Aminotransferase 28 U/L (0-40); Albumin Level 4.6 g/dL (3.5-5.0); Alkaline Phosphatase 62 U/L (39-117); Anion Gap 14 (12-20); Aspartate Amino Transferase 17 U/L (5-37); Bilirubin Total 0.4 mg/dL (0.0-1.0); Blood Urea Nitrogen 18 mg/dL (9-16); Calcium 9.8 mg/dL (8.4-10.2); Carbon Dioxide 28 mmol/L (22-29); Chloride 105 mmol/L (96-108); Estimated Glomerular Filt Rate > 60; Glucose Random 167 mg/dL (60-115); Potassium 4.9 mmol/L (3.3-5.1); Sodium 142 mmol/L (135-145); Total Protein 7.2 g/dL (6.5-8.0)
[2023-11-28 14:59] LABS: Magnesium 1.3 mg/dL (1.6-2.6)
[2023-11-28 16:15] VITALS: BP 137/75; PULSE 87; RESP 18; TEMP 35.7; O2SAT 97
[2023-11-28] MEDS: Magnesium Sulfate/H2O 2 GM/50 ML PIGGYBACK IV (18:32)
== END 2023-11-28 20:53 | disposition home or self-care (01) ==
PROVIDERS: Physician Assistant Medical; Emergency Provider Emergency Medicine Emergency Medical Services; PCP Internal Medicine
DX: E83.42 Hypomagnesemia (principal); I10 Essential (primary) hypertension; E11.9 Type 2 diabetes mellitus without complications; Z79.4 Long term (current) use of insulin
CPT/HCPCS: 36415; 80053; 83735; 85025; 93005; 96365; 96366; 99283; 99284; J3475

== ENCOUNTER → 2023-11-28 13:44 | Outpatient (BNV) | payer MEDICAID, SELFPAY | PROVIDERS: Emergency Provider Emergency Medicine Emergency Medical Services; PCP Internal Medicine; Visit Provider Internal Medicine Cardiovascular Disease | DX: I10 Essential (primary) hypertension (principal); E83.42 Hypomagnesemia | CPT/HCPCS: 93010 ==

== ENCOUNTER 2023-12-11 18:39 | Emergency (ER) | payer MEDICAID, SELFPAY ==
[2023-12-11 19:22] VITALS: BP 144/69; PULSE 69; RESP 16; TEMP 36.6; O2SAT 98; BMI 28.5
--- NOTE | 2023-12-11 19:37 | ECG_ITS ---
Test Reason : BILATERAL SHOULDER PAIN/? LOW MAG Blood Pressure : / mmHG Vent. Rate : 069 BPM Atrial Rate : 069 BPM P-R Int : 168 ms QRS Dur : 086 ms QT Int : 384 ms P-R-T Axes : 041 -01 025 degrees QTc Int : 411 ms Normal sinus rhythm Normal ECG When compared with ECG of 28-NOV-2023 14:13, No significant change was found Referred By: Generic ED Physician Electronically Signed By:MARLEEN MONDRAGON
--- NOTE | 2023-12-11 19:46 | MHC.EDTECH ---
Patient brought into triage area,EKG taken per order and signed by provider,labs obtained and sent to lab.
[2023-12-11 19:52] LABS: MANUAL DIFF FLAG NO
[2023-12-11 19:53] LABS: Basophils Absolute Auto 0.1 X10*3/uL (0.0-0.2); Basophils Percent Auto 1.1 % (0-2); Eosinophils Absolute Auto 0.2 X10*3/uL (0.0-0.4); Eosinophils Percent Auto 3.2 % (0-4); Hematocrit 40.3 % (42.0-52.0); Hemoglobin 13.6 g/dl (14.0-18.0); Imm Gran Abs Auto 0.01 X10*3/uL (0.00-0.03); Imm Gran Pct Auto 0.1 % (0.0-0.4); Lymphocytes Absolute Auto 1.9 X10*3/uL (1.2-4.9); Lymphocytes Percent Auto 26.9 % (20-40); Mean Corpuscular HGB Conc 33.7 g/dl (31.0-36.0); Mean Corpuscular Hemoglobin 30.8 pg (27.0-33.0); Mean Corpuscular Volume 91.4 fL (80.0-98.0); Mean Platelet Volume 10.1 fL (9.4-12.4); Monocytes Absolute Auto 0.7 X10*3/uL (0.1-1.2); Monocytes Percent Auto 9.3 % (2-11); Neutrophils Absolute Auto 4.3 x10*3/uL (2.0-8.3); Neutrophils Percent Auto 59.4 % (45-73); Platelet Count 259 X10*3/uL (160-400); Red Blood Count 4.41 X10*6/uL (4.60-5.80); Red Cell Distribution Width 13.2 % (11.0-16.0); White Blood Count 7.2 X10*3/uL (4.8-10.8)
[2023-12-11 20:12] LABS: Alanine Aminotransferase 29 U/L (0-40); Albumin Level 4.5 g/dL (3.5-5.0); Alkaline Phosphatase 60 U/L (39-117); Anion Gap 16 (12-20); Aspartate Amino Transferase 18 U/L (5-37); Bilirubin Total 0.3 mg/dL (0.0-1.0); Blood Urea Nitrogen 17 mg/dL (9-16); Calcium 9.5 mg/dL (8.4-10.2); Carbon Dioxide 25 mmol/L (22-29); Chloride 108 mmol/L (96-108); Creatinine Clr Calc Pharmacy 100.9; Estimated Glomerular Filt Rate > 60; Glucose Random 131 mg/dL (60-115); Magnesium 1.4 mg/dL (1.6-2.6); Potassium 5.1 mmol/L (3.3-5.1); Sodium 144 mmol/L (135-145); Total Protein 7.2 g/dL (6.5-8.0)
[2023-12-11 20:24] VITALS: BP 134/66; PULSE 66; RESP 17; TEMP 36.9; O2SAT 98
--- NOTE | 2023-12-11 20:26 | MHC.EDTECH ---
PT EXPRESSES NO OTHER NEED AT THIS TIME CALL LIGHT WITHIN REACH PT RESTING IN BED RESPIRATIONS ARE EVEN AND UNLABORED PLAN OF CARE ONGOING
[2023-12-11] MEDS: Magnesium Sulfate/H2O 2 GM/50 ML PIGGYBACK IV (20:28)
--- NOTE | 2023-12-11 20:30 | PC.NURSE ---
IV established. NSR on the monitor. Mag infusing per MAR. VSS. Call beck within reach. Continue to monitor.
[2023-12-11 21:37] LABS: Troponin-I High Sensitivity < 2.7 ng/L (<3.5-35.0)
--- NOTE | 2023-12-11 22:08 | ED_ITS ---
HPI - General Adult General Chief complaint: General Medical Stated complaint: magnesium low Time Seen by Provider: 12/11/23 20:13 Source: patient Mode of arrival: ambulatory Limitations: no limitations History of Present Illness HPI narrative: 48-year-old male with history of hypomagnesemia presents to ED for intermittent headache, bilateral shoulder pain, burning sensation eyes, and fatigue. Patient states he usually has these symptoms when his magnesium is low. Patient denies any chest pain, shortness of breath, slurred speech, facial droop, paralysis of extremities, tremors, nausea, vomiting, diarrhea, abdominal pain, or any genitourinary symptoms. Patient denies any trauma fever or chills. Patient states no URI symptoms. patient denies neck pain Related Data Home Medications Medication Instructions Recorded Confirmed allopurinol 300 mg tablet 300 mg PO BID 08/31/22 08/31/22 amitriptyline 50 mg tablet 50 mg PO BEDTIME 08/31/22 08/31/22 amlodipine 5 mg tablet 5 mg PO DAILY 08/31/22 08/31/22 aspirin 81 mg tablet,delayed 81 mg PO DAILY 08/31/22 08/31/22 release atorvastatin 80 mg tablet 80 mg PO BEDTIME 08/31/22 08/31/22 cholecalciferol (vitamin D3) 25 25 mcg PO DAILY 08/31/22 08/31/22 mcg (1,000 unit) capsule cyanocobalamin (vitamin B-12) 2,000 mcg PO DAILY 08/31/22 08/31/22 1,000 mcg tablet famotidine 40 mg tablet 40 mg PO BID 08/31/22 08/31/22 insulin glargine 100 unit/mL 32 unit subcut QPM 08/31/22 08/31/22 subcutaneous solution (Lantus U-100 Insulin) insulin lispro 100 unit/mL 30 unit subcut TID 08/31/22 08/31/22 subcutaneous solution lisinopril 10 mg tablet 10 mg PO DAILY 08/31/22 08/31/22 magnesium oxide 400 mg PO BID 08/31/22 08/31/22 metformin 1,000 mg tablet 1,000 mg PO BID 08/31/22 08/31/22 repaglinide 1 mg tablet 1 mg PO TID 08/31/22 08/31/22 Previous Rx's Medication Instructions Recorded magnesium oxide 400 mg PO TID #90 tabs 12/13/22 magnesium oxide 400 mg (241.3 mg 400 mg PO DAILY #20 tabs 01/15/23 magnesium) tablet magnesium oxide 400 mg PO BID #60 tabs 07/08/23 Allergies Allergy/AdvReac Type Severity Reaction Status Date / Time shellfish derived Allergy Unknown HIVES Verified 12/11/23 19:22 [SHELLFISH DERIVED] shrimp [SHRIMP] Allergy Unknown HIVES Verified 12/11/23 19:22 Review of Systems 2 Review of Systems: Headache, bilateral shoulder pain, burning sensation eyes, fatigue. Yes all other systems are reviewed and are negative [facility] Past Medical History Medical History GERD (gastroesophageal reflux disease) Hypomagnesemia IDDM (insulin dependent diabetes mellitus) HTN (hypertension) Gout Family History Family History Other No family history of colorectal cancer Social History Social History Alcohol intake: current Alcohol intake frequency: holidays/special occasions only Alcohol type: beer Patient Tobacco Use Status: Never used Tobacco Smoked in Last 30 Days: No Use of substances other than those prescribed or required for medical reasons: No Advance Directives: No Advance Directives Information Provided: No Physical Exam ED Vital Signs: Vital Signs - 24 hr 12/11/23 19:22 12/11/23 20:24 12/12/23 00:33 Temperature 97.8 F 98.5 F 98.1 F Pulse Rate 69 66 55 Respiratory Rate 16 17 16 Blood Pressure 144/69 H 134/66 135/77 Pulse Oximetry 98 98 97 Oxygen Delivery Method Room Air Room Air Room Air BMI result Body Mass Index 28.5 Const General: cooperative, healthy appearing, comfortable, no acute distress, well developed, alert, awake and Physically active Orientation/consciousness: oriented to person, oriented to place, oriented to time and patient oriented x3 HENMT Head: Yes normal to inspection, Yes No palpable skull fracture present, Yes normocephalic and Yes atraumatic Eyes General: appearance normal, both eyes and all related structures Visual [place]: normal visual diego by confrontation Alignment and Position: alignment normal Periorbital: periorbital findings normal Eyelids: Yes eyelids normal Conjunctivae: conjunctivae normal Sclerae: sclerae normal Corneas: corneas normal Pupils: Equal, round and reactive pupils present EOM: EOMs intact bilaterally Neck Neck: Yes normal visual inspection, Yes full ROM, Yes no lymphadenopathy, Yes no meningeal signs, Yes trachea midline, Yes supple, No anterior neck swelling and No tender Chest Chest palpation & inspection: normal inspection of the chest and normal palpation of entire chest wall Resp Effort & Inspection: normal respiratory effort and able to speak in complete sentences Auscultation: clear to auscultation bilaterally Cardio Jugular venous distension: no JVD Heart sounds: S1 normal heart sound present and S2 normal heart sound present GI Inspection: Yes normal to inspection and No abdominal wall ecchymosis Palpation (GI): Soft to palpation, not firm, nontender, no guarding and not rigid General: No CVA tenderness Back/Spine/Pelvis Back: No CVA tenderness and No back tenderness Skin General skin exam: no rashes or lesions noted, elasticity normal and turgor normal Neuro General: oriented to person, oriented to place, oriented to time, patient oriented x3, gait normal, tone normal, moves all extremities, Normal light touch and pain sensation, no meningeal signs, no focal motor deficits, CN's II-XI intact bilaterally and normal sensation to monofilament Cranial nerves: Yes Equal, round and reactive pupils present Extrem General: Yes normal to inspection, Yes full ROM and Yes capillary refill normal Psych Appearance: grossly normal, well kempt and not disheveled Medications Administered Discontinued Medications Generic Name Dose Route Start Last Admin Trade Name Freq PRN Reason Stop Dose Admin Magnesium Sulfate 2 gm in 50 mls @ 25 mls/hr 12/11/23 20:15 12/11/23 22:30 Magnesium Sulfate/H2o IV 12/11/23 22:14 Infused ONCE ONE Infusion Medical Decision Making Medical Decision Making MDM Narrative: 48-year-old male presents to the ED for symptoms associated with low magnesium. Patient states mild intermittent headache, nonradiating bilateral shoulder pain, burn sensation is eyes and generalized weakness prescribed afatigue. Patient presently denies any headache. Patient does not have any neuro deficits. Patient denies any cardiac symptoms. Patient not having any acting tremors. Patient is comfortable in the bed. Magnesium given. Will re- evaluate. 00:33: Patient no longer feels symptoms. Patient states he feels better. Repeat troponin magnesium normal. Patient explained worrisome sign informed to return to the ED if he has them. Differential Diagnosis Differential Diagnoses: The differential diagnosis associated with the presentation includes (UT, hypomagnesemia, electrolyte deficiency) Admission/Observation Consideration of admission/observation: Escalation of care including admission/observation considered Lab Data MDM Lab Attestation statement: I reviewed the patient's lab results. 12/11/23 19:45 12/11/23 19:45 Labs: Lab Results 12/11/23 12/11/23 12/12/23 Range/Units 19:45 21:13 00:02 WBC 7.2 (4.8-10.8) X10*3/uL RBC 4.41 L (4.60-5.80) X10*6/uL Hgb 13.6 L (14.0-18.0) g/dl Hct 40.3 L (42.0-52.0) % MCV 91.4 (80.0-98.0) fL MCH 30.8 (27.0-33.0) pg MCHC 33.7 (31.0-36.0) g/dl RDW 13.2 (11.0-16.0) % Plt Count 259 (160-400) X10*3/uL MPV 10.1 (9.4-12.4) fL Immature Gran % (Auto) 0.1 (0.0-0.4) % Neut % (Auto) 59.4 (45-73) % Lymph % (Auto) 26.9 (20-40) % [place] % (Auto) 9.3 (2-11) % Eos % (Auto) 3.2 (0-4) % Baso % (Auto) 1.1 (0-2) % Lymph # (Auto) 1.9 (1.2-4.9) X10*3/uL [place] # (Auto) 0.7 (0.1-1.2) X10*3/uL Eos # (Auto) 0.2 (0.0-0.4) X10*3/uL Baso # (Auto) 0.1 (0.0-0.2) X10*3/uL Abs Immat Gran (auto) 0.01 (0.00-0.03) X10*3/uL Absolute Neuts (auto) 4.3 (2.0-8.3) x10*3/uL Absolute Nucleated RBC 0.000 (0.0-0.012) X10*3/uL Nucleated RBC % (auto) 0.0 (0.0-0.2) /100WBC Sodium 144 (135-145) mmol/L Potassium 5.1 (3.3-5.1) mmol/L Chloride 108 (96-108) mmol/L Carbon Dioxide 25 (22-29) mmol/L Anion Gap 16 (12-20) BUN 17 H (9-16) mg/dL Creatinine 0.93 (0.5-1.4) mg/dL Estim Creat Clear Calc 100.9 Estimated GFR > 60 Random Glucose 131 H (60-115) mg/dL Calcium 9.5 (8.4-10.2) mg/dL Magnesium 1.4 L* 1.9 (1.6-2.6) mg/dL Total Bilirubin 0.3 (0.0-1.0) mg/dL AST 18 (5-37) U/L ALT 29 (0-40) U/L Alkaline Phosphatase 60 (39-117) U/L Troponin I High Sens < 2.7 < 2.7 (<3.5-35.0) ng/L Total Protein 7.2 (6.5-8.0) g/dL Albumin 4.5 (3.5-5.0) g/dL Independent Interpretation I performed an independent interpretation of an: EKG (Negative STEMI) Independent Historian Clinical information obtained from an independent historian. History obtained from or confirmed by: Other (Patient) External Record Review External record reviewed: Other (Prior visits) Discharge Plan Discharge Clinical Impression: Hypomagnesemia Patient Disposition: Home, Self-Care Instructions: Hypomagnesemia (ED) Additional Instructions: Return to the ED immediately for any chest pain, shortness of breath, nausea, vomiting, dizziness, headache, weakness, tremors, paralysis of extremities, dizziness, slurred speech, facial droop, fever, chills, any other concerning symptoms. Recommend follow-up with primary care provider Prescriptions: No Action magnesium oxide 400 mg magnesium tablet 400 mg PO TID Qty: 90 0RF metformin 1,000 mg Tablet 1,000 mg PO BID allopurinol 300 mg Tablet 300 mg PO BID magnesium oxide 400 mg magnesium tablet 400 mg PO BID atorvastatin 80 mg Tablet 80 mg PO BEDTIME amlodipine 5 mg Tablet 5 mg PO DAILY cyanocobalamin (vitamin B-12) 1,000 mcg Tablet 2,000 mcg PO DAILY aspirin 81 mg Tablet,Delayed Release (Dr/Ec) 81 mg PO DAILY amitriptyline 50 mg Tablet 50 mg PO BEDTIME lisinopril 10 mg Tablet 10 mg PO DAILY repaglinide 1 mg Tablet 1 mg PO TID Rx Instructions: administer within 30 minutes of a meal or snack famotidine 40 mg Tablet 40 mg PO BID insulin lispro 100 unit/mL Solution 30 unit SUBCUT TID Rx Instructions: with meals cholecalciferol (vitamin D3) 25 mcg (1,000 unit) Capsule 25 mcg PO DAILY insulin glargine [Lantus U-100 Insulin] 100 unit/mL Solution 32 unit SUBCUT QPM magnesium oxide 400 mg magnesium tablet 400 mg PO BID Qty: 60 2RF magnesium oxide 400 mg (241.3 mg magnesium) tablet 400 mg PO DAILY Qty: 20 0RF Interventions: ED Discharge Assessment Last Done: 12/12/23 00:33 Discharge Date/Time: 12/12/23 00:34 Print Language: Latvian
--- NOTE | 2023-12-12 00:14 | PC.NURSE ---
Pt requesting to leave without redraw, Pt reassured. Tomy made aware and at bedside. Pt agreeable to blood redraw but does not want to wait for results.
[2023-12-12 00:20] LABS: Magnesium 1.9 mg/dL (1.6-2.6)
[2023-12-12 00:27] LABS: Troponin-I High Sensitivity < 2.7 ng/L (<3.5-35.0)
[2023-12-12 00:33] VITALS: BP 135/77; PULSE 55; RESP 16; TEMP 36.7; O2SAT 97
== END 2023-12-12 00:34 | disposition home or self-care (01) ==
PROVIDERS: Physician Assistant; Emergency Provider Internal Medicine; PCP Internal Medicine
DX: E83.42 Hypomagnesemia (principal); I10 Essential (primary) hypertension; E11.9 Type 2 diabetes mellitus without complications; Z79.4 Long term (current) use of insulin
CPT/HCPCS: 36415; 80053; 83735; 84484; 85025; 93005; 96365; 96366; 99284; 99285; J3475

== ENCOUNTER → 2023-12-11 19:37 | Outpatient (BNV) | payer MEDICAID, SELFPAY | PROVIDERS: Emergency Provider Internal Medicine; PCP Internal Medicine; Visit Provider Internal Medicine | DX: E61.2 Magnesium deficiency (principal) | CPT/HCPCS: 93010 ==

== ENCOUNTER 2024-01-03 11:33 | Outpatient (AMB) | payer MEDICAID, SELFPAY ==
[2024-01-03 11:40] VITALS: BP 110/70; PULSE 78; O2SAT 97; BMI 30.1
--- NOTE | 2024-01-03 11:40 | HO.NEPHOV_ITS ---
HPI HPI Comments History of Present Illness Details I had the delight of seeing Roque in consultation for hypomagnesemia. He has no history of diarrhea. As per the patient four years ago, he had low potassium and was also detected to have low magnesium. He never had hypo calcemia. He has no history of pancreatitis. He was taking omeprazole in the past which has been changed to famotidine now. He is not on any thiazide or loop diuretics. He has not taking any chemotherapy. He is not on any calcineurin inhibitor. He does not drink excess alcohol and has no history of uncontrolled diabetes mellitus. He had no history of CARY or obstructive uropathy. He is unsure about family history of renal magnesium wasting. He has no history of metabolic alkalosis or hypercalcemia or hypo calciuria. He has no history of nephrocalcinosis. He had multiple emergency room visits needing intravenous magnesium. He feels well at the time of this office visit. [facility] Medical History GERD (gastroesophageal reflux disease) Hypomagnesemia IDDM (insulin dependent diabetes mellitus) HTN (hypertension) Gout Family History Other No family history of colorectal cancer Social History Alcohol intake: current Alcohol intake frequency: holidays/special occasions only Alcohol type: beer Patient Tobacco Use Status: Never used Tobacco Vital Signs 01/03/24 11:40 Height 5 ft 7 in Weight 192 lb 4 oz BMI 30.1 BP 110/70 Blood Pressure Location Lt brachial Position Sitting Pulse 78 Pulse Source Pulse Oximeter Pulse Oximetry (%) 97 Oxygen Delivery Method Room Air Physical Exam Const General: comfortable and no acute distress Orientation/consciousness: patient oriented x3 HEENT Head: Yes normocephalic Mouth: Normal oral and palatal mucosa present Eyes EOM: EOMs intact bilaterally Neck Neck: Yes supple Resp Auscultation: clear to auscultation bilaterally Cardio Jugular venous distension: no JVD Rate: regular rate GI Palpation (GI): Soft to palpation Auscultation: normal bowel sounds General: Yes no CVA tenderness Back/Spine/Pelvis Back: no CVA tenderness Skin General skin exam: no rashes or lesions noted Neuro General: patient oriented x3 and moves all extremities Extrem General: Yes no pedal edema Assessment & Plan Assessment & Plan (1) Hypomagnesemia: Code(s): E83.42 - Hypomagnesemia (2) HTN (hypertension): Code(s): I10 - Essential (primary) hypertension Qualifiers: Hypertension type: essential hypertension Qualified Code(s): I10 - Essential (primary) hypertension Plan Roque may be having renal magnesium wasting. He has had remote history of hypokalemia. I ordered some basic workup. I plan to calculate fractional excretion of magnesium. He may need a 24 hour urine for magnesium. He was encouraged to continue his current oral intake of magnesium medications for now. His blood pressure is currently well controlled on current dose of her lisinopril. I did not make any medication changes today. All these have been discussed in detail. Answered all questions. Follow-up appointment given. Orders: Orders Blood Urea Nitrogen Today E83.42 - Hypomagnesemia, I10 - Essential (primary) hypertension Osmolality, Serum Today E83.42 - Hypomagnesemia, I10 - Essential (primary) hypertension Parathyroid Hormone Intact Today E83.42 - Hypomagnesemia, I10 - Essential (primary) hypertension Calcium Today E83.42 - Hypomagnesemia, I10 - Essential (primary) hypertension Creatinine Today E83.42 - Hypomagnesemia, I10 - Essential (primary) hypertension Electrolytes Today E83.42 - Hypomagnesemia, I10 - Essential (primary) hypertension Magnesium Today E83.42 - Hypomagnesemia, I10 - Essential (primary) hypertension Osmolality Urine Today E83.42 - Hypomagnesemia, I10 - Essential (primary) hypertension Magnesium, Random Urine Today E83.42 - Hypomagnesemia, I10 - Essential (corin antonio) hypertension Medications: Discontinued magnesium oxide Discontinued Reason: Duplicate 400 mg PO TID 90 tabs 0RF magnesium oxide Discontinued Reason: Duplicate 400 mg PO DAILY 20 tabs 0RF Coding Level of Care Code New Pt Level 4 (50907) Diagnoses Hypomagnesemia E83.42 HTN (hypertension) I10 Hypertension type: essential hypertension Results Reviewed Nephrology Results: Hgb 13.6 g/dl (14.0-18.0) L 12/11/23 WBC 7.2 X10*3/uL (4.8-10.8) 12/11/23 Plt Count 259 X10*3/uL (160-400) 12/11/23 Sodium 144 mmol/L (135-145) 12/11/23 Potassium 5.1 mmol/L (3.3-5.1) 12/11/23 Chloride 108 mmol/L (96-108) 12/11/23 Carbon Dioxide 25 mmol/L (22-29) 12/11/23 BUN 17 mg/dL (9-16) H 12/11/23 Creatinine 0.93 mg/dL (0.5-1.4) 12/11/23 Calcium 9.5 mg/dL (8.4-10.2) 12/11/23
== END 2024-01-03 12:06 | disposition home or self-care (01) ==
PROVIDERS: PCP Internal Medicine; Referring Provider Internal Medicine; Visit Provider Internal Medicine Nephrology
DX: E83.42 Hypomagnesemia (principal); I10 Essential (primary) hypertension
CPT/HCPCS: 99204

== ENCOUNTER → 2024-01-03 11:33 | Outpatient (BNVA) | payer MEDICAID, SELFPAY | PROVIDERS: PCP Internal Medicine; Referring Provider Internal Medicine; Visit Provider Internal Medicine Nephrology | DX: E83.42 Hypomagnesemia (principal); I10 Essential (primary) hypertension | CPT/HCPCS: 99202 ==

== ENCOUNTER 2024-01-31 08:36 | Outpatient (REF) | payer MEDICAID, SELFPAY ==
[2024-01-31 12:00] LABS: Osmolality, Serum 302 mosm/kg (281-305)
[2024-01-31 12:13] LABS: Anion Gap 15 (12-20); Blood Urea Nitrogen 16 mg/dL (9-16); Calcium 9.4 mg/dL (8.4-10.2); Carbon Dioxide 23 mmol/L (22-29); Chloride 103 mmol/L (96-108); Estimated Glomerular Filt Rate > 60; Potassium 4.6 mmol/L (3.3-5.1); Sodium 136 mmol/L (135-145)
[2024-01-31 12:27] LABS: Osmolality Urine 730 mosm/kg (373-1093)
[2024-01-31 13:15] LABS: Magnesium 1.4 mg/dL (1.6-2.6)
[2024-02-03 18:48] LABS: Creatinine, Random Urine 159 mg/dL (20-320); Magnesium, Random Urine 194 mg/g creat (22-130)
== END 2024-01-31 08:37 | disposition home or self-care (01) ==
LOC: HO.HKASLDS 08:36
PROVIDERS: Visit Provider Internal Medicine Nephrology
DX: E83.42 Hypomagnesemia (principal); I10 Essential (primary) hypertension
CPT/HCPCS: 36415; 80051; 82310; 82565; 83735; 83930; 83935; 83970; 84520

== ENCOUNTER 2024-02-02 14:24 | Outpatient (AMB) | payer MEDICAID, SELFPAY ==
--- NOTE | 2024-02-02 14:25 | HO.NEPHOV ---
Vital Signs 02/02/24 14:26 Height 5 ft 7 in Weight 186 lb BMI 29.1 BP 110/70 Blood Pressure Location Lt brachial Position Sitting Pulse 81 Pulse Source Pulse Oximeter Pulse Oximetry (%) 98 Oxygen Delivery Method Room Air Intake Visit Reasons: 1 mon follow up/ Confirmed Probation Manager Required: No Accompanied by: Self / Same As Patient Allergies shellfish derived [SHELLFISH DERIVED] Allergy (Unknown, Verified 02/02/24 14:28) HIVES shrimp [SHRIMP] Allergy (Unknown, Verified 02/02/24 14:28) HIVES HPI Comments Details: I had the delight of seeing Roque in consultation for hypomagnesemia. He has no history of diarrhea. As per the patient four years ago, he had low potassium and was also detected to have low magnesium. He never had hypo calcemia. He has no history of pancreatitis. He was taking omeprazole in the past which has been changed to famotidine now. He is not on any thiazide or loop diuretics. He has not taking any chemotherapy. He is not on any calcineurin inhibitor. He does not drink excess alcohol and has no history of uncontrolled diabetes mellitus. He had no history of CARY or obstructive uropathy. He is unsure about family history of renal magnesium wasting. He has no history of metabolic alkalosis or hypercalcemia or hypo calciuria. He has no history of nephrocalcinosis. He had multiple emergency room visits needing intravenous magnesium. He feels well at the time of this office visit. [facility] Medical History GERD (gastroesophageal reflux disease) Hypomagnesemia IDDM (insulin dependent diabetes mellitus) HTN (hypertension) Gout Family History Other No family history of colorectal cancer Social History Alcohol intake: current Alcohol intake frequency: holidays/special occasions only Alcohol type: beer Patient Tobacco Use Status: Never used Tobacco Physical Exam Const General: comfortable and no acute distress Orientation/consciousness: patient oriented x3 HEENT Head: Yes normocephalic Mouth: Normal oral and palatal mucosa present Eyes EOM: EOMs intact bilaterally Neck Neck: Yes supple Resp Auscultation: clear to auscultation bilaterally Cardio Jugular venous distension: no JVD Rate: regular rate GI Palpation (GI): Soft to palpation Auscultation: normal bowel sounds General: Yes no CVA tenderness Back/Spine/Pelvis Back: no CVA tenderness Skin General skin exam: no rashes or lesions noted Neuro General: patient oriented x3 and moves all extremities Extrem General: Yes no pedal edema Results Reviewed Nephrology Results: Hgb 13.6 g/dl (14.0-18.0) L 12/11/23 WBC 7.2 X10*3/uL (4.8-10.8) 12/11/23 Plt Count 259 X10*3/uL (160-400) 12/11/23 Sodium 136 mmol/L (135-145) 01/31/24 Potassium 4.6 mmol/L (3.3-5.1) 01/31/24 Chloride 103 mmol/L (96-108) 01/31/24 Carbon Dioxide 23 mmol/L (22-29) 01/31/24 BUN 16 mg/dL (9-16) 01/31/24 Creatinine 0.86 mg/dL (0.5-1.4) 01/31/24 Calcium 9.4 mg/dL (8.4-10.2) 01/31/24 PTH Intact 56.0 pg/mL (8.7-77.1) 01/31/24 Assessment & Plan Assessment & Plan (1) Hypomagnesemia: Code(s): E83.42 - Hypomagnesemia Category: Medical (2) HTN (hypertension): Code(s): I10 - Essential (primary) hypertension Category: Medical Qualifiers: Hypertension type: essential hypertension Qualified Code(s): I10 - Essential (primary) hypertension Plan Roque may be having renal magnesium wasting. He has had remote history of hypokalemia. I reviewed basic workup. Labs to calculate fractional excretion of magnesium is pending. He may need a 24 hour urine for magnesium. He was encouraged to continue his current oral intake of magnesium medications for now. His blood pressure is currently well controlled on current dose of her lisinopril. I increased his PO Magnesium to 3 tabs bid and started him on Amiloride 5 mg daily. I did not make any other medication changes today. All these have been discussed in detail. Follow up labs ordered. Answered all questions. Follow-up appointment given. Orders: Orders Creatinine Today E83.42 - Hypomagnesemia, I10 - Essential (primary) hypertension Magnesium Today E83.42 - Hypomagnesemia, I10 - Essential (primary) hypertension Electrolytes Today E83.42 - Hypomagnesemia, I10 - Essential (primary) hypertension Blood Urea Nitrogen Today E83.42 - Hypomagnesemia, I10 - Essential (primary) hypertension Electrolytes 6 Weeks E83.42 - Hypomagnesemia, I10 - Essential (primary) hypertension Magnesium 6 Weeks E83.42 - Hypomagnesemia, I10 - Essential (primary) hypertension Medications: New amiloride 5 mg PO DAILY 30 tabs 1RF Coding Level of Care Code Est Pt Level 4 (71740) Diagnoses Hypomagnesemia E83.42 HTN (hypertension) I10 Hypertension type: essential hypertension
[2024-02-02 14:26] VITALS: BP 110/70; PULSE 81; O2SAT 98; BMI 29.1
== END 2024-02-02 14:39 | disposition home or self-care (01) ==
PROVIDERS: PCP Internal Medicine; Visit Provider Internal Medicine Nephrology
DX: E83.42 Hypomagnesemia (principal); I10 Essential (primary) hypertension
CPT/HCPCS: 99214

== ENCOUNTER → 2024-02-02 14:24 | Outpatient (BNVA) | payer MEDICAID, SELFPAY | PROVIDERS: PCP Internal Medicine; Visit Provider Internal Medicine Nephrology | DX: E83.42 Hypomagnesemia (principal); I10 Essential (primary) hypertension | CPT/HCPCS: 99212 ==

== ENCOUNTER 2024-03-06 18:10 | Emergency (ER) | payer MEDICAID, SELFPAY ==
[2024-03-06 18:42] VITALS: BP 134/76; PULSE 81; RESP 18; TEMP 36.6; O2SAT 97; BMI 29.6
--- NOTE | 2024-03-06 18:44 | ED.GENADULT ---
HPI - General Adult General Chief complaint: General Medical Stated complaint: low magnesium level per pt Related Data Home Medications ?Medication ?Instructions ?Recorded ?Confirmed allopurinol 300 mg tablet 300 mg PO BID 08/31/22 08/31/22 amitriptyline 50 mg tablet 50 mg PO BEDTIME 08/31/22 08/31/22 amlodipine 5 mg tablet 5 mg PO DAILY 08/31/22 08/31/22 aspirin 81 mg tablet,delayed 81 mg PO DAILY 08/31/22 08/31/22 release atorvastatin 80 mg tablet 80 mg PO BEDTIME 08/31/22 08/31/22 cholecalciferol (vitamin D3) 25 25 mcg PO DAILY 08/31/22 08/31/22 mcg (1,000 unit) capsule cyanocobalamin (vitamin B-12) 2,000 mcg PO DAILY 08/31/22 08/31/22 1,000 mcg tablet famotidine 40 mg tablet 40 mg PO BID 08/31/22 08/31/22 insulin glargine 100 unit/mL 32 unit subcut QPM 08/31/22 08/31/22 subcutaneous solution (Lantus U-100 Insulin) lisinopril 10 mg tablet 10 mg PO DAILY 08/31/22 08/31/22 metformin 1,000 mg tablet 1,000 mg PO BID 08/31/22 08/31/22 repaglinide 1 mg tablet 1 mg PO TID 08/31/22 08/31/22 insulin lispro 100 unit/mL 30 unit subcut TID PRN 01/03/24 subcutaneous solution Previous Rx's ?Medication ?Instructions ?Recorded magnesium oxide 400 mg PO BID #60 tabs 07/08/23 amiloride 5 mg tablet 5 mg PO DAILY #30 tabs 02/02/24 Allergies Allergy/AdvReac Type Severity Reaction Status Date / Time shellfish derived Allergy Unknown HIVES Verified 03/06/24 18:43 [SHELLFISH DERIVED] shrimp [SHRIMP] Allergy Unknown HIVES Verified 03/06/24 18:43 [facility] Past Medical History Medical History GERD (gastroesophageal reflux disease) Hypomagnesemia IDDM (insulin dependent diabetes mellitus) HTN (hypertension) Gout Family History Family History Other No family history of colorectal cancer Social History Social History Alcohol intake: current Alcohol intake frequency: holidays/special occasions only Alcohol type: beer Patient Tobacco Use Status: Never used Tobacco Advance Directives: No Advance Directives Information Provided: No Do you have a plan to hurt others: No Plan Physical Exam ED Vital Signs: Vital Signs - 24 hr 03/06/24 18:42 Temperature 97.9 F Pulse Rate 81 Respiratory Rate 18 Blood Pressure 134/76 Pulse Oximetry 97 Oxygen Delivery Method Room Air BMI result Body Mass Index 29.6 Course Course Course Narrative: This is a Rapid Medical Examination (RME) performed by Leon Espino PA-C in triage. Full HPI, ROS, assessment and treatment plan per primary provider in the Main ED. 48 yo nigerien speaking male, hx of hypomag requiring repletion, here for eval of intermittent BERG, fatigue, and myalgias x1 week. patient currently takes magnesium oxide, 3 pills in the morning and 3 pills in the evening. He has been seen in our ED multiple times in the past for hypo magnesium requiring repletion. Denies any other complaints at this time. well appearing in triage. exam nonfocal. Plan: labs ordered Reevaluation(s) Reevaluation #1: Patient left the ED without completing treatment Discharge Plan Discharge Clinical Impression: Hypomagnesemia Patient Disposition: Left W/O Completing Treatment Prescriptions: No Action metformin 1,000 mg Tablet 1,000 mg PO BID allopurinol 300 mg Tablet 300 mg PO BID atorvastatin 80 mg Tablet 80 mg PO BEDTIME amlodipine 5 mg Tablet 5 mg PO DAILY cyanocobalamin (vitamin B-12) 1,000 mcg Tablet 2,000 mcg PO DAILY aspirin 81 mg Tablet,Delayed Release (Dr/Ec) 81 mg PO DAILY amitriptyline 50 mg Tablet 50 mg PO BEDTIME lisinopril 10 mg Tablet 10 mg PO DAILY repaglinide 1 mg Tablet 1 mg PO TID Rx Instructions: administer within 30 minutes of a meal or snack famotidine 40 mg Tablet 40 mg PO BID cholecalciferol (vitamin D3) 25 mcg (1,000 unit) Capsule 25 mcg PO DAILY insulin glargine [Lantus U-100 Insulin] 100 unit/mL Solution 32 unit SUBCUT QPM insulin lispro 100 unit/mL solution 30 unit SUBCUT TID PRN Rx Instructions: with meals magnesium oxide 400 mg magnesium tablet 400 mg PO BID Qty: 60 2RF amiloride 5 mg tablet 5 mg PO DAILY Qty: 30 1RF Discharge Date/Time: 03/06/24 20:42
== END 2024-03-06 20:42 | disposition left against medical advice (07) ==
LOC: HO.ED 20:37
PROVIDERS: Emergency Provider Emergency Medicine; PCP Internal Medicine
DX: E83.42 Hypomagnesemia (principal); Z79.899 Other long term (current) drug therapy
CPT/HCPCS: 99281

== ENCOUNTER 2024-03-07 08:41 | Outpatient (AMB) | payer MEDICAID, SELFPAY ==
--- NOTE | 2024-03-07 09:25 | A.OFFVIS_ITS ---
Intake Visit Reasons: hematospermia/prior hematuria eval Intake Note: New patient is present for Hematospermia/Groin Pain/ Testicle Pain Patient was seen years ago By Dr. Romero Blood Thinners: Aspirin Monotype Caster Required: Yes Monotype Caster Language: Romanian Allergies shellfish derived [SHELLFISH DERIVED] Allergy (Unknown, Verified 03/13/24 21:19) HIVES shrimp [SHRIMP] Allergy (Unknown, Verified 03/13/24 21:19) HIVES HPI Comments Details: Roque is a pleasant Romanian-speaking male. He is a patient of Dr. Mackenzie. He seen for the following urologic conditions - hematospermia Romanian translation provided by qualified medical office specialist Prior evaluation for hematuria Reports hematospermia Discussed rate limiting nature of disease UA negative blood Six-month follow-up PFS Medical History GERD (gastroesophageal reflux disease) Hypomagnesemia IDDM (insulin dependent diabetes mellitus) HTN (hypertension) Gout Family History Other No family history of colorectal cancer Social History Alcohol intake: current Alcohol intake frequency: holidays/special occasions only Alcohol type: beer Patient Tobacco Use Status: Never used Tobacco Review of Systems Const Denies chills and Denies fever(s) Card Reports no additional complaints and Denies syncope Resp Denies cough GI Denies abdominal pain and Denies heartburn Reports as per HPI and Denies change in libido Neuro Denies syncope Psych Denies change in libido Endo Denies change in libido Physical Exam Const General: cooperative, healthy appearing, comfortable and no acute distress Orientation/consciousness: patient oriented x3 HEENT Face and sinus: Yes normal facial exam Mouth: moist mucous membranes Neck Neck: Yes normal visual inspection, Yes full ROM and Yes trachea midline Chest Chest palpation & inspection: normal inspection of the chest Resp Effort & Inspection: normal respiratory effort, able to speak in complete sentences and no respiratory distress GI Inspection: Yes normal to inspection Back/Spine/Pelvis Cervical Spine: normal cervical lordosis Thoracic/Lumbar Spine: thoracic and lumbar spine normal to inspection Skin General skin exam: no rashes or lesions noted Neuro General: patient oriented x3, gait normal, tone normal and moves all extremities Extrem General: Yes normal to inspection and Yes capillary refill normal Results AMB Urinalysis, Automated UA Leukoctes 0 Reilly/uL Last Edit by Ashley Carter Madisyn on 03/07/24 09:36 UA Nitrite Negative Last Edit by Ashley Carter A on 03/07/24 09:36 UA Urobilinogen 0.2 mg/dL Last Edit by Ashley Carter A on 03/07/24 09:3 6 UA Protein 30 mg/dL Last Edit by Ashley Carter A on 03/07/24 09:36 UA pH 6.0 Last Edit by Ashley Carter A on 03/07/24 09:36 UA Blood 0 Rolando/uL Last Edit by Ashley Carter [facility] on 03/07/24 09:36 UA Specific [place] 1.015 Last Edit by sAhley Carter A on 03/07/24 09: 36 UA Ketone Negative Last Edit by Ashley Carter [facility] on 03/07/24 09:36 UA Bilirubin 0 mg/dL Last Edit by Ashley Carter A on 03/07/24 09:36 UA Glucose 100 mg/dL Last Edit by Ashley Carter [facility] on 03/07/24 09:36 Results Reviewed Results Reviewed: Laboratory Last Values Urine pH (Auto) 6.0 03/07/24 09:27 Specific [place] (Auto) 1.015 03/07/24 09:27 Urine Protein (Auto) 30 mg/dL 03/07/24 09:27 Glucose (UA)(Auto) 100 mg/dL 03/07/24 09:27 Urine Ketones (Auto) Negative 03/07/24 09:27 Urine Blood (Auto) 0 Rolando/uL 03/07/24 09:27 Urine Nitrite (Auto) Negative 03/07/24 09:27 Urine Bilirubin (Auto) 0 mg/dL 03/07/24 09:27 Urine Urobilinogen (Auto) 0.2 mg/dL 03/07/24 09:27 Leukocyte Esterase (Auto) 0 Reilly/uL 03/07/24 09:27 Assessment & Plan Assessment & Plan (1) Hematospermia: Code(s): R36.1 - Hematospermia Category: Medical Plan 6m f/u Orders: Orders AMB Urinalysis Automated 03/07/24 Z13.9 - Encounter for screening, unspecified Patient Instructions: Imaging studies, laboratory and physical exam results were discussed and reviewed in detail. No major barriers to patient understanding were identified. An opportunity to ask questions regarding the treatment plan was provided. All questions were answered. The patient expressed understanding and agreement with the above treatment plan. The patient is aware they should contact our office by phone for worsening of their current condition or the appearance of new urologic symptoms. Compliance is encouraged with any medications and followup testing that is ordered. It is a privilege to participate in the urologic care of your patient. If you have any questions or concerns regarding treatment for the above conditions, or other urologic issues, please do not hesitate to contact me. The office telephone contact is [phone]. This note is constructed using voice recognition software. While every effort has been made to ensure accuracy field human resources manager errors may have been included. Yours sincerely, Dr Major Edmondson MD, A[facility] - Urology Providers of Expert, Compassionate Care for the Genitourinary System Coding Level of Care Code New Pt Level 3 (51802) Diagnoses Hematospermia R36.1
== END 2024-03-07 10:29 | disposition home or self-care (01) ==
PROVIDERS: PCP Internal Medicine; Referring Provider Family Medicine; Visit Provider Urology
DX: R36.1 Hematospermia (principal)
CPT/HCPCS: 99203

== ENCOUNTER → 2024-03-07 08:41 | Outpatient (BNVA) | payer MEDICAID, SELFPAY | PROVIDERS: PCP Internal Medicine; Visit Provider Urology | DX: R36.1 Hematospermia (principal); Z79.82 Long term (current) use of aspirin | CPT/HCPCS: 81003; 99202 ==

== ENCOUNTER 2024-03-13 21:01 | Emergency (ER) | payer MEDICAID, SELFPAY ==
--- NOTE | 2024-03-13 | ECG_ITS ---
Test Reason : LOW MG Blood Pressure : / mmHG Vent. Rate : 083 BPM Atrial Rate : 083 BPM P-R Int : 162 ms QRS Dur : 092 ms QT Int : 368 ms P-R-T Axes : 065 038 035 degrees QTc Int : 432 ms Normal sinus rhythm Possible Inferior infarct , age undetermined Abnormal ECG When compared with ECG of 11-DEC-2023 19:41, Borderline criteria for Inferior infarct are now Present Referred By: Generic ED Physician Electronically Signed By:Kyler Walsh
[2024-03-13 21:19] VITALS: BP 151/76; PULSE 92; RESP 18; TEMP 36.9; O2SAT 98; BMI 27.8
[2024-03-13 21:27] LABS: MANUAL DIFF FLAG NO
[2024-03-13 21:28] LABS: Basophils Absolute Auto 0.1 X10*3/uL (0.0-0.2); Basophils Percent Auto 0.7 % (0-2); Eosinophils Absolute Auto 0.1 X10*3/uL (0.0-0.4); Eosinophils Percent Auto 1.8 % (0-4); Hemoglobin 13.6 g/dl (14.0-18.0); Imm Gran Abs Auto 0.02 X10*3/uL (0.00-0.03); Imm Gran Pct Auto 0.3 % (0.0-0.4); Lymphocytes Absolute Auto 1.5 X10*3/uL (1.2-4.9); Lymphocytes Percent Auto 21.8 % (20-40); Mean Corpuscular HGB Conc 34.9 g/dl (31.0-36.0); Mean Corpuscular Volume 88.8 fL (80.0-98.0); Mean Platelet Volume 9.8 fL (9.4-12.4); Monocytes Absolute Auto 0.9 X10*3/uL (0.1-1.2); Monocytes Percent Auto 13.2 % (2-11); Neutrophils Absolute Auto 4.2 x10*3/uL (2.0-8.3); Neutrophils Percent Auto 62.2 % (45-73); Platelet Count 248 X10*3/uL (160-400); Red Blood Count 4.39 X10*6/uL (4.60-5.80); Red Cell Distribution Width 12.6 % (11.0-16.0); White Blood Count 6.7 X10*3/uL (4.8-10.8)
[2024-03-13] MEDS: Acetaminophen 325 MG TABLET 975 MG PO (21:32)
[2024-03-13 21:43] LABS: Alanine Aminotransferase 20 U/L (0-40); Albumin Level 4.5 g/dL (3.5-5.0); Alkaline Phosphatase 78 U/L (39-117); Anion Gap 12 (12-20); Aspartate Amino Transferase 15 U/L (5-37); Bilirubin Total 0.3 mg/dL (0.0-1.0); Blood Urea Nitrogen 16 mg/dL (9-16); Calcium 9.7 mg/dL (8.4-10.2); Carbon Dioxide 27 mmol/L (22-29); Chloride 104 mmol/L (96-108); Creatinine Clr Calc Pharmacy 108.7; Estimated Glomerular Filt Rate > 60; Glucose Random 192 mg/dL (60-115); Lipase 28 U/L (8-78); Magnesium 1.7 mg/dL (1.6-2.6); Potassium 3.9 mmol/L (3.3-5.1); Sodium 139 mmol/L (135-145); Total Protein 7.2 g/dL (6.5-8.0)
[2024-03-13 21:53] LABS: Troponin-I High Sensitivity < 2.7 ng/L (<3.5-35.0)
--- NOTE | 2024-03-13 23:33 | ED_ITS ---
HPI - Recheck/Abnormal Lab/Rx General Chief Complaint: Recheck/Abnormal Lab/Rx Stated Complaint: low blood pressure Time Seen by Provider: 03/13/24 22:42 Source: patient and dispensing operator Mode of arrival: ambulatory History of Present Illness ED Provider: Dr Cameron HPI narrative: 48-year-old male who states that he had a scratchy throat/body aches/headache and fatigue and typically this is indicative that his magnesium may be low. Patient denies chest pain or shortness of breath. Related Data Home Medications ?Medication ?Instructions ?Recorded ?Confirmed allopurinol 300 mg tablet 300 mg PO BID 08/31/22 08/31/22 amitriptyline 50 mg tablet 50 mg PO BEDTIME 08/31/22 08/31/22 amlodipine 5 mg tablet 5 mg PO DAILY 08/31/22 08/31/22 aspirin 81 mg tablet,delayed 81 mg PO DAILY 08/31/22 08/31/22 release atorvastatin 80 mg tablet 80 mg PO BEDTIME 08/31/22 08/31/22 cholecalciferol (vitamin D3) 25 25 mcg PO DAILY 08/31/22 08/31/22 mcg (1,000 unit) capsule cyanocobalamin (vitamin B-12) 2,000 mcg PO DAILY 08/31/22 08/31/22 1,000 mcg tablet famotidine 40 mg tablet 40 mg PO BID 08/31/22 08/31/22 insulin glargine 100 unit/mL 32 unit subcut QPM 08/31/22 08/31/22 subcutaneous solution (Lantus U-100 Insulin) lisinopril 10 mg tablet 10 mg PO DAILY 08/31/22 08/31/22 metformin 1,000 mg tablet 1,000 mg PO BID 08/31/22 08/31/22 repaglinide 1 mg tablet 1 mg PO TID 08/31/22 08/31/22 insulin lispro 100 unit/mL 30 unit subcut TID PRN 01/03/24 subcutaneous solution Previous Rx's ?Medication ?Instructions ?Recorded magnesium oxide 400 mg PO BID #60 tabs 07/08/23 amiloride 5 mg tablet 5 mg PO DAILY #30 tabs 02/02/24 Allergies Allergy/AdvReac Type Severity Reaction Status Date / Time shellfish derived Allergy Unknown HIVES Verified 03/13/24 21:19 [SHELLFISH DERIVED] shrimp [SHRIMP] Allergy Unknown HIVES Verified 03/13/24 21:19 Review of Systems 2 Review of Systems: Pertinent positives and negatives as stated in HPI [facility] Past Medical History Source: nursing notes reviewed Medical History GERD (gastroesophageal reflux disease) Hypomagnesemia IDDM (insulin dependent diabetes mellitus) HTN (hypertension) Gout Family History Family History Other No family history of colorectal cancer Social History Social History Alcohol intake: current Alcohol intake frequency: holidays/special occasions only Alcohol type: beer Patient Tobacco Use Status: Never used Tobacco Smoked in Last 30 Days: No Use of substances other than those prescribed or required for medical reasons: No Advance Directives: No Advance Directives Information Provided: No Do you have a plan to hurt others: No Plan Physical Exam 2 Vital Signs: Vital Signs: Last Vital Signs Temp 98.5 F 03/13/24 21:19 Pulse 92 03/13/24 21:19 Resp 18 03/13/24 21:19 BP 151/76 H 03/13/24 21:19 Pulse Ox 98 03/13/24 21:19 O2 Del Method Room Air 03/13/24 21:19 BMI result Body Mass Index 27.8 VITAL SIGNS: Reviewed. GENERAL: Well developed, well nourished, in no acute distress. HEAD: Normocephalic/atraumatic EYES: PERRLA, EOMI EARS: Ext canals without abnormality NOSE: Nares patent bilateral OROPHARYNX: no oral lesions noted, posterior pharynx clear NECK: Supple, no adenopathy LUNGS: Normal breath sounds. No adventitious sounds or accessory muscle use. SpO2<98> CARDIOVASCULAR: Regular rate and rhythm without noted murmurs ABDOMEN: Soft, non-tender, non-distended with bowel sounds. MUSCULOSKELETAL: No tenderness, deformities, or effusions noted on gross inspection. EXTREMITIES: No cyanosis, clubbing or edema. SKIN: Inspection of the skin reveals no rashes NEUROLOGIC: Alert and oriented x 4. Strength and sensation to light touch were grossly intact x 4. Medications Administered Discontinued Medications Generic Name Dose Route Start Last Admin Trade Name Freq PRN Reason Stop Dose Admin Acetaminophen 975 mg 03/13/24 21:26 03/13/24 21:32 Acetaminophen 325 Mg Tablet PO 03/13/24 21:27 975 mg ONCE ONE Administration Medical Decision Making Medical Decision Making [facility] Narrative: 48-year-old male with history and clinical presentation, DDX: Viral illness, low magnesium I reviewed all investigations and hematologic indices are chronically stable without leukocytosis/thrombocytopenia and patient has a normocytic anemia. Chemistry indices are negative for CARY/electrolyte or liver enzyme derangements. Patient has elevated glucose without evidence of DKA or HHS and high sensitivity troponin is undetectable and magnesium level is normal. My interpretation is that patient's symptoms are likely consistent with viral illness, patient states he will check himself for COVID-19 when he returns home. Differential Diagnosis Differential Diagnoses: The differential diagnosis associated with the presentation includes Please see the discussion above Admission/Observation Consideration of admission/observation: Escalation of care including admission/observation considered Please see the discussion above Lab Data [facility] Lab Attestation statement: I reviewed the patient's lab results. Please see the discussion above 03/13/24 21:24 03/13/24 21:24 Labs: Lab Results 03/13/24 Range/Units 21:24 WBC 6.7 (4.8-10.8) X10*3/uL RBC 4.39 L (4.60-5.80) X10*6/uL Hgb 13.6 L (14.0-18.0) g/dl Hct 39.0 L (42.0-52.0) % MCV 88.8 (80.0-98.0) fL MCH 31.0 (27.0-33.0) pg MCHC 34.9 (31.0-36.0) g/dl RDW 12.6 (11.0-16.0) % Plt Count 248 (160-400) X10*3/uL MPV 9.8 (9.4-12.4) fL Immature Gran % (Auto) 0.3 (0.0-0.4) % Neut % (Auto) 62.2 (45-73) % Lymph % (Auto) 21.8 (20-40) % [place] % (Auto) 13.2 H (2-11) % Eos % (Auto) 1.8 (0-4) % Baso % (Auto) 0.7 (0-2) % Lymph # (Auto) 1.5 (1.2-4.9) X10*3/uL [place] # (Auto) 0.9 (0.1-1.2) X10*3/uL Eos # (Auto) 0.1 (0.0-0.4) X10*3/uL Baso # (Auto) 0.1 (0.0-0.2) X10*3/uL Abs Immat Gran (auto) 0.02 (0.00-0.03) X10*3/uL Absolute Neuts (auto) 4.2 (2.0-8.3) x10*3/uL Absolute Nucleated RBC 0.000 (0.0-0.012) X10*3/uL Nucleated RBC % (auto) 0.0 (0.0-0.2) /100WBC Sodium 139 (135-145) mmol/L Potassium 3.9 (3.3-5.1) mmol/L Chloride 104 (96-108) mmol/L Carbon Dioxide 27 (22-29) mmol/L Anion Gap 12 (12-20) BUN 16 (9-16) mg/dL Creatinine 0.91 (0.5-1.4) mg/dL Estim Creat Clear Calc 108.7 Estimated GFR > 60 Random Glucose 192 H (60-115) mg/dL Calcium 9.7 (8.4-10.2) mg/dL Magnesium 1.7 (1.6-2.6) mg/dL Total Bilirubin 0.3 (0.0-1.0) mg/dL AST 15 (5-37) U/L ALT 20 (0-40) U/L Alkaline Phosphatase 78 (39-117) U/L Troponin I High Sens < 2.7 (<3.5-35.0) ng/L Total Protein 7.2 (6.5-8.0) g/dL Albumin 4.5 (3.5-5.0) g/dL Lipase 28 (8-78) U/L Independent Interpretation I performed an independent interpretation of an: EKG Interpretation: Normal sinus rhythm, HR-83, no STEMI, [place]/QRS/QTC is within normal limits. External Record Review External record reviewed: Outpatient record, Prior outpatient labs and Prior outpatient radiology Chronic Conditions Patient?s care impacted by: Diabetes and Hypertension Critical Care Time Critical Care Time Critical Care Time: Yes Total Critical Care Time: 30 Attestation: I personally attest to this time spent taking care of the patient. Discharge Plan Discharge Clinical Impression: Viral syndrome Patient Disposition: Home, Self-Care Instructions: Viral Syndrome (ED) Additional Instructions: Recommend testing yourself for COVID-19 when you get home. Your workup today was otherwise negative for any acute findings to include no evidence of a low magnesium. Do not hesitate to return to the emergency room for any worsening of your symptoms. Prescriptions: No Action metformin 1,000 mg Tablet 1,000 mg PO BID allopurinol 300 mg Tablet 300 mg PO BID atorvastatin 80 mg Tablet 80 mg PO BEDTIME amlodipine 5 mg Tablet 5 mg PO DAILY cyanocobalamin (vitamin B-12) 1,000 mcg Tablet 2,000 mcg PO DAILY aspirin 81 mg Tablet,Delayed Release (Dr/Ec) 81 mg PO DAILY amitriptyline 50 mg Tablet 50 mg PO BEDTIME lisinopril 10 mg Tablet 10 mg PO DAILY repaglinide 1 mg Tablet 1 mg PO TID Rx Instructions: administer within 30 minutes of a meal or snack famotidine 40 mg Tablet 40 mg PO BID cholecalciferol (vitamin D3) 25 mcg (1,000 unit) Capsule 25 mcg PO DAILY insulin glargine [Lantus U-100 Insulin] 100 unit/mL Solution 32 unit SUBCUT QPM insulin lispro 100 unit/mL solution 30 unit SUBCUT TID PRN Rx Instructions: with meals magnesium oxide 400 mg magnesium tablet 400 mg PO BID Qty: 60 2RF amiloride 5 mg tablet 5 mg PO DAILY Qty: 30 1RF Referrals: Antoinette Tobias MD [Primary Care Provider] - Print Language: Azeri
[2024-03-13 23:51] VITALS: BP 131/68; PULSE 85; RESP 16; TEMP 36.9; O2SAT 95
[2024-03-13 23:57] VITALS: BP 131/68; PULSE 85; RESP 16; TEMP 36.9; O2SAT 95
== END 2024-03-13 23:58 | disposition home or self-care (01) ==
PROVIDERS: Emergency Provider Student in an Organized Health Care Education/Training Program; PCP Internal Medicine
DX: B34.9 Viral infection, unspecified (principal); R51.9 Headache, unspecified; R53.81 Other malaise; E11.9 Type 2 diabetes mellitus without complications; I10 Essential (primary) hypertension; Z79.4 Long term (current) use of insulin
CPT/HCPCS: 36415; 80053; 83690; 83735; 84484; 85025; 93005; 99283; 99285

== ENCOUNTER → 2024-03-13 21:33 | Outpatient (BNV) | payer MEDICAID, SELFPAY | PROVIDERS: Emergency Provider Student in an Organized Health Care Education/Training Program; PCP Internal Medicine; Visit Provider Internal Medicine Cardiovascular Disease | DX: R94.31 Abnormal electrocardiogram [ECG] [EKG] (principal) | CPT/HCPCS: 93010 ==

== ENCOUNTER 2024-06-18 17:48 | Emergency (ER) | payer MEDICAID, SELFPAY ==
[2024-06-18 17:58] VITALS: BP 123/71; PULSE 89; RESP 18; TEMP 36.4; O2SAT 97; BMI 29.7
--- NOTE | 2024-06-18 18:15 | ED_ITS ---
HPI - General Adult General Chief complaint: Recheck/Abnormal Lab/Rx Stated complaint: Low magnesium? Time Seen by Provider: 06/18/24 23:17 Source: patient and old records reviewed Mode of arrival: ambulatory Limitations: no limitations History of Present Illness ED Provider: ISMA CODY narrative: 49 yo male with PMH of HTN, DM, hypomagnesemia here with c/o 3 days of muscle aches and feeling weak he suspects his magnesium is off. He is compliant with all medications. He denies trauma. He denies fever. He states he has this frequently. He follows up with his doctors. He also notes a chronic rash on R trunk that is bothersome to him. It is not itchy MD complaint: muscle cramps, weakness Onset (ago): day(s) (3) Radiation: non-radiation Severity: mild Quality: aching Pain Consistency: intermittent Relieving factors: none Exacerbating factors: movement Associated symptoms: rash Treatments prior to arrival: none Related Data Home Medications ?Medication ?Instructions ?Recorded ?Confirmed allopurinol 300 mg tablet 300 mg PO BID 08/31/22 08/31/22 amitriptyline 50 mg tablet 50 mg PO BEDTIME 08/31/22 08/31/22 amlodipine 5 mg tablet 5 mg PO DAILY 08/31/22 08/31/22 aspirin 81 mg tablet,delayed 81 mg PO DAILY 08/31/22 08/31/22 release atorvastatin 80 mg tablet 80 mg PO BEDTIME 08/31/22 08/31/22 cholecalciferol (vitamin D3) 25 25 mcg PO DAILY 08/31/22 08/31/22 mcg (1,000 unit) capsule cyanocobalamin (vitamin B-12) 2,000 mcg PO DAILY 08/31/22 08/31/22 1,000 mcg tablet famotidine 40 mg tablet 40 mg PO BID 08/31/22 08/31/22 insulin glargine 100 unit/mL 32 unit subcut QPM 08/31/22 08/31/22 subcutaneous solution (Lantus U-100 Insulin) lisinopril 10 mg tablet 10 mg PO DAILY 08/31/22 08/31/22 metformin 1,000 mg tablet 1,000 mg PO BID 08/31/22 08/31/22 repaglinide 1 mg tablet 1 mg PO TID 08/31/22 08/31/22 insulin lispro 100 unit/mL 30 unit subcut TID PRN 01/03/24 subcutaneous solution Previous Rx's ?Medication ?Instructions ?Recorded magnesium oxide 400 mg PO BID #60 tabs 07/08/23 amiloride 5 mg tablet 5 mg PO DAILY #30 tabs 02/02/24 ketoconazole 2 % shampoo 1 appl topical 3XW #120 mL 06/18/24 Allergies Allergy/AdvReac Type Severity Reaction Status Date / Time shellfish derived Allergy Unknown HIVES Verified 06/18/24 18:04 [SHELLFISH DERIVED] shrimp [SHRIMP] Allergy Unknown HIVES Verified 06/18/24 18:04 Review of Systems 2 Review of Systems: Constitutional : No Fever, No Chills, No Fatigue ENT/Mouth : No sore throat, No Rhinorrhea Eyes: No Eye Pain, No Swelling, No Redness Cardiovascular : No Chest Pain, No SOB, No Dyspnea on Exertion Respiratory : No Cough, No Sputum Gastrointestinal : No Nausea, No Vomiting, No Diarrhea, No abdominal Pain Genitourinary : No Dysuria, No Urinary Frequency, No Hematuria, Musculoskeletal : No joint pain, pos Myalgias, No Joint Swelling Skin : No Skin Lesions, No rash Neuro : pos Weakness, No Numbness, No Dizziness, no Headache Psych : No Anxiety/Panic, No Depression Heme/Lymph: No Bruising, No Bleeding,No Lymphadenopathy Endocrine : No Polyuria, No Polydipsia All other systems reviewed and are negative [facility] Past Medical History Attestation statement: The following information was validated with the patient. Source: old records reviewed Medical History GERD (gastroesophageal reflux disease) Hypomagnesemia IDDM (insulin dependent diabetes mellitus) HTN (hypertension) Gout Family History Family History Other No family history of colorectal cancer Social History Social History Alcohol intake: current Alcohol intake frequency: holidays/special occasions only Alcohol type: beer Patient Tobacco Use Status: Never used Tobacco Advance Directives: No Advance Directives Information Provided: No Physical Exam ED Vital Signs: Vital Signs - 24 hr 06/18/24 17:58 Temperature 97.5 F Pulse Rate 89 Respiratory Rate 18 Blood Pressure 123/71 Pulse Oximetry 97 Oxygen Delivery Method Room Air BMI result Body Mass Index 29.7 Appearance: Alert. Oriented X3. No acute distress. Eyes: Pupils equal, round and reactive to light. ENT: Pharynx normal. Neck: Normal inspection. Neck supple. CVS: Normal heart rate and rhythm. Pulses normal. Respiratory: No respiratory distress. Breath sounds normal. Abdomen: Soft and nontender. Skin: Skin warm and dry. Normal skin color. Normal skin turgor. on R trunk there is a hyperpigmented brown flat rash noted ? tinea versicolor Extremities: No lower extremity edema. No calf ttp Neuro: Oriented X 3. No motor deficit. No sensory deficit. Course Course Course Narrative: RME performed by Louann Randolph PA-C. Patient is a 49 year old assigned male at presenting to the emergency department with concerns of a low magnesium. Patient states that he often has low magnesium and he feels like it is low again. Detailed physical exam and review of systems are deferred to the system configuration specialist. EKG, labs, swabs ordered. Patient placed back in the waiting room pending room availability and results. Medical Decision Making Medical Decision Making MDM Narrative: 49 yo male with PMH of HTN, DM, hypomagnesemia here with c/o aches and weakness that he feel is his prior hypomagnesemia. At this time will obtain labs, EKG and replete his IV magnesium. He also notes that he has chronic trunk rash - it does appear to be tinea versicolor will try ketoconazole shampoo. He can be discharged home after repletion. Differential Diagnosis Differential Diagnoses: The differential diagnosis associated with the presentation includes hypomagnesemia, lyte abnormality Admission/Observation Consideration of admission/observation: Escalation of care including admission/observation considered can replete and go home Lab Data [facility] Lab Attestation statement: I reviewed the patient's lab results. 06/18/24 18:57 06/18/24 18:57 Labs: Lab Results 06/18/24 Range/Units 18:57 WBC 8.9 (4.8-10.8) X10*3/uL RBC 4.23 L (4.60-5.80) X10*6/uL Hgb 13.2 L (14.0-18.0) g/dl Hct 38.0 L (42.0-52.0) % MCV 89.8 (80.0-98.0) fL MCH 31.2 (27.0-33.0) pg MCHC 34.7 (31.0-36.0) g/dl RDW 12.7 (11.0-16.0) % Plt Count 249 (160-400) X10*3/uL MPV 10.5 (9.4-12.4) fL Immature Gran % (Auto) 0.2 (0.0-0.4) % Neut % (Auto) 71.9 (45-73) % Lymph % (Auto) 17.2 L (20-40) % [place] % (Auto) 8.1 (2-11) % Eos % (Auto) 1.6 (0-4) % Baso % (Auto) 1.0 (0-2) % Lymph # (Auto) 1.5 (1.2-4.9) X10*3/uL [place] # (Auto) 0.7 (0.1-1.2) X10*3/uL Eos # (Auto) 0.1 (0.0-0.4) X10*3/uL Baso # (Auto) 0.1 (0.0-0.2) X10*3/uL Abs Immat Gran (auto) 0.02 (0.00-0.03) X10*3/uL Absolute Neuts (auto) 6.4 (2.0-8.3) x10*3/uL Absolute Nucleated RBC 0.000 (0.0-0.012) X10*3/uL Nucleated RBC % (auto) 0.0 (0.0-0.2) /100WBC Sodium 142 (135-145) mmol/L Potassium 4.8 D (3.3-5.1) mmol/L Chloride 104 (96-108) mmol/L Carbon Dioxide 25 (22-29) mmol/L Anion Gap 18 (12-20) BUN 22 H (9-16) mg/dL Creatinine 1.00 (0.5-1.4) mg/dL Estim Creat Clear Calc 94.6 Estimated GFR > 60 Random Glucose 142 H (60-115) mg/dL Calcium 10.1 (8.4-10.2) mg/dL Magnesium 1.4 L* (1.6-2.6) mg/dL Total Bilirubin 0.3 (0.0-1.0) mg/dL AST 16 (5-37) U/L ALT 30 (0-40) U/L Alkaline Phosphatase 62 (39-117) U/L Troponin I High Sens < 2.7 (<3.5-35.0) ng/L Total Protein 6.9 (6.5-8.0) g/dL Albumin 4.3 (3.5-5.0) g/dL Influenza Type A (PCR) NEGATIVE (Negative) Influenza Type B (PCR) NEGATIVE (Negative) RSV RNA Qual (PCR) NEGATIVE (Negative) SARS-CoV-2 RNA (RT-PCR) NEGATIVE (Negative) Independent Interpretation I performed an independent interpretation of an: EKG Interpretation: Rate: 71 Rhythm: NSR [place]: normal Normal P waves. Normal KETAN. Normal QRS complex. ST T wave : normal no CHENG qTC: 395 prior studies: normal no acute ischemia The study has been interpreted contemporaneously by me. . External Record Review External record reviewed: Inpatient record Prescription Management I considered prescription management with: Other Discharge Plan Discharge Clinical Impression: Hypomagnesemia Patient Disposition: Home, Self-Care Instructions: Hypomagnesemia (ED) Additional Instructions: continue your medications, return for any worsening symptoms or concerns. repleted magnesium today 1.4 on arrival follow up with your doctor nonspecific rash could be fungal - start on therapy ketoconazole 2% shampoo apply to rash and then leave on for 5 minutes then rinse off - do the same for 3 days in a row Prescriptions: New ketoconazole 2 % shampoo 1 appl topical 3XW Qty: 120 0RF Rx Instructions: leave on rash for 5 minutes then wash off No Action metformin 1,000 mg Tablet 1,000 mg PO BID allopurinol 300 mg Tablet 300 mg PO BID atorvastatin 80 mg Tablet 80 mg PO BEDTIME amlodipine 5 mg Tablet 5 mg PO DAILY cyanocobalamin (vitamin B-12) 1,000 mcg Tablet 2,000 mcg PO DAILY aspirin 81 mg Tablet,Delayed Release (Dr/Ec) 81 mg PO DAILY amitriptyline 50 mg Tablet 50 mg PO BEDTIME lisinopril 10 mg Tablet 10 mg PO DAILY repaglinide 1 mg Tablet 1 mg PO TID Rx Instructions: administer within 30 minutes of a meal or snack famotidine 40 mg Tablet 40 mg PO BID cholecalciferol (vitamin D3) 25 mcg (1,000 unit) Capsule 25 mcg PO DAILY insulin glargine [Lantus U-100 Insulin] 100 unit/mL Solution 32 unit SUBCUT QPM insulin lispro 100 unit/mL solution 30 unit SUBCUT TID PRN Rx Instructions: with meals magnesium oxide 400 mg magnesium tablet 400 mg PO BID Qty: 60 2RF amiloride 5 mg tablet 5 mg PO DAILY Qty: 30 1RF Print Language: Pashto
--- NOTE | 2024-06-18 18:15 | ECG_ITS ---
Test Reason : ABNORMAL LABS Blood Pressure : / mmHG Vent. Rate : 071 BPM Atrial Rate : 071 BPM P-R Int : 150 ms QRS Dur : 086 ms QT Int : 364 ms P-R-T Axes : 048 -03 026 degrees QTc Int : 395 ms Normal sinus rhythm Normal ECG When compared with ECG of 13-MAR-2024 21:33, Borderline criteria for Inferior infarct are no longer Present Referred By: Louann Randolph Electronically Signed By:MUNIR POTTS
[2024-06-18 19:03] LABS: MANUAL DIFF FLAG NO
[2024-06-18 19:05] LABS: Basophils Absolute Auto 0.1 X10*3/uL (0.0-0.2); Eosinophils Absolute Auto 0.1 X10*3/uL (0.0-0.4); Eosinophils Percent Auto 1.6 % (0-4); Hemoglobin 13.2 g/dl (14.0-18.0); Imm Gran Abs Auto 0.02 X10*3/uL (0.00-0.03); Imm Gran Pct Auto 0.2 % (0.0-0.4); Lymphocytes Absolute Auto 1.5 X10*3/uL (1.2-4.9); Lymphocytes Percent Auto 17.2 % (20-40); Mean Corpuscular HGB Conc 34.7 g/dl (31.0-36.0); Mean Corpuscular Hemoglobin 31.2 pg (27.0-33.0); Mean Corpuscular Volume 89.8 fL (80.0-98.0); Mean Platelet Volume 10.5 fL (9.4-12.4); Monocytes Absolute Auto 0.7 X10*3/uL (0.1-1.2); Monocytes Percent Auto 8.1 % (2-11); Neutrophils Absolute Auto 6.4 x10*3/uL (2.0-8.3); Neutrophils Percent Auto 71.9 % (45-73); Platelet Count 249 X10*3/uL (160-400); Red Blood Count 4.23 X10*6/uL (4.60-5.80); Red Cell Distribution Width 12.7 % (11.0-16.0); White Blood Count 8.9 X10*3/uL (4.8-10.8)
[2024-06-18 19:28] LABS: Troponin-I High Sensitivity < 2.7 ng/L (<3.5-35.0)
[2024-06-18 19:31] LABS: Alanine Aminotransferase 30 U/L (0-40); Albumin Level 4.3 g/dL (3.5-5.0); Alkaline Phosphatase 62 U/L (39-117); Anion Gap 18 (12-20); Aspartate Amino Transferase 16 U/L (5-37); Bilirubin Total 0.3 mg/dL (0.0-1.0); Blood Urea Nitrogen 22 mg/dL (9-16); Calcium 10.1 mg/dL (8.4-10.2); Carbon Dioxide 25 mmol/L (22-29); Chloride 104 mmol/L (96-108); Creatinine Clr Calc Pharmacy 94.6; Estimated Glomerular Filt Rate > 60; Glucose Random 142 mg/dL (60-115); Magnesium 1.4 mg/dL (1.6-2.6); Potassium 4.8 mmol/L (3.3-5.1); Sodium 142 mmol/L (135-145); Total Protein 6.9 g/dL (6.5-8.0)
[2024-06-18 19:42] LABS: Influenza A PCR NEGATIVE (Negative); Influenza B PCR NEGATIVE (Negative); Resp Syncy Virus RNA Qual PCR NEGATIVE (Negative); SARS COV2 PCR INHOUSE NEGATIVE (Negative)
[2024-06-18] MEDS: Magnesium Sulfate/H2O 2 GM/50 ML PIGGYBACK IV (23:44)
[2024-06-19] VITALS: BP 141/72; PULSE 68; RESP 16; TEMP 36.4; O2SAT 98
[2024-06-19 01:48] VITALS: BP 141/72; PULSE 68; RESP 16; TEMP 36.4; O2SAT 98
== END 2024-06-19 01:50 | disposition home or self-care (01) ==
PROVIDERS: Physician Assistant Medical; Emergency Provider Emergency Medicine; PCP Internal Medicine
DX: E83.42 Hypomagnesemia (principal); M79.10 Myalgia, unspecified site; I10 Essential (primary) hypertension; E11.9 Type 2 diabetes mellitus without complications; R21 Rash and other nonspecific skin eruption; M10.9 Gout, unspecified; K21.9 Gastro-esophageal reflux disease without esophagitis; Z79.899 Other long term (current) drug therapy; Z79.4 Long term (current) use of insulin; Z03.818 Encounter for observation for suspected exposure to other biological agents ruled out
CPT/HCPCS: 0241U; 36415; 80053; 83735; 84484; 85025; 93005; 96374; 99284; 99285; J3475